=== PATIENT | female | born 1970 | race Caucasian/White ===

== ENCOUNTER 2016-10-10 21:02 | Emergency (ER) | payer OTHER ==
[~2016-10-10] VITALS: Ht 177.8 cm; Wt 80.4 kg
[~2016-10-10 21:02] MED LIST: TRAM-453 PO
[2016-10-10 21:04] VITALS: TEMP 36.8; Ht 177.8 cm; Wt 80.4 kg
[2016-10-10 21:52] VITALS: BP 125/73; PULSE 86; O2SAT 98
--- NOTE | 2016-10-10 22:44 | EMERGENCY ROOM VISIT NOTE ---
History First contact with patient: 21:12 Chief Complaint: ARM PAIN Stated Complaint: PAIN IN RIGHT ARM History of Present Illness The patient is a 46 year old female who presents to the Emergency Room with complaints of pain radiating from her neck all the way down into the hand. She reports a cold sensation and numbness of the right hand. The patient does report a history of diabetes and peripheral neuropathy. 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 She does not believe that she has escalated her activities with practice lately. She pulls a 35 pound draw string. She does not recall any recent injury to the neck or shoulder, and also denies any prior history of previous injuries or chronic neck or shoulder pain. The patient does not believe that the pain is worsened with movement of the neck. Movement of the shoulder worsens her discomfort. She rates her pain a 7 out of 10. The patient is right-hand- dominant. The patient sleeps on her left side. Review of Systems 10 system review was performed and was negative except for pertinent positives and negatives as indicated in history of present illness Past Medical/Surgical History Medical Problems: (1) Chest pain (2) Coronary artery disease (3) Diabetes mellitus type 2 in nonobese (4) Dyslipidemia (5) Hypothyroidism (6) Neuropathy (7) TIA (transient ischemic attack) (8) UTI (urinary tract infection) Surgical Problems: (1) History of arthroscopy of knee (2) History of tubal ligation Family History FH: hypertension FH: lung disease FHx: cancer FHx: diabetes FHx: gallbladder disease FHx: heart disease Social History Smoking Status: Current Every Day Smoker Alcohol Use: none Drug Use: none Marital Status: in relationship Housing Status: lives with significant other Occupation Status: unemployed Current/Historical Medications Scheduled Aspirin (Aspirin Ec), 81 MG PO DAILY Atorvastatin (Lipitor), 80 MG PO DAILY Insulin Aspart (novoLOG INSULIN PUMP ), 1 EA N/A UD Levothyroxine Sodium (Levothyroxine Sodium), 200 MCG PO DAILY Sertraline (Zoloft), 25 MG PO HS Scheduled PRN Lorazepam (Lorazepam), 0.5 MG PO TID PRN for Anxiety Allergies Coded Allergies: Adhesives (Verified Allergy, Mild, 06/29/16) Physical Exam Vital Signs Date Time Temp Pulse Resp B/P Pulse Ox O2 Delivery O2 Flow Rate FiO2 10/10/16 21:52 86 18 125/73 98 10/10/16 21:04 36.8 100 18 146/80 95 Room Air Pain Rating (0-10): 7.0 Physical Exam CONSTITUTIONAL: Healthy and well nourished. Alert and oriented X 3 with positive affect. HEENT: Normocephalic, atraumatic. Pupils equal, round and reactive. NECK: Full active range of motion without discomfort. Patient has no tenderness to palpation of the cervical musculature. RESPIRATORY: Clear to auscultation bilaterally with no wheezing, crackles, rhonchi or stridor. CARDIOVASCULAR: Regular rate and rhythm with no murmurs, rubs or gallops. GASTROINTESTINAL: Bowel sounds present in all quadrants. MUSCULOSKELETAL: Examination shows mild to moderate discomfort with range of motion of the shoulder in full abduction, forward flexion and crossover. Negative apprehension test. No tenderness to palpation through the bicipital groove. Negative drop arm test. No tenderness to palpation through the biceps or triceps muscles. Distal pulses are intact. Equal hand hairspring setter bilaterally. INTEGUMENTARY: No rash or other significant dermatologic conditions noted. NEUROLOGIC: Cranial nerves II-XII grossly intact. No focal neurologic deficits noted. Right hand median, radial and ulnar motor and sensory are intact. Medical Decision & Procedures ED Course Patient history and physical exam were performed. Nurse's notes were reviewed. Patient history and clinical exam findings are consistent with an axillary/ brachial plexitis. The patient was encouraged to limit her activities for now. Ibuprofen and Tylenol in alternating fashion for pain. She was also encouraged to intermittently apply ice to the shoulder. The patient was given contact information for [facility] for further reevaluation and management. The patient was happy with plan of care, voice understanding of all discharge instructions, and rated her discomfort a 5 out of 10 at the time of discharge. She refused any stronger prescription analgesics. Medical Decision Impression Primary Impression: Right brachial plexitis Departure Information Dispostion Home / Self-Care Referrals Robert Portillo M.D. Forms HOME CARE DOCUMENTATION FORM, IMPORTANT VISIT INFORMATION Patient Instructions My [facility] [employer] Additional Instructions Intermittently apply ice to the shoulder. Ibuprofen 800 mg and/or Tylenol 1000 mg every 8 hours. You may also alternate these medications for more effective pain relief: Ibuprofen --4 HRS--> Tylenol --4 HRS--> ibuprofen --4 HRS--> Tylenol .... Avoid further practicing until symptoms improve. Suggest follow-up with [facility] for further reevaluation and management.
[2017-01-10] MEDS ORDERED: OXYC1TAB3 PO (20:08)
[2017-01-30] MEDS ORDERED: TRAM-10 PO (13:22)
[2017-01-30] MEDS ORDERED: INSPMPNVLG (17:30)
[2017-01-30] MEDS ORDERED: ASPI81TA28 PO (19:04)
[2017-02-19] MEDS ORDERED: GABA-113 PO (14:11)
[2017-03-07] MEDS ORDERED: OXYC-57 PO (12:26)
== END 2016-10-10 21:52 | disposition home or self-care (01) ==
LOC: C.EDD 21:38
DX: G54.0 Brachial plexus disorders (principal); E11.43 Type 2 diabetes mellitus with diabetic autonomic (poly)neuropathy; I25.10 Atherosclerotic heart disease of native coronary artery without angina pectoris; E78.5 Hyperlipidemia, unspecified; E03.9 Hypothyroidism, unspecified; Z86.73 Personal history of transient ischemic attack (TIA), and cerebral infarction without residual deficits; Z87.440 Personal history of urinary (tract) infections; Z98.51 Tubal ligation status; Z83.3 Family history of diabetes mellitus; Z82.49 Family history of ischemic heart disease and other diseases of the circulatory system; F17.210 Nicotine dependence, cigarettes, uncomplicated; Z79.82 Long term (current) use of aspirin; Z79.4 Long term (current) use of insulin; Z79.899 Other long term (current) drug therapy

== ENCOUNTER 2016-10-15 12:59 | Emergency (ER) | payer OTHER ==
[~2016-10-15] VITALS: Ht 177.8 cm; Wt 81.4 kg
[2016-10-15 13:01] VITALS: TEMP 36.7; Ht 177.8 cm; Wt 81.4 kg
[2016-10-15] MEDS ORDERED: IBUP-1050 PO (13:22)
[2016-10-15] MEDS ORDERED: ACET325T96 PO (13:22)
[2016-10-15] MEDS ORDERED: OXYCODONE HCL IR 5 MG TAB (IMMEDIATE RELEASE) PO STA (13:56)
--- NOTE | 2016-10-15 15:10 | DIAGNOSTIC IMAGING REPORT ---
LEFT LOWER EXTREMITY VENOUS DOPPLER HISTORY: Left posterior thigh/leg pain COMPARISON STUDY: None. FINDINGS: There is normal compressibility, flow, and augmentation within the left lower extremity deep venous system. IMPRESSION: No DVT within the left lower extremity. Electronically signed by: Oliver Muro M.D. 10/15/2016 3:09 PM Dictated Date/Time: 10/15/2016 3:09 PM
[2016-10-15 15:31] VITALS: BP 129/79; PULSE 80; O2SAT 96
--- NOTE | 2016-10-15 15:54 | EMERGENCY ROOM VISIT NOTE ---
History First contact with patient: 13:53 Chief Complaint: LEG PAIN,LEG INJURY Stated Complaint: LEFT UPPER LEG PAIN/CAN'T SIT, WALK OR LAY History of Present Illness The patient is a 46 year old female who presents to the Emergency Room with complaints of persistent left posterior leg and thigh pain. The patient reports that she is currently in physical therapy for her hamstrings. The patient has had this discomfort for the past 3 months, and has been in therapy for 2 weeks. The patient reports that today her pain is the worst that it is ever been. She denies any significant lower back pain. She has had no paresthesias or numbness of the left lower extremity. She denies any prior history of DVT. She rates her discomfort a 10 out of 10. Review of Systems 10 system review was performed and was negative except for pertinent positives and negatives as indicated in history of present illness Past Medical/Surgical History Medical Problems: (1) Chest pain (2) Coronary artery disease (3) Diabetes mellitus type 2 in nonobese (4) Dyslipidemia (5) Hypothyroidism (6) Kidney disease, chronic, stage II (GFR 60-89 ml/min) (7) Neuropathy (8) TIA (transient ischemic attack) (9) UTI (urinary tract infection) Surgical Problems: (1) History of arthroscopy of knee (2) History of arthroscopy of right knee (3) History of tubal ligation (4) History of tubal ligation Family History FH: hypertension FH: lung disease FHx: cancer FHx: diabetes FHx: gallbladder disease FHx: heart disease Social History Smoking Status: Current Every Day Smoker Alcohol Use: none Drug Use: none Marital Status: in relationship Housing Status: lives with significant other Occupation Status: unemployed Current/Historical Medications Scheduled Aspirin (Aspirin Ec), 81 MG PO DAILY Atorvastatin (Lipitor), 80 MG PO DAILY Ibuprofen (Advil), 200-600 MG PO Q4H Insulin Aspart (novoLOG INSULIN PUMP ), 1 EA N/A UD Levothyroxine Sodium (Levothyroxine Sodium), 200 MCG PO DAILY Sertraline (Zoloft), 25 MG PO HS Scheduled PRN Lorazepam (Lorazepam), 0.5 MG PO TID PRN for Anxiety Tramadol (Ultram), 50 MG PO Q4H PRN for Pain Miscellaneous Medications Acetaminophen Tab (Tylenol), 325 MG PO Allergies Coded Allergies: Adhesives (Verified Allergy, Mild, 2/5/17) Physical Exam Vital Signs Date Time Temp Pulse Resp B/P Pulse Ox O2 Delivery O2 Flow Rate FiO2 10/15/16 15:31 80 18 129/79 96 10/15/16 14:44 81 18 126/77 97 Room Air 10/15/16 13:01 36.7 91 18 148/83 98 Room Air Physical Exam CONSTITUTIONAL: Healthy and well nourished. Alert and oriented X 3 with positive affect. Patient appears in moderate discomfort from pain. HEENT: Normocephalic, atraumatic. Pupils equal, round and reactive. NECK: Full active range of motion without discomfort. RESPIRATORY: Clear to auscultation bilaterally with no wheezing, crackles, rhonchi or stridor. CARDIOVASCULAR: Regular rate and rhythm with no murmurs, rubs or gallops. MUSCULOSKELETAL: Examination of the left extremity does not show any obvious soft tissue edema. She is tender through the proximal posterior calf, through the popliteal space and into the posterior calf. Negative Homans sign. No popliteal masses. Pedal pulses are intact. No tenderness to palpation about the knee. Negative logroll. Negative straight leg raise. INTEGUMENTARY: No rash or other significant dermatologic conditions noted. NEUROLOGIC: Left foot and toes are sensory intact. Medical Decision & Procedures ER Provider Diagnostic Interpretation: Venous ultrasound of the left lower extremity is negative for DVT. Radiologist report is as follows: LEFT LOWER EXTREMITY VENOUS DOPPLER HISTORY: Left posterior thigh/leg pain COMPARISON STUDY: None. FINDINGS: There is normal compressibility, flow, and augmentation within the left lower extremity deep venous system. IMPRESSION: No DVT within the left lower extremity. Medications Administered Medications (Trade) Dose Ordered Sig/Rodri Route Start Time Stop Time Status Last Admin Dose Admin Oxycodone HCl (Roxicodone Immediate Rel Tab) 5 mg NOW STAT PO 10/15/16 13:56 10/15/16 13:58 DC 10/15/16 14:05 5 MG ED Course Patient history and physical exam were performed. Nurse's notes were reviewed. Vital signs were reviewed and were normal. The patient was administered OxyIR 5 mg after she reports that she has a ride. Venous ultrasound of the left lower extremity was negative for DVT. The patient was asked if she can crutches at home. She initially thought that she had, but extent family and discovered that they were unable to find crutches. Crutches were dispensed, and the patient was encouraged to remain limited weightbearing until symptoms improve. I also suggested that she follow-up with her family doctor to discuss orthopedic referral since she has had ongoing pain for the past several months. The patient was advised that her pain should quickly improve if she uses her crutches. She should still have some tramadol at home as needed for pain, and was encouraged to alternate ibuprofen and Tylenol for baseline pain relief. The patient voiced understanding of all discharge instructions, was happy with plan of care, and rated her discomfort a 4 out of 10 at the time of discharge. Medical Decision Impression Primary Impression: Pain of left lower extremity Departure Information Referrals Noelle Rob D.O. (PCP) Patient Instructions My [facility]
[2017-01-10] MEDS ORDERED: OXYC1TAB3 PO (20:08)
[2017-01-30] MEDS ORDERED: TRAM-10 PO (13:22)
[2017-01-30] MEDS ORDERED: INSPMPNVLG (17:30)
[2017-01-30] MEDS ORDERED: ASPI81TA28 PO (19:04)
[2017-02-19] MEDS ORDERED: GABA-113 PO (14:11)
[2017-03-07] MEDS ORDERED: OXYC-57 PO (12:26)
== END 2016-10-15 15:33 | disposition home or self-care (01) ==
LOC: C.EDB 13:00 → C.EDD 15:33
DX: M79.652 Pain in left thigh (principal); I25.10 Atherosclerotic heart disease of native coronary artery without angina pectoris; E11.22 Type 2 diabetes mellitus with diabetic chronic kidney disease; N18.2 Chronic kidney disease, stage 2 (mild); E78.5 Hyperlipidemia, unspecified; E03.9 Hypothyroidism, unspecified; G62.9 Polyneuropathy, unspecified; F17.200 Nicotine dependence, unspecified, uncomplicated; Z86.73 Personal history of transient ischemic attack (TIA), and cerebral infarction without residual deficits; Z82.49 Family history of ischemic heart disease and other diseases of the circulatory system; Z83.3 Family history of diabetes mellitus; Z79.82 Long term (current) use of aspirin; Z79.4 Long term (current) use of insulin

== ENCOUNTER 2017-01-19 08:18 | Emergency (ER) | payer OTHER ==
[~2017-01-19 08:18] MED LIST changes: +OXYC1TAB3 PO; -TRAM-453 PO
[2017-01-19 08:20] VITALS: TEMP 36.7; Ht 177.8 cm
[2017-01-19] MEDS ORDERED: ONDANSETRON INJ 2 MG/ML 2 ML VIAL IV STA (08:34)
[2017-01-19] MEDS ORDERED: KETOROLAC TROMETHAMINE 30 MG/ML VIAL IV STA (08:34)
[2017-01-19] MEDS ORDERED: MoRPHine SULFATE 10 MG/ML CARP/VIAL IV STA (08:34)
[2017-01-19] MEDS ORDERED: DEXAMETHASONE SOD INJ 10 MG/ML VIAL IV ONE (08:45)
[2017-01-19] MEDS ORDERED: MoRPHine SULFATE 4 MG/ML 1 ML CARP\\VIAL IV STA (09:28)
[2017-01-19 09:47] VITALS: BP 132/91; PULSE 88; O2SAT 99
[2017-01-19] MEDS ORDERED: OXYC1TAB3 PO (10:09)
--- NOTE | 2017-01-19 10:11 | EMERGENCY ROOM VISIT NOTE ---
History First contact with patient: 08:28 Chief Complaint: LEG PAIN,LEG INJURY Stated Complaint: CAN'T WALK LEFT SIDE History of Present Illness The patient is a 46 year old female who presents to the Emergency Room with complaints of severe left leg pain. The patient states that she has a bulging disc which is hitting a nerve in her lumbar spine. She is currently under the care of Dr. elder for this problem. He is going to inject her back on Sunday. If this does not work she will be evaluated for possible surgery. The patient states that she has tried oral steroids and physical therapy in the past without any relief of the pain. The patient states she normally has pain in the left buttocks radiating down the leg but today it is much worse and she is unable to put weight on her left leg. The patient denies any loss of bowel or bladder control. The patient denies any saddle anesthesia. The patient states that she does not have any pain medication at home to take. Review of Systems 6 system review was performed and was negative unless stated otherwise in history of present illness. Past Medical/Surgical History Medical Problems: (1) Chest pain (2) Coronary artery disease (3) Diabetes mellitus type 2 in nonobese (4) Dyslipidemia (5) Hypothyroidism (6) Kidney disease, chronic, stage II (GFR 60-89 ml/min) (7) Neuropathy (8) TIA (transient ischemic attack) (9) UTI (urinary tract infection) Surgical Problems: (1) History of arthroscopy of knee (2) History of arthroscopy of right knee (3) History of tubal ligation (4) History of tubal ligation Family History FH: hypertension FH: lung disease FHx: cancer FHx: diabetes FHx: gallbladder disease FHx: heart disease Social History Smoking Status: Current Every Day Smoker Alcohol Use: none Drug Use: none Marital Status: in relationship Housing Status: lives with significant other Occupation Status: unemployed Current/Historical Medications Scheduled Aspirin (Aspirin Ec), 81 MG PO DAILY Atorvastatin (Lipitor), 80 MG PO DAILY Insulin Aspart (novoLOG INSULIN PUMP ), 1 EA N/A UD Levothyroxine Sodium (Levothyroxine Sodium), 200 MCG PO DAILY Sertraline (Zoloft), 25 MG PO HS Scheduled PRN Lorazepam (Lorazepam), 0.5 MG PO TID PRN for Anxiety Oxycodone Ir (Roxicodone Ir), 1-2 TAB PO Q4H PRN for Pain Tramadol (Ultram), 50 MG PO Q4H PRN for Pain Allergies Coded Allergies: Adhesives (Verified Allergy, Mild, 01/10/17) Physical Exam Vital Signs Date Time Temp Pulse Resp B/P Pulse Ox O2 Delivery O2 Flow Rate FiO2 01/19/17 09:47 88 18 132/91 99 Room Air 01/19/17 08:20 36.7 100 20 147/91 97 Room Air Physical Exam PHYSICAL EXAM: Vital Signs normal: Reviewed Nurse's notes and agree. GENERAL: 46-year-old white female appears very uncomfortable secondary to pain. MENTAL STATUS: Alert and oriented 3. LUNGS: Clear to auscultation without wheezes rales or rhonchi. CARDIAC: Regular rate and rhythm without murmur. LUMBAR SPINE: No gross bony abnormality noted. Patient is nontender to palpation over the spinous processes. She is non-tender to palpation in the paravertebral regions bilaterally. Range of motion was not assessed secondary to patient's pain.. NEURO: Positive straight leg raise on the left. Medical Decision & Procedures Medications Administered Medications (Trade) Dose Ordered Sig/Rodri Route Start Time Stop Time Status Last Admin Dose Admin Dexamethasone Sodium Phosphate (Decadron Inj) 10 mg NOW ONCE IV 01/19/17 08:45 01/19/17 08:46 DC 01/19/17 08:49 10 MG Ketorolac Tromethamine (Toradol Inj) 30 mg NOW STAT IV 01/19/17 08:34 01/19/17 08:36 DC 01/19/17 08:50 30 MG Morphine Sulfate (MoRPHine SULFATE INJ) 6 mg NOW STAT IV 01/19/17 08:34 01/19/17 08:36 DC 01/19/17 08:50 6 MG Ondansetron HCl (Zofran Inj) 4 mg NOW STAT IV 01/19/17 08:34 01/19/17 08:37 DC 01/19/17 08:49 4 MG Morphine Sulfate (MoRPHine SULFATE INJ) 4 mg NOW STAT IV 01/19/17 09:28 01/19/17 09:30 DC 01/19/17 09:45 4 MG ED Course The patient was evaluated. The patient's EMR and medication list were reviewed. IV access was obtained. The patient was given Toradol 30 mg IV, morphine 6 mg IV, Zofran 4 mg IV push and Decadron 10 mg IV. I had the secretaries get the MRI of the patient's back from [facility]. This was performed on 01/12/2017 appears that the patient has a disc bulge at the L5-S1 level with a small disc herniation at this level as well. There is also moderate bilateral foraminal narrowing greater on the left. The patient was reevaluated. The patient states that she was slightly better. I decided to give the patient an additional 4 mg of morphine IV. Again the patient was reevaluated. She rated her pain at a 6 out of 10. I was able to get the patient out of bed and she was able to ambulate on her own. I gave the option to the patient for admission for pain control or that I would prescribe her pain meds and she could keep her scheduled appointment on Sunday with Dr. elder. The patient requested discharge. Prescription drug monitoring program was accessed. The patient was discharged home in stable condition with a family member driving. Medical Decision Differential diagnosis include cauda equina syndrome, worsening left radiculopathy The patient already has an appointment with Dr. elder for an injection into her back on Sunday therefore she will be sent home with pain control until Sunday. Impression Primary Impression: Lumbar back pain with radiculopathy affecting left lower extremity Departure Information Dispostion Home / Self-Care Condition GOOD Prescriptions Oxycodone Immediate Rel Tab (ROXICODONE IR) 5 Mg Tab 1-2 TAB PO Q4H Y for Pain, #24 TAB Prov: Margi Campuzano PA-C 01/19/17 Referrals Noelle Rob D.O. (PCP) Forms HOME CARE DOCUMENTATION FORM, IMPORTANT VISIT INFORMATION Patient Instructions My [facility] [employer] Additional Instructions DISCHARGE INSTRUCTIONS AND TREATMENT: Ibuprofen 600 mg every 6 hours with food for pain. Rx is given for OxyIR 5 mg. 1-2 tablets every 4 hours as needed for more severe pain. Dispense [address] taking the OxyIR. Avoid staying in any one position for an extended period of time. Keep scheduled appointment with Dr. elder on Sunday. If symptoms worsen in the interim, return to ER.
[2017-01-30] MEDS ORDERED: TRAM-10 PO (13:22)
[2017-01-30] MEDS ORDERED: INSPMPNVLG (17:30)
[2017-01-30] MEDS ORDERED: ASPI81TA28 PO (19:04)
[2017-02-19] MEDS ORDERED: GABA-113 PO (14:11)
[2017-03-07] MEDS ORDERED: OXYC-57 PO (12:26)
== END 2017-01-19 10:26 | disposition home or self-care (01) ==
LOC: C.EDB 08:20 → C.EDA 10:26
DX: M54.16 Radiculopathy, lumbar region (principal); M79.605 Pain in left leg; I25.10 Atherosclerotic heart disease of native coronary artery without angina pectoris; E11.40 Type 2 diabetes mellitus with diabetic neuropathy, unspecified; E78.5 Hyperlipidemia, unspecified; E03.9 Hypothyroidism, unspecified; N18.2 Chronic kidney disease, stage 2 (mild); Z86.73 Personal history of transient ischemic attack (TIA), and cerebral infarction without residual deficits; Z87.440 Personal history of urinary (tract) infections; Z82.49 Family history of ischemic heart disease and other diseases of the circulatory system; Z83.6 Family history of other diseases of the respiratory system; Z80.9 Family history of malignant neoplasm, unspecified; Z83.3 Family history of diabetes mellitus; Z83.79 Family history of other diseases of the digestive system; F17.210 Nicotine dependence, cigarettes, uncomplicated; Z79.82 Long term (current) use of aspirin; Z79.4 Long term (current) use of insulin; Z79.899 Other long term (current) drug therapy

== ENCOUNTER 2017-01-30 21:01 | Emergency (ER) | payer OTHER ==
[~2017-01-30] VITALS: Ht 180.3 cm; Wt 82.8 kg
[~2017-01-30 21:01] MED LIST changes: +ASPI81TA28 PO; +INSPMPNVLG; +TRAM-10 PO
[2017-01-30 21:12] VITALS: TEMP 37.1; Ht 180.3 cm; Wt 82.8 kg
[2017-01-30] MEDS ORDERED: ATOR-26 PO (21:23)
[2017-01-30] MEDS ORDERED: SERT25TA PO (21:23)
[2017-01-30] MEDS ORDERED: CYCLOBENZAPRINE HCL 10 MG TAB PO STA (21:37)
[2017-01-30] MEDS ORDERED: KETOROLAC TROMETHAMINE 60 MG/2 ML VIAL IM STA (21:37)
[2017-01-30] MEDS ORDERED: HYDROmorphone INJ 1 MG/ML SYR IM STA (21:37)
[2017-01-30] MEDS ORDERED: CYCL10TA6 PO (21:52)
[2017-01-30] MEDS ORDERED: OXYC-609 PO (21:52)
[2017-01-30] MEDS ORDERED: LEVO200T6 PO (22:02)
[2017-01-30] MEDS ORDERED: ATV5X PO (22:02)
[2017-01-30] MEDS ORDERED: HYDROmorphone INJ 2 MG/ML SYR/VIAL IM STA (22:17)
--- NOTE | 2017-01-30 22:41 | EMERGENCY ROOM VISIT NOTE ---
ED Visit Note First contact with patient: 21:29 CHIEF COMPLAINT: Left leg pain, swelling and numbness HISTORY OF PRESENT ILLNESS: This 46-year-old female presents the ER with chief complaint of her left leg being swollen, numb and purple in color. The patient states that she had an injection into her lumbar spine by Dr. elder last Sunday on January 22. She has 2 herniated disc in her lumbar region. She has gone through physical therapy 3 times and has been on medication without any relief of her pain. The patient continues to have low back pain and left leg pain. She states since the injection she feels like her left leg is swollen and is cold and purple. She states she could not feel a pulse in her left foot. Her family doctor is Dr. iyer. She called Dr. elder today about her symptoms and he told her she should not be in pain and therefore to reevaluate her in 14 days after her injection to see if she requires another injection or referral to a spine surgeon. The patient currently takes oxycodone 5 mg at bedtime along with a muscle relaxer at bedtime. She takes tramadol 100 mg every 6 hours throughout the day in addition to ibuprofen. She states this is not controlling her pain. REVIEW OF SYSTEMS: 6 system review was performed and was negative unless stated otherwise in history of present illness. PMH: The patient is healthy; see chronic problem list. No changes from prior visit. SOCIAL HISTORY: Patient lives with her significant other. Patient denies any alcohol use. PHYSICAL EXAM: Vital Signs normal: Reviewed Nurse's notes and agree. GENERAL: 46-year-old white female appears in no acute distress. MENTAL STATUS: Alert and oriented in no acute distress. LUMBAR SPINE: No gross bony abnormality noted. Patient is nontender to palpation over the spinous processes. She is tender to palpation over the paravertebral regions bilaterally. She has limited range of motion in all directions secondary to pain. Muscle strength is 5 out of 5 bilateral lower extremities and symmetrical. NEURO: Patient is able to heel walk but is unable to toe walk. Bilateral patellar and Achilles reflexes are 2+. Sensation is intact to pinprick bilateral lower extremities. Positive straight leg raise on the left. LEFT LEG: No discoloration is noted. No erythema or edema noted. Posterior tibialis pulse is 2+. Pedal pulses 1+. Sensation is intact. EMERGENCY DEPARTMENT COURSE: The patient was evaluated. The patient's EMR medication list were reviewed. The patient was given Dilaudid 1 mg IM, Toradol 60 mg IM and Flexeril 10 mg by mouth. The patient was reevaluated and stated she was better if she didn't move but as soon as she moved she had severe pain. The patient was therefore given an additional 2 mg of Dilaudid IM. The patient was again reevaluated and stated she was feeling much better. The patient was discharged home with a friend driving. DIAGNOSIS: Low back pain with left radiculopathy DISCHARGE INSTRUCTIONS AND TREATMENT: Continue ibuprofen 600 mg every 6 hours with food for pain. Take OxyIR 2 tablets every 6 hours as needed for pain. Call your family doctor tomorrow for follow-up appointment to discuss further treatment and plan for your back pain. Problem List Medical Problems: (1) Coronary artery disease Permanent Comment: cath 06/2014-nonocclusive mild-moderate CAD of LAD Status: Chronic (2) Diabetes mellitus type 2 in nonobese Status: Chronic (3) Dyslipidemia Status: Chronic (4) Hypothyroidism Status: Chronic (5) Neuropathy Status: Chronic (6) TIA (transient ischemic attack) Status: Resolved (7) UTI (urinary tract infection) Status: Resolved Surgical Problems: (1) History of arthroscopy of knee Permanent Comment: R knee Status: Resolved (2) History of tubal ligation Status: Resolved Current/Historical Medications Scheduled Aspirin (Aspirin Ec), 81 MG PO DAILY Atorvastatin (Lipitor), 80 MG PO DAILY Cyclobenzaprine Hcl (Flexeril), 10 MG PO HS Insulin Aspart (novoLOG INSULIN PUMP ), 1 EA N/A UD Levothyroxine Sodium (Levothyroxine Sodium), 200 MCG PO DAILY Sertraline (Zoloft), 25 MG PO HOLD Scheduled PRN Lorazepam (Lorazepam), 0.5 MG PO TID PRN for Anxiety Oxycodone HCl (Oxycodone HCl), 5 MG PO Q4H PRN for Pain Tramadol (Ultram), 50 MG PO Q4H PRN for Pain Allergies Coded Allergies: Adhesives (Verified Allergy, Mild, 01/19/17) Vital Signs Date Time Temp Pulse Resp B/P Pulse Ox O2 Delivery O2 Flow Rate FiO2 01/30/17 21:12 37.1 96 16 137/77 97 Room Air Medications Administered Medications (Trade) Dose Ordered Sig/Rodri Route Start Time Stop Time Status Last Admin Dose Admin Ketorolac Tromethamine (Toradol Inj) 60 mg NOW STAT IM 01/30/17 21:37 01/30/17 21:39 DC 01/30/17 21:37 60 MG Hydromorphone HCl (Dilaudid Inj) 1 mg NOW STAT IM 01/30/17 21:37 01/30/17 21:39 DC 01/30/17 21:37 1 MG Cyclobenzaprine HCl (Flexeril Tab) 10 mg NOW STAT PO 01/30/17 21:37 01/30/17 21:40 DC 01/30/17 21:37 10 MG Hydromorphone HCl (Dilaudid Inj) 2 mg NOW STAT IM 01/30/17 22:17 01/30/17 22:18 DC 01/30/17 22:17 2 MG Departure Information Referrals Noelle Iyer D.O. (PCP) Patient Instructions [facility]
[2017-01-30 22:47] VITALS: BP 132/76; PULSE 78; O2SAT 97
[2017-02-19] MEDS ORDERED: GABA-113 PO (14:11)
[2017-03-07] MEDS ORDERED: OXYC-57 PO (12:26)
== END 2017-01-30 22:48 | disposition home or self-care (01) ==
LOC: C.EDB 21:02 → C.EDC 22:48
DX: M54.16 Radiculopathy, lumbar region (principal); I25.10 Atherosclerotic heart disease of native coronary artery without angina pectoris; E11.9 Type 2 diabetes mellitus without complications; E78.5 Hyperlipidemia, unspecified; E03.9 Hypothyroidism, unspecified; Z86.73 Personal history of transient ischemic attack (TIA), and cerebral infarction without residual deficits; Z87.440 Personal history of urinary (tract) infections; Z79.82 Long term (current) use of aspirin; Z79.4 Long term (current) use of insulin; Z79.899 Other long term (current) drug therapy

== ENCOUNTER 2017-03-07 09:46 | Day surgery (SDC) | payer OTHER ==
[2017-02-19 14:11] VITALS: BMI 25.0
--- NOTE | 2017-02-19 14:52 | PAT Medication Instructions ---
Service Date Feb 19, 2017. Current Home Medication List Aspirin (Aspirin Ec), 81 MG PO QAM Gabapentin (Neurontin), 300 MG PO TID Insulin Aspart (novoLOG INSULIN PUMP ), 1 DOSE N/A UD Levothyroxine Sodium (Levothyroxine Sodium), 200 MCG PO DAILY Tramadol (Ultram), 50 MG PO Q4H PRN for Pain Medication Instructions For Your Scheduled Surgery - Check with surgeon/family doctor: Aspirin (Aspirin Ec), 81 MG PO QAM - Take the following medications the morning of surgery with a sip of water: Levothyroxine Sodium (Levothyroxine Sodium), 200 MCG PO DAILY Tramadol (Ultram), 50 MG PO Q4H PRN for Pain (okay to take up to 4 hours prior to surgery if needed) Gabapentin (Neurontin), 300 MG PO TID - Take the following medications as scheduled the night before surgery: Levothyroxine Sodium (Levothyroxine Sodium), 200 MCG PO DAILY Tramadol (Ultram), 50 MG PO Q4H PRN for Pain (if needed) Gabapentin (Neurontin), 300 MG PO TID - For Insulin Dependent Diabetic patients: - Insulin Aspart (novoLOG INSULIN PUMP ), 1 DOSE N/A UD (continue basal rate setting only) If you have any questions please call us at [phone] or [phone] or [phone]
[2017-02-19 15:22] LABS: BASO % 0.3 %; BASO ABS # 0.03 K/uL (0-0.2); COMPLETE YES; EOS % 2.7 %; IG% 0.3 %; LYMPH % 24.5 %; LYMPH ABS # 2.58 K/uL (1.2-3.4); MEAN CELL VOLUME 93.2 fL (80-100); MEAN CORPUSCULAR HEMOGLOBIN 32.8 pg (25-34); MEAN CORPUSCULAR HGB CONC 35.2 g/dl (32-36); MEAN PLATELET VOLUME 11.1 fL (7.4-10.4); MONO % 8.9 %; NEUT % 63.3 %; PLATELET COUNT 235 K/uL (130-400); RED BLOOD COUNT 4.72 M/uL (4.2-5.4); WHITE BLOOD COUNT 10.55 K/uL (4.8-10.8)
[2017-02-19 15:36] LABS: INR 0.9 (0.9-1.1)
[2017-02-19 15:37] LABS: URINE APPEARANCE CLEAR (CLEAR); URINE BILIRUBIN NEG (NEG); URINE COLOR YELLOW; URINE NITRITE NEG (NEG); URINE SPECIFIC GRAVITY 1.039 (1.000-1.030); UROBILINOGEN NEG (NEG)
[2017-02-19 15:41] LABS: MANUAL MICROSCOPIC REQUIRED? NO; REVIEW REQ? NO
[2017-02-19 15:59] LABS: CALCIUM 8.5 mg/dl (8.5-10.1)
[2017-02-19 16:13] LABS: BETA-HYDROXYBUTYRATE 0.76 mg/dL (0.2-2.81)
[2017-03-02 16:13] VITALS: BMI 25.0
--- NOTE | 2017-03-02 17:17 | HISTORY & PHYSICAL EXAMINATION ---
DATE OF ADMISSION: 03/07/2017 CHIEF COMPLAINT: Low back pain and left lower extremity pain. HISTORY OF PRESENT ILLNESS: Ms. Hughes is a 46-year-old female with a history of back and left leg pain that began in last June. She reports that the pain has persisted despite physical therapy and epidural steroid injections. She is using Percocet with no relief of pain in her left leg and S1 distribution with associated numbness. She denies weaknesses. She denies incontinence. She denies right leg pain. She is a single mother with a 7-year-old child. She has been cleared by her PCP to proceed with elective surgery. PAST MEDICAL HISTORY: Coronary artery disease, diabetes, neuropathy, TIA, thyroid disease, restless legs syndrome, dyslipidemia, GERD, migraines. PAST SURGICAL HISTORY: laparoscopy, knee arthroscopy, EGD, colonoscopy, history of cardiac catheterization in 2010 -no stent placed. MEDICATIONS: Levothyroxine, lorazepam, Percocet, atorvastatin, insulin, Zoloft, Flovent, ProAir, and aspirin 81 mg. FAMILY HISTORY: Cancer, diabetes, stroke, heart disease. SOCIAL HISTORY: The patient is a smoker, no alcohol. MEDICATIONS: ADHESIVES CAUSED A RASH. REVIEW OF SYSTEMS: Negative for fever, hearing loss, vision loss, shortness of breath, chest pain, leg swelling, bowel movements or weight loss. PHYSICAL EXAMINATION: GENERAL: The patient is a pleasant female who appears her stated age. She stands and ambulates with a normal gait. She has no ataxia. She has normal affect and answers questions appropriately. NECK: She has full cervical range of motion with no cervical lymphadenopathy or thyromegaly. HEART: Regular rate and rhythm. LUNGS: Clear to auscultation bilaterally with symmetric chest excursion. EXTREMITIES: Show nontender range of motion. Palpable distal pulses in the lower extremities, no edema. NEUROLOGIC: Revealed positive straight leg raise on the left, decreased sensation to light touch in an S1 distribution on the left. She has normal sensation to light touch, proximally elsewhere but does have subjectively decreased distal stocking like sensation. She has 5/5 strength mini motor testing of both lower extremities in all distributions. She has symmetrically diminished DTRs at patellar and Achilles. No clonus of the ankles. IMAGING DATA: Her MRI was reviewed and she has L5-S1 disk herniation on the left with significant compression of the S1 nerve root. ASSESSMENT AND PLAN: The patient desires surgical intervention due to the severity of her pain and chronicity. I recommend a left L5-S1 microdiscectomy. She has been cleared medically, will proceed with the planned procedure as scheduled. JEROMY
[~2017-03-07] VITALS: Ht 177.8 cm; Wt 79.6 kg
[~2017-03-07 09:46] MED LIST changes: +GABA-113 PO; +LEVO200T6 PO; -OXYC1TAB3 PO
[2017-03-07] MEDS ORDERED: CEFAZOLIN IV 2,000 MG/60 ML D5W IV ONE (10:07)
[2017-03-07 10:15] VITALS: BP 135/84; PULSE 96; TEMP 36.8; O2SAT 97; Ht 177.8 cm; Wt 79.6 kg
[2017-03-07] MEDS ORDERED: HYDROmorphone INJ 1 MG/ML SYR IV PRN (10:15)
[2017-03-07] MEDS ORDERED: FENTANYL CITRATE INJ 50 MCG/1 ML 2 ML VIAL IV PRN (10:15)
[2017-03-07] MEDS ORDERED: ONDANSETRON INJ 2 MG/ML 2 ML VIAL IV PRN ×2 (10:15→12:30)
[2017-03-07] MEDS ORDERED: EpHEDrine SULFATE INJ 50 MG/ML AMP IV PRN (10:15)
[2017-03-07] MEDS ORDERED: ATROPINE SULFATE 0.1 MG/ML 5ML SYR IV PRN (10:15)
[2017-03-07] MEDS ORDERED: FENTANYL CITRATE INJ 50 MCG/1 ML 2 ML VIAL ONE ×2 (10:46→11:46)
[2017-03-07] MEDS ORDERED: MIDAZOLAM HCL 1 MG/ML 2ML VIAL ONE (10:46)
--- NOTE | 2017-03-07 11:04 | History & Physical Bridge Note ---
H&P Re-Evaluation Bridge Note: I have examined the patient, reviewed the History & Physical and in the interval since the performance of the History & Physical I have noted the following changes of clinical significance: No changes noted
[2017-03-07] MEDS ORDERED: THROMBIN 5000 UNITS KIT ONE (11:08)
[2017-03-07] MEDS ORDERED: BACITRACIN 50000 UNIT VIAL ONE (11:08)
[2017-03-07] MEDS ORDERED: BUPIVACAINE/EPINEPHRINE 0.25% 1:200,000 30 ML VIAL ONE (11:09)
[2017-03-07] MEDS ORDERED: HYDROmorphone INJ 2 MG/ML SYR/VIAL ONE (11:47)
[2017-03-07] MEDS ORDERED: NEOSTIGMINE METHYLSULFATE 1 MG/ML 10ML VIAL ONE ×2 (11:54→12:17)
[2017-03-07] MEDS ORDERED: GLYCOPYRROLATE INJ 0.2 MG/ML VIAL ONE ×2 (11:54→12:17)
[2017-03-07] MEDS ORDERED: PROPOFOL IV EMULSION 10 MG/ML 20 ML VIAL IV ONE (11:54)
[2017-03-07] MEDS ORDERED: ROCURONIUM BROMIDE 10 MG/ML 5 ML VIAL ONE (11:54)
[2017-03-07] MEDS ORDERED: ONDANSETRON INJ 2 MG/ML 2 ML VIAL ONE (11:54)
[2017-03-07] MEDS ORDERED: LIDOCAINE HCL 2% 2 ML VIAL (20MG/ML) ONE (11:54)
[2017-03-07] MEDS ORDERED: METOCLOPRAMIDE HCL INJ 5 MG/ML 2 ML VIAL ONE (11:58)
[2017-03-07] MEDS ORDERED: RANITIDINE HCL 25 MG/ML INJ ONE (11:58)
--- NOTE | 2017-03-07 12:13 | [facility] Post Operative Brief Note ---
Immediate Operative Summary Operative Date Mar 07, 2017. Pre-Operative Diagnosis L5-S1 DISC HERNIATION Post-Operative Diagnosis SAME PREOP Procedure(s) Performed LEFT L5-S1 MICRODISCECT[address] Surgeon [address]. Mari REED Men'S Basketball Coach Surgeon(s) Josef BENOIT PAC Estimated Blood Loss minimal Findings dict Specimens NONE
[2017-03-07] MEDS ORDERED: ALBUT/IPRATROP 3MG/0.5MG NEB 3 ML VIAL ONE (12:19)
[2017-03-07] MEDS ORDERED: SODIUM CHLORIDE 0.9% 1000ML 1,000 ML IV SCH (12:23)
--- NOTE | 2017-03-07 12:23 | DIAGNOSTIC IMAGING REPORT ---
INTRAOPERATIVE RADIOGRAPH CLINICAL HISTORY: L5-S1 microdiscectomy. Fluoroscopy time: 5 seconds. FINDINGS: A single spot fluoroscopic image of the lower lumbar spine is presented. A surgical probe projects posteriorly at L5-S1. IMPRESSION: Intraoperative image from L5-S1 discectomy as above. Electronically signed by: Leroy Ramirez M.D. 03/07/2017 12:21 PM Dictated Date/Time: 03/07/2017 12:20 PM
--- NOTE | 2017-03-07 12:23 | [facility] Operative Report ---
Operative Report Operative Date Mar 07, 2017. Pre-Operative Diagnosis L5-S1 DISC HERNIATION Procedure(s) Performed Left L5-S1 microdiscectomy Surgeon DR. Mari REED Automobile Damage Appraiser Surgeon(s) Josef BENOIT PAC Estimated Blood Loss minimal Findings see below Specimens NONE Description of Procedure DESCRIPTION OF PROCEDURE: After identification of patient and operative level, the patient was brought to the OR where they underwent induction of general anesthesia. They were positioned prone on Chip OR table. All bony prominences were well padded. Care was taken to avoid pressure on the periorbital area. Lumbosacral area was sterilely prepped and draped in usual fashion. Antibiotics were administered. Time-out was performed. Level was confirmed and skin incision was localized with spinal needle. I infiltrated the skin with Marcaine and placed the incision over the spinous process of L5 and S1, I exposed the Left L5-S1 interlaminar window. After mobilization of the fascia, I identified the operative level with fluoroscopy and a marker and then marked this level. A glass belt sander retractor was placed and a small laminotomy was created under the caudal edge of L5. I removed the ligamentum flavum and identified the traversing nerve root, then protected it with a nerve root retractor and then identified the extruded disc fragment. I removed the capsule around the disc fragment, removed loose disc fragments and swept and explored the disc space, and confirmed no further fragments were present. I then reconfirmed level, confirmed the nerve was decompressed and irrigated with bacitracin solution, applied FloSeal and closed in layered fashion. All sponge and needle counts were correct at the end of the case. I attest to the content of the Intraoperative Record and any orders documented therein. Any exceptions are noted below. I attest to the content of the Intraoperative Record and any orders documented therein. Any exceptions are noted below.
[2017-03-07] MEDS ORDERED: OXYC-57 PO (12:26)
--- NOTE | 2017-03-07 12:28 | Discharge Instructions ---
Discharge Instructions Date of Service Mar 07, 2017. Admission Reason for Admission: Herniated Nucleus Pulposus Discharge Discharge Diagnosis / Problem: same Discharge Goals Goal(s): Decrease discomfort Activity Recommendations Activity Limitations: per Instructions/Follow-up section . Instructions / Follow-Up Instructions / Follow-Up ACTIVITY RECOMMENDATIONS: SELF CARE INSTRUCTIONS AFTER A LAMINECTOMY 1. No prolonged sitting (less than 30 minutes for the first 3 weeks after surgery). 2. No bending, lifting more than 5 pounds, or twisting (roll like a log when turning in bed). 3. You may shower 3 days after surgery if no drainage from wound. Thoroughly dry wound. Do not soak in the tub. 4. Please walk as much as you can for exercise. Gradually increase the distance that you walk as your endurance increases. 5. You may drive in 7-10 days if you are comfortable and no longer requiring pain medications. SPECIAL CARE INSTRUCTIONS: VERY IMPORTANT TO READ AND REVIEW A. Your surgical incision has been closed with a cosmetic suture under the skin that will dissolve in about 6 weeks. In 14 days, you can use a pair of clean scissors and cut the suture that is left outside of the skin at the ends of your incision. B. Complications are uncommon, but please contact us if you have any signs or symptoms of: 1. wound infection (fever higher than 102.5 degrees F, redness, separation of wound, drainage, or increasing pain from the incision) 2. blood clots in legs (pain, swelling, redness and warmth in legs) 3. urinary tract infection (fever higher than 102.5 degrees, burning upon urination or increased frequency of urination) 4. nerve problems (inability to walk on your toes or heels, numbness, loss of bowel or bladder control) 5. any other symptoms that concern you. C. Please call the office at if you have any concerns or questions about your operation or recovery. MANAGING PAIN AFTER SPINAL SURGERY 1. Narcotic medication is intended for short-term use and will be provided for surgical pain. Surgical pain usually lasts for a period of 4-6 weeks. Do not take tramadol and percocet together. Narcotic medication includes Percocet, Vicodin, Darvocet, Tylenol #3 or Lortab. 2. Longer-term pain is more appropriately treated with non-narcotic medication such as Tylenol ES. 3. Muscle spasm is not appropriately treated with narcotics. Muscle relaxers such as Soma, Flexeril or Skelaxin can be used along with Tylenol ES. 4. Remember that we all live with some "aches and pains". This is not unusual or uncommon after an injury or as we get older. 5. We will provide appropriate medication within the normal guidelines of their prescribed use. We will also be very cautious and aware of potential abuse and extended duration of patients' medication needs. 6. Please allow 2-3 days to process refills. Prescriptions will not be mailed but must be picked up at the office. FOLLOW UP VISIT: Keep your scheduled follow-up appointment. Any questions, please call the office at . Current Hospital Diet Patient's current hospital diet: Discharge Diet Recommended Diet: Regular Diet Procedures Procedures Performed: LEFT L5-S1 MICRODISCECTOMY Pending Studies Studies pending at discharge: no Medical Emergencies . Who to Call and When: Medical Emergencies: If at any time you feel your situation is an emergency, please call 911 immediately. . Non-Emergent Contact Non-Emergency issues call your: Surgeon . "Provider Documentation" section prepared by Hayden Alvarado. . VTE Core Measure Inpt VTE Proph given/why not?: SCD's [place] Drug Monitoring Program Search Results: patient reviewed within database, no issues identified
[2017-03-07] MEDS ORDERED: OXYCODONE/ACETAMINOPHEN 5-325 TAB PO PRN ×2 (12:30)
[2017-03-07] MEDS ORDERED: MoRPHine SULFATE 2 MG/ML CARP IV PRN (12:30)
--- NOTE | 2017-03-07 12:47 | Anesthesiology Progress Note ---
Anesthesia Post Op Note Date & Time Mar 07, 2017 at 12:47 Vital Signs Pain Intensity: 8 Vital Signs Past 12 Hours Date Time Temp Pulse Resp B/P (MAP) Pulse Ox O2 Delivery O2 Flow Rate FiO2 03/07/17 10:15 36.8 96 18 135/84 (101) 97 Room Air Notes Mental Status: alert / awake / arousable, participated in evaluation Pt Amnestic to Procedure: Yes Nausea / Vomiting: adequately controlled Pain: adequately controlled Airway Patency, RR, SpO2: stable & adequate BP & HR: stable & adequate Hydration State: stable & adequate Anesthetic Complications: no major complications apparent
[2017-03-07 14:00] VITALS: BP 137/76; PULSE 83; TEMP 36.7; O2SAT 95
== END 2017-03-07 14:30 | disposition home or self-care (01) ==
LOC: C.ACU 09:46
PROVIDERS: ATTEND Orthopaedic Surgery Orthopaedic Surgery of the Spine
DX: M51.17 Intervertebral disc disorders with radiculopathy, lumbosacral region (principal); I25.10 Atherosclerotic heart disease of native coronary artery without angina pectoris; E11.40 Type 2 diabetes mellitus with diabetic neuropathy, unspecified; E78.5 Hyperlipidemia, unspecified; K21.9 Gastro-esophageal reflux disease without esophagitis; E07.9 Disorder of thyroid, unspecified; G25.81 Restless legs syndrome; F17.210 Nicotine dependence, cigarettes, uncomplicated; Z79.4 Long term (current) use of insulin; Z79.82 Long term (current) use of aspirin; Z79.899 Other long term (current) drug therapy

== ENCOUNTER 2017-10-02 11:10 | Emergency (ER) | payer OTHER ==
[~2017-10-02] VITALS: Ht 177.8 cm; Wt 89.0 kg
[~2017-10-02 11:10] MED LIST changes: +OXYC-57 PO
[2017-10-02 11:26] VITALS: TEMP 37; Ht 177.8 cm; Wt 89.0 kg
--- NOTE | 2017-10-02 12:21 | EMERGENCY ROOM VISIT NOTE ---
History Report prepared by Rd: Jeyson Hassan Under the Supervision of: Dr. Samm Yee M.D. First contact with patient: 11:47 Chief Complaint: SHORTNESS OF BREATH Stated Complaint: SOB, CHEST DISCOMFORT,JOINT SWELLING,WEIGHT GAIN Nursing Triage Summary: c/o 10lb weight gain and swelling with SOB no resp distress History of Present Illness The patient is a 47 year old female who presents to the Emergency Room with complaints of worsening shortness of breath which she has been experiencing for the past two days. The patient also notes that she has but on 10 pounds of weight in the same time period. She believes that her lower extremities are swollen. The patient continued to note that she is having some "chest pressure" that began this morning. This pressure is intermittent, and lasts for about 30 second episodes. The pain intermittently radiates into her jaw as well. She is experiencing nausea but has not vomited. She does have a history of cardiac blockage and has been told she has 10-15% reduced cardiac flow. She takes a baby Aspirin daily. The patient denies associated LOC, headache, fevers, chills , diaphoresis, visual changes, neck pain, abdominal pain, back pain, melena, hematochezia, urinary symptoms, numbness, lymphadenopathy, rash, or other complaints. Source of History: patient Onset: 2 days Position: other (Respiratory) Quality: other (SOB) Timing: worsening Associated Symptoms: + chest pain Review of Systems See HPI for pertinent positives and negatives. A total of ten systems were reviewed and were otherwise negative. Past Medical & Surgical Medical Problems: (1) Chest pain (2) Coronary artery disease (3) Diabetes mellitus type 2 in nonobese (4) Dyslipidemia (5) Hypothyroidism (6) Kidney disease, chronic, stage II (GFR 60-89 ml/min) (7) Neuropathy (8) TIA (transient ischemic attack) (9) UTI (urinary tract infection) Surgical Problems: (1) History of arthroscopy of knee (2) History of arthroscopy of right knee (3) History of tubal ligation (4) History of tubal ligation Family History FH: hypertension FH: lung disease FHx: cancer FHx: diabetes FHx: gallbladder disease FHx: heart disease Social History Smoking Status: Current Every Day Smoker Alcohol Use: none Drug Use: none Marital Status: in relationship Housing Status: lives with significant other Occupation Status: unemployed Current/Historical Medications Scheduled Aspirin (Aspirin Ec), 81 MG PO QAM Insulin Aspart (novoLOG INSULIN PUMP ), 1 DOSE N/A UD Levothyroxine Sodium (Levothyroxine Sodium), 200 MCG PO QAM Allergies Coded Allergies: Adhesives (Verified Allergy, Mild, BLISTERS, 10/02/17) CLEAR TAPE IS FINE NO KNOWN DRUG ALLERGIES (Unverified Allergy, Unknown, NONE, 10/02/17) Physical Exam Vital Signs Date Time Temp Pulse Resp B/P (MAP) Pulse Ox O2 Delivery O2 Flow Rate FiO2 10/02/17 16:05 88 128/75 96 10/02/17 14:05 72 22 132/80 99 Room Air 10/02/17 12:36 75 10/02/17 12:34 98 Room Air 10/02/17 11:26 37.0 87 18 165/92 97 Physical Exam GENERAL: Awake, alert, well-appearing, in no distress HENT: Normocephalic, atraumatic. Oropharynx unremarkable. EYES: Normal conjunctiva. Sclera non-icteric. NECK: Supple. No nuchal rigidity. FROM. No JVD. RESPIRATORY: Clear to auscultation. CARDIAC: Regular rate, normal rhythm. Extremities warm and well perfused. Pulses equal. ABDOMEN: Soft, non-distended. No tenderness to palpation. No rebound or guarding. No masses. RECTAL: Deferred. MUSCULOSKELETAL: Chest examination reveals no tenderness. The back is symmetrical on inspection without obvious abnormality. There is no CVA tenderness to palpation. No joint edema. LOWER EXTREMITIES: Calves are equal size bilaterally and non-tender. No edema. No discoloration. NEURO: Normal sensorium. No sensory or motor deficits noted. SKIN: No rash or jaundice noted. Medical Decision & Procedures ER Provider Diagnostic Interpretation: Radiology results as stated below per my review and radiologist interpretation: CHEST ONE VIEW PORTABLE HISTORY: EVALUATE RESPIRATORY DISTRESS.DYSPNEA COMPARISON: Chest 06/29/2016. FINDINGS: The lungs are clear. Cardiac silhouette is normal in size. No pleural effusions. No pneumothorax. IMPRESSION: No acute process. Electronically signed by: Oliver Muro M.D. 10/02/2017 12:45 PM Dictated Date/Time: 10/02/2017 12:44 PM Laboratory Results 10/02/17 13:00 Red Blood Count 4.61, Mean Corpuscular Volume 93.9, Mean Corpuscular Hemoglobin 33.0, Mean Corpuscular Hemoglobin Concent 35.1, Mean Platelet Volume 11.4, Neutrophils (%) (Auto) 61.4, Lymphocytes (%) (Auto) 28.9, Monocytes (%) (Auto) 6.5, Eosinophils (%) (Auto) 2.3, Basophils (%) (Auto) 0.7, Neutrophils # (Auto) 5.41, Lymphocytes # (Auto) 2.54, Monocytes # (Auto) 0.57, Eosinophils # (Auto) 0.20, Basophils # (Auto) 0.06 10/02/17 13:00 Test 10/02/17 13:00 10/02/17 13:10 White Blood Count 8.80 K/uL (4.8-10.8) Red Blood Count 4.61 M/uL (4.2-5.4) Hemoglobin 15.2 g/dL (12.0-16.0) Hematocrit 43.3 % (37-47) Mean Corpuscular Volume 93.9 fL (80-100) Mean Corpuscular Hemoglobin 33.0 pg (25-34) Mean Corpuscular Hemoglobin Concent 35.1 g/dl (32-36) Platelet Count 183 K/uL (130-400) Mean Platelet Volume 11.4 fL (7.4-10.4) Neutrophils (%) (Auto) 61.4 % Lymphocytes (%) (Auto) 28.9 % Monocytes (%) (Auto) 6.5 % Eosinophils (%) (Auto) 2.3 % Basophils (%) (Auto) 0.7 % Neutrophils # (Auto) 5.41 K/uL (1.4-6.5) Lymphocytes # (Auto) 2.54 K/uL (1.2-3.4) Monocytes # (Auto) 0.57 K/uL (0.11-0.59) Eosinophils # (Auto) 0.20 K/uL (0-0.5) Basophils # (Auto) 0.06 K/uL (0-0.2) RDW Standard Deviation 43.5 fL (36.4-46.3) RDW Coefficient of Variation 12.6 % (11.5-14.5) Immature Granulocyte % (Auto) 0.2 % Immature Granulocyte # (Auto) 0.02 K/uL (0.00-0.02) Prothrombin Time 9.8 SECONDS (9.0-12.0) Prothromb Time International Ratio 0.9 (0.9-1.1) Activated Partial Thromboplast Time 24.9 SECONDS (21.0-31.0) Partial Thromboplastin Ratio 1.0 D-Dimer 280 ug/L FEU (0-500) Anion Gap 4.0 mmol/L (3-11) Est Creatinine Clear Calc Drug Dose 111.7 ml/min Estimated GFR () 108.1 Estimated GFR (Non- 93.2 BUN/Creatinine Ratio 17.7 (10-20) Calcium Level 9.0 mg/dl (8.5-10.1) Total Bilirubin 0.2 mg/dl (0.2-1) Aspartate Amino Transf (AST/SGOT) 15 U/L (15-37) Alanine Aminotransferase (ALT/SGPT) 19 U/L (12-78) Alkaline Phosphatase 113 U/L (45-117) Total Creatine Kinase 92 U/L (26-192) Creatine Kinase MB 2.8 ng/ml (0.5-3.6) Creatine Kinase MB Ratio 3.0 (0-3.0) Troponin I < 0.015 ng/ml (0-0.045) Pro-B-Type Natriuretic Peptide 94 pg/ml (0-450) Total Protein 7.3 gm/dl (6.4-8.2) Albumin 3.5 gm/dl (3.4-5.0) Globulin 3.8 gm/dl (2.5-4.0) Albumin/Globulin Ratio 0.9 (0.9-2) Chemistry Specimen Hemolysis Urine Color YELLOW Urine Appearance CLEAR (CLEAR) Urine pH 5.0 (4.5-7.5) Urine Specific Reliance 1.033 (1.000-1.030) Urine Protein NEG (NEG) Urine Glucose (UA) 3+ (NEG) Urine Ketones NEG (NEG) Urine Occult Blood NEG (NEG) Urine Nitrite NEG (NEG) Urine Bilirubin NEG (NEG) Urine Urobilinogen NEG (NEG) Urine Leukocyte Esterase NEG (NEG) Laboratory results reviewed by me Medications Administered Medications (Trade) Dose Ordered Sig/Rodri Route Start Time Stop Time Status Last Admin Dose Admin Ondansetron HCl (Zofran Inj) 4 mg NOW STAT IV 10/02/17 13:18 10/02/17 13:20 DC 10/02/17 13:34 4 MG Acetaminophen (Tylenol Tab) 1,000 mg NOW STAT PO 10/02/17 13:19 10/02/17 13:20 DC 10/02/17 13:35 1,000 MG ECG Indication: SOB/dyspnea Rate (beats per minute): 74 Rhythm: normal sinus Findings: no acute ischemic change, no ectopy ED Course 1208: The patient was evaluated in room B12A. A complete history and physical exam was performed. 1319: Ordered Zofran 4 mg IV, Tylenol 1000 mg PO. 1417: I checked on the patient at this time. She is going well. 1450: I updated the patient on the results of her case. 1451: I discussed the case with Dr. Robles at this time. He will follow up in the office. The patient will be discharged home. Medical Decision Triage Nursing notes reviewed and agree them. Additional history obtained from the family. The patient's history was concerning for shortness of breath and weight gain. Differential diagnosis: Etiologies such as CHF, pneumonia, COPD, reactive airway disease, cardiac ischemia, pulmonary embolism, pneumothorax, musculoskeletal, infections, gastrointestinal, as well as others were entertained. Physical examination: As above. ER treatment provided: Zofran Tylenol On reassessment the patient felt better. Diagnostic interpretation by me: The electrocardiogram was negative for pathologic change. The labs revealed an unremarkable CBC, chemistry panel, BNP, cardiac markers, urinalysis and d-dimer. Imaging studies: Chest x-ray as above. Consultation: A consultation was placed with the patient's cardiology team at [facility]. The case was discussed and diagnostics were reviewed. The patient does not have a significant history of CHF. She has nonobstructive coronary disease. As her testing is negative at this point conservative management was recommended. Close follow-up in the primary office was advised. The patient noted some vague symptoms of shortness of breath, myalgias, and chest discomfort. Her workup is unremarkable at this time. She does not have any significant flulike symptoms. She feels comfortable with close follow-up as an outpatient. Blood Pressure Screening Patient's blood pressure: Elevated blood pressure Referred to paste mixer liquid Consults Time Called: [phone] Consulting Physician: Dr. Robles - Cardiology Returned Call: [phone] I discussed the case with Dr. Robles at this time. He will follow up in the office. Impression Primary Impression: Shortness of breath Additional Impression: Myalgia Scribe Attestation The scribe's documentation has been prepared under my direction and personally reviewed by me in its entirety. I confirm that the note above accurately reflects all work, treatment, procedures, and medical decision making performed by me. Departure Information Dispostion Home / Self-Care Referrals Noelle Rob D.O. (PCP) Forms HOME CARE DOCUMENTATION FORM, IMPORTANT VISIT INFORMATION Patient Instructions My [facility] Additional Instructions Continue current medications. Watch salt intake. Follow-up with your primary office tomorrow for a recheck of your current condition. Return to the ER for worsening chest pain, difficulty breathing, fevers, vomiting, worsening of your condition, or as needed. Problem Qualifiers
[2017-10-02 12:34] VITALS: O2SAT 98
--- NOTE | 2017-10-02 12:47 | DIAGNOSTIC IMAGING REPORT ---
CHEST ONE VIEW PORTABLE HISTORY: EVALUATE RESPIRATORY DISTRESS.DYSPNEA COMPARISON: Chest 06/29/2016. FINDINGS: The lungs are clear. Cardiac silhouette is normal in size. No pleural effusions. No pneumothorax. IMPRESSION: No acute process. Electronically signed by: Oliver Muro M.D. 10/02/2017 12:45 PM Dictated Date/Time: 10/02/2017 12:44 PM
[2017-10-02 13:13] LABS: BASO % 0.7 %; BASO ABS # 0.06 K/uL (0-0.2); EOS % 2.3 %; HEMATOCRIT 43.3 % (37-47); HEMOGLOBIN 15.2 g/dL (12.0-16.0); IG# 0.02 K/uL (0.00-0.02); LYMPH % 28.9 %; LYMPH ABS # 2.54 K/uL (1.2-3.4); MEAN CELL VOLUME 93.9 fL (80-100); MEAN CORPUSCULAR HGB CONC 35.1 g/dl (32-36); MEAN PLATELET VOLUME 11.4 fL (7.4-10.4); MONO % 6.5 %; MONO ABS # 0.57 K/uL (0.11-0.59); NEUT % 61.4 %; NEUT ABS # 5.41 K/uL (1.4-6.5); PLATELET COUNT 183 K/uL (130-400); RED CELL DISTRIBUTION WIDTH CV 12.6 % (11.5-14.5); RED CELL DISTRIBUTION WIDTH SD 43.5 fL (36.4-46.3)
[2017-10-02] MEDS ORDERED: ONDANSETRON INJ 2 MG/ML 2 ML VIAL IV STA (13:18)
[2017-10-02] MEDS ORDERED: ACETAMINOPHEN 500 MG TAB PO STA (13:19)
[2017-10-02 13:23] LABS: INR 0.9 (0.9-1.1); PTT PATIENT 24.9 SECONDS (21.0-31.0)
[2017-10-02 13:45] LABS: ALBUMIN 3.5 gm/dl (3.4-5.0); ALKALINE PHOSPHATASE 113 U/L (45-117); ALT/SGPT 19 U/L (12-78); AST/SGOT 15 U/L (15-37); BLOOD UREA NITROGEN 14 mg/dl (7-18); CARBON DIOXIDE 27 mmol/L (21-32); CKMB 2.8 ng/ml (0.5-3.6); CREATININE 0.77 mg/dl (0.60-1.20); GLUCOSE 146 mg/dl (70-99); POTASSIUM 4.1 mmol/L (3.5-5.1); SODIUM 137 mmol/L (136-145); TOTAL PROTEIN 7.3 gm/dl (6.4-8.2)
[2017-10-02 16:05] VITALS: BP 128/75; PULSE 88; O2SAT 96
== END 2017-10-02 15:35 | disposition home or self-care (01) ==
LOC: C.EDB 11:12
DX: R06.02 Shortness of breath (principal); M79.1 Myalgia; Z79.82 Long term (current) use of aspirin; I25.10 Atherosclerotic heart disease of native coronary artery without angina pectoris; E11.43 Type 2 diabetes mellitus with diabetic autonomic (poly)neuropathy; E78.5 Hyperlipidemia, unspecified; N18.2 Chronic kidney disease, stage 2 (mild); Z86.73 Personal history of transient ischemic attack (TIA), and cerebral infarction without residual deficits; Z87.440 Personal history of urinary (tract) infections; Z98.51 Tubal ligation status; Z82.49 Family history of ischemic heart disease and other diseases of the circulatory system; Z80.9 Family history of malignant neoplasm, unspecified; Z83.3 Family history of diabetes mellitus; F17.210 Nicotine dependence, cigarettes, uncomplicated; Z79.4 Long term (current) use of insulin; Z79.899 Other long term (current) drug therapy

== ENCOUNTER → 2018-04-29 | Outpatient (CLI) | payer OTHER ==
[~2018-04-29] MED LIST changes: +EFF/375 PO; -GABA-113 PO; +LORA-741 PO; +LSN25 PO; -OXYC-57 PO
[2018-04-29 12:53] LABS: HEMOGLOBIN A1C 8.3 % (4.5-5.6)
== END | disposition home or self-care (01) ==
LOC: C.LAB1850 11:22
PROVIDERS: ATTEND Nurse Practitioner Adult Health
DX: E10.49 Type 1 diabetes mellitus with other diabetic neurological complication (principal); E10.65 Type 1 diabetes mellitus with hyperglycemia; E78.5 Hyperlipidemia, unspecified; E03.9 Hypothyroidism, unspecified

== ENCOUNTER 2019-07-23 21:30 | Observation (INO) ==
[2019-07-23] MEDS ORDERED: SODIUM CHLORIDE 0.9% 500 ML IV SCH (21:45)
[2019-07-23] MEDS ORDERED: NITROGLYCERIN 2% OINTMENT 30GM TUBE EXT STA (21:45)
[2019-07-23] MEDS ORDERED: ONDANSETRON INJ 2 MG/ML 2 ML VIAL IV STA (21:45)
--- NOTE | 2019-07-23 22:03 | XRay Report ---
XR chest 1V portable HISTORY: 49 years-old Female Chest Pain acute atypical chest pain COMPARISON: Chest radiograph 10/02/2017 TECHNIQUE: Portable AP view of the chest FINDINGS: Cardiomediastinal and hilar silhouettes appear unchanged. No pneumothorax, pleural effusion, focal ai rspace consolidation or overt pulmonary edema. Bones of the chest appear grossly intact. IMPRESSION: No acute process. The above report was generated using voice recognition software. It may contain grammatical, syntax o r spelling errors. Electronically signed by: Guero Verduzco M.D. 07/23/2019 10:02 PM
--- NOTE | 2019-07-23 22:12 | Emergency Department Note ---
Entered by Shobha Marie acting as a scribe for History of Present Illness General Chief complaint: Chest Pain Stated complaint: CHEST PAIN LIPS NUMB DIZZY Time Seen by Provider: 07/23/19 21:41 Source: patient Limitations: no limitations History of Present Illness Provider complaint: Chest pain Onset (ago): hour(s) 1 Location: eyes and chest Pain Consistency: + constant Quality: + sharp and + other (shooting ) Exacerbated By: + other (lying flat ) Associated symptoms: + nausea/vomiting (nausea) and + other (Positive: chest pain, shooting pain going up behind her eyes, numb lips, dizziness); no shortness of breath The patient is a 49 year old female with past medical history of TIA, stroke, right ovarian cyst, DM, who presents to the ED with complaints of constant sharp chest pain that started an hour ago. The patient rates her pain as 9/10 and states that it is worsened with lying flat. She reports she has shooting pain that goes up behind her eyes and left neck/face and her lips are numb. The patient notes she is nauseous and dizzy. She additionally states that she experienced the pain when she was watching TV. The patient notes she took aspirin which did not help with the pain. She denies shortness of breath. Home Medications Home Medications Medication Instructions Recorded Confirmed Type aspirin 81 mg PO QAM #0 09/16/14 07/23/19 History levothyroxine [Synthroid] 200 mcg PO QAM #0 06/01/16 07/23/19 History lorazepam [Ativan] 0.5 mg PO UD PRN #0 tab 03/06/18 07/23/19 History tramadol 50 mg PO Q6H PRN #0 03/28/18 07/23/19 History Novolog Insulin Pump 1 dose SC UD 05/03/18 07/23/19 History docusate sodium [Colace] 100 mg PO BID #60 cap 05/17/18 07/23/19 Rx albuterol sulfate [ProAir HFA] 2 puff INHALATION QID PRN 02/05/19 07/23/19 History atorvastatin 10 mg PO PM 07/23/19 07/23/19 History clopidogrel [Plavix] 75 mg PO DAILY 07/23/19 07/23/19 History lisinopril 5 mg PO DAILY 07/23/19 07/23/19 History rosuvastatin [Crestor] 20 mg PO DAILY 07/23/19 07/23/19 History venlafaxine [Effexor XR] 75 mg PO HS 07/23/19 07/23/19 History Allergies Allergy/AdvReac Type Severity Reaction Status Date / Time adhesive Allergy Unknown BLISTERS Verified 02/05/19 12:26 Past Med/Surg History Medical History Acquired bilateral foot deformity (Acute) Anxiety Blood dyscrasia Lipoprotein A elevation Callus (Acute) Chronic kidney disease (CKD) STAGE 2 Coronary artery disease, non-occlusive Depression Diabetes mellitus with diabetic polyneuropathy (Acute) Diabetes mellitus, type 2 Diabetic neuropathy H/O atypical migraine Complex (11/2014) evaluated at [facility], MRI and head CT negative, some residual L hand numbness per pt, s/p rehab History of chronic urinary tract infection HTN (hypertension) Hx of blood clots PT REPORTS WILL GET FREQUENT BLOOD CLOTS (HAD THEM IN TOO) - NONE IN THE LAST 6 YRS Hypothyroid TIA (transient ischemic attack) x 4, most recent 2005--previously seen by neuro, now follows only with PCP, on ASA 81mg daily Surgical History History of discectomy lumbar Hx laparoscopic cholecystectomy Hx of arthroscopic knee surgery R KNEE MENISCUS X2 Hx of cardiac cath non-occlusive. No intervention Hx of tubal ligation Family History (Updated 07/23/19 @ 22:00 by Shobha Marie) Other Diabetes Heart disease Hypertension Social History Preferred Language: Setswana Communication Ability: Effective Visual Impairment: No Limitations Beliefs That Will Affect Care: None Current Living Situation: Family Feels Safe at Home: Yes Smoking Status: Current every day smoker Tobacco Type: cigarettes ; Cigarettes Per Day: h/o 1+ ppd x 20 years ; Hx Alcohol Use: No Hx Substance Use: No Review of Systems See HPI for pertinent positives & negatives. and A total of 10 systems reviewed and were otherwise negative Physical Exam Vital Signs Vital Signs - 24 hr 07/23/19 21:37 07/23/19 22:00 07/23/19 22:07 Temperature 36.7 C Temperature Source Oral Pulse Rate 80 81 Pulse Rate from SpO2 Sensor 81 Pulse Rhythm Regular Pulse Strength Normal Respiratory Rate 20 17 Respiratory Effort / Characteristics Non-Labored Spontaneous Respiratory Depth Normal Respiratory Pattern Regular Blood Pressure 153/82 H 142/63 H Blood Pressure Mean 105 96 Blood Pressure Position Sitting Pulse Oximetry 99 96 95 Oxygen Delivery Method Room Air Room Air Sepsis Recent Fever Within 48 Hours No Sepsis Action Taken by Nursing No Action Required 07/23/19 22:09 07/23/19 22:10 07/23/19 22:15 Temperature Temperature Source Pulse Rate 82 87 80 Pulse Rate from SpO2 Sensor 83 82 81 Pulse Rhythm Pulse Strength Respiratory Rate 18 22 18 Respiratory Effort / Characteristics Respiratory Depth Respiratory Pattern Blood Pressure 124/59 L Blood Pressure Mean 89 Blood Pressure Position Pulse Oximetry 95 95 95 Oxygen Delivery Method Sepsis Recent Fever Within 48 Hours Sepsis Action Taken by Nursing 07/23/19 22:20 07/23/19 22:30 07/23/19 22:40 Temperature Temperature Source Pulse Rate 82 85 86 Pulse Rate from SpO2 Sensor 81 85 89 Pulse Rhythm Pulse Strength Respiratory Rate 18 19 16 Respiratory Effort / Characteristics Respiratory Depth Respiratory Pattern Blood Pressure 127/59 L Blood Pressure Mean 76 Blood Pressure Position Pulse Oximetry 95 95 96 Oxygen Delivery Method Sepsis Recent Fever Within 48 Hours Sepsis Action Taken by Nursing 07/23/19 22:50 07/23/19 23:00 07/23/19 23:10 Temperature Temperature Source Pulse Rate 85 83 85 Pulse Rate from SpO2 Sensor 84 83 81 Pulse Rhythm Pulse Strength Respiratory Rate 16 16 20 Respiratory Effort / Characteristics Respiratory Depth Respiratory Pattern Blood Pressure 129/66 Blood Pressure Mean 78 Blood Pressure Position Pulse Oximetry 96 97 97 Oxygen Delivery Method Sepsis Recent Fever Within 48 Hours Sepsis Action Taken by Nursing GENERAL: Patient is in no acute distress. HEENT: No acute trauma, normocephalic atraumatic, mucous membranes moist, no nasal congestion, no scleral icterus. NECK: No stridor, no adenopathy, no meningismus, trachea is midline. LUNGS: Clear to auscultation bilaterally, no wheeze, no rhonchi, breath sounds equal. HEART: Subtle systolic murmur, regular rate and rhythm. ABDOMEN: Soft, nontender, bowel sounds positive, no hernias, no peritonitis. CHEST: Non-tender chest wall EXTREMITIES: No cyanosis or edema, full range of motion of all the joints without pain or difficulty, no signs for acute trauma. NEUROLOGIC: Oriented x 3, no acute motor or sensory deficits, no focal weakness. SKIN: No rash, no jaundice, no diaphoresis. Course Course 2142: The patient was evaluated in room B11B. A complete history and physical exam was performed. 1046: The patient's chest pain is gone with nitroglycerin. 2251: I [facility] the patients [facility] He will evaluate the patient for further management. 2251: Upon reevaluation, the patient is resting comfortably. I discussed laboratory and radiographic results with her. The patient verbalized agreement of the treatment plan. The patient will be evaluated for further management and care. Consultations Consultation #1: I discussed the patients case with [facility] He will evaluate the patient for further management. Time: 22:51 Administered Medications Discontinued Medications Sodium Chloride (Nss) 500 mls @ 999 mls/hr IV .Q31M ROSI Stop: 07/23/19 22:15 Last Infusion: 07/23/19 22:45 Dose: 0 mls/hr Documented by: [id number] Admin: 07/23/19 22:09 Dose: 999 mls/hr Documented by: [id number] Nitroglycerin (Nitro-Bid 2%) 2 inch EXT NOW STA Stop: 07/23/19 21:46 Last Admin: 07/23/19 22:09 Dose: 2 inch Documented by: [id number] Ondansetron HCl (Zofran) 4 mg IV NOW STA Stop: 07/23/19 21:46 Last Admin: 07/23/19 22:07 Dose: 4 mg Documented by: [id number] Medical Decision Making Differential Diagnosis Differential Diagnosis: Angina, VA, pericarditis, PE, aortic dissection, musculoskeletal pain, pneumonia, pneumothorax, Medical Records Attestation: I reviewed the patient's medical records. Home Medications Current Medication List: was personally reviewed by me Laboratory Data Attestation: I reviewed the patient's lab results. Result diagrams: 07/23/19 21:53 07/23/19 21:53 Lab Results 07/23/19 07/23/19 07/23/19 Range/Units 21:53 21:53 21:53 WBC 13.07 H (4.8-10.8) K/uL RBC 4.55 (4.2-5.4) M/uL Hgb 14.9 (12.0-16.0) g/dL Hct 43.5 (37-47) % MCV 95.6 (80-100) fL MCH 32.7 (25-34) pg MCHC 34.3 (32-36) g/dL RDW Std Deviation 44.0 (36.4-46.3) fL RDW Coeff of Brad 12.8 (11.5-14.5) % Plt Count 220 (130-400) K/uL MPV 11.8 H (7.4-10.4) fL Immature Gran % (Auto) 0.5 % Neut % (Auto) 63.8 % Lymph % (Auto) 24.6 % Crosby % (Auto) 8.0 % Eos % (Auto) 2.7 % Baso % (Auto) 0.4 % Immature Gran # (Auto) 0.06 H (0.00-0.02) K/uL Neut # (Auto) 8.34 H (1.4-6.5) K/uL Lymph # (Auto) 3.22 (1.2-3.4) K/uL Crosby # (Auto) 1.05 H (0.11-0.59) K/uL Eos # (Auto) 0.35 (0-0.5) K/uL Baso # (Auto) 0.05 (0-0.2) K/uL PT 9.4 (9.0-12.0) Seconds INR 0.9 (0.9-1.1) APTT 23.8 (21.0-31.0) Seconds PTT Ratio 0.9 Sodium 140 (136-145) mmol/L Potassium 3.7 (3.5-5.1) mmol/L Chloride 105 (98-107) mmol/L Carbon Dioxide 29 (21-32) mmol/L Anion Gap 5.0 (3-11) BUN 18 (7-18) mg/dl Creatinine 0.93 (0.6-1.2) mg/dl Est Cr Clr Drug Dosing 94.1 ml/min Est GFR ( Amer) 84.8 Est GFR (Non-Af Amer) 73.2 BUN/Creatinine Ratio 18.9 (10-20) Glucose 186 H (70-99) mg/dl Calcium 9.1 (8.5-10.1) mg/dl Magnesium 1.9 (1.8-2.4) mg/dl Total Bilirubin 0.3 (0.2-1) mg/dl AST 26 (15-37) U/L ALT 32 (12-78) U/L Alkaline Phosphatase 142 H (45-117) U/L Troponin I < 0.015 (0-0.045) ng/ml Total Protein 7.6 (6.4-8.2) gm/dl Albumin 3.5 (3.4-5.0) gm/dl Globulin 4.1 H (2.5-4.0) gm/dl Albumin/Globulin Ratio 0.9 (0.9-2) Lipase 122 (73-393) U/L Specimen Hemolysis Imaging Data Radiologist's Impression: Radiology results as stated below per my review and the radiologist's interpretation: XR chest 1V portable HISTORY: 49 years-old Female Chest Pain acute atypical chest pain COMPARISON: Chest radiograph 10/02/2017 TECHNIQUE: Portable AP view of the chest FINDINGS: Cardiomediastinal and hilar silhouettes appear unchanged. No pneumothorax, pleural effusion, focal airspace consolidation or overt pulmonary edema. Bones of the chest appear grossly intact. IMPRESSION: No acute process. The above report was generated using voice recognition software. It may contain grammatical, syntax or spelling errors. Electronically signed by: Guero Verduzco M.D. 07/23/2019 10:02 PM ECG Data Attestation: I personally reviewed and interpreted this ECG as follows: Indication: + chest pain Rate (beats per minute): 88 Rhythm: + normal sinus ECG ST segments: no ST elevation ECG Findings: + Other (Potential old septal infarct, QTC 416) Comparison ECG Date: from (05/09/18) Change: the following changes noted (Criteria for septal infarct are now present ) Blood Pressure Blood Pressure Findings: Elevated blood pressure Blood Pressure Disposition: further management by hospitalist [facility] Narrative There is a mild leukocytosis, this could be consistent with infection or just her pain and stress. No concerning anemia. No coagulopathy. No significant electrolyte abnormality or kidney failure. No worrisome liver enzyme elevation. No evidence for pancreatitis. Chest film did not show mediastinal widening, pneumonia or pneumothorax. EKG shows a sinus rhythm, no acute ischemia. Cardiac enzyme testing x1 is not consistent with acute cardiac injury. On exam, the patient had no discomfort to palpate the chest wall. The patient had already taken aspirin prior to arrival, no additional aspirin was given. She was given IV Zofran for nausea, 2 inches of nitroglycerin paste, IV saline. With the above medications, the patient is now chest pain-free. Patient has known coronary artery disease and presents with precordial chest pain. She has had relief of her pain with nitroglycerin. Further cardiac work- up and a hospital stay is warranted. I spoke to the patient and case management. The on-call hospitalist was consulted. Impression & Plan Precordial chest pain, History of coronary artery disease Discharge Plan Visit Data Chief Complaint: Chest Pain Stated Complaint: CHEST PAIN LIPS NUMB DIZZY ED Provider: Leroy Causey Discharge Problem: Precordial chest pain, History of coronary artery disease Patient Disposition: Being Evaluated by Hospitalist Forms Stand Alone Forms: Call Back Authorization, [facility] Prescriptions Prescriptions: No Action aspirin 81 mg Tablet,Delayed Release (Dr/Ec) 81 mg PO QAM Qty: 0 RF: 0 levothyroxine [Synthroid] 200 mcg Tablet 200 mcg PO QAM Qty: 0 RF: 0 lorazepam [Ativan] 0.5 mg Tablet 0.5 mg PO UD PRN (Reason: Anxiety) Qty: 0 RF: 0 tramadol 50 mg Tablet 50 mg PO Q6H PRN (Reason: Pain) Qty: 0 RF: 0 albuterol sulfate [ProAir HFA] 90 mcg/actuation Hfa Aerosol Inhaler 2 puff INHALATION QID PRN (Reason: Shortness Of Breath Or Wheezing) RF: 0 venlafaxine [Effexor XR] 75 mg Capsule,Extended Release 24hr 75 mg PO HS RF: 0 atorvastatin 10 mg Tablet 10 mg PO PM RF: 0 clopidogrel [Plavix] 75 mg Tablet 75 mg PO DAILY RF: 0 rosuvastatin [Crestor] 20 mg Tablet 20 mg PO DAILY RF: 0 lisinopril 5 MG 5 mg PO DAILY RF: 0 Novolog Insulin Pump 1 dose SC UD RF: 0 docusate sodium [Colace] 100 mg capsule 100 mg PO BID Qty: 60 RF: 2 Referrals Referrals: Noelle Rob DO [Primary Care Provider] - The scribe's documentation has been prepared under my direction and personally reviewed by me in its entirety. I confirm that the note above accurately reflects all work, treatment, procedures, and medical decision making performed by me.
[2019-07-23 22:23] LABS: Basophils # (auto) 0.05 K/uL (0-0.2); Basophils % (auto) 0.4 %; Eosinophils # (auto) 0.35 K/uL (0-0.5); Eosinophils % (auto) 2.7 %; Hematocrit (blood only) 43.5 % (37-47); Hemoglobin 14.9 g/dL (12.0-16.0); Immature Granulocytes # (auto) 0.06 K/uL (0.00-0.02); Immature Granulocytes % (auto) 0.5 %; Lymphocytes # (auto) 3.22 K/uL (1.2-3.4); Lymphocytes % (auto) 24.6 %; Mean Corpuscular Hemoglobin 32.7 pg (25-34); Mean Corpuscular Hgb Conc 34.3 g/dL (32-36); Mean Corpuscular Volume 95.6 fL (80-100); Mean Platelet Volume 11.8 fL (7.4-10.4); Monocytes # (auto) 1.05 K/uL (0.11-0.59); Neutrophils # (auto) 8.34 K/uL (1.4-6.5); Neutrophils % (auto) 63.8 %; Platelet Count 220 K/uL (130-400); RDW Coefficient of Variation 12.8 % (11.5-14.5); Red Blood Count 4.55 M/uL (4.2-5.4); White Blood Count 13.07 K/uL (4.8-10.8)
[2019-07-23 22:34] LABS: Alanine Aminotransferase 32 U/L (12-78); Albumin Level 3.5 gm/dl (3.4-5.0); Aspartate Aminotransferase 26 U/L (15-37); BUN Creatinine Ratio 18.9 (10-20); Blood Urea Nitrogen 18 mg/dl (7-18); Calcium 9.1 mg/dl (8.5-10.1); Carbon Dioxide 29 mmol/L (21-32); Chloride 105 mmol/L (98-107); Creatinine Clr Calc Pharmacy 94.1 ml/min; Est GFR (African American) 84.8; Est GFR (Non-African American) 73.2; Glucose 186 mg/dl (70-99); INR 0.9 (0.9-1.1); Lipase 122 U/L (73-393); Magnesium 1.9 mg/dl (1.8-2.4); Partial Thromboplastin Ratio 0.9; Partial Thromboplastin Time 23.8 Seconds (21.0-31.0); Potassium 3.7 mmol/L (3.5-5.1); Prothrombin Time 9.4 Seconds (9.0-12.0); Sodium 140 mmol/L (136-145)
[2019-07-23 22:37] LABS: Albumin Globulin Ratio 0.9 (0.9-2); Alkaline Phosphatase 142 U/L (45-117); Bilirubin,Total 0.3 mg/dl (0.2-1); Globulin 4.1 gm/dl (2.5-4.0); Total Protein 7.6 gm/dl (6.4-8.2); Troponin I < 0.015 ng/ml (0-0.045)
--- NOTE | 2019-07-24 00:41 | History and Physical Report ---
DATE OF ADMISSION: 07/23/2019 CHIEF COMPLAINT: Chest pain. HISTORY OF PRESENT ILLNESS: This is a 49-year-old female with past medical history significant for type 2 diabetes, hypothyroidism, hyperlipidemia, nonobstructive CAD, GERD, restless legs syndrome, migraine, major depression, tobacco abuse disorder, history of TIA, who presents with chest pain. The patient ate her supper and she was resting watching TV when she noticed chest pain in the middle of the chest, it was shooting kind of pain, 9/10 in severity, across the chest. She took some aspirin. Sometimes she gets this pain and she takes Ativan to calm her down. She took Ativan and also Tums, but the pain did not resolve and the pain seemed to be coming back behind the head and also in the back of the neck and also she felt some numbness in the lips when she came to the ER. In the ER, she was placed on nitro paste and currently pain is almost resolved. She is feeling better. Basile nauseous during the episode. No shortness of breath. Basile dizzy. No sweating, no headache, no blurred visions, no earache. has some runny nose, no cough, no difficulty swallowing. No shortness of breath, no abdominal pain. Normal bowel and bladder movements. No hematuria or burning micturition. No melena or hematochezia. No swelling in the legs, no rash. Otherwise she is active and she does not get chest pain while she is ambulating or climbing steps usually. ALLERGIES: ADHESIVE TAPE. PAST MEDICAL HISTORY: As mentioned above. PAST SURGICAL HISTORY: induced by D and C, cervical repair, cardiac catheterization, 55% blockage, unknown vessel , No stent in 2010, colonoscopy with biopsies, dental surgery, EGD with endoscopic ultrasound, right knee arthroscopy, laparoscopic fulguration of oviducts, laparoscopic tubal ligation, diagnostic laparoscopy x3, laparoscopic cholecystectomy, epidural shot in the sacral lumbar region, removal of pilonidal cyst, small bowel endoscopy with biopsy, total hysterectomy. MEDICATIONS: The patient is on Effexor XR 37.5 mg p.o. daily, on insulin pump, Ativan 0.5 mg p.o. t.i.d. p.r.n., tramadol 50 to 100 mg q. 6 hours p.r.n., Plavix 75 mg p.o. daily, lisinopril 5 mg p.o. daily, Crestor 20 mg p.o. daily, levothyroxine 200 mcg p.o. daily, albuterol 2 puffs every 4 hours p.r.n., Colace 100 mg p.o. b.i.d., aspirin 81 mg p.o. daily. FAMILY HISTORY: Significant for father has heart disorder, mother has diverticulitis and diabetes, brother has diabetes, mother had stroke. SOCIAL HISTORY: Currently lives with her boyfriend. Smokes 5 cigarettes every day for the last 15 years. Alcohol rarely. No drug use. REVIEW OF SYSTEMS: As per HPI. Rest of the review of systems negative. PHYSICAL EXAMINATION: GENERAL: The patient is of moderate built, not in acute distress. VITAL SIGNS: Temperature 36.7, pulse 85, respiratory rate 20, blood pressure 129/66, oxygen 97% on room air. HEENT: No pallor, no icterus. Pupils equal, round, and reactive to light. NECK: No JVD, no neck masses, no carotid bruits. CARDIOVASCULAR: S1, S2 heard, regular rate and rhythm, no murmur, no gallop. RESPIRATORY SYSTEM: Normal AP diameter. No accessory muscle use. No wheezing, no crackles. ABDOMEN: Soft, bowel sounds present, nontender. No distention. CENTRAL NERVOUS SYSTEM: Cranial nerves II-XII grossly intact. Nonfocal. EXTREMITIES: No edema, no erythema. LABORATORY DATA: WBC 13, hemoglobin 14.9, hematocrit 43.5, platelets 220. PT 9.4, INR 0.9, APTT 23.8. Sodium 140, potassium 3.7, chloride 105, bicarbonate 29, BUN 18, creatinine 0.9, serum glucose 186, calcium 9.1, magnesium 1.9, total bilirubin 0.3, AST 26, ALT 32, alkaline phosphatase 142. Troponin I less than 0.015. Lipase 122. IMAGING DATA: Chest x-ray, no acute process seen. EKG: Normal sinus rhythm with rate of 88, no acute ST changes seen. ASSESSMENT AND PLAN: This is a 49-year-old female who presents with chest pain, history of nonobstructive coronary artery disease, history of diabetes, hypertension, hyperlipidemia and ongoing smoking.. 1. Chest pain. Initial workup is negative. risk factors as above. We will keep her n.p.o. Consult cardiology in the a.m. Serial cardiac enzymes, echo, and monitor in the tele floor. Further recommendations as per cardiology. Chest pain resolved with the nitro paste. We will give the 0.5-inch nitro paste. 2. History of transient ischemic attack, on aspirin, Plavix, and statin. 3. History of nonobstructive coronary artery disease. Continue home medications of statin, aspirin. Follow the echocardiogram. 4. History of hypothyroidism. Continue Synthroid. 5. History of hypertension, continue lisinopril. We will monitor the blood pressure. 6. History of hyperlipidemia. Continue Crestor. Follow the fasting lipid profile. 7. Tobacco abuse, needs counseling. 8. Diabetes, on insulin pump. The patient wants to be continued on the insulin pump. We will closely monitor blood pressure while patient is n.p.o. 9. Deep venous thrombosis prophylaxis, sequential compression devices for now. 10. Disposition: Observation in tele floor. Expect to discharge home and follow with family doctor. Level 1 full code. Addendum: Pharmacy recommends Basal insulin/ISS instead of pump currently as there is discrepancy in blood sugar readings.. MTDD
[2019-07-24] MEDS ORDERED: NOVOLOG INSULIN PUMP SC SCH (00:47)
[2019-07-24] MEDS ORDERED: ONDANSETRON INJ 2 MG/ML 2 ML VIAL IV PRN (00:47)
[2019-07-24] MEDS ORDERED: TRAMADOL HCL 50 MG TABLET PO PRN (00:47)
[2019-07-24] MEDS ORDERED: ACETAMINOPHEN 325 MG TAB PO PRN (00:47)
[2019-07-24] MEDS ORDERED: NITROGLYCERIN SL 0.4 MG/TAB TAB SL PRN (00:47)
[2019-07-24] MEDS ORDERED: MoRPHine SULFATE 2 MG/ML CARP IV PRN (00:47)
[2019-07-24] MEDS ORDERED: LORazepam 0.5 MG TAB PO PRN (00:47)
[2019-07-24] MEDS ORDERED: ALBUTEROL HFA 8 GM INHALER INH PRN (00:54)
[2019-07-24] MEDS ORDERED: PHARMACY GLYCEMIC MGMT CONSULT PRN (00:57)
[2019-07-24] MEDS ORDERED: GLUCOSE 10 TABS/TUBE PO PRN (01:15)
[2019-07-24] MEDS ORDERED: INSULIN ASPART 100 UNITS/ML VIAL SC PRN (01:15)
[2019-07-24] MEDS ORDERED: CARBOHYDRATES FOR HYPOGLYCEMIA PO PRN (01:15)
[2019-07-24] MEDS ORDERED: GLUCOSE 40% GEL 15 GM TUBE PO PRN (01:15)
[2019-07-24] MEDS ORDERED: DEXTROSE 50% 50 ML SYRINGE IV PRN (01:15)
[2019-07-24] MEDS ORDERED: GLUCAGON FOR INJ 1 MG VIAL SQ PRN (01:15)
[2019-07-24] MEDS: NITROGLYCERIN 2% OINTMENT 30GM TUBE EXT SCH ×2 (03:59→12:05)
[2019-07-24 05:52] LABS: Basophils # (auto) 0.06 K/uL (0-0.2); Basophils % (auto) 0.5 %; Eosinophils # (auto) 0.41 K/uL (0-0.5); Eosinophils % (auto) 3.2 %; Hematocrit (blood only) 39.4 % (37-47); Hemoglobin 13.5 g/dL (12.0-16.0); Immature Granulocytes # (auto) 0.06 K/uL (0.00-0.02); Immature Granulocytes % (auto) 0.5 %; Lymphocytes # (auto) 2.92 K/uL (1.2-3.4); Lymphocytes % (auto) 22.8 %; Mean Corpuscular Hemoglobin 32.4 pg (25-34); Mean Corpuscular Hgb Conc 34.3 g/dL (32-36); Mean Corpuscular Volume 94.5 fL (80-100); Mean Platelet Volume 11.2 fL (7.4-10.4); Monocytes # (auto) 1.23 K/uL (0.11-0.59); Monocytes % (auto) 9.6 %; Neutrophils % (auto) 63.4 %; Platelet Count 190 K/uL (130-400); RDW Coefficient of Variation 12.8 % (11.5-14.5); RDW Standard Deviation 44.1 fL (36.4-46.3); Red Blood Count 4.17 M/uL (4.2-5.4); White Blood Count 12.78 K/uL (4.8-10.8)
[2019-07-24 06:05] LABS: Estimated Average Glucose 246 mg/dl; Hemoglobin A1C 10.2 % (4.5-5.6)
[2019-07-24 06:24] LABS: BUN Creatinine Ratio 23.6 (10-20); Calcium 9.1 mg/dl (8.5-10.1); Creatinine Clr Calc Pharmacy 116.2 ml/min; Est GFR (African American) 111.8; Est GFR (Non-African American) 96.5; Magnesium 1.7 mg/dl (1.8-2.4)
[2019-07-24] MEDS ORDERED: LEVOTHYROXINE SODIUM 200 MCG TABLET PO SCH (06:30)
[2019-07-24] MEDS ORDERED: INSULIN ASPART 100 UNITS/ML 3 ML PEN SC SCH ×2 (06:30→07:30)
[2019-07-24] MEDS ORDERED: MAGNESIUM SULFATE / D5W 1 GM/100 ML BAG IV ONE (06:50)
[2019-07-24] MEDS: NovoLOG INSULIN PUMP SCH ×2 (08:59→12:05)
[2019-07-24] MEDS ORDERED: ROSUVASTATIN CALCIUM 20 MG TAB PO SCH (09:00)
[2019-07-24] MEDS ORDERED: CLOPIDOGREL BISULFATE 75 MG TAB PO SCH (09:00)
[2019-07-24] MEDS ORDERED: LISINOPRIL 5 MG TAB PO SCH (09:00)
[2019-07-24] MEDS ORDERED: DOCUSATE SODIUM 100 MG CAP PO SCH (09:00)
[2019-07-24] MEDS ORDERED: ASPIRIN 81 MG ECTAB PO SCH (09:00)
--- NOTE | 2019-07-24 09:04 | Hospitalist Progress Note ---
Date of Service July 24, 2019 Assessment & Plan (1) Precordial chest pain: ASSESSMENT AND PLAN: This is a 49-year-old female who presents with chest pain, history of nonobstructive coronary artery disease, history of diabetes, hypertension, hyperlipidemia and ongoing smoking.. 1. Chest pain. Initial workup is negative. n.p.o. Cardiology on case, echo 2. History of transient ischemic attack, on aspirin, Plavix, and statin. 3. History of nonobstructive coronary artery disease. Continue home medications of statin, aspirin. Follow the echocardiogram. 4. History of hypothyroidism. Continue Synthroid. 5. History of hypertension, continue lisinopril. We will monitor the blood pressure. 6. History of hyperlipidemia. Continue Crestor. Follow the fasting lipid profile. 7. Tobacco abuse, needs counseling. 8. Diabetes, on insulin pump. The patient wants to be continued on the insulin pump. We will closely monitor blood pressure while patient is n.p.o. 9. Deep venous thrombosis prophylaxis, sequential compression devices for now. 10. Disposition: Observation tele floor. Expect to discharge home and follow with family doctor later today. Level 1 full code. Pharmacy recommends Basal insulin/ISS instead of pump currently as there is discrepancy in blood sugar readings. Labs Checked ROS-No Headache, No Visual Changes, No Nausea, No Vomiting, No Fever, No Chills, No Neck Pain or Stiffness, No Chest Pain, No Palpitations, No SOB, No WHITE, No Cough, No Sputum, No Wheezing, No Abdominal Pain, No Diarrhea, No Hematemesis, No Hemoptysis, No Unexpected Weight Loss, No Flank pain, No Melena, No Hematochezia, No Frequency, No Urgency, No Burning, No Hematuria, No Rashes, No Diaphoresis. Appetite is Normal Physical Exam Gen-AAO x 3, NAD, Afebrile Head-NCAT, EOMI, PERRLA, Anicteric Sclera, No Posterior Pharyngeal Erythema Neck-Supple, No JVD, No Thyromegaly, No Masses, No LAD, No Bruits Lungs-Clear to Auscultation Bilaterally, No Rales, No Rhonchi, No Wheezing, No Crepitus Chest-No S4, +S1, +S2, No S3, No Murmurs, No Rubs, No Gallops, No Ectopy Abdomen-Soft, Bowel Sounds Present, Non Tender, Non Distended, No Hepatomegaly, No Splenomegaly, No Palpable Masses, No Rebound, No Rigidity, No Guarding Musculoskeletal-Full Range of Motion Bilaterally, No CVAT Extremities-No Cyanosis, No Clubbing, No Edema Nuero-Cranial Nerves II-XII grossly intact, Motor WNL, DTRs WNL, Strength WNL, Non Focal Psych-Normal Mood Results & Data Vital Signs (Past 12 Hours) Vital Signs Temp Pulse Pulse Resp BP BP Pulse Ox 07/24/19 08:41 36.7 C 67 12 106/63 95 07/24/19 07:48 82 07/24/19 03:37 36.6 C 83 19 128/68 93 07/24/19 00:20 36.6 C 83 20 134/68 95 07/24/19 00:00 82 18 118/64 97 07/23/19 23:50 84 22 97 07/23/19 23:40 84 21 98 07/23/19 23:30 86 17 129/67 97 07/23/19 23:20 88 19 98 07/23/19 23:10 85 20 97 07/23/19 23:00 83 16 129/66 97 07/23/19 22:50 85 16 96 07/23/19 22:40 86 16 96 07/23/19 22:30 85 19 127/59 L 95 07/23/19 22:20 82 18 95 07/23/19 22:15 80 18 124/59 L 95 07/23/19 22:10 87 22 95 07/23/19 22:09 82 18 95 07/23/19 22:07 81 17 142/63 H 95 07/23/19 22:00 96 07/23/19 21:37 36.7 C 80 20 153/82 H 99
[2019-07-24] MEDS ORDERED: DOBUTamine HCL 12.5 MG/ML 20 ML VIAL IV ONE (09:54)
[2019-07-24] MEDS ORDERED: ATROPINE SULFATE 0.1 MG/ML 10ML SYR IV ONE (09:54)
[2019-07-24] MEDS ORDERED: METOPROLOL TARTRATE 1 MG/ML VIAL IV ONE (09:54)
--- NOTE | 2019-07-24 11:25 | Cardiology Consultation ---
Date of Consultation July 24, 2019 Assessment & Plan (1) Precordial chest pain: The patient's ischemic work-up was completely unremarkable. Resting echocardiogram did not show any possible sources for chest discomfort either. At this point I do not see any cardiac component to her chest pain and no further cardiac testing or intervention is necessary at this time. Okay to discharge patient home from a cardiac standpoint. Would recommend follow-up with her PCP for further evaluation and treatment of her chest discomfort. (2) History of coronary artery disease: She does carry history of nonobstructive disease in her mid LAD and marginal system. The most prudent course of action at this point would be for strict risk factor modification. To that and I have counseled her on her absolute need for smoking cessation along with continuation of her aspirin and rosuvastatin. The patient has not been seen by her primary public health outreach worker since 2016 and should follow-up on a regular basis for continued monitoring. My office will call to arrange follow- up. (3) Dyslipidemia: LDL well controlled at 27. Continue current dose of rosuvastatin. (4) Tobacco abuse: Patient was counseled on her absolute need for total smoking cessation. History of Present Illness Reason for Consultation: chest pain Requesting Physician: Maggi Attending Physician: Vinnie Bryant, History of Present Illness It was my pleasure to see Ms. Hughes in consultation today July 24, 2019. She is a very pleasant 49-year-old woman who previously followed up with Dr. Rob of her cardiology practice but has not been seen since 2016. She presented to [facility] emergency department on July 23 with complaints of chest pain. She states that she was in her normal state of health yesterday and after eating dinner she sat down on her couch to watch television when she suddenly developed chest pain. She described it as a very sharp stabbing/pressure sensation across her left tunnel border. It then radiated across her right precordium and she developed numbness and tingling up into her neck and face. She became very short of breath. She question whether she is having anxiety attack at that time and did take her Ativan along with some Tums but did not have any significant relief. Upon presentation emergency room she was given Nitropaste without any significant change of her discomfort but she states her discomfort slowly resolved on its own. She was feeling well then had another episode when she walked back from the bathroom to laying in bed it was similar but not as severe. She does not remember if this is similar to previous episodes of chest pain that required hospitalization at [facility]. Allergies Allergy/AdvReac Type Severity Reaction Status Date / Time adhesive Allergy Unknown BLISTERS Verified 02/05/19 12:26 Home Medications Home Medications Medication Instructions Recorded Confirmed Type aspirin 81 mg PO QAM #0 09/16/14 07/23/19 History levothyroxine [Synthroid] 200 mcg PO QAM #0 06/01/16 07/23/19 History lorazepam [Ativan] 0.5 mg PO UD PRN #0 tab 03/06/18 07/23/19 History tramadol 50 mg PO Q6H PRN #0 03/28/18 07/23/19 History Novolog Insulin Pump 1 dose SC UD 05/03/18 07/23/19 History docusate sodium [Colace] 100 mg PO BID #60 cap 05/17/18 07/23/19 Rx albuterol sulfate [ProAir HFA] 2 puff INHALATION QID PRN 02/05/19 07/23/19 History clopidogrel [Plavix] 75 mg PO DAILY 07/23/19 07/23/19 History lisinopril 5 mg PO DAILY 07/23/19 07/23/19 History rosuvastatin [Crestor] 20 mg PO DAILY 07/23/19 07/23/19 History venlafaxine [Effexor XR] 75 mg PO HS 07/23/19 07/23/19 History Patient History Medical History Acquired bilateral foot deformity (Acute) Anxiety Blood dyscrasia Lipoprotein A elevation Callus (Acute) Chronic kidney disease (CKD) STAGE 2 Coronary artery disease, non-occlusive Depression Diabetes mellitus with diabetic polyneuropathy (Acute) Diabetes mellitus, type 2 Diabetic neuropathy H/O atypical migraine Complex (11/2014) evaluated at [facility], MRI and head CT negative, some residual L hand numbness per pt, s/p rehab History of chronic urinary tract infection HTN (hypertension) Hx of blood clots PT REPORTS WILL GET FREQUENT BLOOD CLOTS (HAD THEM IN TOO) - NONE IN THE LAST 6 YRS Hypothyroid TIA (transient ischemic attack) x 4, most recent 2005--previously seen by neuro, now follows only with PCP, on ASA 81mg daily Surgical History History of discectomy lumbar Hx laparoscopic cholecystectomy Hx of arthroscopic knee surgery R KNEE MENISCUS X2 Hx of cardiac cath non-occlusive. No intervention Hx of tubal ligation Family History Other Diabetes Heart disease Hypertension Social History Preferred Language: Sammarinese Communication Ability: Effective Visual Impairment: No Limitations Flight Manager Required: No Beliefs That Will Affect Care: None Current Living Situation: Significant Other Current Living Situation Comment: Significant other and his two kids and her daughter Feels Safe at Home: Yes Safety Concerns: Feels Safe At This Time Smoking Status: Current every day smoker Tobacco Type: cigarettes ; Cigarettes Per Day: 8-10 ; Tobacco Cessation Education Requested by Patient: Yes (interested in quitting) Hx Alcohol Use: Yes Hx Substance Use: No Review of Systems Review of Systems: All systems reviewed & are unremarkable except as noted in HPI & below Physical Exam Physical Exam: General: Awake, alert and oriented x 3. No acute distress. HEENT: Normocephalic, atraumatic. Pupils equal, round and reactive to light and accommodation. Extraocular muscles are intact. Anicteric sclera. Moist mucous membranes. Neck: No JVD. No bruit. Cardiovascular: Regular. Positive S-4. Normal S-1 and S-2. No S-3. No murmurs or rubs. Pulmonary: Clear to auscultation B/L. No rales, rhonchi or wheezing Abdomen: Bowel sounds x 4, soft. No rebound, guarding or tenderness. No organomegaly. Extremities: No clubbing, cyanosis or edema. +2 pedal pulses bilaterally. Skin: Warm and dry. Results & Data Vital Signs (Past 12 Hours) Vital Signs Temp Pulse Pulse Resp BP BP Pulse Ox 07/24/19 08:41 36.7 C 67 12 106/63 95 07/24/19 07:48 82 07/24/19 03:37 36.6 C 83 19 128/68 93 07/24/19 00:20 36.6 C 83 20 134/68 95 07/24/19 00:00 82 18 118/64 97 07/23/19 23:50 84 22 97 07/23/19 23:40 84 21 98 07/23/19 23:30 86 17 129/67 97 07/23/19 23:20 88 19 98 Laboratory Results Laboratory Results - last 24 hr 07/23/19 07/23/19 07/23/19 21:53 21:53 21:53 WBC 13.07 H RBC 4.55 Hgb 14.9 Hct 43.5 MCV 95.6 MCH 32.7 MCHC 34.3 RDW Std Deviation 44.0 RDW Coeff of Brad 12.8 Plt Count 220 MPV 11.8 H Immature Gran % (Auto) 0.5 Neut % (Auto) 63.8 Lymph % (Auto) 24.6 Winn % (Auto) 8.0 Eos % (Auto) 2.7 Baso % (Auto) 0.4 Immature Gran # (Auto) 0.06 H Neut # (Auto) 8.34 H Lymph # (Auto) 3.22 Winn # (Auto) 1.05 H Eos # (Auto) 0.35 Baso # (Auto) 0.05 PT 9.4 INR 0.9 APTT 23.8 PTT Ratio 0.9 Sodium 140 Potassium 3.7 Chloride 105 Carbon Dioxide 29 Anion Gap 5.0 BUN 18 Creatinine 0.93 Est Cr Clr Drug Dosing 94.1 Est GFR ( Amer) 84.8 Est GFR (Non-Af Amer) 73.2 BUN/Creatinine Ratio 18.9 Glucose 186 H POC Glucose Estimat Average Glucose Hemoglobin A1c Calcium 9.1 Magnesium 1.9 Total Bilirubin 0.3 AST 26 ALT 32 Alkaline Phosphatase 142 H Troponin I < 0.015 Total Protein 7.6 Albumin 3.5 Globulin 4.1 H Albumin/Globulin Ratio 0.9 Triglycerides Cholesterol LDL Cholesterol, Calc VLDL Cholesterol, Calc HDL Cholesterol Cholesterol/HDL Ratio Lipase 122 Specimen Hemolysis 07/24/19 07/24/19 07/24/19 00:53 01:42 05:34 WBC 12.78 H RBC 4.17 L Hgb 13.5 Hct 39.4 MCV 94.5 MCH 32.4 MCHC 34.3 RDW Std Deviation 44.1 RDW Coeff of Brad 12.8 Plt Count 190 MPV 11.2 H Immature Gran % (Auto) 0.5 Neut % (Auto) 63.4 Lymph % (Auto) 22.8 Winn % (Auto) 9.6 Eos % (Auto) 3.2 Baso % (Auto) 0.5 Immature Gran # (Auto) 0.06 H Neut # (Auto) 8.10 H Lymph # (Auto) 2.92 Winn # (Auto) 1.23 H Eos # (Auto) 0.41 Baso # (Auto) 0.06 PT INR APTT PTT Ratio Sodium Potassium Chloride Carbon Dioxide Anion Gap BUN Creatinine Est Cr Clr Drug Dosing Est GFR ( Amer) Est GFR (Non-Af Amer) BUN/Creatinine Ratio Glucose POC Glucose 166 H Estimat Average Glucose Hemoglobin A1c Calcium Magnesium Total Bilirubin AST ALT Alkaline Phosphatase Troponin I < 0.015 Total Protein Albumin Globulin Albumin/Globulin Ratio Triglycerides Cholesterol LDL Cholesterol, Calc VLDL Cholesterol, Calc HDL Cholesterol Cholesterol/HDL Ratio Lipase Specimen Hemolysis 07/24/19 07/24/19 07/24/19 05:34 05:34 05:34 WBC RBC Hgb Hct MCV MCH MCHC RDW Std Deviation RDW Coeff of Brad Plt Count MPV Immature Gran % (Auto) Neut % (Auto) Lymph % (Auto) Winn % (Auto) Eos % (Auto) Baso % (Auto) Immature Gran # (Auto) Neut # (Auto) Lymph # (Auto) Winn # (Auto) Eos # (Auto) Baso # (Auto) PT INR APTT PTT Ratio Sodium 140 Potassium 4.0 Chloride 107 Carbon Dioxide 27 Anion Gap 6.0 BUN 18 Creatinine 0.74 Est Cr Clr Drug Dosing 116.2 Est GFR ( Amer) 111.8 Est GFR (Non-Af Amer) 96.5 BUN/Creatinine Ratio 23.6 H Glucose 179 H POC Glucose Estimat Average Glucose 246 Hemoglobin A1c 10.2 H Calcium 9.1 Magnesium 1.7 L Total Bilirubin AST ALT Alkaline Phosphatase Troponin I < 0.015 Total Protein Albumin Globulin Albumin/Globulin Ratio Triglycerides 225 H Cholesterol 109 LDL Cholesterol, Calc 25 VLDL Cholesterol, Calc 45 HDL Cholesterol 39 Cholesterol/HDL Ratio 3 Lipase Specimen Hemolysis 07/24/19 05:42 WBC RBC Hgb Hct MCV MCH MCHC RDW Std Deviation RDW Coeff of Brad Plt Count MPV Immature Gran % (Auto) Neut % (Auto) Lymph % (Auto) Winn % (Auto) Eos % (Auto) Baso % (Auto) Immature Gran # (Auto) Neut # (Auto) Lymph # (Auto) Winn # (Auto) Eos # (Auto) Baso # (Auto) PT INR APTT PTT Ratio Sodium Potassium Chloride Carbon Dioxide Anion Gap BUN Creatinine Est Cr Clr Drug Dosing Est GFR ( Amer) Est GFR (Non-Af Amer) BUN/Creatinine Ratio Glucose POC Glucose 212 H Estimat Average Glucose Hemoglobin A1c Calcium Magnesium Total Bilirubin AST ALT Alkaline Phosphatase Troponin I Total Protein Albumin Globulin Albumin/Globulin Ratio Triglycerides Cholesterol LDL Cholesterol, Calc VLDL Cholesterol, Calc HDL Cholesterol Cholesterol/HDL Ratio Lipase Specimen Hemolysis Diagnostic Findings Cardiac catheterization performed 06/30/2014 reported as: The patient has mild to at most moderate coronary artery disease inthe mid portion of the LAD and mild coronary artery disease within the ostiumof the left circumflex marginals. The remainder of the coronary anatomy is widely patent. The dobutamine stress echocardiogram performed today was nonischemic. Medications Administered Current Inpatient Medications Acetaminophen (Tylenol) 650 mg PO Q4H PRN PRN Reason: Pain or Fever Stop: 08/23/19 00:46 Albuterol (Ventolin Hfa) 2 puffs INH QID PRN PRN Reason: SHORTNESS OF BREATH/WHEEZING Stop: 08/23/19 00:53 Aspirin (Ecotrin Ectab) 81 mg PO QAM [facility] Stop: 08/23/19 08:59 Last Admin: 07/24/19 09:15 Dose: 81 mg Documented by: Clopidogrel Bisulfate (Plavix) 75 mg PO DAILY [facility] Stop: 08/23/19 08:59 Last Admin: 07/24/19 09:15 Dose: 75 mg Documented by: Dextrose (Dextrose 50%) 25 - 50 ml IV UD PRN; Protocol PRN Reason: Hypoglycemia Protocol Stop: 08/23/19 01:14 Docusate Sodium (Colace) 100 mg PO BID [facility] Stop: 08/23/19 08:59 Last Admin: 07/24/19 09:15 Dose: 100 mg Documented by: Glucagon (Glucagen) 1 mg SQ UD PRN; Protocol PRN Reason: Hypoglycemia Protocol Stop: 08/23/19 01:14 Glucose (Glucose 40%) 15 - 30 gm PO UD PRN; Protocol PRN Reason: Hypoglycemia Protocol Stop: 08/23/19 01:14 Glucose (Dex4 Glucose) 4 - 8 tabs PO UD PRN; Protocol PRN Reason: Hypoglycemia Protocol Stop: 08/23/19 01:14 Insulin Aspart (Novolog Insulin Pump) 1 ea N/A ACHS [facility]; Protocol Stop: 08/23/19 07:29 Last Admin: 07/24/19 08:59 Dose: Not Given Documented by: Insulin Aspart (Novolog Flexpen) 0 units SC Q6 [facility] Stop: 08/23/19 06:29 Last Admin: 07/24/19 06:41 Dose: 3 units Documented by: Levothyroxine Sodium (Synthroid) 200 mcg PO DAILYBB [facility] Stop: 08/23/19 06:29 Last Admin: 07/24/19 06:25 Dose: 200 mcg Documented by: Lisinopril (Zestril) 5 mg PO DAILY [facility] Stop: 08/23/19 08:59 Last Admin: 07/24/19 09:15 Dose: 5 mg Documented by: Lorazepam (Ativan) 0.5 mg PO DAILY PRN PRN Reason: Anxiety Stop: 08/23/19 00:46 Last Admin: 07/24/19 01:32 Dose: 0.5 mg Documented by: Miscellaneous (Carbohydrates For Hypoglycemia) 15 - 30 gm PO UD PRN PRN Reason: Hypoglycemia Treatment Stop: 08/23/19 01:14 Miscellaneous Information (Consult Glycemic Management Pharmacy) 1 ea N/A UD PRN PRN Reason: Consult Stop: 08/23/19 00:56 Morphine Sulfate (Morphine Sulfate) 2 mg IV Q30M PRN PRN Reason: Chest Pain Stop: 08/07/19 00:46 Nitroglycerin (Nitrostat) 0.4 mg SL UD PRN PRN Reason: Chest Pain Stop: 08/23/19 00:46 Nitroglycerin (Nitro-Bid 2%) 0.5 inch EXT Q6H [facility] Stop: 08/23/19 03:59 Last Admin: 07/24/19 03:59 Dose: 0.5 inch Documented by: Ondansetron HCl (Zofran) 4 mg IV Q6H PRN PRN Reason: Nausea Stop: 08/23/19 00:46 Rosuvastatin Calcium (Crestor) 20 mg PO DAILY [facility] Stop: 08/23/19 08:59 Last Admin: 07/24/19 09:14 Dose: 20 mg Documented by: Tramadol HCl (Ultram) 50 mg PO Q6H PRN PRN Reason: Pain Stop: 08/23/19 00:46 Venlafaxine HCl (Effexor Extended Release) 75 mg PO HS ROSI Stop: 08/23/19 20:59
--- NOTE | 2019-07-24 14:14 | Discharge Summary ---
Date of Service July 24, 2019 Admission HPI Per Admitting Provider This is a 49-year-old female with past medical history significant for type 2 diabetes, hypothyroidism, hyperlipidemia, nonobstructive CAD, GERD, restless legs syndrome, migraine, major depression, tobacco abuse disorder, history of TIA, who presents with chest pain. The patient ate her supper and she was resting watching TV when she noticed chest pain in the middle of the chest, it was shooting kind of pain, 9/10 in severity, across the chest. She took some aspirin. Sometimes she gets this pain and she takes Ativan to calm her down. She took Ativan and also Tums, but the pain did not resolve and the pain seemed to be coming back behind the head and also in the back of the neck and also she felt some numbness in the lips when she came to the ER. In the ER, she was placed on nitro paste and currently pain is almost resolved. She is feeling better. [place] nauseous during the episode. No shortness of breath. [place] dizzy. No sweating, no headache, no blurred visions, no earache. has some runny nose, no cough, no difficulty swallowing. No shortness of breath, no abdominal pain. Normal bowel and bladder movements. No hematuria or burning micturition. No melena or hematochezia. No swelling in the legs, no rash. Otherwise she is active and she does not get chest pain while she is ambulating or climbing steps usually. Admission Exam Per Admitting Provider PHYSICAL EXAMINATION: GENERAL: The patient is of moderate built, not in acute distress. VITAL SIGNS: Temperature 36.7, pulse 85, respiratory rate 20, blood pressure 129/66, oxygen 97% on room air. HEENT: No pallor, no icterus. Pupils equal, round, and reactive to light. NECK: No JVD, no neck masses, no carotid bruits. CARDIOVASCULAR: S1, S2 heard, regular rate and rhythm, no murmur, no gallop. RESPIRATORY SYSTEM: Normal AP diameter. No accessory muscle use. No wheezing, no crackles. ABDOMEN: Soft, bowel sounds present, nontender. No distention. CENTRAL NERVOUS SYSTEM: Cranial nerves II-XII grossly intact. Nonfocal. EXTREMITIES: No edema, no erythema. Principal Diagnosis Atypical CP Discharge Exam Physical Exam Gen-AAO x 3, NAD, Afebrile Head-NCAT, EOMI, PERRLA, Anicteric Sclera, No Posterior Pharyngeal Erythema Neck-Supple, No JVD, No Thyromegaly, No Masses, No LAD, No Bruits Lungs-Clear to Auscultation Bilaterally, No Rales, No Rhonchi, No Wheezing, No Crepitus Chest-No S4, +S1, +S2, No S3, No Murmurs, No Rubs, No Gallops, No Ectopy Abdomen-Soft, Bowel Sounds Present, Non Tender, Non Distended, No Hepatomegaly, No Splenomegaly, No Palpable Masses, No Rebound, No Rigidity, No Guarding Musculoskeletal-Full Range of Motion Bilaterally, No CVAT Extremities-No Cyanosis, No Clubbing, No Edema Nuero-Cranial Nerves II-XII grossly intact, Motor WNL, DTRs WNL, Strength WNL, Non Focal Psych-Normal Mood Discharge Data Allergies Allergy/AdvReac Type Severity Reaction Status Date / Time adhesive Allergy Unknown BLISTERS Verified 02/05/19 12:26 Consultations 07/23/19 22:50 ED Decision to Admit Stat 07/24/19 08:00 Consult Cardiology Routine Neg Echo, Unremarkable Stress test Hospital Course (1) Precordial chest pain: ASSESSMENT AND PLAN: This is a 49-year-old female who presents with chest pain, history of nonobstructive coronary artery disease, history of diabetes, hypertension, hyperlipidemia and ongoing smoking.. 1. Chest pain. Initial workup is negative. n.p.o. Cardiology on case, echo 2. History of transient ischemic attack, on aspirin, Plavix, and statin. 3. History of nonobstructive coronary artery disease. Continue home medications of statin, aspirin. Follow the echocardiogram. 4. History of hypothyroidism. Continue Synthroid. 5. History of hypertension, continue lisinopril. We will monitor the blood pressure. 6. History of hyperlipidemia. Continue Crestor. Follow the fasting lipid profile. 7. Tobacco abuse, needs counseling. 8. Diabetes, on insulin pump. The patient wants to be continued on the insulin pump. We will closely monitor blood pressure while patient is n.p.o. DC home and f/u c PCP Dr Noelle Rob Total Time Total Time Spent Total Time Spent (In Minutes): 45 mins Total Time Includes: Examination of the Patient, Discharge Planning, Medication Reconciliation and Communication With Other Providers Discharge Plan Discharge Items Patient Disposition: Home - Self-Care Reason For Visit: CHEST PAIN Discharge Diagnosis: Atypical Chest Pain-Non Cardiac Condition on Discharge: Good Activity: Resume your previous activity Lifting: None and Gradually increase as tolerated Bathing: No limitations Sexual Activity: When tolerated Exercise/Sports: Gradually increase as tolerated Driving/Machine Use: No limitations Weightbearing: Full weightbearing Non-emergency contact: Primary Care Provider Call non-emergency contact if: you have any medication questions Follow-up/Referrals: Noelle Rob DO [Primary Care Provider] - Diet: Regular, Carb Consistent or DM2 and Heart Healthy Addtl Attending Provider Instructions: Cardiac w/u negative Pending Studies at Discharge: No Stand-Alone Forms: Call Back Authorization, [place], Smoking Cessation Medications and DC Order Prescriptions: Continued aspirin 81 mg Tablet,Delayed Release (Dr/Ec) 81 mg PO QAM Qty: 0 RF: 0 levothyroxine [Synthroid] 200 mcg Tablet 200 mcg PO QAM Qty: 0 RF: 0 lorazepam [Ativan] 0.5 mg Tablet 0.5 mg PO UD PRN (Reason: Anxiety) Qty: 0 RF: 0 tramadol 50 mg Tablet 50 mg PO Q6H PRN (Reason: Pain) Qty: 0 RF: 0 albuterol sulfate [ProAir HFA] 90 mcg/actuation Hfa Aerosol Inhaler 2 puff INHALATION QID PRN (Reason: Shortness Of Breath Or Wheezing) RF: 0 venlafaxine [Effexor XR] 75 mg Capsule,Extended Release 24hr 75 mg PO HS RF: 0 clopidogrel [Plavix] 75 mg Tablet 75 mg PO DAILY RF: 0 rosuvastatin [Crestor] 20 mg Tablet 20 mg PO DAILY RF: 0 lisinopril 5 MG 5 mg PO DAILY RF: 0 Novolog Insulin Pump 1 dose SC UD RF: 0 docusate sodium [Colace] 100 mg capsule 100 mg PO BID Qty: 60 RF: 2 Discharge Orders: Discharge Order (Routine); Ordered 07/24/19 Ordered By: Vinnie Bryant Admission Data Admit Date/Time: 07/23/19 23:37 Attending Provider: Vinnie Bryant Admit Provider: Alden Tay Primary Care Provider: Noelle Rob Other Providers: Alden Tay ; Niall Robles ; Akshat Dey ; Héctor Boston ; Rod Rob ; Thang Broderick ; Caden Humphreys ; Vaishnavi Shah ; Dora Gilliland
--- NOTE | 2019-07-24 14:15 | Pharmacy Report ---
Glycemic Control Consultation - Date of Service July 24, 2019 - Scope Scope: Glycemic Pharmacist consulted by Dr Tay on 07/23 for glycemic control and to write orders per [facility] inpatient glycemic control protocol - Objective Weight: 93.1 kg Accuchecks BSG (last 24hrs): 07/23/19 07/24/19 07/24/19 21:53 01:42 05:34 Glucose 186 H 179 H POC Glucose 166 H 07/24/19 07/24/19 05:42 11:32 Glucose POC Glucose 212 H 182 H Laboratory Data (last 24hrs): 07/23/19 07/24/19 21:53 05:34 Potassium 3.7 4.0 Carbon Dioxide 29 27 Anion Gap 5.0 6.0 Creatinine 0.93 0.74 Est Cr Clr Drug Dosing 94.1 116.2 HbA1c: Hemoglobin A1c 10.2 % (4.5-5.6) H 07/24/19 05:34 - Recent Pertinent Medications Outpatient Anti-diabetic Regimen: * Novolog insulin pump; Carb ratio 2.5, Correction Factor 15 * Basal Rates * 12-3A: 1.55 units/hr * 3-8A: 1.75 units/hr * 8A-12A: 2.00 units/hr * A1c = 10.2% 07/24 The patient is currently receiving: Continue using insulin pump Risk Factors for Insulin Resistance: * Steroids: * Infection: * Pressors: * IVF: * Recent Surgery * Diet: * Mechanical Ventilation: - Assessment & Plan Assessment & Plan: ASSESSMENT: * Ms. Hughes admitted for chest pain/cardiac work-up * Currently using a 670g insulin pump with CGM, this was taken off for a few hours this AM and novolog sliding with correction factor of 30, carb ratio of 10, ? due to sensor not matching accu-check * Spoke with Ms. Hughes, she is not in automode and therefore cgm not controlling basal patterns, she was happy to restart her insulin pump. Suspected her BSG would be elevated after the lower dose of novolog/not receiving basal while pump was disconnected. Therefore patient rechecked BSG at 0900, which was elevated at 315. Patient self-bolused with pump 11.6 units. * Patient likely to be discharged this afternoon after stress test. BSG at lunch was down to 188 on her meter, 182 on accu-check. She may continue to utilize her insulin pump PLAN FOR INPATIENT GLYCEMIC CONTROL: * Continue using insulin pump with current setting * Please note that the plan above was derived based on current level of insulin resistance and hospital stress. These recommendations are appropriate for inpatient admission only. Plan of care upon discharge will need to be reassessed to avoid potential outpatient hypo/hyperglycemia. Thank you.
[2019-07-24] MEDS ORDERED: VENLAFAXINE HCL XR 75 MG CAPXR PO SCH (21:00)
== END 2019-07-24 16:31 | disposition home or self-care (01) ==
LOC: 2S 21:30 → ED 21:30 → 2S 07-24 00:10

== ENCOUNTER 2019-11-23 19:08 | Inpatient (IN) ==
[2019-11-23] MEDS ORDERED: SODIUM CHLORIDE 0.9% 1000ML 1,000 ML IV ONE ×2 (19:19→19:32)
[2019-11-23] MEDS ORDERED: ONDANSETRON INJ 2 MG/ML 2 ML VIAL IV STA (19:19)
[2019-11-23 19:40] LABS: Basophils # (auto) 0.01 K/uL (0-0.2); Basophils % (auto) 0.1 %; Hematocrit (blood only) 46.1 % (37-47); Hemoglobin 15.7 g/dL (12.0-16.0); Immature Granulocytes # (auto) 0.04 K/uL (0.00-0.02); Immature Granulocytes % (auto) 0.4 %; Lymphocytes # (auto) 0.97 K/uL (1.2-3.4); Lymphocytes % (auto) 9.5 %; Mean Corpuscular Hemoglobin 33.3 pg (25-34); Mean Corpuscular Hgb Conc 34.1 g/dL (32-36); Mean Corpuscular Volume 97.7 fL (80-100); Mean Platelet Volume 11.4 fL (7.4-10.4); Monocytes # (auto) 0.75 K/uL (0.11-0.59); Monocytes % (auto) 7.4 %; Neutrophils # (auto) 8.42 K/uL (1.4-6.5); Neutrophils % (auto) 82.6 %; Platelet Count 284 K/uL (130-400); RDW Standard Deviation 46.7 fL (36.4-46.3); Red Blood Count 4.72 M/uL (4.2-5.4); White Blood Count 10.19 K/uL (4.8-10.8)
[2019-11-23 19:50] LABS: Appearance Urine Clear (Clear); Blood Urine Negative (Negative); Color Urine Yellow; Glucose Urine UA 2+ (Negative); Ketones Urine 2+ (Negative); Leukocyte Esterase Urine Negative (Negative); Nitrite Urine Negative (Negative); Protein Urine Negative (Negative); Urobilinogen Urine Negative (Negative); pH Urine 5.5 (4.5-7.5)
[2019-11-23 19:56] LABS: Bilirubin Urine Negative (Negative); Ictotest Urine Negative (Negative)
--- NOTE | 2019-11-23 20:06 | Emergency Department Note ---
History of Present Illness General Chief complaint: Illness Stated complaint: VOMITING, HYPERGLYCEMIA, KIDNEY STONES Time Seen by Provider: 11/23/19 19:16 Source: patient and family Mode of arrival: ambulatory Limitations: no limitations History of Present Illness Provider Complaint: + nausea, + vomiting and + diarrhea Onset (ago): day(s) 3 Description of Vomiting: + watery Associated Abdominal Pain: Yes Location of pain: + epigastric Severity: moderate Maximum Pain Intensity: 5 Quality: + cramping and + aching Relieved By: + none Exacerbated By: + vomiting Context: no foreign travel, no recent antibiotic use, no recent surgery/procedure, no trauma and no NSAID use Home Medications Home Medications Medication Instructions Recorded Confirmed Type aspirin 81 mg PO QAM #0 09/16/14 11/23/19 History levothyroxine [Synthroid] 200 mcg PO QAM #0 06/01/16 11/23/19 History lorazepam [Ativan] 0.5 mg PO UD PRN #0 tab 03/06/18 11/23/19 History tramadol 50 mg PO Q6H PRN #0 03/28/18 11/23/19 History Novolog Insulin Pump 1 dose SC UD 05/03/18 11/23/19 History albuterol sulfate [ProAir HFA] 2 puff INHALATION QID PRN 02/05/19 11/23/19 History clopidogrel [Plavix] 75 mg PO DAILY 07/23/19 11/23/19 History rosuvastatin [Crestor] 20 mg PO DAILY 07/23/19 11/23/19 History venlafaxine [Effexor XR] 75 mg PO HS 07/23/19 11/23/19 History docusate sodium [Colace] 100 mg PO BID PRN 11/23/19 11/23/19 History insulin regular human 40 unit SUBCUT TIDM 11/23/19 11/23/19 History lisinopril 5 mg PO DAILY 11/23/19 11/23/19 History Allergies Allergy/AdvReac Type Severity Reaction Status Date / Time adhesive Allergy Unknown BLISTERS Verified 11/23/19 20:20 Past Med/Surg History Medical History Acquired bilateral foot deformity (Acute) Anxiety Blood dyscrasia Lipoprotein A elevation Callus (Acute) Chronic kidney disease (CKD) STAGE 2 Coronary artery disease, non-occlusive Depression Diabetes mellitus with diabetic polyneuropathy (Acute) Diabetes mellitus, type 2 Diabetic neuropathy H/O atypical migraine Complex (11/2014) evaluated at [facility], MRI and head CT negative, some residual L hand numbness per pt, s/p rehab History of chronic urinary tract infection HTN (hypertension) Hx of blood clots PT REPORTS WILL GET FREQUENT BLOOD CLOTS (HAD THEM IN TOO) - NONE IN THE LAST 6 YRS Hypothyroid TIA (transient ischemic attack) x 4, most recent 2005--previously seen by neuro, now follows only with PCP, on ASA 81mg daily Surgical History History of discectomy lumbar Hx laparoscopic cholecystectomy Hx of arthroscopic knee surgery R KNEE MENISCUS X2 Hx of cardiac cath non-occlusive. No intervention Hx of tubal ligation Social History Preferred Language: Vietnamese Communication Ability: Effective Visual Impairment: No Limitations Tig Welder Required: No Beliefs That Will Affect Care: None Current Living Situation: Significant Other Current Living Situation Comment: Significant other and his two kids and her daughter Feels Safe at Home: Yes Smoking Status: Current every day smoker Tobacco Type: cigarettes ; Cigarettes Per Day: 8-10 ; Hx Alcohol Use: Yes Hx Substance Use: No Review of Systems See HPI for pertinent positives & negatives. and A total of 10 systems reviewed and were otherwise negative Physical Exam Vital Signs: Vital Signs - 24 hr 11/23/19 19:12 11/23/19 19:50 11/23/19 19:54 Temperature 36.6 C Temperature Source Oral Pulse Rate 101 H Pulse Rate [Apical ] 88 Pulse Rhythm Regular Pulse Strength Normal Respiratory Rate 20 18 Respiratory Effort / Characteristics Non-Labored Sponta neous Respiratory Depth Normal Respiratory Patter n Regular Blood Pressure 128/80 Blood Pressure [Le ft Arm] 119/75 Blood Pressure T[place] n 96 Blood Pressure Tierra n [Left Arm] 89 Blood Pressure Pos ition Sitting Pulse Oximetry 99 97 97 Oxygen Delivery Me thod Room Air Room Air Room Air Sepsis Recent Feve r Within 48 Hours No Sepsis Action Take n by Nursing No Action Required 11/23/19 21:27 11/23/19 23:17 Temperature Temperature Source Pulse Rate Pulse Rate [Apical ] 86 89 Pulse Rhythm Pulse Strength Respiratory Rate 18 18 Respiratory Effort / Characteristics Respiratory Depth Respiratory Patter n Blood Pressure Blood Pressure [Le ft Arm] 142/76 H 123/75 Blood Pressure Tierra n Blood Pressure Tierra n [Left Arm] 98 91 Blood Pressure Pos ition Pulse Oximetry 96 96 Oxygen Delivery Me thod Room Air Room Air Sepsis Recent Feve r Within 48 Hours Sepsis Action Take n by Nursing Physical Exam: GENERAL: Uncomfortable in appearance, NAD, non-toxic. Wearing glasses. EYE EXAM: Normal conjunctiva. PERRL, no anisocoria and EOM's grossly intact w/o pain. OROPHARYNX: Dry mucus membranes. Grossly normal dentition. NECK: Supple, no nuchal rigidity, no adenopathy, non-tender. No signs of meningismus. LUNGS: Clear to auscultation. Normal chest wall mechanics. HEART: NSR, no MRG. ABDOMEN: Abdomen soft, mild upper abdominal discomfort, not peritonitic, normo- active bowel sounds, no masses, no rebound or guarding. BACK: No CVA TTP. SKIN: No rashes and no bruising. UPPER EXTREMITIES: Upper extremities are grossly normal. LOWER EXTREMITIES: Grossly normal, no edema. NEURO EXAM: A&O x3, cranial nerves II-XII grossly intact, normal speech, moves all 4 extremities on command w/o issue. Course Course 1919: Patient was seen and evaluated the bedside. A full history and physical exam were performed. He was reassessed and pain meds were ordered Patient was informed of the findings and that the patient will be admitted due to concern for DKA. Administered Medications Discontinued Medications Al Hydrox/Mg Hydrox/Simethicone () 1 dose PO ONE ONE Stop: 11/23/19 21:12 Last Admin: 11/23/19 21:22 Dose: 1 dose Documented by: [id number] Sodium Chloride (Nss 1000ml) 1,000 mls @ 999 mls/hr IV .Q1H1M ONE Stop: 11/23/19 20:19 Last Infusion: 11/23/19 21:05 Dose: 0 mls/hr Documented by: [id number] Admin: 11/23/19 19:51 Dose: 999 mls/hr Documented by: [id number] Sodium Chloride (Nss 1000ml) 1,000 mls @ 999 mls/hr IV .Q1H1M ONE Stop: 11/23/19 20:32 Last Infusion: 11/23/19 21:05 Dose: 0 mls/hr Documented by: [id number] Admin: 11/23/19 19:53 Dose: 999 mls/hr Documented by: [id number] Morphine Sulfate (Morphine Sulfate) 4 mg IV NOW STA Stop: 11/23/19 20:53 Last Admin: 11/23/19 21:05 Dose: 4 mg Documented by: [id number] Ondansetron HCl (Zofran) 4 mg IV NOW STA Stop: 11/23/19 19:20 Last Admin: 11/23/19 19:52 Dose: 4 mg Documented by: [id number] Medical Decision Making Differential Diagnosis + gastroenteritis, + food borne illness, + diverticulitis, + vomiting and + abdominal pain DKA, ACS Medical Records Attestation: I reviewed the patient's medical records. Home Medications Current Medication List: was personally reviewed by me Laboratory Data Attestation: I reviewed the patient's lab results. Result diagrams: 11/23/19 19:26 11/23/19 19:26 Lab Results 11/23/19 11/23/19 11/23/19 Range/Units 19:15 19:26 19:26 WBC 10.19 (4.8-10.8) K/uL RBC 4.72 (4.2-5.4) M/uL Hgb 15.7 (12.0-16.0) g/dL Hct 46.1 (37-47) % MCV 97.7 (80-100) fL MCH 33.3 (25-34) pg MCHC 34.1 (32-36) g/dL RDW Std Deviation 46.7 H (36.4-46.3) fL RDW Coeff of Brad 13.0 (11.5-14.5) % Plt Count 284 (130-400) K/uL MPV 11.4 H (7.4-10.4) fL Immature Gran % (Auto) 0.4 % Neut % (Auto) 82.6 % Lymph % (Auto) 9.5 % [place] % (Auto) 7.4 % Eos % (Auto) 0.0 % Baso % (Auto) 0.1 % Immature Gran # (Auto) 0.04 H (0.00-0.02) K/uL Neut # (Auto) 8.42 H (1.4-6.5) K/uL Lymph # (Auto) 0.97 L (1.2-3.4) K/uL [place] # (Auto) 0.75 H (0.11-0.59) K/uL Eos # (Auto) 0.00 (0-0.5) K/uL Baso # (Auto) 0.01 (0-0.2) K/uL Sodium 129 L (136-145) mmol/L Potassium 4.4 (3.5-5.1) mmol/L Chloride 94 L (98-107) mmol/L Carbon Dioxide 14 L (21-32) mmol/L Anion Gap 21.0 H (3-11) BUN 22 H (7-18) mg/dl Creatinine 1.56 H (0.6-1.2) mg/dl Est Cr Clr Drug Dosing 52.2 ml/min Est GFR ( Amer) 45.4 Est GFR (Non-Af Amer) 39.2 BUN/Creatinine Ratio 14.2 (10-20) Glucose 524 H* (70-99) mg/dl POC Glucose 466 H* (70-99) mg/dl Calcium 8.3 L (8.5-10.1) mg/dl Total Bilirubin 0.5 (0.2-1) mg/dl AST 86 H (15-37) U/L ALT 161 H (12-78) U/L Alkaline Phosphatase 442 H (45-117) U/L Troponin I < 0.015 (0-0.045) ng/ml Total Protein 8.1 (6.4-8.2) gm/dl Albumin 3.3 L (3.4-5.0) gm/dl Globulin 4.8 H (2.5-4.0) gm/dl Albumin/Globulin Ratio 0.7 L (0.9-2) Lipase 29 L (73-393) U/L Beta-Hydroxybutyric Acd 38.98 H (0.2-2.81) mg/dl Urine Color Urine Appearance (Clear) Urine pH (4.5-7.5) Ur Specific [place] (1.000-1.030) Urine Protein (Negative) Urine Glucose (UA) (Negative) Urine Ketones (Negative) Urine Blood (Negative) Urine Nitrite (Negative) Urine Bilirubin (Negative) Urine Urobilinogen (Negative) Ur Leukocyte Esterase (Negative) 11/23/19 11/23/19 Range/Units 19:26 21:26 WBC (4.8-10.8) K/uL RBC (4.2-5.4) M/uL Hgb (12.0-16.0) g/dL Hct (37-47) % MCV (80-100) fL MCH (25-34) pg MCHC (32-36) g/dL RDW Std Deviation (36.4-46.3) fL RDW Coeff of Brad (11.5-14.5) % Plt Count (130-400) K/uL MPV (7.4-10.4) fL Immature Gran % (Auto) % Neut % (Auto) % Lymph % (Auto) % [place] % (Auto) % Eos % (Auto) % Baso % (Auto) % Immature Gran # (Auto) (0.00-0.02) K/uL Neut # (Auto) (1.4-6.5) K/uL Lymph # (Auto) (1.2-3.4) K/uL [place] # (Auto) (0.11-0.59) K/uL Eos # (Auto) (0-0.5) K/uL Baso # (Auto) (0-0.2) K/uL Sodium (136-145) mmol/L Potassium (3.5-5.1) mmol/L Chloride (98-107) mmol/L Carbon Dioxide (21-32) mmol/L Anion Gap (3-11) BUN (7-18) mg/dl Creatinine (0.6-1.2) mg/dl Est Cr Clr Drug Dosing ml/min Est GFR ( Amer) Est GFR (Non-Af Amer) BUN/Creatinine Ratio (10-20) Glucose (70-99) mg/dl POC Glucose 266 H (70-99) mg/dl Calcium (8.5-10.1) mg/dl Total Bilirubin (0.2-1) mg/dl AST (15-37) U/L ALT (12-78) U/L Alkaline Phosphatase (45-117) U/L Troponin I (0-0.045) ng/ml Total Protein (6.4-8.2) gm/dl Albumin (3.4-5.0) gm/dl Globulin (2.5-4.0) gm/dl Albumin/Globulin Ratio (0.9-2) Lipase (73-393) U/L Beta-Hydroxybutyric Acd (0.2-2.81) mg/dl Urine Color Yellow Urine Appearance Clear (Clear) Urine pH 5.5 (4.5-7.5) Ur Specific [place] 1.020 (1.000-1.030) Urine Protein Negative (Negative) Urine Glucose (UA) 2+ H (Negative) Urine Ketones 2+ H (Negative) Urine Blood Negative (Negative) Urine Nitrite Negative (Negative) Urine Bilirubin Negative (Negative) Urine Urobilinogen Negative (Negative) Ur Leukocyte Esterase Negative (Negative) ECG Data Attestation: I personally reviewed and interpreted this ECG as follows: Indication: other (Nausea vomiting) Rate (beats per minute): 91 Rhythm: normal sinus Findings: + other (Normal intervals normal axis, no ST changes or T WI, Q waves anteriorly) Blood Pressure Blood Pressure Findings: Normal blood pressure MDM Narrative Patient was seen and evaluated at the bedside. The patient did present with concern for persistent vomiting beginning . Patient states is been ongoing for about 10 times per day over the last several days since . The patient states that for members did have a gastrointestinal bug but that this is only 24 hours but she has had some more persistent symptoms with associated diarrhea. No recent travel. The patient does complain of some crampiness but believes this is more related to her dehydration. The patient states that she was doing checks but her current glucometer is broken. The patient was checking for ketones in the urine and since those were present she came into the ER today. The patient does not have rapid breathing. Patient did have blood work completed along with an EKG and troponin. The patient was given 2 L of IV fluids and antiemetics. Patient does have mild transaminitis but without a bilirubin elevation. The patient does not have right upper quadrant pain. Cardiac monitoring: An order was placed for continuous cardiac monitoring. The monitor shows a rate of 89 with sinus rhythm. Patient's blood work concerning for hyperglycemia and associated DKA. After IV fluids the patient's repeat blood sugar was 266. I did speak the on-call hospit alist and additional insulin therapy was deferred at this time. Patient was admitted to the medicine service. Impression & Plan DKA, type 1, Nausea & vomiting, Acute dehydration Critical Care Time Critical Care Time: Yes Total Critical Care Time: 45 I have personally spent 45 minutes of critical care time in direct management of this patient. This includes bedside care, interpretation of diagnostic studies, and testing, discussion with consultants, patient, and family members, and other require inpatient management activities. This 45 minutes is in excess of all separately billable procedures. Discharge Plan Visit Data Chief Complaint: Illness Stated Complaint: VOMITING, HYPERGLYCEMIA, KIDNEY STONES ED Provider: Vinnie Boyd Discharge Problem: DKA, type 1, Nausea & vomiting, Acute dehydration Forms Stand Alone Forms: [facility] [employer] Prescriptions Prescriptions: No Action aspirin 81 mg Tablet,Delayed Release (Dr/Ec) 81 mg PO QAM Qty: 0 RF: 0 levothyroxine [Synthroid] 200 mcg Tablet 200 mcg PO QAM Qty: 0 RF: 0 lorazepam [Ativan] 0.5 mg Tablet 0.5 mg PO UD PRN (Reason: Anxiety) Qty: 0 RF: 0 tramadol 50 mg Tablet 50 mg PO Q6H PRN (Reason: Pain) Qty: 0 RF: 0 albuterol sulfate [ProAir HFA] 90 mcg/actuation Hfa Aerosol Inhaler 2 puff INHALATION QID PRN (Reason: Shortness Of Breath Or Wheezing) RF: 0 venlafaxine [Effexor XR] 75 mg Capsule,Extended Release 24hr 75 mg PO HS RF: 0 clopidogrel [Plavix] 75 mg Tablet 75 mg PO DAILY RF: 0 rosuvastatin [Crestor] 20 mg Tablet 20 mg PO DAILY RF: 0 insulin regular human 100 unit/mL Solution 40 unit SUBCUT TIDM RF: 0 lisinopril 5 mg tablet 5 mg PO DAILY RF: 0 docusate sodium [Colace] 100 mg capsule 100 mg PO BID PRN (Reason: Constipation) RF: 0 Novolog Insulin Pump 1 dose SC UD RF: 0 Discharge Problem: DKA, type 1 Qualifiers: Diabetes mellitus complication detail: without coma Qualified Code(s): E10.10 - Type 1 diabetes mellitus with ketoacidosis without coma Nausea & vomiting Qualifiers: Vomiting type: unspecified Vomiting Intractability: non-intractable Qualified Code(s): R11.2 - Nausea with vomiting, unspecified
[2019-11-23 20:30] LABS: Alanine Aminotransferase 161 U/L (12-78); Albumin Globulin Ratio 0.7 (0.9-2); Albumin Level 3.3 gm/dl (3.4-5.0); Alkaline Phosphatase 442 U/L (45-117); Aspartate Aminotransferase 86 U/L (15-37); BUN Creatinine Ratio 14.2 (10-20); Bilirubin,Total 0.5 mg/dl (0.2-1); Blood Urea Nitrogen 22 mg/dl (7-18); Calcium 8.3 mg/dl (8.5-10.1); Carbon Dioxide 14 mmol/L (21-32); Chloride 94 mmol/L (98-107); Creatinine Clr Calc Pharmacy 52.2 ml/min; Est GFR (African American) 45.4; Est GFR (Non-African American) 39.2; Globulin 4.8 gm/dl (2.5-4.0); Glucose 524 mg/dl (70-99); Lipase 29 U/L (73-393); Potassium 4.4 mmol/L (3.5-5.1); Sodium 129 mmol/L (136-145); Total Protein 8.1 gm/dl (6.4-8.2); Troponin I < 0.015 ng/ml (0-0.045)
[2019-11-23 20:46] LABS: Beta-Hydroxybutyrate 38.98 mg/dl (0.2-2.81)
[2019-11-23] MEDS ORDERED: MoRPHine SULFATE 4 MG/ML 1 ML CARP\\VIAL IV STA (20:52)
[2019-11-23] MEDS ORDERED: GI COCKTAIL ED USE PO ONE (21:11)
[2019-11-23] MEDS ORDERED: FAMOTIDINE 20MG IV PUSH 20 MG/5 ML SYR IV STA (23:30)
[2019-11-23 23:45] LABS: Base Excess VBG -0.4 mEq/L; Oxygen Saturation VBG 91.4 %; pH VBG 7.42 (7.36-7.41)
[2019-11-23] MEDS ORDERED: OXYCODONE HCL IR 5 MG TAB (IMMEDIATE RELEASE) PO STA (23:50)
--- NOTE | 2019-11-23 23:51 | History & Physical Report ---
Date of Service November 23, 2019 Assessment & Plan (1) DKA, type 1: DM1/2 on insulin pump Suboptimal control as of recent outpatient hemoglobin A1c of 10.12 May 2019 Multifactorial : Poor medication compliance at baseline, patient admits to missing outpatient MTM appointments Insulin pump malfunction Recent viral gastroenteritis (improving symptoms) ARF, AGMA secondary to above Resolved after fluid boluses given at the ER Chest discomfort secondary to GERD secondary to emesis hypertension, stable history nonocclusive CAD/TIA as per records, Transaminitis possibly NAFLD hypothyroidism, euthyroid as of recent outpatient TSH of 2.37 last May 2019 mood disorder/ anxiety disorder at baseline ongoing tobacco abuse [facility] Pharmacy glycemic control consult Update hemoglobin A1c Diabetic education IVF Antacids as needed Nicotine patch PRN DVT prophylaxis. Lovenox subcu Full code Text document was generated using [employer] voice recognition software. It may contain grammatical or spelling errors. Kindly contact undersigned for clarification of any documentation item in question. History of Present Illness Delivered lung cancer lung cancer Chief Complaint: High sugars, abdominal pain, nausea, vomiting Primary Care Provider: Noelle Rob DO History obtained from patient, family, and records. Medical history significant for DM type 1/2 on an insulin pump, hypertension, hyperlipidemia, history nonocclusive CAD/TIA as per records, hypothyroidism, mood disorder, anxiety, ongoing tobacco abuse. Recent confinement July 2019 for atypical chest pain. 4 days ago patient noted insulin pump malfunction. Pump just stopped as per patient. Patient unable to utilize new insulin pump supplies delivered as she was not sure about which settings to enter. Patient administering spare regular insulin supplies subcutaneously at home. Few days history of achy/burning abdominal discomfort going to her chest with nausea, emesis, nonbloody diarrhea symptoms. Diarrhea symptoms resolved but patient complaining of bad reflux from emesis episodes. No fever, no chills, poor appetite. Glucometer not meeting BSGs the last 2 days. (Usual range of blood sugar 60-300s as per patient.) Patient brought to the ER for evaluation by family. IVF boluses given at the ER for DKA. MEDICAL HISTORY: As above. SURGERIES: She has had knee surgery, dental surgery. Diagnostic laparoscopic surgery. D&C, hysterectomy, pilonidal cyst removal, BTL FAMILY HISTORY: Heart disease and diabetes. 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 Allergy/AdvReac Type Severity Reaction Status Date / Time adhesive Allergy Unknown BLISTERS Verified 11/23/19 20:20 Home Medications Home Medications Medication Instructions Recorded Confirmed Type aspirin 81 mg PO QAM #0 09/16/14 11/23/19 History levothyroxine [Synthroid] 200 mcg PO QAM #0 06/01/16 11/23/19 History lorazepam [Ativan] 0.5 mg PO UD PRN #0 tab 03/06/18 11/23/19 History tramadol 50 mg PO Q6H PRN #0 03/28/18 11/23/19 History Novolog Insulin Pump 1 dose SC UD 05/03/18 11/23/19 History albuterol sulfate [ProAir HFA] 2 puff INHALATION QID PRN 02/05/19 11/23/19 History clopidogrel [Plavix] 75 mg PO DAILY 07/23/19 11/23/19 History rosuvastatin [Crestor] 20 mg PO DAILY 07/23/19 11/23/19 History venlafaxine [Effexor XR] 75 mg PO HS 07/23/19 11/23/19 History docusate sodium [Colace] 100 mg PO BID PRN 11/23/19 11/23/19 History insulin regular human 40 unit SUBCUT TIDM 11/23/19 11/23/19 History lisinopril 5 mg PO DAILY 11/23/19 11/23/19 History Past Med/Surg History Medical History Acquired bilateral foot deformity (Acute) Anxiety Blood dyscrasia Lipoprotein A elevation Callus (Acute) Chronic kidney disease (CKD) STAGE 2 Coronary artery disease, non-occlusive Depression Diabetes mellitus with diabetic polyneuropathy (Acute) Diabetes mellitus, type 2 Diabetic neuropathy H/O atypical migraine Complex (11/2014) evaluated at [facility], MRI and head CT negative, some residual L hand numbness per pt, s/p rehab History of chronic urinary tract infection HTN (hypertension) Hx of blood clots PT REPORTS WILL GET FREQUENT BLOOD CLOTS (HAD THEM IN TOO) - NONE IN THE LAST 6 YRS Hypothyroid TIA (transient ischemic attack) x 4, most recent 2005--previously seen by neuro, now follows only with PCP, on ASA 81mg daily Surgical History History of discectomy lumbar Hx laparoscopic cholecystectomy Hx of arthroscopic knee surgery R KNEE MENISCUS X2 Hx of cardiac cath non-occlusive. No intervention Hx of tubal ligation Social History Preferred Language: Belgian Communication Ability: Effective Visual Impairment: No Limitations Environmental Air Specialist Required: No Beliefs That Will Affect Care: None Current Living Situation: Family Current Living Situation Comment: Significant other and his two kids and her daughter Other Information That Helps Us Care for You: No Feels Safe at Home: Yes Safety Concerns: Feels Safe At This Time Smoking Status: Current some day smoker Tobacco Type: cigarettes ; Cigarettes Per Day: 1/2 pack ; Second Hand Exposure: Yes ; Hx Alcohol Use: No Hx Substance Use: No Review of Systems Review of Systems: As per HPI, all 10 systems reviewed, all other ROS negative Physical Exam Physical Exam: GENERAL: Slightly uncomfortable, no respiratory distress SKIN: Normal color, warm HEENT: Bespectacled, pink palpebral conjunctivae, no ptosis, dry buccal mucosa NECK : Supple, no tenderness CHEST : CTA, no tenderness HEART : RRR, no obvious murmurs ABDOMEN: Some distention, minimal hypogastric tenderness EXTREMITIES : No LE swelling/tenderness, no other conspicuous deformities noted NEUROLOGIC : Coherent, no facial asymmetry, no other gross focality Results & Data Vital Signs (Past 12 Hours) Vital Signs Temp Pulse Pulse Resp BP BP Pulse Ox 11/23/19 23:17 89 18 123/75 96 11/23/19 21:27 86 18 142/76 H 96 11/23/19 19:54 88 18 119/75 97 11/23/19 19:50 97 11/23/19 19:12 36.6 C 101 H 20 128/80 99 Laboratory Results Laboratory Results WBC 10.19 K/uL (4.8-10.8) 11/23/19 19:26 RBC 4.72 M/uL (4.2-5.4) 11/23/19 19:26 Hgb 15.7 g/dL (12.0-16.0) 11/23/19 19:26 Hct 46.1 % (37-47) 11/23/19 19:26 MCV 97.7 fL (80-100) 11/23/19: MCH 33.3 pg (25-34) 11/23/19: MCHC 34.1 g/dL (32-36) 11/23/19: RDW Std Deviation 46.7 fL (36.4-46.3) H 11/23/19: RDW Coeff of Brad 13.0 % (11.5-14.5) 11/23/19 Plt Count 284 K/uL (130-400) 11/23/19: MPV 11.4 fL (7.4-10.4) H 11/23/19: Immature Gran % (Auto) 0.4 % 11/23/19: Neut % (Auto) 82.6 % 11/23/19: Lymph % (Auto) 9.5 % 11/23/19: [place] % (Auto) 7.4 % 11/23/19: Eos % (Auto) 0.0 % 11/23/19: Baso % (Auto) 0.1 % 11/23/19 Immature Gran # (Auto) 0.04 K/uL (0.00-0.02) H 11/23/19: Neut # (Auto) 8.42 K/uL (1.4-6.5) H 11/23/19: Lymph # (Auto) 0.97 K/uL (1.2-3.4) L 11/23/19: [place] # (Auto) 0.75 K/uL (0.11-0.59) H 11/23/19: Eos # (Auto) 0.00 K/uL (0-0.5) 11/23/19: Baso # (Auto) 0.01 K/uL (0-0.2) 11/23/19 VBG pH 7.42 (7.36-7.41) H 11/23/19: VBG pCO2 37 mmHg (38-50) L 11/23/19 23: VBG pO2 59 mmHg 11/23/19: VBG HCO3 24 mmol/L 11/23/19: VBG O2 Saturation 91.4 % 11/23/19 23: VBG Base Excess -0.4 mEq/L 11/23/19 23:19 Barometric Pressure 744.3 mm/Hg 11/23/19 23:19 Sodium 129 mmol/L (136-145) L 11/23/19 19: Potassium 4.4 mmol/L (3.5-5.1) 11/23/19 19: Chloride 94 mmol/L (98-107) L 11/23/19 19: Carbon Dioxide 14 mmol/L (21-32) L 11/23/19 19: Anion Gap 21.0 (3-11) H 11/23/19 19:26 BUN 22 mg/dl (7-18) H 11/23/19 19: Creatinine 1.56 mg/dl (0.6-1.2) H 11/23/19 19: Est Cr Clr Drug Dosing 52.2 ml/min 11/23/19 19: Est GFR ( Amer) 45.4 11/23/19 19: Est GFR (Non-Af Amer) 39.2 11/23/19 19: BUN/Creatinine Ratio 14.2 (10-20) 11/23/19 19: Glucose 524 mg/dl (70-99) H* 11/23/19 19: POC Glucose 266 mg/dl (70-99) H 11/23/19 21: Calcium 8.3 mg/dl (8.5-10.1) L 11/23/19 19: Total Bilirubin 0.5 mg/dl (0.2-1) 11/23/19 19: AST 86 U/L (15-37) H 11/23/19 19: ALT 161 U/L (12-78) H 11/23/19 19: Alkaline Phosphatase 442 U/L (45-117) H 11/23/19 19: Troponin I < 0.015 ng/ml (0-0.045) 11/23/19 19: Total Protein 8.1 gm/dl (6.4-8.2) 11/23/19 19: Albumin 3.3 gm/dl (3.4-5.0) L 11/23/19: Globulin 4.8 gm/dl (2.5-4.0) H 11/23/19 19: Albumin/Globulin Ratio 0.7 (0.9-2) L 11/23/19: Lipase 29 U/L (73-393) L 11/23/19 19: Beta-Hydroxybutyric Acd 38.98 mg/dl (0.2-2.81) H 11/23/19 19: Urine Color Yellow 11/23/19: Urine Appearance Clear (Clear) 11/23/19: Urine pH 5.5 (4.5-7.5) 11/23/19: Ur Specific [place] 1.020 (1.000-1.030) 11/23/19: Urine Protein Negative (Negative) 11/23/19: Urine Glucose (UA) 2+ (Negative) H 11/23/19: Urine Ketones 2+ (Negative) H 11/23/19 19: Urine Blood Negative (Negative) 11/23/19: Urine Nitrite Negative (Negative) 11/23/19: Urine Bilirubin Negative (Negative) 11/23/19 19: Urine Urobilinogen Negative (Negative) 11/23/19 19: Ur Leukocyte Esterase Negative (Negative) 11/23/19 19: Diagnostic Findings CT abdomen pelvis initial read: Normal appendix. No high-grade mechanical small bowel obstruction Chest x-ray : No acute process. EKG as per my interpretation : Rate 90, NSR, normal axis, septal infarct, no ischemia (1) DKA, type 1 Diabetes mellitus complication detail: without coma Qualified Code(s): E10.10 - Type 1 diabetes mellitus with ketoacidosis without coma
[2019-11-23 23:56] LABS: BUN Creatinine Ratio 17.5 (10-20); Calcium 7.7 mg/dl (8.5-10.1); Creatinine Clr Calc Pharmacy 79.9 ml/min; Est GFR (African American) 75.9; Est GFR (Non-African American) 65.5; Magnesium 2.3 mg/dl (1.8-2.4); Potassium 4.1 mmol/L (3.5-5.1)
[2019-11-24] MEDS ORDERED: LACTATED RINGER'S 1,000 ML IV STA (00:04)
[2019-11-24] MEDS ORDERED: LORazepam 0.5 MG TAB PO PRN ×2 (01:30→02:20)
[2019-11-24] MEDS ORDERED: PROMETHAZINE HCL 12.5 MG in SODIUM CHLORIDE 0.9% 50 ML IV PRN (01:30)
[2019-11-24] MEDS ORDERED: ACETAMINOPHEN 325 MG TAB PO PRN (01:30)
[2019-11-24] MEDS ORDERED: MODERATE STRESS LEVEL ONE (01:36)
[2019-11-24] MEDS ORDERED: INSULIN PROTOCOL GOAL RANGE ONE (01:36)
[2019-11-24] MEDS ORDERED: PHARMACY GLYCEMIC MGMT CONSULT PRN (01:38)
[2019-11-24] MEDS ORDERED: INSULIN HUMAN REGULAR IV BOLUS 2 UNITS in SYRINGE 0 ML IV ONE (01:45)
[2019-11-24] MEDS ORDERED: CARBOHYDRATES FOR HYPOGLYCEMIA PO PRN (01:45)
[2019-11-24] MEDS ORDERED: DEXTROSE 50% 50 ML SYRINGE IV PRN (01:45)
[2019-11-24] MEDS ORDERED: GLUCOSE 10 TABS/TUBE PO PRN (01:45)
[2019-11-24] MEDS ORDERED: GLUCOSE 40% GEL 15 GM TUBE PO PRN (01:45)
[2019-11-24] MEDS ORDERED: GLUCAGON FOR INJ 1 MG VIAL IM PRN (01:45)
--- NOTE | 2019-11-24 02:08 | Pharmacy Report ---
PHA: Glycemic Control AP - Date of Service November 24, 2019 Dr. Grossman consulted pharmacy for Glycemic management. Type 1 patient presents having had insulin pump malfunction and has been vomiting multiple times per day with some type of Gastroenteritis. She was unable to get her pump working or substitute new supplies correctly (over 3-4 day period) She did state she was trying manage with some Regular Insulin she had via SQ injections and did give herself an unknown number of units prior to presentation to ED. She had glucome ter but it quit working. When she noted ketones in her urine she decided to come to the ED. She presents to ED in DKA with Anion Gap of 21 and Blood sugar of 542. Her DKA resolved prior to admission given several liters of fluid (Anion Gap to 9.0) - Assessment & Plan Given her unknown insulin needs we will begin an Insulin Drip, starting from BSG on presentation to medical floor of 187 using Moderate Stress level. We will try to obtain more information in regards to her pump settings and insulin needs upon interview in the morning.
[2019-11-24] MEDS: INSULIN REGULAR 250 UNITS in SODIUM CHLORIDE 0.9% 247.5 ML IV SCH (02:27)
[2019-11-24] MEDS ORDERED: CALCIUM GLUCONATE 10% 1,000 MG in SODIUM CHLORIDE 0.9% 50 ML IV STA (03:30)
[2019-11-24] MEDS: LORazepam 0.5 MG TAB PO PRN ×2 (03:47→23:50)
[2019-11-24 04:10] LABS: Basophils # (auto) 0.02 K/uL (0-0.2); Basophils % (auto) 0.2 %; Eosinophils # (auto) 0.15 K/uL (0-0.5); Eosinophils % (auto) 1.8 %; Immature Granulocytes # (auto) 0.03 K/uL (0.00-0.02); Immature Granulocytes % (auto) 0.4 %; Lymphocytes # (auto) 2.59 K/uL (1.2-3.4); Lymphocytes % (auto) 30.9 %; Mean Corpuscular Hemoglobin 31.9 pg (25-34); Mean Corpuscular Hgb Conc 33.3 g/dL (32-36); Mean Corpuscular Volume 95.8 fL (80-100); Mean Platelet Volume 10.6 fL (7.4-10.4); Monocytes % (auto) 10.7 %; Neutrophils # (auto) 4.69 K/uL (1.4-6.5); Platelet Count 239 K/uL (130-400); RDW Standard Deviation 45.4 fL (36.4-46.3); Red Blood Count 4.07 M/uL (4.2-5.4); White Blood Count 8.38 K/uL (4.8-10.8)
[2019-11-24 04:28] LABS: Albumin Level 2.6 gm/dl (3.4-5.0); BUN Creatinine Ratio 16.9 (10-20); Calcium 7.5 mg/dl (8.5-10.1); Creatinine Clr Calc Pharmacy 91.4 ml/min; Est GFR (African American) 88.3; Est GFR (Non-African American) 76.1; Potassium 3.5 mmol/L (3.5-5.1)
[2019-11-24 04:32] LABS: Albumin Globulin Ratio 0.7 (0.9-2); Bilirubin,Total 0.4 mg/dl (0.2-1); Globulin 3.6 gm/dl (2.5-4.0); Total Protein 6.2 gm/dl (6.4-8.2)
[2019-11-24] MEDS: OXYCODONE HCL IR 5 MG TAB (IMMEDIATE RELEASE) PO PRN ×3 (06:18→21:32)
[2019-11-24] MEDS: LEVOTHYROXINE SODIUM 200 MCG TABLET PO SCH (06:18)
[2019-11-24 06:34] LABS: Estimated Average Glucose 275 mg/dl; Hemoglobin A1C 11.2 % (4.5-5.6)
--- NOTE | 2019-11-24 07:12 | CT Scan Report ---
CT abd pelvis wo con CT DOSE: 476.79 mGy.cm HISTORY: Pain abd pain TECHNIQUE: Multiaxial CT images of the abdomen and pelvis were performed without contrast. A dose lo wering technique was utilized adhering to the principles of ALARA. COMPARISON STUDY: 03/06/2018 FINDINGS: Lung bases are clear. Prior cholecystectomy. Liver spleen and pancreas are otherwise unrema rkable. Bowel pattern is considered nonobstructive. The appendix is normal. Bladder is midline. IMPRESSION: No acute process in the abdomen or pelvis. Prior cholecystectomy. ACT 112: Negative or not required by law. The above report was generated using voice recognition software. It may contain grammatical, syntax or spelling errors. Electronically signed by: Caden Campuzano M.D. 11/24/2019 7:11 AM
--- NOTE | 2019-11-24 07:49 | XRay Report ---
XR chest 1V portable HISTORY: Atypical chest pain. COMPARISON: Chest 07/23/2019. FINDINGS: The lungs are clear. Cardiac silhouette is normal in size. No pleural effusions. No pneumot horax. IMPRESSION: No acute process. ACT 112: Negative or not required by law. Electronically signed by: Oliver Muro M.D. 11/24/2019 7:47 AM
[2019-11-24] MEDS: INSULIN ASPART 100 UNITS/ML 3 ML PEN SC SCH ×4 (08:42→22:39)
--- NOTE | 2019-11-24 09:08 | Pharmacy Report ---
Glycemic Control Consultation - Date of Service November 24, 2019 - Scope Scope: Glycemic Pharmacist consulted for glycemic control and to write orders per [facility] inpatient glycemic control protocol. - Objective Weight: 84.6 kg Accuchecks BSG (last 24hrs): 11/23/19 11/23/19 11/23/19 19:15 19:26 21:26 Glucose 524 H* POC Glucose 466 H* 266 H 11/23/19 11/24/19 11/24/19 23:19 01:07 02:07 Glucose 220 H POC Glucose 187 H 185 H 11/24/19 11/24/19 11/24/19 03:31 03:59 04:31 Glucose 162 H POC Glucose 179 H 148 H 11/24/19 11/24/19 11/24/19 05:31 06:34 08:29 Glucose POC Glucose 154 H 144 H 115 H Laboratory Data (last 24hrs): 11/23/19 11/23/19 11/23/19 19:26 23:19 23:19 Potassium 4.4 4.1 Carbon Dioxide 14 L 22 Anion Gap 21.0 H 9.0 Creatinine 1.56 H 1.02 Est Cr Clr Drug Dosing 52.2 79.9 Osmolality 296 Beta-Hydroxybutyric Acd 38.98 H 11/24/19 03:59 Potassium 3.5 Carbon Dioxide 23 Anion Gap 7.0 Creatinine 0.90 Est Cr Clr Drug Dosing 91.4 Osmolality Beta-Hydroxybutyric Acd HbA1c: Hemoglobin A1c 11.2 % (4.5-5.6) H 11/24/19 03:59 - Recent Pertinent Medications Outpatient Anti-diabetic Regimen: * Novolog pump - per Pharmacists note from 07/2019 - confirmed dosing with [facility] clinic (what they had as of 05/2019) Basal settings: 12am-3am: 1.55 units/hr 3am-8am: 1.75 units/hr 8am-12am: 2.0 units/hr CR: 15 and CR of 2.5 (CR had been 2.0 per [facility] clinic back in 05/2019) * A1c = 11.2 % 11/24/19 Risk Factors for Insulin Resistance: * Infection: possible * Diet: clears - Assessment & Plan Assessment & Plan: ASSESSMENT: * 49 year old female presenting with persistent vomiting beginning on . Per provider notes patient typically on Novolog pump at home and had been monitoring her blood sugars however current glucometer is broken. Presented to ER with ketones in urine, given 2 L of IVFs and started on insulin gtt * Patient confirms she is a type 1 diabetic. Per reports she was diagnosed in her 20s. Per discussion with RN, patient states her insulin pump had broke and she was not able to turn it back on. She did get a new pump however she did not know any of her settings to program pump and had estimated her settings * Some data available from 07/2019 admission with pump settings, however unclear if these are current settings. Patient follows [facility] clinic for diabetes management, however has not been seen in >6 months due to missed appts * Insulin gtt rate has been stable - now down to 1.3 units/hr over last 4 hours. Based upon insulin drip basal insulin ~30 units - will dose with 30 units x 1 with overlap in insulin gtt PLAN FOR INPATIENT GLYCEMIC CONTROL: * Continues on insulin gtt this morning (goal 140-180), set CR of 7 ; hopefully plan to transition to SQ insulin later today * Basal insulin * Lantus 30 units x 1 this morning * Bolus insulin - to be started after insulin drip dc'ed * NovoLog per scale ACHS or Q6hrs while NPO * Goal Range: Low 110 mg/dL - High 140 mg/dL * Correction Factor: 20 mg/dL/unit * Nutritional / Prandial insulin per carb ratio of 1 unit per 7 grams CHO consumed * Please note that the plan above was derived based on current level of insulin resistance and hospital stress. These recommendations are appropriate for inpatient admission only. Plan of care upon discharge will need to be reassessed to avoid potential outpatient hypo/hyperglycemia. Thank you.
[2019-11-24] MEDS: ASPIRIN 81 MG ECTAB PO SCH (09:52)
[2019-11-24] MEDS: ENOXAPARIN INJ 40 MG/0.4 ML SYR SQ SCH (09:52)
[2019-11-24] MEDS: ROSUVASTATIN CALCIUM 20 MG TAB PO SCH (09:52)
[2019-11-24] MEDS: CLOPIDOGREL BISULFATE 75 MG TAB PO SCH (09:52)
[2019-11-24] MEDS ORDERED: INSULIN GLARGINE SOLOSTAR 100 UNITS/ML 3 ML PEN SC ONE (11:00)
[2019-11-24] MEDS: lisinopriL 5 MG TAB PO SCH (11:14)
--- NOTE | 2019-11-24 19:32 | Hospitalist Progress Note ---
Date of Service November 24, 2019 Assessment & Plan (1) DKA, type 1: Diabetes mellitus type 1 managed with insulin pump. Old pump was malfunctioning and patient was having difficulty with settings on new device. Presented with nausea, vomiting, elevated blood sugars. Random blood sugar in ED was 524. Anion gap was 21. DKA managed per protocol with improvement. Hemoglobin A1c 11. Pharmacy assisting with glycemic management. Seen by Business Process Modeler. (2) Nausea & vomiting: Probably secondary to DKA. LFTs were elevated. CT demonstrated surgical absence of gallbladder. Symptoms improved. Check follow-up labs in the morning. (3) Coronary artery disease: No anginal symptoms. Troponin normal. (4) DVT prophylaxis: Subcutaneous enoxaparin. Ambulate. (5) Discharge planning issues: Anticipated discharge to home. Family Medicine follow-up with Dr. Noelle Rob. Admission and Anticipated Discharge Date Admission Date: November 23, 2019 Subjective Recheck for DKA. Patient seen in their room around 1630. Family visiting. Feels better. Blood sugars under better control. Seen by Business Process Modeler. GI symptoms resolved. Review of Systems: Constitutional- no fever. Cardiac- no chest pain. Pulmonary- no cough or SOB. GI- no nausea, vomiting, diarrhea, melena, hematochezia. - no urinary symptoms. Otherwise, as noted above. Physical Exam Constitutional: no acute distress Respiratory: no respiratory distress Auscultation: lungs clear to auscultation bilaterally Cardiovascular: Rate/Rhythm: regular rate and regular rhythm Heart Sounds: no gallop Vessels: no JVD Extremities: no calf tenderness and no edema Gastrointestinal (Abdomen): normal bowel sounds, soft, nontender, no hepatosplenomegaly Skin: no rashes, warm and dry Psychiatric: Orientation: alert and oriented x 3 Results & Data ([facility]) Vital Signs (Past 12 Hours) Vital Signs Temp Pulse Resp BP Pulse Ox 11/24/19 15:27 36.6 C 78 18 124/75 95 11/24/19 07:35 36.6 C 71 18 111/67 97 Laboratory Results 11/24/19 03:59 11/24/19 03:59 (1) DKA, type 1 Diabetes mellitus complication detail: without coma Qualified Code(s): E10.10 - Type 1 diabetes mellitus with ketoacidosis without coma (2) Nausea & vomiting Vomiting Intractability: non-intractable Vomiting type: unspecified Qualified Code(s): R11.2 - Nausea with vomiting, unspecified
[2019-11-24 20:17] LABS: Calcium 7.9 mg/dl (8.5-10.1); Creatinine Clr Calc Pharmacy 114.3 ml/min; Est GFR (African American) 115.6; Est GFR (Non-African American) 99.7; Potassium 3.5 mmol/L (3.5-5.1)
[2019-11-24] MEDS ORDERED: VENLAFAXINE HCL XR 75 MG CAPXR PO SCH (21:00)
[2019-11-25] MEDS: INSULIN ASPART 100 UNITS/ML 3 ML PEN SC SCH ×2 (03:52→09:25)
--- NOTE | 2019-11-25 05:39 | Electrocardiogram Report ---
Test Reason : Blood Pressure : / mmHG Vent. Rate : 091 BPM Atrial Rate : 091 BPM P-R Int : 154 ms QRS Dur : 082 ms QT Int : 356 ms P-R-T Axes : 028 055 017 degrees QTc Int : 437 ms Normal sinus rhythm Possible Left atrial enlargement Septal infarct , age undetermined Abnormal ECG When compared with ECG of 24-JUL-2019 07:00, No significant change was found Confirmed by Sterling Martinez ([id number]) on 11/25/2019 5:38:53 AM Referred By: REFERRED SELF Confirmed By:Sterling Martinez
[2019-11-25] MEDS: LEVOTHYROXINE SODIUM 200 MCG TABLET PO SCH (06:28)
[2019-11-25 07:13] LABS: Albumin Level 2.4 gm/dl (3.4-5.0); BUN Creatinine Ratio 14.8 (10-20); Bilirubin Direct 0.1 mg/dl (0-0.2); Calcium 7.9 mg/dl (8.5-10.1); Est GFR (African American) 120.7; Est GFR (Non-African American) 104.2; Potassium 3.6 mmol/L (3.5-5.1)
[2019-11-25 07:16] LABS: Albumin Globulin Ratio 0.8 (0.9-2); Bilirubin,Total 0.4 mg/dl (0.2-1); Globulin 3.2 gm/dl (2.5-4.0); Total Protein 5.6 gm/dl (6.4-8.2)
[2019-11-25] MEDS: INSULIN REGULAR 250 UNITS in SODIUM CHLORIDE 0.9% 247.5 ML IV SCH (07:27)
[2019-11-25] MEDS ORDERED: INSULIN ASPART 100 UNITS/ML VIAL SC PRN (08:45)
[2019-11-25] MEDS: lisinopriL 5 MG TAB PO SCH (09:24)
[2019-11-25] MEDS: CLOPIDOGREL BISULFATE 75 MG TAB PO SCH (09:24)
[2019-11-25] MEDS: ROSUVASTATIN CALCIUM 20 MG TAB PO SCH (09:24)
[2019-11-25] MEDS: ASPIRIN 81 MG ECTAB PO SCH (09:24)
[2019-11-25] MEDS: ENOXAPARIN INJ 40 MG/0.4 ML SYR SQ SCH (09:25)
[2019-11-25] MEDS: NovoLOG INSULIN PUMP SCH ×2 (09:51→12:52)
--- NOTE | 2019-11-25 11:35 | Pharmacy Report ---
Pharmacy Glycemic Short Note 2 - Date of Service November 25, 2019 - Glycemic Short BSG Results (Last 24 hours): 11/24/19 11/24/19 11/24/19 12:32 14:33 16:30 Glucose POC Glucose 235 H 168 H 125 H 11/24/19 11/24/19 11/24/19 18:27 18:52 19:07 Glucose POC Glucose 103 H 113 H 121 H 11/24/19 11/24/19 11/24/19 19:24 19:44 20:22 Glucose 187 H POC Glucose 147 H 197 H 11/24/19 11/24/19 11/24/19 21:23 22:21 23:41 Glucose POC Glucose 203 H 214 H 177 H 11/25/19 11/25/19 11/25/19 01:00 02:12 03:17 Glucose POC Glucose 151 H 134 H 152 H 11/25/19 11/25/19 06:12 08:06 Glucose 201 H POC Glucose 216 H OUTPATIENT ANTIDIABETIC REGIMEN: * Novolog pump - per Pharmacists note from 07/2019 - confirmed dosing with [facility] clinic - and confirmed at bedside 11/25/19 * Basal settings: 7472-2012: 1.55 units/hr; 1486-1406: 1.75 units/hr; 0800- 0000: 2.0 units/hr * CF: 15mg/dL/unit; Goal Range 90-140mg/dL * CR of 2.5 (CR had been 2.0 per [facility] clinic back in 05/2019) * A1c = 11.2 % 11/24/19 ASSESSMENT: * Type 1 diabetic admitted for DKA secondary to difficulty programming new insulin pump. Pt's prior insulin pump had broken, and although she obtained the new pump ~ 1 wk ago, she was unable to program the new pump using the old pump's settings. She is knowledgeable on how to program the pump, but was unable to access the pump setting in the old pump as it was non-functioning. * Pt was initially managed w/ insulin drip. Pt was given Lantus 30 units x 1 yesterday. Insulin drip was titrated off at 0230 this AM. * Provided was patient with Novolog insulin this AM, and she refilled her pump. Patient has pump running at this time and no concerns. I confirmed at bedside that pump is in fact programmed with the doses listed above. * She was provided with insulin pump agreement as well as flow sheet to document her administered doses. PLAN FOR INPATIENT GLYCEMIC CONTROL: * Continue insulin pump at this time, pt to self manage * BSGs ACHS and at 0200 tonight - BSGs to be performed with hospital meters * Will periodically check in with patient to assess glycemic control and prob lems she may be experiencing with insulin pump
--- NOTE | 2019-11-25 15:13 | Hospitalist Progress Note ---
Date of Service November 25, 2019 Assessment & Plan (1) DKA, type 1: Diabetes mellitus type 1 managed with insulin pump. Old pump was malfunctioning and patient was having difficulty with settings on new device. Presented with nausea, vomiting, elevated blood sugars. Random blood sugar in ED was 524. Anion gap was 21. DKA managed per protocol with improvement. Hemoglobin A1c 11. Pharmacy assisting with glycemic management. Seen by International Student Advisor. Transitioned to new insulin pump. FBS this morning 216; blood sugar 161 at 1409. Seemed most likely that DKA due to difficulties with old pump; no other apparent precipitating factors. Outpatient follow-up with PCP and MTM. (2) Nausea & vomiting: Probably secondary to DKA. LFTs were elevated. CT demonstrated surgical absence of gallbladder. Symptoms improved. Bilirubin normal. AST, ALT, Alk Phos still elevated: Laboratory Tests 11/23/19 11/25/19 19:26 06:12 Total Bilirubin 0.5 0.4 AST 86 H 145 H ALT 161 H 125 H Alkaline Phosphatase 442 H 319 H Check f/u LFT's in clinic. (3) Coronary artery disease: No anginal symptoms. Troponin normal. (4) DVT prophylaxis: Subcutaneous enoxaparin. Ambulate. (5) Discharge planning issues: Discharge to home. Family Medicine follow-up with Dr. Noelle Rob. Admission and Anticipated Discharge Date Admission Date: November 23, 2019 Subjective Recheck for DKA. Patient seen in their room around 1450. Doing well. Blood sugars under better control. Working with International Student Advisor and Pharmacy. Transitioned to new insulin pump this morning. GI symptoms resolved- now with only a little residual nausea. Review of Systems: Constitutional- no fever. Cardiac- no chest pain. Pulmonary- no cough or SOB. GI- as noted above - no urinary symptoms. Otherwise, as noted above. Physical Exam Constitutional: no acute distress Respiratory: no respiratory distress Auscultation: lungs clear to auscultation bilaterally Cardiovascular: Rate/Rhythm: regular rate and regular rhythm Heart Sounds: no gallop Vessels: no JVD Extremities: no calf tenderness and no edema Gastrointestinal (Abdomen): normal bowel sounds, soft, nontender, no hepatosplenomegaly Skin: no rashes, warm and dry Psychiatric: Orientation: alert and oriented x 3 Results & Data ([facility]) Vital Signs (Past 12 Hours) Vital Signs Temp Pulse Resp BP Pulse Ox 11/25/19 07:46 36.7 C 68 18 136/81 95 Laboratory Results 11/24/19 03:59 11/25/19 06:12 11/24/19 11/24/19 11/24/19 16:30 18:27 18:52 Glucose POC Glucose 125 H 103 H 113 H 11/24/19 11/24/19 11/24/19 19:07 19:24 19:44 Glucose 187 H POC Glucose 121 H 147 H 11/24/19 11/24/19 11/24/19 20:22 21:23 22:21 Glucose POC Glucose 197 H 203 H 214 H 11/24/19 11/25/19 11/25/19 23:41 01:00 02:12 Glucose POC Glucose 177 H 151 H 134 H 11/25/19 11/25/19 11/25/19 03:17 06:12 08:06 Glucose 201 H POC Glucose 152 H 216 H 11/25/19 11/25/19 12:25 14:09 Glucose POC Glucose 213 H 161 H (1) DKA, type 1 Diabetes mellitus complication detail: without coma Qualified Code(s): E10.10 - Type 1 diabetes mellitus with ketoacidosis without coma (2) Nausea & vomiting Vomiting Intractability: non-intractable Vomiting type: unspecified Qualified Code(s): R11.2 - Nausea with vomiting, unspecified
--- NOTE | 2019-11-25 15:47 | Discharge Summary ---
Date of Service Date of Admission: 11/23/19 Date of Discharge: 11/25/19 Admission HPI Per Admitting Provider History obtained from patient, family, and records. Medical history significant for DM type 1/2 on an insulin pump, hypertension, hyperlipidemia, history nonocclusive CAD/TIA as per records, hypothyroidism, mood disorder, anxiety, ongoing tobacco abuse. Recent confinement July 2019 for atypical chest pain. 4 days ago patient noted insulin pump malfunction. Pump just stopped as per patient. Patient unable to utilize new insulin pump supplies delivered as she was not sure about which settings to enter. Patient administering spare regular insulin supplies subcutaneously at home. Few days history of achy/burning abdominal discomfort going to her chest with nausea, emesis, nonbloody diarrhea symptoms. Diarrhea symptoms resolved but patient complaining of bad reflux from emesis episodes. No fever, no chills, poor appetite. Glucometer not meeting BSGs the last 2 days. (Usual range of blood sugar 60-300s as per patient.) Patient brought to the ER for evaluation by family. IVF boluses given at the ER for DKA. Principal Diagnosis diabetic ketoacidosis in diabetes mellitus type 1 OTHER ACUTE / NEW DIAGNOSES: elevated LFT's Discharge Data Allergies Allergy/AdvReac Type Severity Reaction Status Date / Time adhesive Allergy Unknown BLISTERS Verified 11/23/19 20:20 Consultations 11/23/19 22:20 ED Decision to Admit Stat Ordered Studies 11/23/19 22:40 CT abd pelvis wo con Urgent Hospital Course (1) DKA, type 1: Diabetes mellitus type 1 managed with insulin pump. Old pump was malfunctioning and patient was having difficulty with settings on new device. Presented with nausea, vomiting, elevated blood sugars. Random blood sugar in ED was 524. Anion gap was 21. DKA managed per protocol with improvement. Hemoglobin A1c 11. Pharmacy assisting with glycemic management. Seen by Track Repairer. Transitioned to new insulin pump. Blood sugars day of discharge: FBS 216; 161 at 1409. Seemed most likely that DKA due to difficulties with old pump; no other apparent precipitating factors. Outpatient follow-up with PCP and MTM. (2) Nausea & vomiting: Probably secondary to DKA. LFTs were elevated. CT demonstrated surgical absence of gallbladder. Symptoms improved. Bilirubin normal. AST, ALT, Alk Phos still elevated: Laboratory Tests 11/23/19 11/25/19 19:26 06:12 Total Bilirubin 0.5 0.4 AST 86 H 145 H ALT 161 H 125 H Alkaline Phosphatase 442 H 319 H Check f/u LFT's in clinic. (3) Coronary artery disease: No anginal symptoms. Troponin normal. (4) DVT prophylaxis: Subcutaneous enoxaparin. Ambulate. (5) Discharge planning issues: Discharged to home. Family Medicine follow-up with Dr. Noelle Rob. Total Time Total Time Spent Total Time Spent (In Minutes): 40 Discharge Plan Discharge Items Patient Disposition: Home - Self-Care Reason For Visit: diabetic ketoacidosis (DKA) Discharge Diagnosis: diabetic ketoacidosis (DKA) Condition on Discharge: Good Activity: Resume your previous activity Non-emergency contact: Primary Care Provider and Hospitalist Call non-emergency contact if: you have any medication questions, your symptoms worsen and your temperature is above 101 Follow-up/Referrals: Noelle Rob DO [Primary Care Provider] - (11/28/2019 11:10 AM Noelle Rob DO) Diet: Carb Count or DM1 and Heart Healthy Addtl Attending Provider Instructions: MEDICATION CHANGES: Insulin pump as directed. SUMMARY OF TEST RESULTS: Hemoglobin A1c was 11.2. RECOMMENDATIONS FOR FOLLOW-UP: Please ask Dr. Rob recheck your liver function tests in clinic. Please work closely with Dr. Rob and [facility] clinic to control your diabetes. [facility] APPOINTMENT 12/15/2019 6:20 PM Pharmacy, [place] OTHER INSTRUCTIONS: Seek medical attention if you have: * temperature above 101 * chest pain or trouble breathing * abdominal pain, nausea, vomiting * diarrhea, dark stools or bloody stools * extremely high or low blood sugars * problems with insulin pump * any unanswered questions or concerns Call 911 if symptoms are severe. Please take good care of yourself. Call if you have any questions or problems. You can reach a [facility] hospitalist on duty at [facility] 24 hours a day by calling [phone]. My cell # is [phone]. Pending Studies at Discharge: No Stand-Alone Forms: My [facility], Smoking Cessation Medications and DC Order Prescriptions: New (DME) blood sugar diagnostic [OneTouch Verio] Strip See Rx Instructions .ROUTE .MEDSUPPLY Qty: 100 RF: 12 (DME) lancets [OneTouch Delica Lancets] 33 gauge misc See Rx Instructions .ROUTE .MEDSUPPLY Qty: 100 RF: 12 Continued aspirin 81 mg Tablet,Delayed Release (Dr/Ec) 81 mg PO QAM Qty: 0 RF: 0 levothyroxine [Synthroid] 200 mcg Tablet 200 mcg PO QAM Qty: 0 RF: 0 lorazepam [Ativan] 0.5 mg Tablet 0.5 mg PO UD PRN (Reason: Anxiety) Qty: 0 RF: 0 tramadol 50 mg Tablet 50 mg PO Q6H PRN (Reason: Pain) Qty: 0 RF: 0 albuterol sulfate [ProAir HFA] 90 mcg/actuation Hfa Aerosol Inhaler 2 puff INHALATION QID PRN (Reason: Shortness Of Breath Or Wheezing) RF: 0 venlafaxine [Effexor XR] 75 mg Capsule,Extended Release 24hr 75 mg PO HS RF: 0 clopidogrel [Plavix] 75 mg Tablet 75 mg PO DAILY RF: 0 rosuvastatin [Crestor] 20 mg Tablet 20 mg PO DAILY RF: 0 lisinopril 5 mg tablet 5 mg PO DAILY RF: 0 docusate sodium [Colace] 100 mg capsule 100 mg PO BID PRN (Reason: Constipation) RF: 0 Novolog Insulin Pump 1 dose SC UD RF: 0 Discharge Orders: Discharge Order (Routine); Ordered 11/25/19 Ordered By: Samm Agosto/Other Patient Handouts: Weight Manage Get Started, Snacking Healthy, Cooking Healthy Ways Quick, Eating Out Tips for Making Healthy Choices, Diabetes Meal Planning, Diabetes Type 1 Get Active Admission Data Admit Date/Time: 11/23/19 23:59 Attending Provider: Samm Sánchez Admit Provider: Alberto Grossman Primary Care Provider: Noelle Rob Other Providers: Alberto Grossman ; Samm Sánchez ; Callie Suh
== END 2019-11-25 18:25 | disposition home or self-care (01) | DRG 638 ==
LOC: ED 19:08 → SUATTDRO 23:59 → 3N 23:59

== ENCOUNTER 2021-07-06 10:58 | Observation (INO) ==
[2021-07-06] MEDS ORDERED: SODIUM CHLORIDE 0.9% 500 ML IV STA (11:25)
[2021-07-06] MEDS ORDERED: NITROGLYCERIN 2% OINTMENT 30GM TUBE EXT STA (11:25)
[2021-07-06] MEDS ORDERED: ONDANSETRON INJ 2 MG/ML 2 ML VIAL IV STA (11:25)
--- NOTE | 2021-07-06 11:30 | Emergency Department Note ---
Impression & Plan Precordial chest pain, Shortness of breath, Coronary arteriosclerosis, COVID-19 ED Provider Note NAME: THOMAS MIDDLETON AGE: 51 SEX: F : 1970 ARRIVES VIA: Ambulance INFORMANT: [Patient] ED PROVIDER(S): [Leroy Causey MD] CHIEF COMPLAINT: Chest pain HISTORY OF PRESENT ILLNESS: The patient is a 51-year-old female who presents to the ER with just over 1 hour of central sharp chest pain that seems to radiate to the left side of the chest. The pain was a 10/10. It was shooting in nature. The patient felt some numbness in her left jaw and left arm. She was short of breath and seemed a bit confused she thought. She was sweaty and nauseated. She took some aspirin on her own. EMS arrived and she was given some additional aspirin and 3 nitroglycerin. Her pain has reduced from a 10/10 to a 7/10. She feels somewhat better. The patient lately has noticed increasing shortness of breath with exertion, especially stairs. She does have coronary disease but it is being managed medically. Her last catheterization was around 3 years ago. There has been no cough or cold or congestion. She has noticed some dizziness intermittently over the last few days. REVIEW OF SYSTEMS: See HPI for pertinent positives and negatives. A total of ten systems were reviewed and were otherwise negative. PMHx/PSHx: See Below SOCIAL HISTORY: See Below. PHYSICAL EXAM: GENERAL: Patient is in no acute distress. HEENT: No acute trauma, normocephalic atraumatic, mucous membranes moist, no nasal congestion, no scleral icterus. NECK: No stridor, no adenopathy, no meningismus, trachea is midline. LUNGS: Clear to auscultation bilaterally, no wheeze, no rhonchi, breath sounds equal. Chest: Tender to the central lower chest wall. HEART: Without murmurs gallops or rubs, regular rate and rhythm. ABDOMEN: Soft, nontender, bowel sounds positive, no hernias, no peritonitis. EXTREMITIES: No cyanosis or edema, full range of motion of all the joints without pain or difficulty, no signs for acute trauma. NEUROLOGIC: Oriented x 3, no acute motor or sensory deficits, no focal weakness. SKIN: No rash, no jaundice, no diaphoresis. DIFFERENTIAL DIAGNOSIS: Cardiac ischemia, aortic dissection, pulmonary embolism, pneumothorax, pneumonia, pericarditis, myocarditis, esophageal rupture, GERD, cholecystitis, pancreatitis, musculoskeletal, as well as other pathologies. EMERGENCY DEPARTMENT COURSE/PROCEDURES: ECG: Indication was chest pain. The ECG shows a normal sinus rhythm with a rate of 84. There is no ST elevation, no PVCs. The QTc is 439. Compared to an ECG from 28 July 2020, there is no significant change. Continuous Cardiac Monitoring: An order was placed for continuous cardiac monitoring. The monitor shows a rate of 81 with normal sinus rhythm. MEDICAL DECISION MAKING: There is no leukocytosis or concerning anemia. There is a normal platelet count. Sodium slightly low, not in need of emergent correction. There is a slight elevation to the alk phos. There is a normal bilirubin. There is no evidence for pancreatitis. Covid testing returned positive. Chest x-ray did not show pneumonia or CHF. ECG shows a sinus rhythm, no acute ischemic change. Cardiac enzyme testing x1 is not consistent with acute cardiac injury. Patient was given Nitropaste, 2 inches. She received IV morphine for some additional pain control. She was given IV Zofran and a small amount of IV saline. The patient presents with chest discomfort. She did have some tenderness across the chest wall. She has known coronary artery disease. I discussed the case with cardiology. Given her history, given her complaints today, a hospital stay and further cardiac work-up was felt warranted. In regard to the positive Covid findings, the patient was diagnosed with Covid recently, she is likely still positive from this previous diagnosis. I spoke with case management, the on-call hospitalist has been consulted. The patient does seem more comfortable. Past Med/Surg History Medical History (Updated 07/06/21 @ 18:59 by Leroy Causey MD) Acquired bilateral foot deformity Anxiety Blood dyscrasia Lipoprotein A elevation Callus Chronic kidney disease (CKD) STAGE 2 Coronary artery disease, non-occlusive Depression Diabetes mellitus with diabetic polyneuropathy Diabetes mellitus, type 2 Diabetic neuropathy H/O atypical migraine Complex (11/2014) evaluated at [facility], MRI and head CT negative, some residual L hand numbness per pt, s/p rehab History of chronic urinary tract infection HTN (hypertension) Hx of blood clots PT REPORTS WILL GET FREQUENT BLOOD CLOTS (HAD THEM IN TOO) - NONE IN THE LAST 6 YRS Hypothyroid TIA (transient ischemic attack) x 4, most recent 2005--previously seen by neuro, now follows only with PCP, on ASA 81mg daily Surgical History History of discectomy lumbar Hx laparoscopic cholecystectomy Hx of arthroscopic knee surgery R KNEE MENISCUS X2 Hx of cardiac cath non-occlusive. No intervention Hx of tubal ligation Family History Other Diabetes Heart disease Hypertension Social History Smoking Status: Current every day smoker Tobacco Type: Cigarettes Cigarettes Per Day: 1/2 pack; Second Hand Exposure: Yes; Hx Alcohol Use: No Hx Substance Use: No Preferred Language: Citizen Of [place] Communication Ability: Effective Visual Impairment: No Limitations Recreation Instructor Required: No Beliefs That Will Affect Care: None Current Living Situation: Spouse Current Living Situation Comment: Significant other and his two kids and her daughter Feels Safe at Home: Yes Safety Concerns: Feels Safe At This Time Assistive Devices: Glasses Allergies Allergies Allergy/AdvReac Type Severity Reaction Status Date / Time adhesive Allergy Unknown BLISTERS Verified 07/06/21 11:55 Home Meds Home Medications Medication Instructions Recorded Confirmed aspirin 81 mg tablet,delayed 81 mg PO QAM #0 09/16/14 07/06/21 release levothyroxine 200 mcg tablet 200 mcg PO QAM #0 06/01/16 07/06/21 (Synthroid) lorazepam 0.5 mg tablet (Ativan) 0.5 mg PO UD PRN #0 tab 03/06/18 07/06/21 tramadol 50 mg tablet 50 mg PO Q6H PRN #0 03/28/18 07/06/21 Novolog Insulin Pump 1 dose SC UD 05/03/18 07/06/21 albuterol sulfate 90 mcg/actuation 2 puff INHALATION QID PRN 02/05/19 07/06/21 aerosol inhaler (ProAir HFA) clopidogrel 75 mg tablet (Plavix) 75 mg PO DAILY 07/23/19 07/06/21 rosuvastatin 20 mg tablet (Crestor) 20 mg PO DAILY 07/23/19 07/06/21 docusate sodium 100 mg capsule 100 mg PO BID PRN 11/23/19 07/06/21 (Colace) lisinopril 5 mg tablet 5 mg PO DAILY 11/23/19 07/06/21 Results & Data (ED) Vital Signs Vital Signs - 24 hr 07/06/21 11:04 07/06/21 11:10 07/06/21 12:06 Temperature 36.6 C Temperature Source Oral Pulse Rate 81 Pulse Rate [Apical] 69 Respiratory Rate 16 20 Respiratory Effort / Characteristics Non-Labored Non-Labored Spontaneous Respiratory Depth Normal Normal Respiratory Pattern Regular Blood Pressure 178/94 H Blood Pressure [Right Arm] 138/70 Blood Pressure Mean 122 Blood Pressure Mean [Right Arm] 92 Pulse Oximetry 97 98 97 Oxygen Delivery Method Room Air Room Air Room Air Sepsis Recent Fever Within 48 Hours No Sepsis New/Unexplained Change in Mental Status No Sepsis Action Taken by Nursing No Action Required Home Medications Current Medication List: was personally reviewed by me Laboratory Data Attestation: I reviewed the patient's lab results. Result diagrams: 07/06/21 11:09 07/06/21 11:09 Lab Results 07/06/21 07/06/21 07/06/21 Range/Units 11:09 11:09 11:09 WBC 9.42 (4.8-10.8) K/uL RBC 4.56 (4.2-5.4) M/uL Hgb 15.2 (12.0-16.0) g/dL Hct 43.0 (37-47) % MCV 94.3 (80-100) fL MCH 33.3 (25-34) pg MCHC 35.3 (32-36) g/dL RDW Std Deviation 43.2 (36.4-46.3) fL RDW Coeff of Brad 12.6 (11.5-14.5) % Plt Count 204 (130-400) K/uL MPV 11.5 H (7.4-10.4) fL Immature Gran % (Auto) 0.3 % Neut % (Auto) 61.5 % Lymph % (Auto) 27.3 % [place] % (Auto) 7.1 % Eos % (Auto) 3.3 % Baso % (Auto) 0.5 % Neut # (Auto) 5.79 (1.4-6.5) K/uL Lymph # (Auto) 2.57 (1.2-3.4) K/uL [place] # (Auto) 0.67 H (0.11-0.59) K/uL Eos # (Auto) 0.31 (0-0.5) K/uL Baso # (Auto) 0.05 (0-0.2) K/uL Immature Gran # (Auto) 0.03 H (0.00-0.02) K/uL Sodium 132 L (136-145) mmol/L Potassium 4.1 (3.5-5.1) mmol/L Chloride 105 (98-107) mmol/L Carbon Dioxide 21 (21-32) mmol/L Anion Gap 6.0 (3-11) BUN 21 H (7-18) mg/dl Creatinine 0.92 (0.6-1.2) mg/dl Est Cr Clr Drug Dosing 89.0 ml/min Est GFR ( Amer) 84.7 ml/min Est GFR (Non-Af Amer) 73.1 ml/min BUN/Creatinine Ratio 22.7 H (10-20) Glucose 258 H (70-99) mg/dl Calcium 8.6 (8.5-10.1) mg/dl Magnesium 2.0 (1.8-2.4) mg/dl Total Bilirubin 0.3 (0.2-1) mg/dl AST 16 (15-37) U/L ALT 23 (12-78) U/L Alkaline Phosphatase 153 H (45-117) U/L Troponin I < 0.015 (0-0.045) ng/ml C-Reactive Protein 0.81 H (0-0.29) mg/dl Total Protein 7.5 (6.4-8.2) gm/dl Albumin 3.4 (3.4-5.0) gm/dl Globulin 4.1 H (2.5-4.0) gm/dl Albumin/Globulin Ratio 0.8 L (0.9-2) Lipase 202 (73-393) U/L Procalcitonin < 0.05 (0-0.5) ng/ml COVID-19 Eval Order SARS-CoV-2 (PCR) (Negative) 07/06/21 07/06/21 Range/Units 12:14 12:14 WBC (4.8-10.8) K/uL RBC (4.2-5.4) M/uL Hgb (12.0-16.0) g/dL Hct (37-47) % MCV (80-100) fL MCH (25-34) pg MCHC (32-36) g/dL RDW Std Deviation (36.4-46.3) fL RDW Coeff of Brad (11.5-14.5) % Plt Count (130-400) K/uL MPV (7.4-10.4) fL Immature Gran % (Auto) % Neut % (Auto) % Lymph % (Auto) % [place] % (Auto) % Eos % (Auto) % Baso % (Auto) % Neut # (Auto) (1.4-6.5) K/uL Lymph # (Auto) (1.2-3.4) K/uL [place] # (Auto) (0.11-0.59) K/uL Eos # (Auto) (0-0.5) K/uL Baso # (Auto) (0-0.2) K/uL Immature Gran # (Auto) (0.00-0.02) K/uL Sodium (136-145) mmol/L Potassium (3.5-5.1) mmol/L Chloride (98-107) mmol/L Carbon Dioxide (21-32) mmol/L Anion Gap (3-11) BUN (7-18) mg/dl Creatinine (0.6-1.2) mg/dl Est Cr Clr Drug Dosing ml/min Est GFR ( Amer) ml/min Est GFR (Non-Af Amer) ml/min BUN/Creatinine Ratio (10-20) Glucose (70-99) mg/dl Calcium (8.5-10.1) mg/dl Magnesium (1.8-2.4) mg/dl Total Bilirubin (0.2-1) mg/dl AST (15-37) U/L ALT (12-78) U/L Alkaline Phosphatase (45-117) U/L Troponin I (0-0.045) ng/ml C-Reactive Protein (0-0.29) mg/dl Total Protein (6.4-8.2) gm/dl Albumin (3.4-5.0) gm/dl Globulin (2.5-4.0) gm/dl Albumin/Globulin Ratio (0.9-2) Lipase (73-393) U/L Procalcitonin (0-0.5) ng/ml COVID-19 Eval Order Covid19 at [facility] SARS-CoV-2 (PCR) POSITIVE A* (Negative) Administered Medications Acetaminophen (Acetaminophen 325 Mg Tab) 650 mg PO Q4H PRN PRN Reason: Pain or Fever Stop: 08/05/21 14:20 Last Admin: 07/06/21 17:18 Dose: 650 mg Documented by: [id number] Clopidogrel Bisulfate (Clopidogrel Bisulfate 75 Mg Tab) 75 mg PO DAILY ROSI Stop: 08/05/21 14:44 Last Admin: 07/06/21 14:56 Dose: 75 mg Documented by: [id number] Insulin Aspart (Novolog Insulin Pump) 1 ea N/A [facility]; Protocol Stop: 08/05/21 16:29 Last Admin: 07/06/21 17:59 Dose: Not Given Documented by: [id number] Cosigned by: [id number] Levothyroxine Sodium (Levothyroxine Sodium 200 Mcg Tablet) 200 mcg PO DAILYBB ROSI Stop: 08/05/21 06:29 Last Admin: 07/06/21 14:57 Dose: 200 mcg Documented by: [id number] Lisinopril (Lisinopril 5 Mg Tab) 5 mg PO DAILY ROSI Stop: 08/05/21 14:44 Last Admin: 07/06/21 14:57 Dose: 5 mg Documented by: [id number] Nicotine (Nicotine 14 Mg/24 Hr Patch) 14 mg TD QAM ROSI Stop: 08/05/21 14:20 Last Admin: 07/06/21 14:57 Dose: 14 mg Documented by: [id number] Discontinued Medications Sodium Chloride (Nss) 500 mls @ 999 mls/hr IV .Q31M STA Stop: 07/06/21 11:55 Last Infusion: 07/06/21 12:06 Dose: 0 mls/hr Documented by: [id number] Admin: 07/06/21 11:31 Dose: 999 mls/hr Documented by: [id number] Ioversol (Optiray 320 125ml) 117 ml IV ONCE ONE Stop: 07/06/21 15:43 Last Admin: 07/06/21 15:43 Dose: 117 ml Documented by: [id number] Morphine Sulfate (Morphine Sulfate 4 Mg/Ml 1 Ml Carp\Vial) 4 mg IV NOW STA Stop: 07/06/21 12:07 Last Admin: 07/06/21 12:13 Dose: 4 mg Documented by: [id number] Nitroglycerin (Nitroglycerin 2% Ointment 30gm Tube) 2 inch EXT NOW STA Stop: 07/06/21 11:26 Last Admin: 07/06/21 11:32 Dose: 2 inch Documented by: [id number] Ondansetron HCl (Ondansetron Inj 2 Mg/Ml 2 Ml Vial) 4 mg IV NOW STA Stop: 07/06/21 11:26 Last Admin: 07/06/21 11:32 Dose: 4 mg Documented by: [id number] Imaging Data Radiologist's Impression: Chest X-Ray 07/06/21 11:25 XR chest 1V portable HISTORY: 51 years-old Female Chest Pain acute atypical chest pain COMPARISON: 11/24/2019 TECHNIQUE: Portable AP view the chest FINDINGS: The cardiomediastinal and hilar silhouettes are within normal limits. There is no pneumothorax, pleural effusion, airspace consolidation or overt pulmonary edema. No acute fracture. IMPRESSION: No acute process. ACT 112: Negative or not required by law. The above report was generated using voice recognition software. It may contain grammatical, syntax or spelling errors. Electronically signed by: Mike Verduzco M.D. 07/06/2021 12:02 PM Discharge Plan Visit Data Chief Complaint: Chest Pain Stated Complaint: CHEST PAIN, SOB ED Provider: Leroy Causey Discharge Problem: Precordial chest pain, Shortness of breath, Coronary arteriosclerosis, COVID-19 Patient Disposition: Admitted As Inpatient Condition: Fair Discharge Instructions Interventions: ED Discharge Assessment Last Done: 07/06/21 14:01
[2021-07-06 11:32] LABS: Basophils # (auto) 0.05 K/uL (0-0.2); Basophils % (auto) 0.5 %; Eosinophils # (auto) 0.31 K/uL (0-0.5); Eosinophils % (auto) 3.3 %; Hemoglobin 15.2 g/dL (12.0-16.0); Immature Granulocytes # (auto) 0.03 K/uL (0.00-0.02); Immature Granulocytes % (auto) 0.3 %; Lymphocytes # (auto) 2.57 K/uL (1.2-3.4); Lymphocytes % (auto) 27.3 %; Mean Corpuscular Hemoglobin 33.3 pg (25-34); Mean Corpuscular Hgb Conc 35.3 g/dL (32-36); Mean Corpuscular Volume 94.3 fL (80-100); Mean Platelet Volume 11.5 fL (7.4-10.4); Monocytes # (auto) 0.67 K/uL (0.11-0.59); Monocytes % (auto) 7.1 %; Neutrophils # (auto) 5.79 K/uL (1.4-6.5); Neutrophils % (auto) 61.5 %; Platelet Count 204 K/uL (130-400); RDW Coefficient of Variation 12.6 % (11.5-14.5); RDW Standard Deviation 43.2 fL (36.4-46.3); Red Blood Count 4.56 M/uL (4.2-5.4); White Blood Count 9.42 K/uL (4.8-10.8)
[2021-07-06 11:41] LABS: Alanine Aminotransferase 23 U/L (12-78); Albumin Level 3.4 gm/dl (3.4-5.0); Aspartate Aminotransferase 16 U/L (15-37); BUN Creatinine Ratio 22.7 (10-20); Blood Urea Nitrogen 21 mg/dl (7-18); Calcium 8.6 mg/dl (8.5-10.1); Carbon Dioxide 21 mmol/L (21-32); Chloride 105 mmol/L (98-107); Est GFR (African American) 84.7 ml/min; Est GFR (Non-African American) 73.1 ml/min; Glucose 258 mg/dl (70-99); Lipase 202 U/L (73-393); Potassium 4.1 mmol/L (3.5-5.1); Sodium 132 mmol/L (136-145)
[2021-07-06 11:46] LABS: Albumin Globulin Ratio 0.8 (0.9-2); Alkaline Phosphatase 153 U/L (45-117); Bilirubin,Total 0.3 mg/dl (0.2-1); Globulin 4.1 gm/dl (2.5-4.0); Total Protein 7.5 gm/dl (6.4-8.2); Troponin I < 0.015 ng/ml (0-0.045)
--- NOTE | 2021-07-06 12:03 | XRay Report ---
XR chest 1V portable HISTORY: 51 years-old Female Chest Pain acute atypical chest pain COMPARISON: 11/24/2019 TECHNIQUE: Portable AP view the chest FINDINGS: The cardiomediastinal and hilar silhouettes are within normal limits. There is no pneumothorax, pleur al effusion, airspace consolidation or overt pulmonary edema. No acute fracture. IMPRESSION: No acute process. ACT 112: Negative or not required by law. The above report was generated using voice recognition software. It may contain grammatical, syntax o r spelling errors. Electronically signed by: Mike Verduzco M.D. 07/06/2021 12:02 PM
[2021-07-06] MEDS ORDERED: MoRPHine SULFATE 4 MG/ML 1 ML CARP\\VIAL IV STA (12:06)
--- NOTE | 2021-07-06 13:38 | History & Physical Report ---
Date of Service July 06, 2021 Assessment & Plan (1) Precordial chest pain: Plan: Patient is a 51-year-old female with PMH 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 exertional SOB x couple of weeks In ER patient afebrile, P: 81, R: 16, BP 178/94 down to 130/70, 97% on room air. No leukocytosis, negative troponin, glucose: 258, EKG sinus rhythm, Q waves septal leads (seen on prior EKGs), CXR: No acute infiltrate + COVID-19 PCR CHEST PAIN R/O ACS. Risk factors: HTN, hyperlipidemia, DM, obesity, tobacco use CTA chest to rule out PE DDX: PE, musculoskeletal etiology Repeat EKG in am Will trend troponin Will hold on echo pending cardiology recommendations lipid panel in am, continue statin Continue aspirin Nitro prn CP and repeat EKG for CP Morphine prn CP Cardiology consult (2) COVID-19: Plan: Positive COVID-19 PCR Reported exertional shortness of breath for the past couple of weeks Reported positive Covid test 2 months ago. Is not COVID 19 vaccinated Patient not hypoxic, not tachypneic or tachycardic Normal procalcitonin. CRP: 0.8 Isolation precautions We will hold on COVID-19 treatment at this time DM II On insulin pump Continue insulin pump Glycemic pharmacist to assist A1c in AM TIA Continue aspirin, plavix HLD Continue rosuvastatin HTN Continue lisinopril Tobacco Use Smoking cessation recommended Hypothyroidism TSH in AM Continue levothyroxine DVT Prophylaxis -SCDs Full Code as per discussion with pt Follows with Dr Noelle Burnette for routine care Pt was seen and care coordinated with Dr Suh. See addendum History of Present Illness Chief Complaint: Chest pain Primary Care Provider: Noelle Rob DO Patient is a 51-year-old female with PMH nonobstructive disease mid LAD and marginal system, DM II on insulin pump, HTN, dyslipidemia, GERD, RLS, TIA, hypothyroidism, tobacco use presented to ER with complaint of chest pain. Patient reports chronic anterior chest pressure at baseline. Reports today was at work sitting and talking on phone when she started with increased chest pressure and had sharp pain that radiated from right to left chest with assoc iated tingling of left arm and left side of face. She reports she has been short of breath with exertion for several weeks. Reports intermittent dizziness with standing up over the last couple weeks. Denies fever, chills, cough. Patient reports chronic tingling of bilateral hands and feet at baseline. Patient states she took 81 mg aspirin at home and was given 3 additional chewable baby aspirin by EMS. Reports was given nitro sublingual x3 which she reports decreased chest pain. Denies fever/chills, diaphoresis, N/V/D/C, [place], syncope, vision changes, neck pain, orthopnea, palpitations, sore throat, choking, otalgia, rhinorrhea, abdominal pain, extremity weakness, extremity edema, rashes, urinary symptoms. Denies ill contacts. Is not vaccinated against COVID-19. In ER patient afebrile, P: 81, R: 16, BP 178/94 down to 130/70, 97% on room air. No leukocytosis, negative troponin, glucose: 258, EKG sinus rhythm, Q waves septal leads (seen on prior EKGs), CXR: No acute infiltrate + COVID-19 PCR Allergies Allergy/AdvReac Type Severity Reaction Status Date / Time adhesive Allergy Unknown BLISTERS Verified 07/06/21 11:55 Home Medications Medication Instructions Recorded Confirmed Type aspirin 81 mg tablet,delayed 81 mg PO QAM #0 09/16/14 07/06/21 History release levothyroxine 200 mcg tablet 200 mcg PO QAM #0 06/01/16 07/06/21 History (Synthroid) lorazepam 0.5 mg tablet (Ativan) 0.5 mg PO UD PRN #0 tab 03/06/18 07/06/21 History tramadol 50 mg tablet 50 mg PO Q6H PRN #0 03/28/18 07/06/21 History Novolog Insulin Pump 1 dose SC UD 05/03/18 07/06/21 History albuterol sulfate 90 mcg/actuation 2 puff INHALATION QID PRN 02/05/19 07/06/21 History aerosol inhaler (ProAir HFA) clopidogrel 75 mg tablet (Plavix) 75 mg PO DAILY 07/23/19 07/06/21 History rosuvastatin 20 mg tablet (Crestor) 20 mg PO DAILY 07/23/19 07/06/21 History docusate sodium 100 mg capsule 100 mg PO BID PRN 11/23/19 07/06/21 History (Colace) lisinopril 5 mg tablet 5 mg PO DAILY 11/23/19 07/06/21 History Past Med/Surg History Medical History Acquired bilateral foot deformity Anxiety Blood dyscrasia Lipoprotein A elevation Callus Chronic kidney disease (CKD) STAGE 2 Coronary artery disease, non-occlusive Depression Diabetes mellitus with diabetic polyneuropathy Diabetes mellitus, type 2 Diabetic neuropathy H/O atypical migraine Complex (11/2014) evaluated at [facility], MRI and head CT negative, some residual L hand numbness per pt, s/p rehab History of chronic urinary tract infection HTN (hypertension) Hx of blood clots PT REPORTS WILL GET FREQUENT BLOOD CLOTS (HAD THEM IN TOO) - NONE IN THE LAST 6 YRS Hypothyroid TIA (transient ischemic attack) x 4, most recent 2005--previously seen by neuro, now follows only with PCP, on ASA 81mg daily Surgical History History of discectomy lumbar Hx laparoscopic cholecystectomy Hx of arthroscopic knee surgery R KNEE MENISCUS X2 Hx of cardiac cath non-occlusive. No intervention Hx of tubal ligation Family History Other Diabetes Heart disease Hypertension Social History Smoking Status: Current every day smoker Tobacco Type: Cigarettes Cigarettes Per Day: 1/2 pack; Second Hand Exposure: Yes; Hx Alcohol Use: No Hx Substance Use: No Preferred Language: [place] Communication Ability: Effective Visual Impairment: No Limitations Production Administrative Assistant Required: No Beliefs That Will Affect Care: None Current Living Situation: Spouse Current Living Situation Comment: Significant other and his two kids and her daughter Feels Safe at Home: Yes Safety Concerns: Feels Safe At This Time Assistive Devices: Glasses Review of Systems Review of Systems: All systems reviewed & are unremarkable except as noted in HPI & below Physical Exam Physical Exam: General: no distress, WDWN Head: normocephalic, atraumatic Eyes: PERRL, EOM's intact, conjunctiva non-injected, anicteric ENT: normal inspection external ears, nose, mucous membranes moist Neck: supple, trachea midline Lungs: clear, no respiratory distress, no wheezing/rhonchi/rales CV: RRR, no JVD, no pretibial edema; chest wall, no rashes or discoloration, positive tenderness over sternum and left chest wall, epigastric region Abd: normal BS, soft, + tenderness to palpation epigastric, no other tenderness to palpation Ext: no cyanosis, no calf tenderness Neuro: A&O x 3, no focal deficits noted, normal affect Skin: warm, dry Results & Data Results & Data ([facility]) Vital Signs (Past 12 Hours) Vital Signs Temp Pulse Pulse Resp BP BP Pulse Ox 07/06/21 12:57 69 18 137/73 98 07/06/21 12:06 69 20 138/70 97 07/06/21 11:10 98 07/06/21 11:04 36.6 C 81 16 178/94 H 97 Laboratory Results Short CBC 07/06/21 Range/Units 11:09 WBC 9.42 (4.8-10.8) K/uL Hgb 15.2 (12.0-16.0) g/dL Hct 43.0 (37-47) % Plt Count 204 (130-400) K/uL BMP 07/06/21 11:09 Sodium 132 L Potassium 4.1 Chloride 105 Carbon Dioxide 21 BUN 21 H Creatinine 0.92 Glucose 258 H Calcium 8.6 Cardiac Enzymes 07/06/21 07/06/21 Range/Units 11:09 17:18 Troponin I < 0.015 < 0.015 (0-0.045) ng/ml Liver Function 07/06/21 Range/Units 11:09 Total Bilirubin 0.3 (0.2-1) mg/dl AST 16 (15-37) U/L ALT 23 (12-78) U/L Alkaline Phosphatase 153 H (45-117) U/L Albumin 3.4 (3.4-5.0) gm/dl Diagnostic Findings Chest X-Ray 07/06/21 11:25 XR chest 1V portable HISTORY: 51 years-old Female Chest Pain acute atypical chest pain COMPARISON: 11/24/2019 TECHNIQUE: Portable AP view the chest FINDINGS: The cardiomediastinal and hilar silhouettes are within normal limits. There is no pneumothorax, pleural effusion, airspace consolidation or overt pulmonary edema. No acute fracture. IMPRESSION: No acute process. ACT 112: Negative or not required by law. The above report was generated using voice recognition software. It may contain grammatical, syntax or spelling errors. Electronically signed by: Mike Verduzco M.D. 07/06/2021 12:02 PM Chest CTA 07/06/21 14:19 CT angio chest PE protocol CLINICAL HISTORY: PE shortness of breath, cough, chest pain, Covid positive TECHNIQUE: Multidetector row helical CT of the chest was performed. Coronal and sagittal reformations were obtained. Automated dose lowering techniques and/or adjustment according to patient size were utilized for this exam. Comparison: None available at the time of this dictation. FINDINGS: Lungs and pleura: Bilateral ground glass opacities are seen prominently in the d ependent portions of the lungs. Heart and pericardium: Heart size is normal. No pericardial effusion. Vessels: No evidence of pulmonary embolism. Mediastinum and rebecca: Unremarkable. Chest wall and lower neck: Unremarkable. Abdomen: Unremarkable. Bones: Unremarkable. IMPRESSION: No evidence of pulmonary embolism. Scattered groundglass opacities likely represent atelectasis and/or pneumonia. ACT 112: Negative or not required by law. Electronically signed by: Federico Holguin M.D. 07/06/2021 3:51 PM Code Status & VTE Plan VTE Prophylaxis Plan VTE Prophylaxis will be ordered: Yes Supervising Physician Co-Signing Physician Notes Attending addendum The patient was seen and examined in telemetry unit She was admitted with chest pressure with associated numbness in the left upper extremity and left jaw area while she was sitting and answering the phone She has had this kind of presentation before and is worried about her heart Has minimal cough and shortness of breath with exertion for the last 1 week She is unvaccinated and are noted to be Covid positive x2 one in April and now On examination No apparent distress at rest but is anxious Blood pressure in the upper side at 186/96 Chestminimal crackles at the bases HeartS1-S2, regular Abdomenbenign Extremitiestrace edema bilaterally CNSalert, awake and oriented x3 Her admission labs, EKG and imaging studies reviewed Had chest pain with history of CAD to rule out ACS COVID-19 infection seems to be minimally symptomatic without any significant increase in inflammatory markers Agree with assessment and plan as outlined above by NANCY Watkins DR
[2021-07-06] MEDS ORDERED: DOCUSATE SODIUM 100 MG CAP PO PRN (14:21)
[2021-07-06] MEDS ORDERED: DEXTROSE 50% 50 ML SYRINGE IV PRN (14:21)
[2021-07-06] MEDS ORDERED: GLUCOSE 40% GEL 15 GM TUBE PO PRN (14:21)
[2021-07-06] MEDS ORDERED: PHARMACY GLYCEMIC MGMT CONSULT PRN (14:21)
[2021-07-06] MEDS ORDERED: GLUCOSE 10 TABS/TUBE PO PRN (14:21)
[2021-07-06] MEDS ORDERED: CARBOHYDRATES FOR HYPOGLYCEMIA PO PRN (14:21)
[2021-07-06] MEDS ORDERED: traMADol HCL 50 MG TABLET PO PRN (14:21)
[2021-07-06] MEDS ORDERED: NITROGLYCERIN SL 0.4 MG/TAB TAB SL PRN (14:21)
[2021-07-06] MEDS ORDERED: GLUCAGON FOR INJ 1 MG VIAL SQ PRN (14:21)
[2021-07-06] MEDS ORDERED: LORazepam 0.5 MG TAB PO PRN (14:21)
[2021-07-06] MEDS ORDERED: POLYETHYLENE (MIRALAX) 17 GM PACK PO PRN (14:21)
[2021-07-06] MEDS ORDERED: ALBUTEROL HFA 8 GM INHALER INH PRN (14:30)
[2021-07-06] MEDS: CLOPIDOGREL BISULFATE 75 MG TAB PO SCH (14:56)
[2021-07-06] MEDS: NICOTINE 14 MG/24 HR PATCH TD SCH (14:57)
[2021-07-06] MEDS: lisinopril 5 MG TAB PO SCH (14:57)
[2021-07-06] MEDS: LEVOTHYROXINE SODIUM 200 MCG TABLET PO SCH (14:57)
[2021-07-06] MEDS ORDERED: MoRPHine SULFATE 4 MG/ML 1 ML CARP\\VIAL IV PRN ×2 (15:21→23:11)
[2021-07-06] MEDS ORDERED: OPTIRAY 320 125ml IV ONE (15:42)
--- NOTE | 2021-07-06 15:52 | CT Scan Report ---
CT angio chest PE protocol CLINICAL HISTORY: PE shortness of breath, cough, chest pain, Covid positive TECHNIQUE: Multidetector row helical CT of the chest was performed. Coronal and sagittal reformations were obtained. Automated dose lowering techniques and/or adjustment according to patient size were u tilized for this exam. Comparison: None available at the time of this dictation. FINDINGS: Lungs and pleura: Bilateral ground glass opacities are seen prominently in the dependent portions of the lungs. Heart and pericardium: Heart size is normal. No pericardial effusion. Vessels: No evidence of pulmonary embolism. Mediastinum and rebecca: Unremarkable. Chest wall and lower neck: Unremarkable. Abdomen: Unremarkable. Bones: Unremarkable. IMPRESSION: No evidence of pulmonary embolism. Scattered groundglass opacities likely represent atelectasis and/o r pneumonia. ACT 112: Negative or not required by law. Electronically signed by: Federico Holguin M.D. 07/06/2021 3:51 PM
[2021-07-06 16:16] LABS: C Reactive Protein 0.81 mg/dl (0-0.29)
[2021-07-06] MEDS ORDERED: INSULIN ASPART 100 UNITS/ML VIAL SC PRN (16:30)
[2021-07-06] MEDS: ACETAMINOPHEN 325 MG TAB PO PRN (17:18)
[2021-07-06] MEDS: NovoLOG INSULIN PUMP SCH ×3 (17:59→23:26)
[2021-07-06] MEDS ORDERED: oxyCODONE HCL IR 5 MG TAB (IMMEDIATE RELEASE) PO PRN (23:11)
[2021-07-06] MEDS ORDERED: SODIUM CHLORIDE 0.9% 500 ML IV ONE (23:14)
[2021-07-07] MEDS ORDERED: SODIUM CHLORIDE 0.9% 1000ML 1,000 ML IV SCH
[2021-07-07] MEDS: NovoLOG INSULIN PUMP SCH ×4 (00:46→12:20)
--- NOTE | 2021-07-07 06:05 | Electrocardiogram Report ---
Test Reason : Blood Pressure : / mmHG Vent. Rate : 084 BPM Atrial Rate : 084 BPM P-R Int : 176 ms QRS Dur : 084 ms QT Int : 372 ms P-R-T Axes : 064 051 004 degrees QTc Int : 439 ms Normal sinus rhythm Possible Left atrial enlargement Borderline ECG When compared with ECG of 28-JUL-2020 01:11, No significant change was found Confirmed by Sterling Martinez ([id number]) on 07/07/2021 6:04:45 AM Referred By: REFERRED SELF Confirmed By:Sterling Martinez
[2021-07-07] MEDS: LEVOTHYROXINE SODIUM 200 MCG TABLET PO SCH (06:24)
[2021-07-07] MEDS: ACETAMINOPHEN 325 MG TAB PO PRN (06:38)
[2021-07-07 07:06] LABS: Hematocrit (blood only) 40.2 % (37-47); Hemoglobin 13.9 g/dL (12.0-16.0); Mean Corpuscular Hemoglobin 32.5 pg (25-34); Mean Corpuscular Hgb Conc 34.6 g/dL (32-36); Mean Corpuscular Volume 93.9 fL (80-100); Mean Platelet Volume 11.4 fL (7.4-10.4); Platelet Count 189 K/uL (130-400); RDW Standard Deviation 44.5 fL (36.4-46.3); Red Blood Count 4.28 M/uL (4.2-5.4); White Blood Count 8.11 K/uL (4.8-10.8)
[2021-07-07 07:19] LABS: Estimated Average Glucose 278 mg/dl; Hemoglobin A1C 11.3 % (4.5-5.6)
[2021-07-07 07:36] LABS: BUN Creatinine Ratio 24.2 (10-20); Calcium 8.1 mg/dl (8.5-10.1); Creatinine Clr Calc Pharmacy 117.1 ml/min; Est GFR (Non-African American) 98.3 ml/min; Potassium 3.9 mmol/L (3.5-5.1)
[2021-07-07 07:46] LABS: Thyroid Stimulating Hormone 51.4 uIu/ml (0.300-4.500)
[2021-07-07] MEDS: CLOPIDOGREL BISULFATE 75 MG TAB PO SCH (08:21)
[2021-07-07] MEDS: lisinopril 5 MG TAB PO SCH (08:21)
[2021-07-07] MEDS: NICOTINE 14 MG/24 HR PATCH TD SCH (08:21)
[2021-07-07] MEDS ORDERED: ASPIRIN 81 MG ECTAB PO SCH (09:00)
[2021-07-07] MEDS ORDERED: ROSUVASTATIN CALCIUM 20 MG TAB PO SCH (09:00)
[2021-07-07] MEDS ORDERED: PROMETHAZINE HCL 12.5 MG in SODIUM CHLORIDE 0.9% 50 ML IV PRN (11:28)
--- NOTE | 2021-07-07 12:53 | Hospitalist Progress Note ---
Date of Service July 07, 2021 Assessment & Plan (1) Precordial chest pain: Plan: Patient is a 51-year-old female with PMH 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 exertional SOB x couple of weeks In ER patient afebrile, P: 81, R: 16, BP 178/94 down to 130/70, 97% on room air. No leukocytosis, negative troponin, glucose: 258, EKG sinus rhythm, Q waves septal leads (seen on prior EKGs), CXR: No acute infiltrate + COVID-19 PCR CHEST PAIN R/O ACS. Risk factors: HTN, hyperlipidemia, DM, obesity, tobacco use CTA chest to rule out PE DDX: PE, musculoskeletal etiology Repeat EKG in am Will trend troponin Will hold on echo pending cardiology recommendations lipid panel in am, continue statin Continue aspirin Nitro prn CP and repeat EKG for CP Morphine prn CP Cardiology consult-appreciate input and recommendation No more cardiac work-up and from cardiology's point of view the patient can be discharged (2) COVID-19: Plan: Positive COVID-19 PCR Reported exertional shortness of breath for the past couple of weeks Reported positive Covid test 2 months ago. Is not COVID 19 vaccinated Patient not hypoxic, not tachypneic or tachycardic Normal procalcitonin. CRP: 0.8 Isolation precautions We will hold on COVID-19 treatment at this time Remains asymptomatic for COVID-19 infection and hasn't been requiring any oxygen whatsoever We'll get to a steps O2 saturation test before discharging her this afternoon DM II On insulin pump Continue insulin pump Glycemic pharmacist to assist A1c in AM TIA Continue aspirin, plavix HLD Continue rosuvastatin HTN Continue lisinopril Tobacco Use Smoking cessation recommended Hypothyroidism TSH in AM Continue levothyroxine DVT Prophylaxis -SCDs Full Code as per discussion with pt Follows with Dr Noelle Burnette for routine care Admission and Anticipated Discharge Date Admission Date: July 06, 2021 Subjective 07/07/2021 The patient was seen and examined in telemetry unit and in the Covid room She still has chest pressure/pain mostly on the right side of the chest wall Denies any other symptoms associated with it She remains asymptomatic for Covid infection Review of Systems Review of Systems: All systems reviewed and are unremarkable except as noted below Cardiovascular: Additional Comments: Anterior chest wall pain and tenderness Physical Exam Physical Exam: Lying in bed comfortably Constitutional: well developed, well nourished and + obese; not ill appearing Eyes: PERRL, conjunctivae normal, anicteric sclerae ENMT: external ear and nose normal, oropharynx normal Neck: trachea midline, no thyromegaly Respiratory: no respiratory distress and no cough Auscultation: lungs clear to auscultation bilaterally and + diminished lung sounds (At the bases) Cardiovascular: Rate/Rhythm: regular rate and regular rhythm; not tachycardic Heart Sounds: normal S1 and normal S2 Tenderness over precordium and right anterior chest wall Gastrointestinal (Abdomen): Inspection/Auscultation: normal bowel sounds; abdomen not distended Percussion/Palpation: abdomen soft; abdomen nontender Musculoskeletal: No acute arthritis in any joint Neurologic: Alert, awake and oriented x3 Lymphatic: no cervical or axillary lymphadenopathy Results & Data Results & Data ([facility]) Vital Signs (Past 12 Hours) Vital Signs Temp Pulse Pulse Resp BP Pulse Ox 07/07/21 11:49 36.7 C 75 18 120/69 99 07/07/21 08:00 70 07/07/21 07:26 36.5 C 64 18 100/57 L 97 07/07/21 06:47 72 96/50 L 97 07/07/21 04:29 36.5 C 73 21 103/51 L 98 Laboratory Results Short CBC 07/07/21 Range/Units 06:19 WBC 8.11 (4.8-10.8) K/uL Hgb 13.9 (12.0-16.0) g/dL Hct 40.2 (37-47) % Plt Count 189 (130-400) K/uL BMP 07/07/21 06:19 Sodium 137 Potassium 3.9 Chloride 110 H Carbon Dioxide 24 BUN 17 Creatinine 0.72 Glucose 120 H Calcium 8.1 L Cardiac Enzymes 07/06/21 07/06/21 Range/Units 17:18 22:42 Troponin I < 0.015 < 0.015 (0-0.045) ng/ml Medications Administered Current Inpatient Medications Acetaminophen (Acetaminophen 325 Mg Tab) 650 mg PO Q4H PRN PRN Reason: Pain or Fever Stop: 08/05/21 14:20 Last Admin: 07/07/21 06:38 Dose: 650 mg Documented by: Albuterol (Albuterol Hfa 8 Gm Inhaler) 2 puffs INH QID PRN PRN Reason: Shortness Of Breath Or Wheezing Stop: 08/05/21 14:29 Aspirin (Aspirin 81 Mg Ectab) 81 mg PO QAM [facility] Stop: 08/06/21 08:59 Last Admin: 07/07/21 08:21 Dose: 81 mg Documented by: Clopidogrel Bisulfate (Clopidogrel Bisulfate 75 Mg Tab) 75 mg PO DAILY [facility] Stop: 08/05/21 14:44 Last Admin: 07/07/21 08:21 Dose: 75 mg Documented by: Dextrose (Dextrose 50% 50 Ml Syringe) 25 - 50 ml IV UD PRN; Protocol PRN Reason: Hypoglycemia Protocol Stop: 08/05/21 14:20 Docusate Sodium (Docusate Sodium 100 Mg Cap) 100 mg PO BID PRN PRN Reason: Constipation Stop: 08/05/21 14:20 Glucagon (Glucagon For Inj 1 Mg Vial) 1 mg SQ UD PRN; Protocol PRN Reason: Hypoglycemia Protocol Stop: 08/05/21 14:20 Glucose (Glucose 10 Tabs/Tube) 4 - 8 tabs PO UD PRN; Protocol PRN Reason: Hypoglycemia Protocol Stop: 08/05/21 14:20 Glucose (Glucose 40% Gel 15 Gm Tube) 15 - 30 gm PO UD PRN; Protocol PRN Reason: Hypoglycemia Protocol Stop: 08/05/21 14:20 Sodium Chloride (Nss 1000ml) 1,000 mls @ 60 mls/hr IV .[id number] [facility] Stop: 08/06/21 00:00 Last Admin: 07/06/21 23:55 Dose: 60 mls/hr Documented by: Promethazine HCl 12.5 mg/ (Sodium Chloride) 50.5 mls @ 202 mls/hr IV Q6H PRN PRN Reason: Nausea And Vomiting Stop: 08/06/21 11:27 Last Infusion: 07/07/21 12:21 Dose: Infused Documented by: Insulin Aspart (Novolog Insulin Pump) 1 ea N/A ACHS [facility]; Protocol Stop: 08/05/21 16:29 Last Admin: 07/07/21 12:20 Dose: Not Given Documented by: Insulin Aspart (Insulin Aspart 100 Units/Ml Vial) 0 units SC PRN PRN PRN Reason: Insulin Pump Refill Stop: 08/05/21 16:29 Levothyroxine Sodium (Levothyroxine Sodium 200 Mcg Tablet) 200 mcg PO DAILYBB [facility] Stop: 08/05/21 06:29 Last Admin: 07/07/21 06:24 Dose: 200 mcg Documented by: Lisinopril (Lisinopril 5 Mg Tab) 5 mg PO DAILY [facility] Stop: 08/05/21 14:44 Last Admin: 07/07/21 08:21 Dose: 5 mg Documented by: Lorazepam (Lorazepam 0.5 Mg Tab) 0.5 mg PO Q8H PRN PRN Reason: Anxiety Stop: 08/05/21 14:20 Last Admin: 07/06/21 21:38 Dose: 0.5 mg Documented by: Miscellaneous (Carbohydrates For Hypoglycemia ) 15 - 30 gm PO UD PRN PRN Reason: Hypoglycemia Protocol Stop: 08/05/21 14:20 Miscellaneous (Remove Nicoderm Patch) 1 ea N/A DAILY@[id number] [facility] Stop: 08/06/21 08:58 Last Admin: 07/07/21 08:22 Dose: 1 ea Documented by: Miscellaneous Information (Pharmacy Glycemic Mgmt Consult) 1 ea N/A UD PRN PRN Reason: Consult Stop: 08/05/21 14:20 Morphine Sulfate (Morphine Sulfate 4 Mg/Ml 1 Ml Carp\Vial) 4 mg IV Q4H PRN PRN Reason: Pain Stop: 07/20/21 23:10 Last Admin: 07/07/21 08:22 Dose: 4 mg Documented by: Nicotine (Nicotine 14 Mg/24 Hr Patch) 14 mg TD QAM [facility] Stop: 08/05/21 14:20 Last Admin: 07/07/21 08:21 Dose: 14 mg Documented by: Nitroglycerin (Nitroglycerin Sl 0.4 Mg/Tab Tab) 0.4 mg SL UD PRN PRN Reason: Chest Pain Stop: 08/05/21 14:20 Last Admin: 07/07/21 06:38 Dose: 0.4 mg Documented by: Oxycodone HCl (Oxycodone Hcl Ir 5 Mg Tab (Immediate Release)) 5 - 10 mg PO QID PRN PRN Reason: Pain Stop: 07/20/21 23:10 Polyethylene Glycol (Polyethylene (Miralax) 17 Gm Pack) 17 gm PO DAILY PRN PRN Reason: Constipation Stop: 08/05/21 14:20 Rosuvastatin Calcium (Rosuvastatin Calcium 20 Mg Tab) 20 mg PO DAILY [facility] Stop: 08/06/21 08:59 Last Admin: 07/07/21 08:27 Dose: 20 mg Documented by: Tramadol HCl (Tramadol Hcl 50 Mg Tablet) 50 mg PO Q6H PRN PRN Reason: Pain Stop: 08/05/21 14:20 Last Admin: 07/06/21 23:21 Dose: 50 mg Documented by:
--- NOTE | 2021-07-07 13:35 | Cardiology Consultation ---
Date of Consultation July 07, 2021 Assessment & Plan (1) Precordial chest pain: (2) COVID-19: (3) DKA, type 1: (4) Smoker: I highly recommended to the patient that she stop smoking and to cut back on the amount of coffee she is drinking. She recently lost her father and has been under a lot of stress at work which may be contributing to her symptoms. Her symptoms are atypical. She has had normal cardiac markers and a normal echocardiogram. I would not pursue any additional testing at this time especially in light of her Covid status. As long as her clinical course does not change I would recommend considering outpatient testing once she is cleared from her Covid status. History of Present Illness Attending Physician: Callie Suh MD History of Present Illness This is a 51-year-old female with no prior history of heart disease. Several weeks ago her had Covid. As a result she was tested and was found to be positive but asymptomatic. Up until that time she was in her usual state of health. She has noted especially recently increased symptoms of dizziness in which she describes as the room spinning around or vertigo. This occurs spontaneously and is not related to syncope. After a few seconds to a minute, it resolves and she is able to continue her activities. She has also had some atypical chest pressure in which she describes as a sticking pain in her chest which is not related to activity and can occur while she is sitting quietly. She has returned to work and had an episode at work that concerned her and she came into the emergency department. She has a history of type 1 diabetes with an insulin pump. No prior history of hypercholesterolemia or hypertension. Unfortunately, she does smoke. She also consumes 7 or 8 cups of coffee a day. She denies a previous history of peptic ulcer disease, reflux or hiatal hernia. She has chronic constipation for which she takes stool softeners. She has had no nausea or vomiting. In the past she has had at least 2 heart catheterizations, the last being several years ago at [facility]. The studies resulted in no intervention and she was told she did not need stents or surgery. Allergies Allergy/AdvReac Type Severity Reaction Status Date / Time adhesive Allergy Unknown BLISTERS Verified 07/06/21 11:55 Home Medications Medication Instructions Recorded Confirmed Type aspirin 81 mg tablet,delayed 81 mg PO QAM #0 09/16/14 07/06/21 History release levothyroxine 200 mcg tablet 200 mcg PO QAM #0 06/01/16 07/06/21 History (Synthroid) lorazepam 0.5 mg tablet (Ativan) 0.5 mg PO UD PRN #0 tab 03/06/18 07/06/21 History tramadol 50 mg tablet 50 mg PO Q6H PRN #0 03/28/18 07/06/21 History Novolog Insulin Pump 1 dose SC UD 05/03/18 07/06/21 History albuterol sulfate 90 mcg/actuation 2 puff INHALATION QID PRN 02/05/19 07/06/21 History aerosol inhaler (ProAir HFA) clopidogrel 75 mg tablet (Plavix) 75 mg PO DAILY 07/23/19 07/06/21 History rosuvastatin 20 mg tablet (Crestor) 20 mg PO DAILY 07/23/19 07/06/21 History docusate sodium 100 mg capsule 100 mg PO BID PRN 11/23/19 07/06/21 History (Colace) lisinopril 5 mg tablet 5 mg PO DAILY 11/23/19 07/06/21 History Patient History Medical History Acquired bilateral foot deformity Anxiety Blood dyscrasia Lipoprotein A elevation Callus Chronic kidney disease (CKD) STAGE 2 Coronary artery disease, non-occlusive Depression Diabetes mellitus with diabetic polyneuropathy Diabetes mellitus, type 2 Diabetic neuropathy H/O atypical migraine Complex (11/2014) evaluated at [facility], MRI and head CT negative, some residual L hand numbness per pt, s/p rehab History of chronic urinary tract infection HTN (hypertension) Hx of blood clots PT REPORTS WILL GET FREQUENT BLOOD CLOTS (HAD THEM IN TOO) - NONE IN THE LAST 6 YRS Hypothyroid TIA (transient ischemic attack) x 4, most recent 2005--previously seen by neuro, now follows only with PCP, on ASA 81mg daily Surgical History History of discectomy lumbar Hx laparoscopic cholecystectomy Hx of arthroscopic knee surgery R KNEE MENISCUS X2 Hx of cardiac cath non-occlusive. No intervention Hx of tubal ligation Family History Other Diabetes Heart disease Hypertension Social History Smoking Status: Current every day smoker Tobacco Type: Cigarettes Cigarettes Per Day: 1/2 pack; Second Hand Exposure: Yes; Hx Alcohol Use: No Hx Substance Use: No Preferred Language: Greenlandic Communication Ability: Effective Visual Impairment: No Limitations Mechanical Maintenance Required: No Beliefs That Will Affect Care: None Current Living Situation: Spouse Current Living Situation Comment: Significant other and his two kids and her daughter Feels Safe at Home: Yes Safety Concerns: Feels Safe At This Time Assistive Devices: Glasses Review of Systems Review of Systems: Review of Systems: See HPI for pertinent positives. All other 10 point review of systems are negative. Physical Exam Physical Exam: General: no acute distress and stated age Head: normocephalic, no masses, lesions, tenderness or abnormalities Eyes: conjunctiva are pink and non-injected, sclera clear Neck: supple, no adenopathy, no bruits, normal jugular venous pulse, no hepatojugular reflux Chest: normal shape and normal respiratory effort Lungs: clear to auscultation and percussion Cardiac Exam: - regular rate & rhythm, no murmurs gallops or rubs - normal S1, normal S2 Pulses: 2(+) throughout Abdomen: abdomen soft, non-tender, no abnormal masses and no hepatosplenomegaly Musculoskeletal: no gait disturbance, no joint inflammation, no deforming arthritis Extremities: no edema and no cyanosis Neuro: grossly normal exam Results & Data ([facility]) Vital Signs (Past 12 Hours) Vital Signs Temp Pulse Pulse Pulse Pulse Pulse Resp 07/07/21 13:03 84 80 75 07/07/21 11:49 36.7 C 75 18 07/07/21 08:00 70 07/07/21 07:26 36.5 C 64 18 07/07/21 06:47 72 07/07/21 04:29 36.5 C 73 21 Resp Resp Resp BP Pulse Ox Pulse Ox Pulse Ox 07/07/21 13:03 18 18 18 95 97 07/07/21 11:49 120/69 99 07/07/21 08:00 07/07/21 07:26 100/57 L 97 07/07/21 06:47 96/50 L 97 07/07/21 04:29 103/51 L 98 Pulse Ox 07/07/21 13:03 96 07/07/21 11:49 07/07/21 08:00 07/07/21 07:26 07/07/21 06:47 07/07/21 04:29 Laboratory Results Laboratory Results - last 24 hr 07/06/21 07/06/21 07/06/21 11:09 11:09 17:18 WBC RBC Hgb Hct MCV MCH MCHC RDW Std Deviation RDW Coeff of Brad Plt Count MPV Sodium Potassium Chloride Carbon Dioxide Anion Gap BUN Creatinine Est Cr Clr Drug Dosing Est GFR ( Amer) Est GFR (Non-Af Amer) BUN/Creatinine Ratio Glucose POC Glucose Estimat Average Glucose Hemoglobin A1c Calcium Troponin I < 0.015 C-Reactive Protein 0.81 H Triglycerides Cholesterol LDL Cholesterol, Calc VLDL Cholesterol, Calc HDL Cholesterol Cholesterol/HDL Ratio Procalcitonin < 0.05 TSH 07/06/21 07/06/21 07/06/21 19:58 22:42 23:24 WBC RBC Hgb Hct MCV MCH MCHC RDW Std Deviation RDW Coeff of Brad Plt Count MPV Sodium Potassium Chloride Carbon Dioxide Anion Gap BUN Creatinine Est Cr Clr Drug Dosing Est GFR ( Amer) Est GFR (Non-Af Amer) BUN/Creatinine Ratio Glucose POC Glucose 176 H 223 H Estimat Average Glucose Hemoglobin A1c Calcium Troponin I < 0.015 C-Reactive Protein Triglycerides Cholesterol LDL Cholesterol, Calc VLDL Cholesterol, Calc HDL Cholesterol Cholesterol/HDL Ratio Procalcitonin TSH 07/07/21 07/07/21 07/07/21 04:15 06:19 06:19 WBC 8.11 RBC 4.28 Hgb 13.9 Hct 40.2 MCV 93.9 MCH 32.5 MCHC 34.6 RDW Std Deviation 44.5 RDW Coeff of Brad 13.0 Plt Count 189 MPV 11.4 H Sodium 137 Potassium 3.9 Chloride 110 H Carbon Dioxide 24 Anion Gap 3.0 BUN 17 Creatinine 0.72 Est Cr Clr Drug Dosing 117.1 Est GFR ( Amer) 114.0 Est GFR (Non-Af Amer) 98.3 BUN/Creatinine Ratio 24.2 H Glucose 120 H POC Glucose 212 H Estimat Average Glucose Hemoglobin A1c Calcium 8.1 L Troponin I C-Reactive Protein Triglycerides 318 H Cholesterol 183 LDL Cholesterol, Calc 81 VLDL Cholesterol, Calc 64 HDL Cholesterol 38 Cholesterol/HDL Ratio 5 Procalcitonin TSH 51.400 H 07/07/21 07/07/21 07/07/21 06:19 08:03 11:51 WBC RBC Hgb Hct MCV MCH MCHC RDW Std Deviation RDW Coeff of Brad Plt Count MPV Sodium Potassium Chloride Carbon Dioxide Anion Gap BUN Creatinine Est Cr Clr Drug Dosing Est GFR ( Amer) Est GFR (Non-Af Amer) BUN/Creatinine Ratio Glucose POC Glucose 115 H 127 H Estimat Average Glucose 278 Hemoglobin A1c 11.3 H Calcium Troponin I C-Reactive Protein Triglycerides Cholesterol LDL Cholesterol, Calc VLDL Cholesterol, Calc HDL Cholesterol Cholesterol/HDL Ratio Procalcitonin TSH Diagnostic Findings Echocardiogram was essentially normal. EKGs have poor R wave progression across the precordium due to lead placement and I do not believe she has had an anterior wall infarct. Especially in light of the normal echocardiogram. Medications Administered Current Inpatient Medications Acetaminophen (Acetaminophen 325 Mg Tab) 650 mg PO Q4H PRN PRN Reason: Pain or Fever Stop: 08/05/21 14:20 Last Admin: 07/07/21 06:38 Dose: 650 mg Documented by: Albuterol (Albuterol Hfa 8 Gm Inhaler) 2 puffs INH QID PRN PRN Reason: Shortness Of Breath Or Wheezing Stop: 08/05/21 14:29 Aspirin (Aspirin 81 Mg Ectab) 81 mg PO QAM ROSI Stop: 08/06/21 08:59 Last Admin: 07/07/21 08:21 Dose: 81 mg Documented by: Clopidogrel Bisulfate (Clopidogrel Bisulfate 75 Mg Tab) 75 mg PO DAILY [facility] Stop: 08/05/21 14:44 Last Admin: 07/07/21 08:21 Dose: 75 mg Documented by: Dextrose (Dextrose 50% 50 Ml Syringe) 25 - 50 ml IV UD PRN; Protocol PRN Reason: Hypoglycemia Protocol Stop: 08/05/21 14:20 Docusate Sodium (Docusate Sodium 100 Mg Cap) 100 mg PO BID PRN PRN Reason: Constipation Stop: 08/05/21 14:20 Glucagon (Glucagon For Inj 1 Mg Vial) 1 mg SQ UD PRN; Protocol PRN Reason: Hypoglycemia Protocol Stop: 08/05/21 14:20 Glucose (Glucose 10 Tabs/Tube) 4 - 8 tabs PO UD PRN; Protocol PRN Reason: Hypoglycemia Protocol Stop: 08/05/21 14:20 Glucose (Glucose 40% Gel 15 Gm Tube) 15 - 30 gm PO UD PRN; Protocol PRN Reason: Hypoglycemia Protocol Stop: 08/05/21 14:20 Sodium Chloride (Nss 1000ml) 1,000 mls @ 60 mls/hr IV .[id number] [facility] Stop: 08/06/21 00:00 Last Admin: 07/06/21 23:55 Dose: 60 mls/hr Documented by: Promethazine HCl 12.5 mg/ (Sodium Chloride) 50.5 mls @ 202 mls/hr IV Q6H PRN PRN Reason: Nausea And Vomiting Stop: 08/06/21 11:27 Last Infusion: 07/07/21 12:21 Dose: Infused Documented by: Insulin Aspart (Novolog Insulin Pump) 1 ea N/A [facility]; Protocol Stop: 08/05/21 16:29 Last Admin: 07/07/21 12:20 Dose: Not Given Documented by: Insulin Aspart (Insulin Aspart 100 Units/Ml Vial) 0 units SC PRN PRN PRN Reason: Insulin Pump Refill Stop: 08/05/21 16:29 Levothyroxine Sodium ([facility] 200 [facility]g [facility]: 08/05/21 06:29 Last Admin: 07/07/21 06:24 Dose: 200 mcg Documented by: Lisinopril (Lisinopril 5 Mg Tab) 5 mg PO DAILY [facility] Stop: 08/05/21 14:44 Last Admin: 07/07/21 08:21 Dose: 5 mg Documented by: Lorazepam (Lorazepam 0.5 Mg Tab) 0.5 mg PO Q8H PRN PRN Reason: Anxiety Stop: 08/05/21 14:20 Last Admin: 07/06/21 21:38 Dose: 0.5 mg Documented by: Miscellaneous (Carbohydrates For Hypoglycemia ) 15 - 30 gm PO UD PRN PRN Reason: Hypoglycemia Protocol Stop: 08/05/21 14:20 Miscellaneous (Remove Nicoderm Patch) 1 ea N/A DAILY@0859 [facility] Stop: 08/06/21 08:58 Last Admin: 07/07/21 08:22 Dose: 1 ea Documented by: Miscellaneous Information (Pharmacy Glycemic Mgmt Consult) 1 ea N/A UD PRN PRN Reason: Consult Stop: 08/05/21 14:20 Morphine Sulfate (Morphine Sulfate 4 Mg/Ml 1 Ml Carp\Vial) 4 mg IV Q4H PRN PRN Reason: Pain Stop: 07/20/21 23:10 Last Admin: 07/07/21 08:22 Dose: 4 mg Documented by: Nicotine (Nicotine 14 Mg/24 Hr Patch) 14 mg TD QAM ROSI Stop: 08/05/21 14:20 Last Admin: 07/07/21 08:21 Dose: 14 mg Documented by: Nitroglycerin (Nitroglycerin Sl 0.4 Mg/Tab Tab) 0.4 mg SL UD PRN PRN Reason: Chest Pain Stop: 08/05/21 14:20 Last Admin: 07/07/21 06:38 Dose: 0.4 mg Documented by: Oxycodone HCl (Oxycodone Hcl Ir 5 Mg Tab (Immediate Release)) 5 - 10 mg PO QID PRN PRN Reason: Pain Stop: 07/20/21 23:10 Polyethylene Glycol (Polyethylene (Miralax) 17 Gm Pack) 17 gm PO DAILY PRN PRN Reason: Constipation Stop: 08/05/21 14:20 Rosuvastatin Calcium (Rosuvastatin Calcium 20 Mg Tab) 20 mg PO DAILY ROSI Stop: 08/06/21 08:59 Last Admin: 07/07/21 08:27 Dose: 20 mg Documented by: Tramadol HCl (Tramadol Hcl 50 Mg Tablet) 50 mg PO Q6H PRN PRN Reason: Pain Stop: 08/05/21 14:20 Last Admin: 07/06/21 23:21 Dose: 50 mg Documented by: (1) DKA, type 1 Diabetes mellitus complication detail: without coma Qualified Code(s): E10.10 - Type 1 diabetes mellitus with ketoacidosis without coma
--- NOTE | 2021-07-08 06:03 | Electrocardiogram Report ---
Test Reason : Blood Pressure : / mmHG Vent. Rate : 072 BPM Atrial Rate : 072 BPM P-R Int : 178 ms QRS Dur : 084 ms QT Int : 406 ms P-R-T Axes : 021 041 011 degrees QTc Int : 444 ms Normal sinus rhythm Anteroseptal infarct , age undetermined Abnormal ECG When compared with ECG of 06-JUL-2021 11:02, Anteroseptal infarct is now Present Confirmed by Sterling Martinez ([id number]) on 07/08/2021 6:02:59 AM Referred By: REFERRED SELF Confirmed By:Stelring Martinez
--- NOTE | 2021-07-08 06:09 | Electrocardiogram Report ---
Test Reason : Blood Pressure : / mmHG Vent. Rate : 070 BPM Atrial Rate : 070 BPM P-R Int : 180 ms QRS Dur : 082 ms QT Int : 408 ms P-R-T Axes : 013 020 008 degrees QTc Int : 440 ms Normal sinus rhythm Anteroseptal infarct (cited on or before 06-JUL-2021) Abnormal ECG When compared with ECG of 06-JUL-2021 22:55, No significant change was found Confirmed by Sterling Martinez ([id number]) on 07/08/2021 6:08:36 AM Referred By: REFERRED SELF Confirmed By:Sterling Martinez
--- NOTE | 2021-07-14 10:47 | Discharge Summary ---
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 Patient reports chronic anterior chest pressure at baseline. Reports today was at work sitting and talking on phone when she started with increased chest pressure and had sharp pain that radiated from right to left chest with associated tingling of left arm and left side of face. She reports she has been short of breath with exertion for several weeks. Reports intermittent dizziness with standing up over the last couple weeks. Denies fever, chills, cough. Patient reports chronic tingling of bilateral hands and feet at baseline. Patient states she took 81 mg aspirin at home and was given 3 additional chewable baby aspirin by EMS. Reports was given nitro sublingual x3 which she reports decreased chest pain. Denies fever/chills, diaphoresis, N/V/D/C, [place], syncope, vision changes, neck pain, orthopnea, palpitations, sore throat, choking, otalgia, rhinorrhea, abdominal pain, extremity weakness, extremity edema, rashes, urinary symptoms. Denies ill contacts. Is not vaccinated ag ainst COVID-19. In ER patient afebrile, P: 81, R: 16, BP 178/94 down to 130/70, 97% on room air. No leukocytosis, negative troponin, glucose: 258, EKG sinus rhythm, Q waves septal leads (seen on prior EKGs), CXR: No acute infiltrate + COVID-19 PCR Admission Exam Per Admitting Provider Physical Exam: General: no distress, WDWN Head: normocephalic, atraumatic Eyes: PERRL, EOM's intact, conjunctiva non-injected, anicteric ENT: normal inspection external ears, nose, mucous membranes moist Neck: supple, trachea midline Lungs: clear, no respiratory distress, no wheezing/rhonchi/rales CV: RRR, no JVD, no pretibial edema; chest wall, no rashes or discoloration, positive tenderness over sternum and left chest wall, epigastric region Abd: normal BS, soft, + tenderness to palpation epigastric, no other tenderness to palpation Ext: no cyanosis, no calf tenderness Neuro: A&O x 3, no focal deficits noted, normal affect Skin: warm, dry Principal Diagnosis Chest pain-no ACS, positive COVID-19 status post vaccination, type 2 diabetes, hypertension Discharge Exam Lying in bed comfortably Constitutional well developed, well nourished and + obese; not ill appearing Eyes PERRL, conjunctivae normal, anicteric sclerae ENMT external ear and nose normal, oropharynx normal Neck trachea midline, no thyromegaly Respiratory no respiratory distress and no cough Auscultation: lungs clear to auscultation bilaterally and + diminished lung sounds (At the bases) Cardiovascular Rate/Rhythm: regular rate and regular rhythm; not tachycardic Heart Sounds: normal S1 and normal S2 Gastrointestinal (Abdomen) Inspection/Auscultation: normal bowel sounds; abdomen not distended Percussion/Palpation: abdomen soft; abdomen nontender Lymphatic no cervical or axillary lymphadenopathy Discharge Data Allergies Allergy/AdvReac Type Severity Reaction Status Date / Time adhesive Allergy Unknown BLISTERS Verified 07/06/21 11:55 Consultations 07/06/21 12:23 ED Decision to Admit Stat 07/06/21 14:21 Consult Cardiology Routine Ordered Studies 07/06/21 14:19 CT angio chest PE protocol Stat Hospital Course (1) Precordial chest pain: Patient is a 51-year-old female with PMH 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 exertional SOB x couple of weeks In ER patient afebrile, P: 81, R: 16, BP 178/94 down to 130/70, 97% on room air. No leukocytosis, negative troponin, glucose: 258, EKG sinus rhythm, Q waves septal leads (seen on prior EKGs), CXR: No acute infiltrate + COVID-19 PCR CHEST PAIN R/O ACS. Risk factors: HTN, hyperlipidemia, DM, obesity, tobacco use CTA chest to rule out PE DDX: PE, musculoskeletal etiology Repeat EKG in am Will trend troponin Will hold on echo pending cardiology recommendations lipid panel in am, continue statin Continue aspirin Nitro prn CP and repeat EKG for CP Morphine prn CP Cardiology consult-appreciate input and recommendation No more cardiac work-up and from cardiology's point of view the patient can be discharged (2) COVID-19: Positive COVID-19 PCR Reported exertional shortness of breath for the past couple of weeks Reported positive Covid test 2 months ago. Is not COVID 19 vaccinated Patient not hypoxic, not tachypneic or tachycardic Normal procalcitonin. CRP: 0.8 Isolation precautions We will hold on COVID-19 treatment at this time Remains asymptomatic for COVID-19 infection and hasn't been requiring any oxygen whatsoever We'll get to a steps O2 saturation test before discharging her this afternoon DM II On insulin pump Continue insulin pump Glycemic pharmacist to assist A1c in AM TIA Continue aspirin, plavix HLD Continue rosuvastatin HTN Continue lisinopril Tobacco Use Smoking cessation recommended Hypothyroidism TSH in AM Continue levothyroxine DVT Prophylaxis -SCDs Full Code as per discussion with pt Follows with Dr Noelle Burnette for routine care Total Time Total Time Spent Total Time Spent (In Minutes): 35 minutes Discharge Plan Discharge Items Patient Disposition: Home - Self-Care Reason For Visit: CP Discharge Diagnosis: Chest pain-no ACS, positive COVID-19 status post vaccination, type 2 diabetes, hypertension Condition on Discharge: Good Activity: Resume your previous activity Non-emergency contact: Primary Care Provider Call non-emergency contact if: you have any medication questions and your symptoms worsen Follow-up/Referrals: Noelle Rob, [Primary Care Provider] - (Date & Time 07/14/2021 12:00 PM Provider Roger Tovar MD [facility] PLEASE NOTE THAT THIS IS A TELEHEALTH VIDEO APPOINTMENT. PLEASE FOLLOW THE INSTRUCTIONS PROVIDED IN YOUR EMAIL. IF YOU HAVE ANY QUESTIONS REGARDING THIS APPOINTMENT, PLEASE CALL ) Diet: Carb Consistent or DM2 and Heart Healthy Addtl Attending Provider Instructions: Please take precautions to avoid fall No change in new medications You can try [id number] cough medicine for any cough Please continue to be in isolation until 07/17/2021 as per instructions below: Home Isolation COVID-19 Instructions The following information about Home Isolation is from the CDC Website: https://www.cdc.gov/coronavirus/2019-ncov/hcp/gxuehbju-reonqpa-mkekkl.html Stay home except to get medical care People who are mildly ill with COVID-19 are able to isolate at home during their illness. You should restrict activities outside your home, except for getting medical care. Do not go to work, school, or public areas. Avoid using public transportation, ride-sharing, or taxis. Separate yourself from other people and animals in your home People: As much as possible, you should stay in a specific room and away from other people in your home. Also, you should use a separate bathroom, if available. Animals: You should restrict contact with pets and other animals while you are sick with COVID-19, just like you would around other people. Although there have not been reports of pets or other animals becoming sick with COVID-19, it is still recommended that people sick with COVID-19 limit contact with animals until more information is known about the virus. When possible, have another member of your household care for your animals while you are sick. If you are sick with COVID-19, avoid contact with your pet, including petting, snuggling, being kissed or licked, and sharing food. If you must care for your pet or be around animals while you are sick, wash your hands before and after you interact with pets and wear a face mask. Call ahead before visiting your doctor If you have a medical appointment, call the healthcare provider and tell them that you have or may have COVID-19. This will help the healthcare providers office take steps to keep other people from getting infected or exposed. Wear a face mask You should wear a face mask when you are around other people (e.g., sharing a room or vehicle) or pets and before you enter a healthcare providers office. If you are not able to wear a face mask (for example, because it causes trouble breathing), then people who live with you should not stay in the same room with you, or they should wear a face mask if they enter your room. Cover your coughs and sneezes Cover your mouth and nose with a tissue when you cough or sneeze. Throw used tissues in a lined trash can. Immediately wash your hands with soap and water for at least 20 seconds or, if soap and water are not available, clean your hands with an alcohol-based hand annealing oven operator that contains at least 60% alcohol. Clean your hands often Wash your hands often with soap and water for at least 20 seconds, especially after blowing your nose, coughing, or sneezing; going to the bathroom; and before eating or preparing food. If soap and water are not readily available, use an alcohol-based hand annealing oven operator with at least 60% alcohol, covering all surfaces of your hands and rubbing them together until they feel dry. Soap and water are the best option if hands are visibly dirty. Avoid touching your eyes, nose, and mouth with unwashed hands. Avoid sharing personal household items You should not share dishes, drinking glasses, cups, eating utensils, towels, or bedding with other people or pets in your home. After using these items, they should be washed thoroughly with soap and water. Clean all high-touch surfaces everyday High touch surfaces include counters, tabletops, doorknobs, bathroom fixtures, toilets, phones, keyboards, tablets, and bedside tables. Also, clean any surfaces that may have blood, stool, or body fluids on them. Use a household cleaning spray or wipe, according to the label instructions. Labels contain instructions for safe and effective use of the cleaning product including precautions you should take when applying the product, such as wearing gloves and making sure you have good ventilation during use of the product. Monitor your symptoms Seek prompt medical attention if your illness is worsening (e.g., difficulty breathing).Beforeseeking care, call your healthcare provider and tell them that you have, or are being evaluated for, COVID-19. Put on a face mask before you enter the facility. These steps will help the healthcare providers office to keep other people in the office or waiting room from getting infected or exposed. Ask your healthcare provider to call the local or state health department. Persons who are placed under active monitoring or facilitated self- monitoring should follow instructions provided by their local health department or occupational health professionals, as appropriate. When working with your local health department check their available hours. If you have a medical emergency and need to call 911, notify the dispatch personnel that you have, or are being evaluated for COVID-19. If possible, put on a face mask before emergency medical services arrive. Discontinuing home isolation Patients with confirmed COVID-19 should remain under home isolation precautions until the risk of secondary transmission to others is thought to be low. The decision to discontinue home isolation precautions should be made on a [id number] basis, in consultation with healthcare providers and state and local health departments. Pending Studies at Discharge: No Stand-Alone Forms: My [facility], Smoking Cessation Medications and DC Order Prescriptions: Continued aspirin 81 mg Tablet,Delayed Release (Dr/Ec) 81 mg PO QAM Qty: 0 RF: 0 levothyroxine [Synthroid] 200 mcg Tablet 200 mcg PO QAM Qty: 0 RF: 0 lorazepam [Ativan] 0.5 mg Tablet 0.5 mg PO UD PRN (Reason: Anxiety) Qty: 0 RF: 0 tramadol 50 mg Tablet 50 mg PO Q6H PRN (Reason: Pain) Qty: 0 RF: 0 albuterol sulfate [ProAir HFA] 90 mcg/actuation Hfa Aerosol Inhaler 2 puff INHALATION QID PRN (Reason: Shortness Of Breath Or Wheezing) RF: 0 clopidogrel [Plavix] 75 mg Tablet 75 mg PO DAILY RF: 0 rosuvastatin [Crestor] 20 mg Tablet 20 mg PO DAILY RF: 0 lisinopril 5 mg tablet 5 mg PO DAILY RF: 0 docusate sodium [Colace] 100 mg capsule 100 mg PO BID PRN (Reason: Constipation) RF: 0 Novolog Insulin Pump 1 dose SC UD RF: 0 Discharge Orders: Discharge Order (Routine); Ordered 07/07/21 Ordered By: Callie Agosto/Other Patient Handouts: Communicating About Pain Admission Data Admit Date/Time: 07/06/21 12:39 Attending Provider: Callie Suh Admit Provider: Callie Suh Primary Care Provider: Noelle Rob Other Providers: Callie Suh ; Thang Broderick Other Interventions: Discharge Summary Assessment (RN) Last Done: 07/07/21 13:59
== END 2021-07-07 15:06 | disposition home or self-care (01) ==
LOC: ED 10:58 → 2E 10:58

== ENCOUNTER 2024-01-08 14:19 | Inpatient (IN) ==
[2024-01-08 15:09] LABS: Basophils # (auto) 0.07 K/uL (0.00-0.20); Basophils % (auto) 0.7 %; Eosinophils % (auto) 2.9 %; Hematocrit (blood only) 45.1 % (37.0-47.0); Hemoglobin 15.3 g/dl (12.0-16.0); Immature Granulocytes # (auto) 0.03 K/uL (0.01-0.20); Immature Granulocytes % (auto) 0.3 %; Lymphocytes # (auto) 2.18 K/uL (1.20-3.40); Lymphocytes % (auto) 21.4 %; Mean Corpuscular Hemoglobin 30.5 pg (25.0-34.0); Mean Corpuscular Hgb Conc 33.9 g/dL (32.0-36.0); Mean Platelet Volume 11.6 fL (9.4-12.4); Monocytes # (auto) 0.64 K/uL (0.11-0.59); Monocytes % (auto) 6.3 %; Neutrophils # (auto) 6.96 K/uL (1.40-6.50); Neutrophils % (auto) 68.4 %; Platelet Count 180 K/uL (130-400); RDW Coefficient of Variation 12.7 % (11.5-14.5); RDW Standard Deviation 42.3 fL (36.4-46.3); Red Blood Count 5.01 M/uL (4.20-5.40); White Blood Count 10.18 K/ul (4.8-10.8)
[2024-01-08 15:25] LABS: Albumin Globulin Ratio 1.2 (0.9-2); BUN Creatinine Ratio 13.6 (10-20); Bilirubin,Total 0.5 mg/dl (0.2-1.0); Calcium 9.1 mg/dl (8.6-10.3); Creatinine Clr Calc Pharmacy 99.2 ml/min; Est GFR (African American) 97.5 ml/min; Est GFR (Non-African American) 84.1 ml/min; Globulin 3.3 gm/dl (2.5-4.0); Total Protein 7.3 gm/dl (6.0-8.3)
[2024-01-08 15:34] LABS: Appearance Urine Cloudy (Clear); Bacteria Urine Automated 3+ (None Seen); Bilirubin Urine Negative (Negative); Blood Urine Negative (Negative); Cast Urine Automated 0-2 /lpf (0-2); Color Urine Yellow; Glucose Urine UA 3+ (Negative); Ketones Urine Trace (Negative); Leukocyte Esterase Urine Negative (Negative); Nitrite Urine Negative (Negative); Protein Urine Negative (Negative); RBC Urine Automated 0-2 /hpf (0-2); Specific Gravity Urine 1.029 (1.000-1.030); Urobilinogen Urine Negative (Negative); WBC Urine Automated 21-50 /hpf (0-5); pH Urine 5.5 (4.5-7.5)
[2024-01-08] MEDS: SODIUM CHLORIDE 0.9% 1,000 ML IV SCH (15:57)
[2024-01-08] MEDS: ONDANSETRON INJ 2 MG/ML 2 ML VIAL IV STA (16:13)
--- NOTE | 2024-01-08 16:13 | Emergency Department Note ---
History of Present Illness General Chief complaint: Flank Pain Stated complaint: PAIN AROUND KIDNEYS AND LUNCH LEFT SIDE Time Seen by Provider: 01/08/24 15:40 History of Present Illness Maximum Pain Intensity: 7 Patient is a 53-year-old female with past medical history significant for hypothyroidism, diabetes, insulin requiring, coronary artery disease, dyslipidemia, CKD, among other chronic medical problems who presents emergency department for evaluation of left flank pain. Her symptoms started acutely yesterday. It was initially moderate, but manageable. She had also noticed a strong smell to her urine, but thought this was because she had not had enough water to drink so she tried to increase her fluid intake. She notes that the pain got worse throughout the night. She states that they are sharp pains when she moves. It is located in the left flank and radiates around to the abdomen slightly. She is tried Tylenol and ibuprofen for pain. She has been slightly nauseous, had a headache and felt fatigue, but has not vomited, not had any fevers and has not had any diarrhea. She currently rates her pain a 7/10. She has not been on any antibiotics recently. She is not someone who is frequently afflicted with UTIs. Home Medications Medication Instructions Recorded Confirmed Type aspirin 81 mg tablet,delayed 81 mg PO QAM ##0 09/16/14 01/08/24 History release levothyroxine 200 mcg tablet 300 mcg PO QAM ##0 06/01/16 01/08/24 History (Synthroid) lorazepam 0.5 mg tablet (Ativan) 0.5 mg PO TID PRN Anxiety #0 tabs 03/06/18 01/08/24 History docusate sodium 100 mg capsule 100 mg PO BID PRN Constipation 11/23/19 01/08/24 History (Colace) baclofen 10 mg tablet 10 mg PO TIDM PRN muscle spasms 02/07/23 01/08/24 History dulaglutide 4.5 mg/0.5 mL 4.5 mg subcut WK 02/07/23 01/08/24 History subcutaneous pen injector (Trulicity) furosemide 20 mg tablet 20 mg PO QAM 02/07/23 01/08/24 History insulin aspart U-100 100 unit/mL 0 sliding scale dose continuous 02/07/23 01/08/24 History subcutaneous solution (Novolog subcutaneous infusion CONTINOUS U-100 Insulin aspart) trazodone 50 mg tablet 50 mg PO HS PRN Sleep 10/10/23 01/08/24 History empagliflozin 25 mg tablet 25 mg PO QAM 01/08/24 01/08/24 History (Jardiance) Allergies Allergy/AdvReac Type Severity Reaction Status Date / Time adhesive Allergy Intermediate BLISTERS Verified 01/08/24 16:08 rosuvastatin AdvReac Intermediate ZOMBIE-LIKE Verified 01/08/24 16:08 FEELING Past Med/Surg History Medical History (Updated 01/08/24 @ 21:05 by Arturo Garcia) Acquired bilateral foot deformity Callus Diabetes mellitus with diabetic polyneuropathy Diabetic neuropathy Chronic kidney disease (CKD) STAGE 2 Blood dyscrasia Lipoprotein A elevation H/O atypical migraine Complex (11/2014) evaluated at [facility], MRI and head CT negative, some residual L hand numbness per pt, s/p rehab TIA (transient ischemic attack) x 4, most recent 2005--previously seen by neuro, now follows only with PCP, on ASA 81mg daily HTN (hypertension) Coronary artery disease, non-occlusive Hypothyroid History of chronic urinary tract infection Depression Anxiety Hx of blood clots PT REPORTS WILL GET FREQUENT BLOOD CLOTS (HAD THEM IN TOO) - NONE IN THE LAST 6 YRS Surgical History Hx of cardiac cath non-occlusive. No intervention Hx laparoscopic cholecystectomy Hx of tubal ligation Hx of arthroscopic knee surgery R KNEE MENISCUS X2 History of discectomy lumbar Family History Other Diabetes Heart disease Hypertension Social History Smoking Status: Current every day smoker Tobacco Type: Cigarettes Cigarettes Per Day: 1/2 pack; Second Hand Exposure: Yes; Do You Dip or Chew Tobacco: No; Hx Alcohol Use: No Hx Substance Use: No Preferred Language: Honduran Communication Ability: Effective Visual Impairment: No Limitations Bureau Director Required: No Beliefs That Will Affect Care: None Current Living Situation: Spouse Current Living Situation Comment: Significant other and his two kids and her daughter Feels Safe at Home: Yes Assistive Devices: Glasses Review of Systems A total of 10 systems reviewed and were otherwise negative Physical Exam Vital Signs Vital Signs - 24 hr 01/08/24 14:23 01/08/24 16:01 01/08/24 16:02 Temperature 36.7 C Temperature Source Temporal Artery Scan Pulse Rate 89 82 Pulse Rate from SpO2 Sensor 82 Respiratory Rate 20 20 Respiratory Effort / Characteristics Non-Labored Spontaneous Respiratory Depth Normal Blood Pressure 125/67 140/71 Blood Pressure Mean 86 98 Pulse Oximetry 98 99 Oxygen Delivery Method Room Air Sepsis Recent Fever Within 48 Hours No Sepsis New/Unexplained Change in Mental Status N/A Sepsis Action Taken by Nursing No Action Required 01/08/24 16:09 01/08/24 19:41 01/08/24 19:41 Temperature Temperature Source Pulse Rate 82 81 Pulse Rate from SpO2 Sensor Respiratory Rate 13 Respiratory Effort / Characteristics Respiratory Depth Blood Pressure 161/88 H Blood Pressure Mean 128 Pulse Oximetry Oxygen Delivery Method Sepsis Recent Fever Within 48 Hours Sepsis New/Unexplained Change in Mental Status Sepsis Action Taken by Nursing 01/08/24 20:01 Temperature Temperature Source Pulse Rate 75 Pulse Rate from SpO2 Sensor Respiratory Rate Respiratory Effort / Characteristics Respiratory Depth Blood Pressure Blood Pressure Mean Pulse Oximetry Oxygen Delivery Method Sepsis Recent Fever Within 48 Hours Sepsis New/Unexplained Change in Mental Status Sepsis Action Taken by Nursing CONSTITUTIONAL: Uncomfortable 53-year-old female who is awake and alert and sitting semiupright on the gurney. EYES: Pupils equal, round, reactive to light and accommodation. EOMs intact without nystagmus. Sclera are anicteric. ENT: Tympanic membranes intact, with normal landmarks. External canals are clear. Oral and nasopharynx are clear. Mucous membranes are moist, no lesions, tongue and gums appear normal. CARDIOVASCULAR: Regular rate and rhythm. Peripheral pulses easy to palpable. RESPIRATORY: Breath sounds equal and clear to auscultation. GI: Bowel sounds are present. Insulin pump in the left lower abdomen. The abdomen is soft, nondistended, tender to palpation in the left upper and lower quadrants, without guarding. No masses. MUSCULOSKELETAL: Full range of motion of extremities x 4 with good strength. No cyanosis, edema, joint tenderness or swelling. No deformity. INTEGUMENTARY: No lesions or rash, normal skin turgor. Course Course The patient was seen and assessed as above. External medical records were reviewed. She presents to the emergency department for evaluation of left flank pain. Reports some foul-smelling urine as well. Critical pathways were implemented from triage including CBC with differential, CMP and urinalysis. These were reviewed by myself, prior to assessment of the patient. After the patient was seen, she was ordered IV fluids, morphine, Zofran and a CT scan of the abdomen and pelvis with IV contrast. Diagnostics, as interpreted by me: Laboratory studies: No leukocytosis. No anemia, no thrombocytopenia. No electrolyte imbalance. Renal functions within normal limits. Nonfasting glucose elevated but not indicative of DKA. No significant elevation of transaminases. Urine microscopy notes WBCs and 3+ bacteria. A urine culture is pending. Imaging studies: CT scan of the abdomen and pelvis with IV contrast notes bladder wall thickening consistent with cystitis, kidneys are normal in appearance, no hydronephrosis. Normal enhancement. There is a wedge-shaped hypodensity in the posterior spleen concerning for splenic infarct. Splenic artery and vein per radiologist appear to be patent. Patient was reassessed. All laboratory and diagnostic imaging studies were reviewed with Dr. Boyd, attending physician. Her flank pain appears to be related to the splenic infarct. She does not have any ascending urinary pathology/infection/stone that would explain the pain. 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 I did discuss the patient with ED binder caser. Patient was discussed with the [facility] team for admission. They requested that I review the splenic infarct with gastroenterology, and general surgery. Pending these discussions, I did treat the patient empirically with ceftriaxone 2 g IV for the cystitis. She was also given additional dose of morphine 4 mg IV. I did check in with her frequently and updated her with regards to the plan/disposition. I spoke with Dr. Boudreaux, GI, and Dr. Aguillon, , both of which reported that a splenic infarct did not fall into their scope of practice. Dr. Aguillon reported that the problem was not surgical in nature, and deferred back to the medical team. I did ask for a medical consult from the [facility] team, as it was their impression that the patient would not require inpatient care for the presenting diagnosis. The patient after change of shift, was evaluated by Dr. Tay, and, per his evaluation he will admit her to the hospital for further care and likely hematology evaluation. Patient was reassessed at this time, she had just been seen by medicine. She was comfortable with the plan for inpatient care. Differential diagnosis: UTI, pyelonephritis, kidney stone, shingles, musculoskeletal pain, diverticulitis, bowel obstruction, perforation, abscess, mass or malignancy, among others. Administered Medications Discontinued Medications Sodium Chloride (Nss) 1,000 mls @ 999 mls/hr IV .Q1H1M ROSI Stop: 01/08/24 16:51 Last Infusion: 01/08/24 18:49 Dose: Infused Documented By: Admin: 01/08/24 15:57 Dose: 999 mls/hr Documented By: ACC Ceftriaxone Sodium (Rocephin) 2,000 mg in 50 mls @ 100 mls/hr IV NOW STA Stop: 01/08/24 20:00 Last Infusion: 01/08/24 20:11 Dose: Infused Documented By: Admin: 01/08/24 19:35 Dose: 100 mls/hr Documented By: ACC Ioversol (Optiray 320 100ml) 92 ml IV ONCE ONE Stop: 01/08/24 16:32 Last Admin: 01/08/24 16:32 Dose: 92 ml Documented By: PLMarissa Morphine Sulfate (Morphine Sulfate 4 Mg/Ml 1 Ml Carp\Vial) 4 mg IV NOW STA Stop: 01/08/24 16:09 Last Admin: 01/08/24 16:14 Dose: 4 mg Documented By: ACC Morphine Sulfate (Morphine Sulfate 4 Mg/Ml 1 Ml Carp\Vial) 4 mg IV NOW STA Stop: 01/08/24 19:32 Last Admin: 01/08/24 19:35 Dose: 4 mg Documented By: ACC Ondansetron HCl (Ondansetron Inj 2 Mg/Ml 2 Ml Vial) 4 mg IV NOW STA Stop: 01/08/24 16:09 Last Admin: 01/08/24 16:13 Dose: 4 mg Documented By: ACC Medical Decision Making Differential Diagnosis See ED course Medical Records Attestation: I reviewed the patient's medical records. Home Medications Current Medication List: was personally reviewed by me Laboratory Data Attestation: I reviewed the patient's lab results. 01/08/24 14:52 01/08/24 14:52 Lab Results 01/08/24 01/08/24 Range/Units 14:44 14:52 WBC 10.18 (4.8-10.8) K/ul RBC 5.01 (4.20-5.40) M/uL Hgb 15.3 (12.0-16.0) g/dl Hct 45.1 (37.0-47.0) % MCV 90.0 (80.0-100.0) fL MCH 30.5 (25.0-34.0) pg MCHC 33.9 (32.0-36.0) g/dL RDW Std Deviation 42.3 (36.4-46.3) fL RDW Coeff of Brad 12.7 (11.5-14.5) % Plt Count 180 (130-400) K/uL MPV 11.6 (9.4-12.4) fL Immature Gran % (Auto) 0.3 % Neut % (Auto) 68.4 % Lymph % (Auto) 21.4 % [place] % (Auto) 6.3 % Eos % (Auto) 2.9 % Baso % (Auto) 0.7 % Neut # (Auto) 6.96 H (1.40-6.50) K/uL Lymph # (Auto) 2.18 (1.20-3.40) K/uL [place] # (Auto) 0.64 H (0.11-0.59) K/uL Eos # (Auto) 0.30 (0.00-0.50) K/uL Baso # (Auto) 0.07 (0.00-0.20) K/uL Immature Gran # (Auto) 0.03 (0.01-0.20) K/uL Sodium 136 (136-145) mmol/L Potassium 4.0 (3.5-5.1) mmol/L Chloride 104 (98-107) mmol/L Carbon Dioxide 26 (21-32) mmol/L Anion Gap 6 (3-11) BUN 11 (6-23) mg/dl Creatinine 0.81 (0.6-1.2) mg/dl Est Cr Clr Drug Dosing 99.2 ml/min Est GFR ( Amer) 97.5 ml/min Est GFR (Non-Af Amer) 84.1 ml/min BUN/Creatinine Ratio 13.6 (10-20) Glucose 237 H (70-99(Fasting)) mg/dl Calcium 9.1 (8.6-10.3) mg/dl Total Bilirubin 0.5 (0.2-1.0) mg/dl AST 13 (13-39) U/L ALT 13 (7-52) U/L Alkaline Phosphatase 135 H (34-104) U/L Total Protein 7.3 (6.0-8.3) gm/dl Albumin 4.0 (3.4-5.0) gm/dl Globulin 3.3 (2.5-4.0) gm/dl Albumin/Globulin Ratio 1.2 (0.9-2) Urine Color Yellow Urine Appearance Cloudy A (Clear) Urine pH 5.5 (4.5-7.5) Ur Specific [place] 1.029 (1.000-1.030) Urine Protein Negative (Negative) Urine Glucose (UA) 3+ H (Negative) Urine Ketones Trace H (Negative) Urine Blood Negative (Negative) Urine Nitrite Negative (Negative) Urine Bilirubin Negative (Negative) Urine Urobilinogen Negative (Negative) Ur Leukocyte Esterase Negative (Negative) Urine WBC (Auto) 21-50 H (0-5) /hpf Urine RBC (Auto) 0-2 (0-2) /hpf U Hyaline Cast (Auto) 0-2 (0-2) /lpf U Epithel Cells (Auto) 6-10 H (0-2) /hpf Urine Bacteria (Auto) 3+ H (None Seen) Imaging Data Attestation: I personally reviewed and interpreted this imaging study as follows: Radiologist's Impression: Abdomen/Pelvis CT 01/08/24 15:[address] WITH IV CONTRAST CT DOSE: 1136.29 mGy.cm HISTORY: LEFT FLANK PAIN, URINARY SYMPTOMS TECHNIQUE: Multiaxial CT images of the abdomen and pelvis were performed following the use of intravenous contrast. A dose lowering technique was utilized adhering to the principles of ALARA. COMPARISON STUDY: Abdomen and pelvis CT 04/16/2023. FINDINGS: The lung bases are clear. No pneumoperitoneum. No pneumatosis. L5-S1 posterior decompression and fusion with pedicle screws and rods. The hardware appears intact. Prior cholecystectomy. This likely accounts for the mild central intrahepatic bile duct dilatation, unchanged. No hepatic masses. The main portal vein is patent. The adrenal glands and pancreas are unremarkable. The kidneys enhance normally. No hydronephrosis. Focal wedge-shaped hypodensity within the posterior spleen measuring approximately 3.7 cm. This is consistent with a splenic infarct. However, the splenic artery and splenic vein appear patent. Mild to moderate calcified plaque within the normal caliber abdominal aorta. No retroperitoneal or pelvic lymphadenopathy. Trace pelvic free fluid. Prior hysterectomy. Normal ovaries. Mild thickening of the vaginal wall. There is gas within the vaginal lumen. Multiple bowel loops are in close proximity to the vaginal cuff. However, no CT evidence for a fistula. Diffuse bladder wall thickening. No bowel wall thickening or obstruction. Normal appendix. IMPRESSION: 1. Bladder wall thickening. This may represent a cystitis. Recommend correlation with urinalysis. 2. Normal kidneys. 3. Focal wedge-shaped hypodensity within the posterior spleen consistent with a splenic infarct. 4. No bowel wall thickening or obstruction. 5. Mild thickening of the vaginal wall. There is also gas within the vaginal lumen. Multiple bowel loops are in close proximity to the vaginal cuff. However, no CT evidence for a fistula. ACT 112: Negative or not required by law. Electronically signed by: Oliver Muro M.D. 01/08/2024 4:49 PM MDM Narrative See ED course. Impression & Plan Splenic infarction, Acute left flank pain, Cystitis Discharge Plan Visit Data Chief Complaint: Flank Pain Stated Complaint: PAIN AROUND KIDNEYS AND LUNCH LEFT SIDE ED Provider: Vinnie Boyd ED Midlevel Provider: Arturo Garcia Discharge Problem: Splenic infarction, Acute left flank pain, Cystitis Patient Disposition: Being Evaluated by Hospitalist Forms Stand Alone Forms: SWYF Prescriptions Prescriptions: No Action aspirin 81 mg Tablet,Delayed Release (Dr/Ec) 81 mg PO QAM Qty: 0 levothyroxine [Synthroid] 200 mcg Tablet 300 mcg PO QAM Qty: 0 lorazepam [Ativan] 0.5 mg Tablet 0.5 mg PO TID PRN (Reason: Anxiety) Qty: 0 docusate sodium [Colace] 100 mg capsule 100 mg PO BID PRN (Reason: Constipation) baclofen 10 mg tablet 10 mg PO TIDM PRN (Reason: muscle spasms) insulin aspart U-100 [Novolog U-100 Insulin aspart] 100 unit/mL Solution 0 sliding scale dose continuous subcutaneous infusion CONTINOUS Rx Instructions: per pt 100 units a day furosemide 20 mg tablet 20 mg PO QAM Trulicity 4.5 mg/0.5 mL pen injector 4.5 mg SUBCUT WK Rx Instructions: SATURDAYS Jardiance 25 mg tablet 25 mg PO QAM trazodone 50 mg tablet 50 mg PO HS PRN (Reason: Sleep) Referrals Referrals: Noelle Rob DO [Primary Care Provider] -
[2024-01-08] MEDS: MoRPHine SULFATE 4 MG/ML 1 ML CARP\\VIAL IV STA ×2 (16:14→19:35)
[2024-01-08] MEDS: OPTIRAY 320 100ml IV ONE (16:32)
--- NOTE | 2024-01-08 16:51 | CT Scan Report ---
ABDOMEN AND PELVIS CT WITH IV CONTRAST CT DOSE: 1136.29 mGy.cm HISTORY: LEFT FLANK PAIN, URINARY SYMPTOMS TECHNIQUE: Multiaxial CT images of the abdomen and pelvis were performed following the use of intrave nous contrast. A dose lowering technique was utilized adhering to the principles of ALARA. COMPARISON STUDY: Abdomen and pelvis CT 04/16/2023. FINDINGS: The lung bases are clear. No pneumoperitoneum. No pneumatosis. L5-S1 posterior decompressio n and fusion with pedicle screws and rods. The hardware appears intact. Prior cholecystectomy. This l ikely accounts for the mild central intrahepatic bile duct dilatation, unchanged. No hepatic masses. The main portal vein is patent. The adrenal glands and pancreas are unremarkable. The kidneys enhance normally. No hydronephrosis. Focal wedge-shaped hypodensity within the posterior spleen measuring ap proximately 3.7 cm. This is consistent with a splenic infarct. However, the splenic artery and spleni c vein appear patent. Mild to moderate calcified plaque within the normal caliber abdominal aorta. No retroperitoneal or pelvic lymphadenopathy. Trace pelvic free fluid. Prior hysterectomy. Normal ovari es. Mild thickening of the vaginal wall. There is gas within the vaginal lumen. Multiple bowel loops are in close proximity to the vaginal cuff. However, no CT evidence for a fistula. Diffuse bladder wa ll thickening. No bowel wall thickening or obstruction. Normal appendix. IMPRESSION: 1. Bladder wall thickening. This may represent a cystitis. Recommend correlation with urinalysis. 2. Normal kidneys. 3. Focal wedge-shaped hypodensity within the posterior spleen consistent with a splenic infarct. 4. No bowel wall thickening or obstruction. 5. Mild thickening of the vaginal wall. There is also gas within the vaginal lumen. Multiple bowel lo ops are in close proximity to the vaginal cuff. However, no CT evidence for a fistula. ACT 112: Negative or not required by law. Electronically signed by: Oliver Muro M.D. 01/08/2024 4:49 PM
[2024-01-08] MEDS: cefTRIAXone SODIUM 2,000 MG/50 ML BAG IV STA (19:35)
--- NOTE | 2024-01-08 21:29 | History & Physical Report ---
Date of Service January 08, 2024 Assessment & Plan (1) Acute left flank pain: Plan: 53-year-old female with past medical history significant for type 2 diabetes, hypothyroidism, hyperlipidemia, peripheral neuropathy, uncomplicated asthma, CAD, peripheral artery disease, CKD stage II, restless leg syndrome, carpal tunnel syndrome bilateral, degenerative disc disease, migraine without aura, sleepwalking and eating, tobacco use disorder, history of TIA and stroke, depression, s/p lumbar fusion comes because of left flank pain radiating to the left upper quadrant abdominal region since yesterday. Associate with nausea. Pain is severe. Any movement is causing pain to get worse. Denies shortness of breath or chest pain. No hematuria.No diarrhea or constipation. Has some headache. No runny nose or sore throat. No fevers. Appetite is okay. Hemodynamics are okay. Acute left flank pain UTI Starting on Rocephin Follow cultures Pain control Splenic infarct Left flank pain radiating to left upper quadrant region of abdomen CT scan shows splenic infarct. Seems splenic artery and vein are patent Patient history of blood clots in the past Patient states she has blood clots during her 4 times and last was in 1999 Discussed with [facility] heme-onc on-call Started on IV heparin for now Will consult heme-onc in a.m. for further recommendations Diabetes Hold home medications Lantus and sliding scale Will monitor Hypothyroidism On Synthyroid History of CAD as per records On aspirin DVT prophylaxis IV heparin Disposition Medical floor Full code History of Present Illness Chief Complaint: Left flank and left upper upper quadrant abdominal pain Primary Care Provider: Noelle Rob DO 53-year-old female with past medical history significant for type 2 diabetes, hypothyroidism, hyperlipidemia, peripheral neuropathy, uncomplicated asthma, CAD, peripheral artery disease, CKD stage II, restless leg syndrome, carpal tunnel syndrome bilateral, degenerative disc disease, migraine without aura, sleepwalking and eating, tobacco use disorder, history of TIA and stroke, depression, s/p lumbar fusion comes because of left flank pain radiating to the left upper quadrant abdominal region since yesterday. Associate with nausea. Pain is severe. Any movement is causing pain to get worse. Denies shortness of breath or chest pain. No hematuria.No diarrhea or constipation. Has some headache. No runny nose or sore throat. No fevers. Appetite is okay. Hemodynamics are okay. Past med history. As mentioned above Past surgical history. induced by D&C. Bone marrow aspiration. Spine surgery. Cardiac cath. Colonoscopy with biopsy. Dental surgery. EGD with endoscopic ultrasound. Lumbosacral injection. Right knee arthroscopy. Laparoscopic tubal ligation. Diagnostic laparoscopy x 3. Laparoscopic cholecystectomy. Lumbar laminectomy. Removal of pilonidal cyst. Small bowel endoscopy with biopsy. Total hysterectomy. Social history. . Quit smoking 2013. Smoked 0.3 packs a day for 15 years. Alcohol rarely. No drug use. Family history. Maternal grandmother had cancer. Brother has diabetes. Diabetes in the family. Father had OH. Mother had stroke. Paternal grandfather had lung cancer. Maternal grandfather had skin cancer. Maternal grandmother had stroke. Allergies Allergy/AdvReac Type Severity Reaction Status Date / Time adhesive Allergy Intermediate BLISTERS Verified 01/08/24 16:08 rosuvastatin AdvReac Intermediate ZOMBIE-LIKE Verified 01/08/24 16:08 FEELING Home Medications Medication Instructions Recorded Confirmed Type aspirin 81 mg tablet,delayed 81 mg PO QAM ##0 09/16/14 01/08/24 History release levothyroxine 200 mcg tablet 300 mcg PO QAM ##0 06/01/16 01/08/24 History (Synthroid) lorazepam 0.5 mg tablet (Ativan) 0.5 mg PO TID PRN Anxiety #0 tabs 03/06/18 01/08/24 History docusate sodium 100 mg capsule 100 mg PO BID PRN Constipation 11/23/19 01/08/24 History (Colace) baclofen 10 mg tablet 10 mg PO TIDM PRN muscle spasms 02/07/23 01/08/24 History dulaglutide 4.5 mg/0.5 mL 4.5 mg subcut WK 02/07/23 01/08/24 History subcutaneous pen injector (Trulicity) furosemide 20 mg tablet 20 mg PO QAM 02/07/23 01/08/24 History insulin aspart U-100 100 unit/mL 0 sliding scale dose continuous 02/07/23 01/08/24 History subcutaneous solution (Novolog subcutaneous infusion CONTINOUS U-100 Insulin aspart) trazodone 50 mg tablet 50 mg PO HS PRN Sleep 10/10/23 01/08/24 History empagliflozin 25 mg tablet 25 mg PO QAM 01/08/24 01/08/24 History (Jardiance) Past Med/Surg History Medical History (Updated 01/08/24 @ 21:05 by Arturo Garcia) Acquired bilateral foot deformity Callus Diabetes mellitus with diabetic polyneuropathy Diabetic neuropathy Chronic kidney disease (CKD) STAGE 2 Blood dyscrasia Lipoprotein A elevation H/O atypical migraine Complex (11/2014) evaluated at [facility], MRI and head CT negative, some residual L hand numbness per pt, s/p rehab TIA (transient ischemic attack) x 4, most recent 2005--previously seen by neuro, now follows only with PCP, on ASA 81mg daily HTN (hypertension) Coronary artery disease, non-occlusive Hypothyroid History of chronic urinary tract infection Depression Anxiety Hx of blood clots PT REPORTS WILL GET FREQUENT BLOOD CLOTS (HAD THEM IN TOO) - NONE IN THE LAST 6 YRS Surgical History Hx of cardiac cath non-occlusive. No intervention Hx laparoscopic cholecystectomy Hx of tubal ligation Hx of arthroscopic knee surgery R KNEE MENISCUS X2 History of discectomy lumbar Family History Other Diabetes Heart disease Hypertension Social History Smoking Status: Current every day smoker Tobacco Type: Cigarettes Cigarettes Per Day: 1/2 pack; Second Hand Exposure: Yes; Do You Dip or Chew Tobacco: No; Tobacco Cessation Education Requested by Patient: No Hx Alcohol Use: Yes Alcohol type: wine Hx Substance Use: No Preferred Language: Bengali Communication Ability: Effective Visual Impairment: No Limitations Chief Relay Tester Required: No Beliefs That Will Affect Care: None Current Living Situation: Spouse Current Living Situation Comment: Significant other and his two kids and her daughter Other Information That Helps Us Care for You: No Feels Safe at Home: Yes Safety Concerns: Feels Safe At This Time Assistive Devices: Glasses Review of Systems Review of Systems: All systems reviewed & are unremarkable except as noted in HPI & below Physical Exam Physical Exam: General- Not in distress Head- atraumatic Eyes- NIELS ENT- oropharynx clear Neck- supple, no JVD. Lungs- clear to auscultation no wheezing or crackles. Heart- regular rhythm; no murmur, no gallop. Abdomen- normal bowel sounds, soft, tenderness in LUQ region. Left CVA tenderness. Extremities- no pretibial edema, no erythema seen. Neuro- alert, oriented x 3; PERRL, no facial palsy; no dysarthria; moves extremities. Results & Data Results & Data Vital Signs (Past 12 Hours) Vital Signs Temp Pulse Resp BP Pulse Ox O2 Del Method 01/08/24 20:01 75 01/08/24 19:41 161/88 H 01/08/24 19:41 81 13 01/08/24 16:09 82 01/08/24 16:02 82 20 99 01/08/24 16:01 140/71 01/08/24 14:23 36.7 C 89 20 125/67 98 Room Air Diagnostic Findings Laboratory Results WBC 10.18 K/ul (4.8-10.8) 01/08/24 14:52 RBC 5.01 M/uL (4.20-5.40) 01/08/24 14:52 Hgb 15.3 g/dl (12.0-16.0) 01/08/24 14:52 Hct 45.1 % (37.0-47.0) 01/08/24 14:52 MCV 90.0 fL (80.0-100.0) 01/08/24 14:52 MCH 30.5 pg (25.0-34.0) 01/08/24 14:52 MCHC 33.9 g/dL (32.0-36.0) 01/08/24 14:52 RDW Std Deviation 42.3 fL (36.4-46.3) 01/08/24 14:52 RDW Coeff of Brad 12.7 % (11.5-14.5) 01/08/24 14:52 Plt Count 180 K/uL (130-400) 01/08/24 14:52 MPV 11.6 fL (9.4-12.4) 01/08/24 14:52 Immature Gran % (Auto) 0.3 % 01/08/24 14:52 Neut % (Auto) 68.4 % 01/08/24 14:52 Lymph % (Auto) 21.4 % 01/08/24 14:52 [place] % (Auto) 6.3 % 01/08/24 14:52 Eos % (Auto) 2.9 % 01/08/24 14:52 Baso % (Auto) 0.7 % 01/08/24 14:52 Neut # (Auto) 6.96 K/uL (1.40-6.50) H 01/08/24 14:52 Lymph # (Auto) 2.18 K/uL (1.20-3.40) 01/08/24 14:52 [place] # (Auto) 0.64 K/uL (0.11-0.59) H 01/08/24 14:52 Eos # (Auto) 0.30 K/uL (0.00-0.50) 01/08/24 14:52 Baso # (Auto) 0.07 K/uL (0.00-0.20) 01/08/24 14:52 Immature Gran # (Auto) 0.03 K/uL (0.01-0.20) 01/08/24 14:52 Sodium 136 mmol/L (136-145) 01/08/24 14:52 Potassium 4.0 mmol/L (3.5-5.1) 01/08/24 14:52 Chloride 104 mmol/L (98-107) 01/08/24 14:52 Carbon Dioxide 26 mmol/L (21-32) 01/08/24 14:52 Anion Gap 6 (3-11) 01/08/24 14:52 BUN 11 mg/dl (6-23) 01/08/24 14:52 Creatinine 0.81 mg/dl (0.6-1.2) 01/08/24 14:52 Est Cr Clr Drug Dosing 99.2 ml/min 01/08/24 14:52 Est GFR ( Amer) 97.5 ml/min 01/08/24 14:52 Est GFR (Non-Af Amer) 84.1 ml/min 01/08/24 14:52 BUN/Creatinine Ratio 13.6 (10-20) 01/08/24 14:52 Glucose 237 mg/dl (70-99(Fasting)) H 01/08/24 14:52 Calcium 9.1 mg/dl (8.6-10.3) 01/08/24 14:52 Total Bilirubin 0.5 mg/dl (0.2-1.0) 01/08/24 14:52 AST 13 U/L (13-39) 01/08/24 14:52 ALT 13 U/L (7-52) 01/08/24 14:52 Alkaline Phosphatase 135 U/L (34-104) H 01/08/24 14:52 Total Protein 7.3 gm/dl (6.0-8.3) 01/08/24 14:52 Albumin 4.0 gm/dl (3.4-5.0) 01/08/24 14:52 Globulin 3.3 gm/dl (2.5-4.0) 01/08/24 14:52 Albumin/Globulin Ratio 1.2 (0.9-2) 01/08/24 14:52 Urine Color Yellow 01/08/24 14:44 Urine Appearance Cloudy (Clear) A 01/08/24 14:44 Urine pH 5.5 (4.5-7.5) 01/08/24 14:44 Ur Specific [place] 1.029 (1.000-1.030) 01/08/24 14:44 Urine Protein Negative (Negative) 01/08/24 14:44 Urine Glucose (UA) 3+ (Negative) H 01/08/24 14:44 Urine Ketones Trace (Negative) H 01/08/24 14:44 Urine Blood Negative (Negative) 01/08/24 14:44 Urine Nitrite Negative (Negative) 01/08/24 14:44 Urine Bilirubin Negative (Negative) 01/08/24 14:44 Urine Urobilinogen Negative (Negative) 01/08/24 14:44 Ur Leukocyte Esterase Negative (Negative) 01/08/24 14:44 Urine WBC (Auto) 21-50 /hpf (0-5) H 01/08/24 14:44 Urine RBC (Auto) 0-2 /hpf (0-2) 01/08/24 14:44 U Hyaline Cast (Auto) 0-2 /lpf (0-2) 01/08/24 14:44 U Epithel Cells (Auto) 6-10 /hpf (0-2) H 01/08/24 14:44 Urine Bacteria (Auto) 3+ (None Seen) H 01/08/24 14:44 Impressions Abdomen/Pelvis CT 01/08/24 15:[address] WITH IV CONTRAST CT DOSE: 1136.29 mGy.cm HISTORY: LEFT FLANK PAIN, URINARY SYMPTOMS TECHNIQUE: Multiaxial CT images of the abdomen and pelvis were performed f ollowing the use of intravenous contrast. A dose lowering technique was utilized adhering to the principles of ALARA. COMPARISON STUDY: Abdomen and pelvis CT 04/16/2023. FINDINGS: The lung bases are clear. No pneumoperitoneum. No pneumatosis. L5-S1 posterior decompression and fusion with pedicle screws and rods. The hardware appears intact. Prior cholecystectomy. This likely accounts for the mild central intrahepatic bile duct dilatation, unchanged. No hepatic masses. The main portal vein is patent. The adrenal glands and pancreas are unremarkable. The kidneys enhance normally. No hydronephrosis. Focal wedge-shaped hypodensity within the posterior spleen measuring approximately 3.7 cm. This is consistent with a splenic infarct. However, the splenic artery and splenic vein appear patent. Mild to moderate calcified plaque within the normal caliber abdominal aorta. No retroperitoneal or pelvic lymphadenopathy. Trace pelvic free fluid. Prior hysterectomy. Normal ovaries. Mild thickening of the vaginal wall. There is gas within the vaginal lumen. Multiple bowel loops are in close proximity to the vaginal cuff. However, no CT evidence for a fistula. Diffuse bladder wall thickening. No bowel wall thickening or obstruction. Normal appendix. IMPRESSION: 1. Bladder wall thickening. This may represent a cystitis. Recommend correlation with urinalysis. 2. Normal kidneys. 3. Focal wedge-shaped hypodensity within the posterior spleen consistent with a splenic infarct. 4. No bowel wall thickening or obstruction. 5. Mild thickening of the vaginal wall. There is also gas within the vaginal lumen. Multiple bowel loops are in close proximity to the vaginal cuff. However, no CT evidence for a fistula. ACT 112: Negative or not required by law. Electronically signed by: Oliver Muro M.D. 01/08/2024 4:49 PM Code Status & VTE Plan VTE Prophylaxis Plan VTE Prophylaxis will be ordered: Yes
[2024-01-08] MEDS ORDERED: ONDANSETRON INJ 2 MG/ML 2 ML VIAL IV PRN (22:50)
[2024-01-08] MEDS ORDERED: GLUCAGON FOR INJ 1 MG VIAL SQ PRN (22:50)
[2024-01-08] MEDS ORDERED: DEXTROSE 50% 50 ML SYRINGE IV PRN (22:50)
[2024-01-08] MEDS ORDERED: ACETAMINOPHEN 325 MG TAB PO PRN (22:50)
[2024-01-08] MEDS ORDERED: DOCUSATE SODIUM 100 MG CAP PO PRN (22:50)
[2024-01-08] MEDS ORDERED: POLYETHYLENE (MIRALAX) 17 GM PACK PO PRN (22:50)
[2024-01-08] MEDS ORDERED: GLUCOSE 40% GEL 15 GM TUBE PO PRN (22:50)
[2024-01-08] MEDS ORDERED: GLUCOSE 10 TAB/TUBE PO PRN (22:50)
[2024-01-08] MEDS: LORazepam 0.5 MG TAB PO PRN (23:17)
[2024-01-08] MEDS: HYDROmorphone INJ 0.5 MG/0.5 ML SYR IV PRN (23:17)
[2024-01-08] MEDS: traZODone HCL 50 MG TAB PO PRN (23:17)
[2024-01-08] MEDS ORDERED: Heparin IV Adult Wt-Based Standard *NO* INITIAL Bolus Protocol IV SCH (23:18)
[2024-01-08] MEDS: HYDROmorphone INJ 0.5 MG/0.5 ML SYR ONE (23:34)
[2024-01-08] MEDS: LORazepam 0.5 MG TAB ONE (23:34)
[2024-01-09] MEDS: HEPARIN SODIUM/DEXTROSE 25,000 UNITS/500 ML BAG IV SCH (00:19)
[2024-01-09] MEDS: LEVOTHYROXINE SODIUM 150 MCG TABLET PO SCH (06:08)
[2024-01-09 07:09] LABS: Basophils # (auto) 0.08 K/uL (0.00-0.20); Basophils % (auto) 0.7 %; Eosinophils # (auto) 0.38 K/uL (0.00-0.50); Eosinophils % (auto) 3.3 %; Hematocrit (blood only) 40.2 % (37.0-47.0); Hemoglobin 13.3 g/dl (12.0-16.0); Immature Granulocytes # (auto) 0.08 K/uL (0.01-0.20); Immature Granulocytes % (auto) 0.7 %; Lymphocytes # (auto) 2.93 K/uL (1.20-3.40); Lymphocytes % (auto) 25.5 %; Mean Corpuscular Hemoglobin 30.6 pg (25.0-34.0); Mean Corpuscular Hgb Conc 33.1 g/dL (32.0-36.0); Mean Corpuscular Volume 92.6 fL (80.0-100.0); Mean Platelet Volume 11.7 fL (9.4-12.4); Monocytes # (auto) 0.99 K/uL (0.11-0.59); Monocytes % (auto) 8.6 %; Neutrophils # (auto) 7.01 K/uL (1.40-6.50); Neutrophils % (auto) 61.2 %; Platelet Count 180 K/uL (130-400); RDW Standard Deviation 44.2 fL (36.4-46.3); Red Blood Count 4.34 M/uL (4.20-5.40); White Blood Count 11.47 K/ul (4.8-10.8)
[2024-01-09 07:23] LABS: BUN Creatinine Ratio 14.1 (10-20); Calcium 8.3 mg/dl (8.6-10.3); Magnesium 1.8 mg/dl (1.7-2.4); Potassium 4.1 mmol/L (3.5-5.1)
[2024-01-09 07:33] LABS: ANTI-Xa, UFH(UnfractionatedHep 0.32 IU/ml (0.3-0.7)
[2024-01-09] MEDS ORDERED: PHARMACY GLYCEMIC MGMT CONSULT PRN ×2 (07:51→10:43)
[2024-01-09] MEDS: INSULIN ASPART PER UNIT CHARGE SC SCH (07:52)
[2024-01-09 08:17] LABS: Estimated Average Glucose 229 mg/dl; Hemoglobin A1C 9.6 % (4.5-5.6)
[2024-01-09] MEDS: ASPIRIN 81 MG ECTAB PO SCH (08:56)
[2024-01-09] MEDS: FUROSEMIDE 20 MG TAB PO SCH (08:57)
[2024-01-09] MEDS ORDERED: LANTUS PER UNIT CHARGE SQ SCH (09:00)
[2024-01-09] MEDS ORDERED: INSULIN ASPART 100 UNITS/ML VIAL SC PRN (09:20)
[2024-01-09] MEDS: INSULIN, Rapid-Acting PUMP SC SCH (09:29)
[2024-01-09] MEDS ORDERED: INSULIN, Rapid-Acting PUMP SC SCH (09:30)
[2024-01-09] MEDS: CARBOHYDRATES FOR HYPOGLYCEMIA PO PRN (10:22)
[2024-01-09] MEDS: cefTRIAXone SODIUM 2,000 MG/50 ML BAG IV SCH (10:56)
--- NOTE | 2024-01-09 11:32 | Hospitalist Progress Note ---
Date of Service January 09, 2024 Assessment & Plan (1) Acute left flank pain: Plan: 53-year-old female with past medical history significant for type 2 diabetes, hypothyroidism, hyperlipidemia, peripheral neuropathy, uncomplicated asthma, CAD, peripheral artery disease, CKD stage II, restless leg syndrome, carpal tunnel syndrome bilateral, degenerative disc disease, migraine without aura, sleepwalking and eating, tobacco use disorder, history of TIA and stroke, d epression, s/p lumbar fusion comes because of left flank pain radiating to the left upper quadrant abdominal region since yesterday. Acute left flank pain UTI pt is asymptomatic from urinary standpoint but with leukocytosis Starting on Rocephin >100k gram negative bacilli pain regimen adjusted to Oxy IR prn moderate pain, IV diluadid for severe pain and scheduled tylenol will avoid NSAIDS given anticoagulation colace bid ordered for bowel regimen Splenic infarct Left flank pain radiating to left upper quadrant region of abdomen CT scan shows splenic infarct. Seems splenic artery and vein are patent Patient history of blood clots in the past Patient states she has blood clots during her 4 times and last was in 1999 Started on IV heparin for now Will consult heme-onc in a.m. for further recommendations T2DM, uncontrolled Hold home medications continue insulin pump for now, had episode of hypoglycemia with bsg in 50s after breakfast if continues will need to remove pump in favor of lantus/novolog sliding scale pt refusing to speak to conservation educator regarding pump management while in hospital a1c 9.6 Hypothyroidism On Synthroid Hx of CAD On aspirin previously pt was on statin but discontinued has not followed up with [facility] since 2016 DVT prophylaxis IV heparin Disposition Medical floor, not yet medically ready for discharge, awaiting urine culture and heme/onc consult Full code A total of 46 minutes was spent coordinating, documenting, and providing care for this patient excluding time spent in the performance of separately billed services. This included personally viewing all current laboratories and imaging studies, medication reconciliation, outpatient chart review, and discussion with specialists. Admission and Anticipated Discharge Date Admission Date: January 08, 2024 Supervising Physician Co-Signing Physician Notes I personally did not examine the patient. Patient care is currently being managed by [facility]. Subjective Patient was seen and examined in room 382. Follow-up UTI and splenic infarct. She continues to complain of significant left flank pain that radiates around to her left side of her abdomen. Currently she does not feel her pain is cont rolled. She denies any associated fever, chills, sweats, dysuria, hematuria, increased urgency or frequency with urination, suprapubic pain or pressure, nausea or vomiting. She tolerated diet okay. Pain is made worse with movement or deep breathing and is improved with rest. She has history of type 2 diabetes and has insulin pump. She prefers to keep a pump in place. Discussed with nursing. Patient did have episode of hypoglycemia after breakfast due to overcorrection. Review of Systems Review of Systems: All systems reviewed & are unremarkable except as noted in HPI & below Physical Exam Physical Exam: Gen: WD/WN, appears in pain, NAD, A&O x3 HEENT: Normocephalic, atraumatic, conjunctivae moist, sclerae anicteric, mucous membranes moist. Lung: Clear to Auscultation bilaterally, no wheezes/rales/rhonchi Heart: Regular rate, regular rhythm, no murmurs, rubs, or gallops Abdomen: Soft, NT, ND +BS x 4 Extremities: No edema Skin: Warm, no rash, negative turgor. Results & Data Results & Data Vital Signs (Past 12 Hours) Vital Signs Temp Pulse Resp BP Pulse Ox O2 Del Method 01/09/24 07:55 36.6 C 80 18 120/75 95 Room Air 01/09/24 00:20 Room Air Laboratory Results Short CBC 01/08/24 01/09/24 Range/Units 14:52 06:27 WBC 10.18 11.47 H (4.8-10.8) K/ul Hgb 15.3 13.3 (12.0-16.0) g/dl Hct 45.1 40.2 (37.0-47.0) % Plt Count 180 180 (130-400) K/uL BMP 01/08/24 01/09/24 14:52 06:27 Sodium 136 141 Potassium 4.0 4.1 Chloride 104 106 Carbon Dioxide 26 29 BUN 11 11 Creatinine 0.81 0.78 Glucose 237 H 83 Calcium 9.1 8.3 L Liver Function 01/08/24 Range/Units 14:52 Total Bilirubin 0.5 (0.2-1.0) mg/dl AST 13 (13-39) U/L ALT 13 (7-52) U/L Alkaline Phosphatase 135 H (34-104) U/L Albumin 4.0 (3.4-5.0) gm/dl Urine 01/08/24 Range/Units 14:44 Urine Color Yellow Urine Appearance Cloudy A (Clear) Urine pH 5.5 (4.5-7.5) Ur Specific [place] 1.029 (1.000-1.030) Urine Protein Negative (Negative) Urine Glucose (UA) 3+ H (Negative) Medications Administered Current Inpatient Medications Acetaminophen (Acetaminophen 325 Mg Tab) 650 mg PO Q4H PRN PRN Reason: pain/fever Stop: 02/07/24 22:49 Acetaminophen (Acetaminophen 325 Mg Tab) 650 mg PO TID [facility] Stop: 02/08/24 13:59 Aspirin (Aspirin 81 Mg Ectab) 81 mg PO QAM [facility] Stop: 02/08/24 08:59 Last Admin: 01/09/24 08:56 Dose: 81 mg Baclofen (Baclofen 10 Mg Tab) 10 mg PO TIDM PRN PRN Reason: muscle spasms Stop: 02/07/24 22:49 Dextrose (Dextrose 50% 50 Ml Syringe) 25 - 50 ml IV UD PRN; Protocol PRN Reason: Hypoglycemia Protocol Stop: 02/07/24 22:49 Docusate Sodium (Docusate Sodium 100 Mg Cap) 100 mg PO BID PRN PRN Reason: Constipation Stop: 02/07/24 22:49 Docusate Sodium (Docusate Sodium 100 Mg Cap) 100 mg PO BID [facility] Stop: 02/08/24 20:59 Furosemide (Furosemide 20 Mg Tab) 20 mg PO QAM [facility] Stop: 02/08/24 08:59 Last Admin: 01/09/24 08:57 Dose: 20 mg Glucagon (Glucagon For Inj 1 Mg Vial) 1 mg SQ UD PRN; Protocol PRN Reason: Hypoglycemia Protocol Stop: 02/07/24 22:49 Glucose (Glucose 40% Gel 15 Gm Tube) 15 - 30 gm PO UD PRN; Protocol PRN Reason: Hypoglycemia Protocol Stop: 02/07/24 22:49 Glucose (Glucose 10 Tab/Tube) 4 - 8 tab PO UD PRN; Protocol PRN Reason: Hypoglycemia Treatment Stop: 02/07/24 22:49 Hydromorphone HCl (Hydromorphone Inj 0.5 Mg/0.5 Ml Syr) 0.5 mg IV Q3H PRN PRN Reason: Severe Pain (Scale 7, 8, 9,10) Stop: 01/22/24 22:49 Heparin Sodium/Dextrose (Heparin Sodium/Dextrose) 25,000 units in 500 mls @ 27 mls/hr IV .[id number] [facility]; Protocol Stop: 02/07/24 22:49 Last Titration: 01/09/24 07:37 Dose: 1,350 units/hr, 27 mls/hr Ceftriaxone Sodium (Rocephin) 2,000 mg in 50 mls @ 100 mls/hr IV Q24H [facility] Stop: 01/19/24 09:59 Last Admin: 01/09/24 10:56 Dose: 100 mls/hr Insulin Aspart (Insulin Aspart 100 Units/Ml Vial) 0 units SC PRN PRN PRN Reason: Insulin (Rapid-Acting) Pump Refill Stop: 02/08/24 09:19 Insulin Aspart (Insulin, Rapid-Acting Pump) 1 each SC ACHS [facility]; Protocol Stop: 02/08/24 09:29 Last Admin: 01/09/24 09:29 Dose: 1 each Levothyroxine Sodium (Levothyroxine Sodium 150 Mcg Tablet) 300 mcg PO DAILYBB [facility] Stop: 02/08/24 06:29 Last Admin: 01/09/24 06:08 Dose: 300 mcg Lorazepam (Lorazepam 0.5 Mg Tab) 0.5 mg PO TID PRN PRN Reason: Anxiety Stop: 02/07/24 22:49 Last Admin: 01/08/24 23:17 Dose: 0.5 mg Miscellaneous (Carbohydrates For Hypoglycemia ) 15 - 30 gm PO UD PRN PRN Reason: Hypoglycemia Protocol Stop: 02/07/24 22:49 Last Admin: 01/09/24 10:22 Dose: 30 gm Ondansetron HCl (Ondansetron Inj 2 Mg/Ml 2 Ml Vial) 4 mg IV Q6H PRN PRN Reason: Nausea Stop: 02/07/24 22:49 Oxycodone HCl (Oxycodone Hcl Ir 5 Mg Tab (Immediate Release)) 5 mg PO Q4H PRN PRN Reason: Moderate Pain (Scale 4, 5, 6) Stop: 01/23/24 10:13 Polyethylene Glycol (Polyethylene (Miralax) 17 Gm Pack) 17 gm PO DAILY PRN PRN Reason: Constipation Stop: 02/07/24 22:49 Trazodone HCl (Trazodone Hcl 50 Mg Tab) 50 mg PO HS PRN PRN Reason: Sleep Stop: 02/07/24 22:49 Last Admin: 01/08/24 23:17 Dose: 50 mg
[2024-01-09] MEDS: oxyCODONE HCL IR 5 MG TAB (IMMEDIATE RELEASE) PO PRN (12:05)
[2024-01-09] MEDS: ACETAMINOPHEN 325 MG TAB PO SCH (14:18)
[2024-01-09] MEDS ORDERED: cefTRIAXone SODIUM 2,000 MG/50 ML BAG IV SCH (19:00)
--- NOTE | 2024-01-09 19:17 | Oncology Consultation ---
Date of Consultation January 09, 2024 Assessment & Plan (1) Splenic infarction: Given the symptomatic nature of the left flank pain and associated splenic infarction I would recommend anticoagulation. Currently the patient is on heparin. Outpatient she can be discharged on Eliquis. She does have a past history of blood clots, subsequently we can decide whether the patient needs indefinite anticoagulation. She can also get outpatient cardiac workup to understand whether she has atrial fibrillation especially if we consider this to be an arterial thrombosis. I discussed anticoagulation with Hailey with the patient in detail. Plan Thank you for this interesting hematological consult. A total of 60 minutes was spent in counseling, coordination of care review of prior records. History of Present Illness Reason for Consultation: Acute left flank pain Splenic infarct Attending Physician: Kendall Carolina MD History of Present Illness The patient is a very pleasant 53-year-old woman who has a history of diabetes, hypothyroidism, hyperlipidemia who presented to the [facility] with complaints of left flank pain radiating to the left upper quadrant. This was associated with nausea. Pain was severe. A CT scan was done which revealed splenic infarct. Splenic artery and vein were patent. She does have a history of prior blood clots. Hematology has been consulted to assist in management of this patient with newly identified splenic infarct in the setting of left flank pain. Incidentally the patient also had a UTI and was started on Rocephin. Allergies Allergy/AdvReac Type Severity Reaction Status Date / Time adhesive Allergy Intermediate BLISTERS Verified 01/08/24 16:08 rosuvastatin AdvReac Intermediate ZOMBIE-LIKE Verified 01/08/24 16:08 FEELING Home Medications Medication Instructions Recorded Confirmed Type aspirin 81 mg tablet,delayed 81 mg PO QAM ##0 09/16/14 01/08/24 History release levothyroxine 200 mcg tablet 300 mcg PO QAM ##0 06/01/16 01/08/24 History (Synthroid) lorazepam 0.5 mg tablet (Ativan) 0.5 mg PO TID PRN Anxiety #0 tabs 03/06/18 01/08/24 History docusate sodium 100 mg capsule 100 mg PO BID PRN Constipation 11/23/19 01/08/24 History (Colace) baclofen 10 mg tablet 10 mg PO TIDM PRN muscle spasms 02/07/23 01/08/24 History dulaglutide 4.5 mg/0.5 mL 4.5 mg subcut WK 02/07/23 01/08/24 History subcutaneous pen injector (Trulicity) furosemide 20 mg tablet 20 mg PO QAM 02/07/23 01/08/24 History insulin aspart U-100 100 unit/mL 0 sliding scale dose continuous 02/07/23 01/08/24 History subcutaneous solution (Novolog subcutaneous infusion CONTINOUS U-100 Insulin aspart) trazodone 50 mg tablet 50 mg PO HS PRN Sleep 10/10/23 01/08/24 History empagliflozin 25 mg tablet 25 mg PO QAM 01/08/24 01/08/24 History (Jardiance) Patient History Medical History (Updated 01/08/24 @ 21:05 by Arturo Garcia) Acquired bilateral foot deformity Callus Diabetes mellitus with diabetic polyneuropathy Diabetic neuropathy Chronic kidney disease (CKD) STAGE 2 Blood dyscrasia Lipoprotein A elevation H/O atypical migraine Complex (11/2014) evaluated at [facility], MRI and head CT negative, some residual L hand numbness per pt, s/p rehab TIA (transient ischemic attack) x 4, most recent 2005--previously seen by neuro, now follows only with PCP, on ASA 81mg daily HTN (hypertension) Coronary artery disease, non-occlusive Hypothyroid History of chronic urinary tract infection Depression Anxiety Hx of blood clots PT REPORTS WILL GET FREQUENT BLOOD CLOTS (HAD THEM IN TOO) - NONE IN THE LAST 6 YRS Surgical History Hx of cardiac cath non-occlusive. No intervention Hx laparoscopic cholecystectomy Hx of tubal ligation Hx of arthroscopic knee surgery R KNEE MENISCUS X2 History of discectomy lumbar Family History Other Diabetes Heart disease Hypertension Social History Smoking Status: Current every day smoker Tobacco Type: Cigarettes Cigarettes Per Day: 1/2 pack; Second Hand Exposure: Yes; Do You Dip or Chew Tobacco: No; Tobacco Cessation Education Requested by Patient: No Hx Alcohol Use: Yes Alcohol type: wine Hx Substance Use: No Preferred Language: Swiss Communication Ability: Effective Visual Impairment: No Limitations Hook Loader Required: No Beliefs That Will Affect Care: None Current Living Situation: Spouse Current Living Situation Comment: Significant other and his two kids and her daughter Other Information That Helps Us Care for You: No Feels Safe at Home: Yes Safety Concerns: Feels Safe At This Time Assistive Devices: None Review of Systems Review of Systems: All systems reviewed & are unremarkable except as noted in HPI & below Constitutional: as per Subjective / HPI Eyes: as per Subjective / HPI Ear, Nose, Mouth, Throat: as per Subjective / HPI Respiratory: as per Subjective / HPI Cardiovascular: as per Subjective / HPI Gastrointestinal: as per Subjective / HPI Genitourinary: as per Subjective / HPI Musculoskeletal: as per Subjective / HPI Integumentary: as per Subjective / HPI Neurologic: as per Subjective / HPI Hematologic / Lymphatic: as per Subjective / HPI Allergy / Immunological: as per Subjective / HPI Physical Exam Constitutional: WD/WN, vitals as above Eyes: PERRL, conjunctivae normal, anicteric sclerae ENMT: external ear and nose normal, oropharynx normal Neck: trachea midline, no thyromegaly Respiratory: normal respiratory effort, lungs clear to auscultation Cardiovascular: RRR, no murmur, no edema Gastrointestinal (Abdomen): normal bowel sounds, soft, nontender, no hepatosplenomegaly Musculoskeletal: no cyanosis or clubbing, extremities motor strength 5/5 Skin: no rashes, warm and dry Neurologic: patellar DTR's 2+ bilat, sensation intact Psychiatric: A+Ox3, euthymic affect Lymphatic: no cervical or axillary lymphadenopathy Results & Data Vital Signs (Past 12 Hours) Vital Signs Temp Pulse Resp BP Pulse Ox O2 Del Method 01/09/24 16:23 37.0 C 75 18 115/69 96 Room Air 01/09/24 07:55 36.6 C 80 18 120/75 95 Room Air
--- OUTSIDE RECORDS SUMMARY | 2024-01-09 20:56 | External Medical Summary | Summary of Care ---
Author Name Unknown Organization [facility] Address [address] [place] [address] Phone [phone] Care Team Providers Care Deicer Finisher Name Role Phone AlexsanderNoelle topete Primary Care Provider [phone] Reason for Referral * Evaluate & Treat - Unlimited Visits (Within 10 days (routine)) - Pending Review Specialty Diagnoses / Procedures Referred By Pablito nguyen Referred To Contact Orthopaedic Surgery / Orthopedics Diagnoses Trigger middle finger of left hand Kermit Alberto MD [address] [place] [address] Referral ID Status Reason Start Date Expiration Date Visits Requested Visits Authorized [id number] Pending Review Specialty Services Required 12/26/[phone] Question Answer Referral Priority Within 10 days (routine) Where should this appointment be scheduled? [facility] What body part is the patient being seen for? Hand What condition is the patient being seen for? Sprain/Strain/Tear/Other Comments Referred to Dr. Fernandez (orthopaedics surgery, hand) ? Percutaneous release L hand middle finger Reason for Visit * Reason Comments NEW PATIENT Middle finger of L h and * Evaluate & Treat - Unlimited Visits (Within 30 days (routine)) - Pending Review Specialty Diagnoses / Procedures Referred By Pablito nguyen Referred To Contact Sports Medicine / Orthopedics Diagnoses Trigger middle finger of left hand Sharer, Mariella Lewis PA-C [address] [place] [address] Referral ID Status Reason Start Date Expiration Date Visits Requested Visits Authorized [id number] Pending Review Specialty Services Required 12/12/[phone] Encounter Details Date Type Department Care Team (Late st Contact Info) Description 12/26/2023 8:00 AM EDT Office Visit Orthopaedics [facility] [address] [place] [address] Kermit Alberto MD [address] [place] [address] Trigger middle finger of left hand* Allergies Active Allergy Reactions Criticality Noted Date Comments Adhesive Tape 11/29/2004 gets irritated skin from bandaids Benzalkonium Chloride 05/16/2023 Irritates skin Metformin 12/14/2022 Not feeling well Rosuvastatin Other (Please comment) High 02/07/2023 documented as of this encounter (statuses as of 12/26/2023) Medications Medication Sig Dispensed Refills Start Date End Date Status ASPIRIN 81 MG PO CHEWIndications:TIA (transient ischemic attack) One pill by mouth once a day with food 100 Tab 5 11/21/2012 Active fluticasone (FLOVENT HFA) 220 MCG/ACT inhalerIndications:R eactive airway disease with wheezing, mild intermittent, uncomplicated Inhale 2 Puffs by mouth 2 times a day. 1 Inhaler 3 11/12/2015 Active Fluticasone Propionate 50 MCG/ACT Nasal Suspension Administer 2 Sprays into each nostril in the morning. 16 g 1 08/14/2022 Active Albuterol Sulfate HFA 108 (90 Base) MCG/ACT Inhalation Aerosol SolutionIndications: Bronchitis, complicated Inhale 2 Puffs by mouth every 4 hours as needed for Wheezing. 18 g 1 08/14/2022 Active Furosemide 20 MG Oral Tablet (Lasix) Take 1 Tablet by mouth in the morning. 30 Tablet 11 12/14/2022 Active Accu-Chek Guide In Vitro Strip (Glucose Blood)Indications:Ty pe 2 diabetes mellitus with hemoglobin A1c goal of less than 7.0% ([facility]) Use to test blood glucose 4 times daily. DX: E11.9 400 Strip 3 12/19/2022 Active Empagliflozin 25 MG Oral Tablet (Jardiance) Take 1 Tablet by mouth in the morning. 90 Tablet 3 04/27/2023 Active Additional Information Patient taking differently: 20 mgOral Daily(AM), Reported on 04/30/2023 Ondansetron 4 MG Oral Tablet Disintegrating (Zofran) 1 Tablet as needed. 0 04/17/2023 Active Levothyroxine Sodium 300 MCG Oral Tablet Take 1 Tablet by mouth in the morning. (at least 30 min prior to breakfast or other meds). 90 Tablet 1 2023 Active Sennosides 8.6 MG Oral Tablet (Senokot) Take 2 Tablets by mouth daily as needed for Constipation. 20 Tablet 0 05/17/2023 Active Docusate Sodium 100 MG Oral Capsule (Colace) Take 1 Capsule by mouth in the morning and 1 Capsule before bedtime. 20 Capsule 0 05/17/2023 Active Polyethylene Glycol 3350 17 GM/SCOOP Oral Powder (MiraLax) Take 17 g by mouth daily as needed. 0 Active traZODone HCl 50 MG Oral Tablet (Desyrel)Indications :Primary insomnia Take 1 Tablet by mouth at bedtime. 30 Tablet 5 08/16/2023 Active Zoster Vac Recomb Adjuvanted 50 MCG/0.5ML Intramuscular Suspension Reconstituted (Shingrix)Indication s:Need for shingles vaccine Inject 0.5 mL into a large muscle now and repeat dose in 60 to 180 days 1 Each 1 08/16/2023 Active Insulin Aspart 100 UNIT/ML Injection Solution (NovoLOG)Indications :DM type 1, not at goal ([facility]) USE UP TO 100 UNITS DAILY WITH INSULIN PUMP 90 mL 2 08/30/2023 Active Trulicity 4.5 MG/0.5ML Subcutaneous Solution Pen-injector (Dulaglutide)Indicat ions:Type 2 diabetes mellitus with hemoglobin A1c goal of less than 7.0% ([facility]) Inject 4.5 mg under the skin once a week. 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, in partial remission 12/14/2022 Sleep walking and eating 12/14/2022 Controlled substance agreement signed 12/14/2022 Carpal tunnel syndrome, bilateral 11/29/2022 PAD (peripheral artery disease) 02/13/2022 Hx of TIA (transient ischemic attack) and stroke 10/03/2018 Type 2 diabetes mellitus wit h neurologic complication, with long-term current use of insulin 10/03/2018 CAD (coronary artery disease) 07/06/2014 Tobacco use disorder 11/14/2013 Dyslipidemia, goal LDL below 70 09/25/2013 Restless leg syndrome 04/01/2013 Type 2 diabetes mellitus wit h hemoglobin A1c goal of less than 7.0% 06/24/2009 Overview: Modified per Diabetes protocol #14. ICD-10 update of inactive term ADVANCE DIRECTIVE INFORMATION 07/17/2006 Overview: No, Advance Directive brochure given to patient. Migraine without aura 08/17/2004 Hypothyroidism 09/18/2002 documented as of this encounter (statuses as of 12/26/2023) Resolved Problems Problem Noted Date Diagnosed Date Resolved Date Hypocalcemia 05/17/2023 05/18/2023 Noncompliance with medications 06/23/2015 02/20/2017 Gastroesophageal reflux disease 02/03/2014 04/27/2023 TIA (transient ischemic attack) 11/21/2012 10/03/2018 Asthma with severity to be determined 03/03/2010 08/12/2013 Overview: Per Asthma Taxonomy ICD-10 update of inactive term 11/18/2004 05/29/2005 Major depressive disorder 06/09/2004 Overview: ICD-10 update of inactive term CERV INCOMPET-ANTEPARTUM 03/18/2004 Coagulation disorder 03/18/2004 018 Overview: lipoprotein A elevation with poor reproductive history 03/17/2003 02/13/2017 Overview: 17-18 week loss x 2 Asthma, allergic 09/18/2002 03/03/2010 DM type 2, not at goal 07/23/200206/24 Overview: Modified per Diabetes protocol #14. Encounter for supervision of other normal 03/23/2004 Overview: ICD-10 update of inactive term documented as of this encounter (statuses as of 12/26/2023) Immunizations Name Administration Dates Next Due COVID-19 mRNA, LNP-s, No Pre serve, 2-Dose Series (Moderna) 07/25/2021 Hepatitis B, 0-19 yrs 05/06/1992,01/02/1992,10/11 Pneumococcal Polysaccharide PPV23 (Pneumovax) 01/28/2007 Seasonal Influenza, PF, 6 M & above, IM , (FluLaval or Fluzone) 05/16/2019,10/03/2018,10/25/2017 10/03/2019 Seasonal Influenza, Quadriva lent, No Preserve, IM 08/18/2016 Seasonal Influenza, Split, I IV3, With Preserve, Inj 07/06/2014,08/20/2013,08/20/2013(Defe rred: Patient Refused),10/22/2012 07/06/2015 TD - Tetanus/Diptheria (ADULT) 05/22/2008 TDAP (age 10 and older)(Boostrix) 08/20/2013 documented as of this encounter Social History Tobacco Use Types Packs/Day Years Used Date Smoking Tobacco: Former Cigarettes 0.3 15 0 11/22/1998 - 11/22/2013 Passive Smoke Exposure: Past Smokeless Tobacco: Never Comments:Down to one cigaret te Alcohol Use Standard Drinks/Week Comments No 0 (1 standard drink = 0.6 oz pur e alcohol) very rarely PHQ-2 Answer Date Recorded PHQ-2 Score 0 10/03/2018 Hunger Vital Sign Answer Date Recorded Worried About Running Out of Food in the Last Ye ar Never true 05/16/2019 Ran Out of Food in the Last Year Never true 05/16/2019 Sex and Gender Information Value Date Recorded Sex Assigned at Female 07/29/2019 11:33 AM EST Gender Identity Female 07/29/2019 11:33 AM EST Sexual Orientation Straight 07/29/2019 11 :33 AM EST Job Start Date Occupation Industry Not on file Not on file Not on file documented as of this encounter Functional Status Functional Status Response Date of Assess ment Are you deaf or do you have serious difficulty hearing? No 05/16/2023 Are you blind or do you have serious difficulty seeing, even when wearing glasses? No 05/16/2023 Do you have serious difficul ty walking or climbing stairs? (5 years old or older) No 05/16/2023 Do you have difficulty dress ing or bathing? (5 years old or older) No 05/16/2023 Because of a physical, menta l, or emotional condition, do you have difficulty doing errands alone such as visiting a doctor s office or shopping? (15 years old or older) Yes-trouble walking too far 05/16/2023 Cognitive Status Response Date of Assessm ent Because of a physical, menta l, or emotional condition, do you have serious difficulty concentrating, remembering, or making decisions? (5 years old or older) No 05/16/2023 documented as of this encounter Progress Notes * Kermit Alberto MD - 12/26/2023 8:14 AM EDT Angie Novak [place] [phone] Angie Cardona is a 53 year old female who presents for consultation to [facility] Orthopaedics and Sports Medicine for left hand injury/pain. Consult requested by Mariella Flynn PA-C. Angie Novak [place] is here unaccompanied Sport or Occupation: works at [employer] Handedness: right History: Severity: reviewed and agree with Nursing Notes for HPI elements History - Trigger middle finger of left hand -Pt was treated in our on 12/11/23 -Patient has a history of diabetes and her last hemoglobin A1c was 8.3 on 08/16/2023. 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 -Pt is hoping for steroid injection today ROS: ROS per HPI otherwise non-contributory Past Medical History: Diagnosis Date Anxiety and depression Arthritis Asthma, severity to be determined 03/03/2010 Per Asthma Taxonomy CAD (coronary artery disease) Cerebrovascular event, ill-defined, within last 8 weeks 09/2004 TIA Chronic kidney disease, stage 2, mildly decreased GFR COAGULATION DEFECT NEC/NOS 03/18/2004 lipoprotein A elevation DM type 2, not at goal ([facility]) Since 1998 Hypothyroidism Lumbar radiculopathy Lumbar stenosis PAD (peripheral artery disease) ([facility]) Restless leg syndrome 04/01/2013 TIA (transient ischemic attack) 11/21/2012 Family History Problem Relation Age of Onset Stroke Mother DM Gastro-intestinal disorder Mother diverticulitis Heart Disorder Father VT. 3 stents. age 54 onset. Diabetes Brother IDDM Cancer Grandmother (Maternal) Diabetes Grandmother (Maternal) IDDM Stroke Grandmother (Maternal) Gastro-intestinal disorder Grandmother (Maternal) diverticulitis Diabetes Grandfather (Maternal) Skin cancer Grandfather (Maternal) Diabetes Grandmother (Paternal) IDDM Diabetes Grandfather (Paternal) IDDM Heart Disorder Grandfather (Paternal) Lung cancer Grandfather (Paternal) Breast Cancer No significant family history Social History Socioeconomic History Marital status: Spouse name: Ej Number of children: 0 Years of education: 12 Highest education level: Not on file Occupational History 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: other Employer: [employer] HOME Employer: [employer] Employer: [employer] Employer: [employer] Tobacco Use Smoking status: Former Current packs/day: 0.00 Average packs/day: 0.3 packs/day for 15.0 years (4.5 ttl pk-yrs) Types: Cigarettes Start date: 11/22/1998 Quit date: 11/22/2013 Years since quittin.0 Passive exposure: Past Smokeless tobacco: Never Tobacco comments: Down to one cigarette Vaping Use Vaping Use: Not on file Substance and Sexual Activity Alcohol use: No Comment: very rarely Drug use: No Sexual activity: Yes Partners: Male control/protection: Surgical Other Topics Concern Service No Blood Transfusions No Caffeine Concern Not Asked Occupational Exposure Not Asked Hobby Hazards Not Asked Sleep Concern Not Asked Stress Concern Not Asked Weight Concern Not Asked Special Diet No Back Care Not Asked Exercise Not Asked Bike Helmet Not Asked Seat Belt Not Asked Self-Exams Not Asked Social History Narrative PE:09/18/02 LABS: 09/12 chol 153 126 34 94 glu 176 a1c 8.3 hb 1544 tsh 19.7 12/11 chol 147 76 37 95 a1c 8.6 tsh 3.11 05/13 a1c 7.1 11/11 tsh 2.88 a1c 10.5 hb 1544 K 5.2 glu 191 CXR: EKG: PAP:05/06/04 MAMMO: HEMMO: DEXA: SOCIAL HX: Marital status: _1_ time(s) in the past BM:1qd Coffee: 3qd tea: 0 soda:2qd diet Exercise:walks and rides a bike LMP:regular BSE:+ control:- KAIBAB:- dentures:- last eye exam:2yr ago wears glasses Social Determinants of Health Financial Resource Strain: Not on file Food Insecurity: No Food Insecurity (08/16/2023) Hunger Vital Sign Worried About Running Out of Food in the Last Year: Never true Ran Out of Food in the Last Year: Never true Transportation Needs: Not on file Physical Activity: Not on file Stress: Not on file Social Connections: Not on file Intimate Partner Violence: Not on file Housing Stability: Not on file Physical Exam Constitutional: Generally well-nourished and in no acute distress Psychiatric: Mood and Affect normal Eyes: EOMI Respiratory: Normal respiratory effort with regular rate and rhythm Cardiovascular: No edema in the affected extremity (s) Hand Exam: Limited to left hand middle finger, unable to fully straighten at the MCP joint, also with flexion of the MCP joint is limited. Reports that if she forces it beyond that point then it locks every time in his very painful. She can get it to reproducibly locked. Radiology: None obtained Assessment and Plan: 1) left hand middle finger trigger finger She is able to reproducibly lock it every time, she is not able to fully extend it either Discussed options of steroid injection with follow-up in 6 weeks versus referral to Dr. Fernandez (orthopaedics surgery, hand) for evaluation for percutaneous release. Elected referral Referred to Dr. Fernandez (orthopaedics surgery, hand) Kermit Alberto MD Primary Care Sports Medicine Orthopaedics [facility] [address] [place] [address] documented in this encounter Nursing Notes * Elmira Villa LPN - 12/26/2023 8:08 AM EDT NEW Pt -Trigger middle finger of left hand -Pt was treated in our on 12/11/23 -Patient has a history of diabetes and her last hemoglobin A1c was 8.3 on 08/16/2023. 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 -Pt is hoping for steroid injection today Tiff Aranda LPN documented in this encounter Plan of Treatment Upcoming Encounters Date Type Department Care Team (Late st Contact Info) Description 01/02/2024 8:00 AM EDT Office Visit Pharmacy, [facility] [address] [facility] [place] [address] Pharmacist1, [facility] [address] [facility] [place] [address] 02/27/2024 3:00 PM EDT Office Visit Orthopaedics [facility] [address] [place] [address] Sonu Fernandez MD [address] [place] [address] 04/09/2024 8:50 AM EDT [facility] [address] [facility] [id number] Noelle Rob DO [address] [place], [place] [id number] Scheduled Procedures Name Priority Associated Diagnoses Date/Ti me COLONOSCOPY FLEXIBLE PROXIMAL DIAGNOSTIC Recall History of colon polyps Scheduled Referrals Name Type Priority Associated Diagnoses Order Schedule ORTHOPAEDICS REFERRAL OP Referral Within 10 days (routine) Trigger middle finger of left hand Ordered: 12/26/2023 Health Maintenance Due Date Last Done Comments Hepatitis B (3 of 3 - 19+ 3-dose series) 07/01/1992 05/06/1992, 01/02/1992, 10/26/1991 Pneumococcal Vaccine: Pediatrics (0 to 5 Years) and At-Risk Patients (6 to 64 Years) (2 of 2 - PCV) 06/30/2017 06/30/2016, 09/10/2012, 01/28/2007 Diabetic Eye Exam 04/11/2020 04/11/2019, , 12/22/2015, Additional history exists Zoster Vaccines (1 of 2) 2022 Albumin/Creatinine Ratio 10/26/2022 022, 04/29/2018, 07/06/2014, Additional history exists Diabetic Foot Exam 12/27/2022 12/27/2021, 1 09/28/2018, 10/03/2018, Additional history exists COVID-19 Vaccine (2 - 2022- season) 2023 07/25/2021 DTaP,Tdap,and Td Vaccines (2 - Td or Tdap) 08/20/2023 08/20/2013, 05/22/2008 HbA1c 02/15/2024 08/16/2023, 04/11, 04/13/2023, Additional history exists Influenza Vaccine (FLU shot) (Season Ended) 2024 05/16/2019, 05/16/2019, 10/03/2018, Additional history exists GFR 08/16/2024 08/16/2023, 04/2023, 05/17/2023, Additional history exists TSH 08/16/2024 08/16/2023, 06/10, 04/27/2023, Additional history exists Mammogram 10/17/2024 10/17/2023, 0811/2021, 05/07/2020, Additional history exists COLONOSCOPY-EVERY 5 YRS AGES 18-100 07/05/2027 07/05/2022, 07/05/2022, 09/26/2016, Additional history exists GARDASIL-HPV IMMUNIZATION SERIES Aged Out No longer eligible based on patient's age to complete this topic MENINGOCOCCAL (MENACTRA/MENVEO) Aged Out No longer eligible based on patient's age to complete this topic documented as of this encounter Medical Devices Implanted Type Area Seating Upholsterer Device Identifier Shelf Expiration Date Model / Serial / Lot Catalyft Pl Expandable Interbody System Implanted:Qty : 1 on 05/16/2023 by Darrell West MD at OR [facility] [place] Cage N/A: Spine Lumbar 04/28/2030 [id number] / / [id number] Screw Bone Ti Set Solera 4.75m - [id number] Implanted:Qty : 4 on 05/16/2023 by Darrell West MD at OR [facility] [place] Screw N/A: Spine Lumbar [employer] [id number] / / Dbx 5cc [id number] - [id number] - [id number] Implanted:Qty : 1 on 05/16/2023 by Darrell West MD at OR [facility] [place] Tissue - Human N/A: Spine Lumbar MUSCULOSKELETAL TRANSPLANT FND [id number] 01/22/2025 [id number] / [id number] / LOT NA Screws Implanted:Qty : 2 on 05/16/2023 by Darrell West MD at OR [facility] [place] N/A: Spine Lumbar [employer] [id number] / / Screws Implanted:Qty : 2 on 05/16/2023 by Darrell West MD at OR [facility] [place] N/A: Spine Lumbar Medtronic [id number] / / 10cc Mastergraft Biologic Matrix Ext Block Implanted:Qty : 1 on 05/16/2023 by Darrell West MD at OR [facility] [place] N/A: Spine Lumbar Medtronic Sofamor Danek [id number] 01/07/2026 [id number] / [id number] / [id number] Graft Bone Infuse Kit Xsmall - [id number] - [id number] Implanted:Qty : 1 on 05/16/2023 by Darrell West MD at OR [facility] [place] N/A: Spine Lumbar [employer] : NEUROLOGIC PAIN [id number] 09/09/2024 [id number] / [id number] / [id number] [place] 4.75mm Pbent 35mm - [id number] Implanted:Qty : 1 on 05/16/2023 by Darrell West MD at OR [facility] [place] N/A: Spine Lumbar [employer] : NEUROLOGIC PAIN [id number] / / Rods Implanted:Qty : 1 on 05/16/2023 by Darrell West MD at OR [facility] [place] N/A: Spine Lumbar [id number] / / documented as of this encounter Visit Diagnoses Diagnosis Trigger middle finger of left hand- Primary Trigger finger (acquired) documented in this encounter Advance Directives Documents on File Type Date Recorded Patient Prepress Proofer Expl anation Power of Personal Injury Litigation Paralegal 02/21/2005 Latest Code Status on File Code Status Date Activated Date Inactivated Comments Full Code 05/16/2023 1:17 PM 05/18/2023 8:53 PM This or dusty reflects the patients wishes and were consensually agreed upon. Question Answer Comments Discussion of Advance Directives occurred with: Patient Code Status History Code Status Date Activated Date Inactivated Comments Full Code 05/16/2023 6:37 AM 05/16/2023 1:17 PM This or dusty reflects the patients wishes and were consensually agreed upon. Question Answer Comments Discussion of Advance Directives occurred with: Patient None 02/02/2005 3:32 PM 02/02/2005 3:32 PM Care Teams Deicer Finisher Relationship Specialty Start Date End Date Noelle Rob DO [address] [facility] [place] [address] PCP - General Family Medicine 02/26/19 documented as of this encounter
--- OUTSIDE RECORDS SUMMARY | 2024-01-09 20:56 | External Medical Summary | Summary of Care ---
Author Name Unknown Organization [facility] Address [address] [place] [address] Phone [phone] Care Team Providers Care Pre K Special Education Teacher Name Role Phone Liane Noelle Lisseth MCDANIEL Primary Care Provider [phone] Encounter Details Date Type Department Care Team (Latest Contact Info) Description 12/10/2023 6:30 PM EDT - 12/10/2023 11:59 PM EDT Hospital Encounter Radiology Film File [address] [place] [address] Arrived Discharge Disposition: Home - Self Care Allergies Active Allergy Reactions Criticality Noted Date Comments Adhesive Tape 11/29/2004 gets irritated skin from bandaids Benzalkonium Chloride 05/16/2023 Irritates skin Metformin 12/14/2022 Not feeling well Rosuvastatin Other (Please comment) High 02/07/2023 documented as of this encounter (statuses as of 12/13/2023) Medications Medication Sig Dispensed Refills Start Date [...] hemoglobin A1c goal of less than 7.0% ([facility]) Use to test blood glucose 4 times [...] (NovoLOG)Indications :DM type 1, not at goal ([facility]) USE UP TO 100 UNITS DAILY WITH INSULIN PUMP 90 mL 2 08/30/2023 Active Trulicity 4.5 MG/0.5ML Subcutaneous Solution Pen-injector (Dulaglutide)Indicat ions:Type 2 diabetes mellitus with hemoglobin A1c goal of less than 7.0% ([facility]) Inject 4.5 mg under the skin once a week. 6 mL 4 10/08/2023 Active LORazepam 0.5 MG Oral Tablet (Ativan)Indications: Anxiety TAKE ONE TABLET BY MOUTH THREE TIMES A DAY NEEDED FOR ANXIETY 30 Tablet 2 11/23/2023 Active documented as of this encounter (statuses as of 12/13/2023) Active Problems Problem Noted Date Diagnosed Date [...] as of this encounter (statuses as of 12/13/2023) Resolved Problems Problem Noted Date Diagnosed Date [...] as of this encounter (statuses as of 12/13/2023) Immunizations Name Administration Dates Next Due COVID-19 [...] No 05/16/2023 documented as of this encounter Plan of Treatment Upcoming Encounters Date Type Department Care Team (Late st Contact Info) Description 12/26/2023 8:00 AM EDT Office Visit Orthopaedics [facility] [address] [address] Kermit Alberto MD [address] [address] 01/02/2024 8:00 AM EDT Office Visit Pharmacy, [employer] [address] [place] [address] Pharmacist1, [facility] [address] [place] [address] 04/09/2024 8:50 AM EDT Office Visit [facility] [address] [place] [address] Noelle Rob DO [address] [place] [address] Scheduled Procedures Name Priority Associated Diagnoses Date/Ti me COLONOSCOPY FLEXIBLE PROXIMAL DIAGNOSTIC Recall History of colon polyps Health Maintenance Due Date Last Done Comments [...] 2024 05/16/2019, 05/16/2019, 10/03/2018, Additional history exists Depression Screening 08/16/2024 08/16/2023 GFR 08/16/2024 08/16/2023, 090 04/2023, 05/17/2023, Additional history exists TSH 08/16/2024 08/16/2023, 06/10, 04/27/2023, Additional history exists Mammogram 10/17/2024 10/17/2023, 11/2021, 05/07/2020, Additional history exists COLONOSCOPY-EVERY 5 YRS AGES 18-100 07/05/2027 07/05/2022, 07/05/2022, 09/26/2016, Additional history exists GARDASIL-HPV IMMUNIZATION SERIES Aged Out No longer eligible based on patient's age to complete this topic MENINGOCOCCAL (MENACTRA/MENVEO) Aged Out No longer eligible based on patient's age to complete this topic documented as of this encounter Medical Devices Implanted Type Area Stone Unloader Device Identifier Shelf Expiration Date Model / Serial / Lot Catalyft Pl Expandable Interbody System Implanted:Qty : 1 on 05/16/2023 by Darrell West MD at OR [facility] Cage N/A: Spine Lumbar 04/28/2030 [id number] / / [id number] Screw Bone Ti Set Solera 4.75m - [id number] Implanted:Qty : 4 on 05/16/2023 by Darrell West MD at OR [facility] Screw N/A: Spine Lumbar [employer] [id number] / / Dbx 5cc [id number] - [id number] - [id number] Implanted:Qty : 1 on 05/16/2023 by Darrell West MD at OR [facility] Tissue - Human N/A: Spine Lumbar MUSCULOSKELETAL TRANSPLANT FND [id number] 01/22/2025 [id number] / [id number] / LOT NA Screws Implanted:Qty : 2 on 05/16/2023 by Darrell West MD at OR [facility] N/A: Spine Lumbar [employer] [id number] / / Screws Implanted:Qty : 2 on 05/16/2023 by Darrell West MD at OR [facility] N/A: Spine Lumbar Medtronic [id number] / / 10cc Mastergraft Biologic Matrix Ext Block Implanted:Qty : 1 on 05/16/2023 by Darrell West MD at OR [facility] N/A: Spine Lumbar Medtronic Jennifer Boyd [id number] 01/07/2026 [id number] / [id number] / [id number] Graft Bone Infuse Kit Xsmall - [id number] - [id number] Implanted:Qty : 1 on 05/16/2023 by Darrell West MD at OR [facility] N/A: Spine Lumbar [employer] : NEUROLOGIC PAIN [id number] 09/09/2024 [id number] / [id number] / [id number] Corona [place] 4.75mm Pbent 35mm - [id number] Implanted:Qty : 1 on 05/16/2023 by Darrell West MD at OR [facility] N/A: Spine Lumbar [employer] : NEUROLOGIC PAIN [id number] / / Rods Implanted:Qty : 1 on 05/16/2023 by Darrell West MD at OR [facility] N/A: Spine Lumbar [id number] / / documented as of this encounter Procedures Procedure Name Priority Date/Time Associated Diagnosis Comments RADIOLOGY EXAM - GENERAL RAD (IMAGES ONLY,NO REPORT) Routine 12/10/2023 6:30 PM EDT documented in this encounter Results * RADIOLOGY EXAM - GENERAL RAD (IMAGES ONLY,NO REPORT) (12/10/2023 6:30 PM EDT) 12/10/2023 6:27 PM EDT Narrative Scheduling, Silent - 12/12/2023 4:10 PM EDT This is an imaging study not interpreted or resulted by a [facility] or [facility] radiologist. Noelle Rob DO RADIOLOGY (RAD GENER AL) documented in this encounter Advance Directives Documents on File Type Date Recorded Patient Per Diem Interpreter Expl anation Power of English Horn Player 02/21/2005 Latest Code Status on File Code [...] 3:32 PM 02/02/2005 3:32 PM Care Teams Pre K Special Education Teacher Relationship Specialty Start Date End Date Noelle Rob DO [address] [place] [address] PCP - General Family Medicine 02/26/19 documented as of this encounter
--- OUTSIDE RECORDS SUMMARY | 2024-01-09 20:56 | External Medical Summary | Summary of Care ---
Author Name Unknown Organization [facility] Address [address] [place] [address] Phone [phone] Care Team Providers Care Private Branch Exchange Service Advisor Name Role Phone Noelle Rob DO Primary Care Provider [phone] Encounter Details Date Type Department Care Team (Late st Contact Info) Description 12/10/2023 Result Scan Unspecified Department <No scans attached> Allergies Active Allergy Reactions Criticality Noted Date [...] A1c goal of less than 7.0% ([facility]) Use to test blood glucose 4 times [...] :DM type 1, not at goal ([facility]) USE UP TO 100 UNITS DAILY WITH INSULIN PUMP 90 mL 2 08/30/2023 Active Trulicity 4.5 MG/0.5ML Subcutaneous Solution Pen-injector (Dulaglutide)Indicat ions:Type 2 diabetes mellitus with hemoglobin A1c goal of less than 7.0% ([facility]) Inject 4.5 mg under the skin once [...] 05/16/2023 DDD (degenerative disc disease), lumbar 12/15/19 23 DM type 2 with diabetic peripheral neuropathy [...] 12/26/2023 8:00 AM EDT Office Visit Orthopaedics [facility] [address] [address] Kermit Alberto MD [address] [address] 01/02/2024 8:00 AM EDT Office Visit Pharmacy, [facility] [place] [place] [address] [place] [address] Pharmacist1, [facility] [address] [facility] [place], [place] [address] 04/09/2024 8:50 AM EDT Office Visit [facility] [address] [facility], [place] [address] Noelle Rob, DO [address] [place] [facility] [place] [address] Scheduled Procedures Name Priority Associated Diagnoses Date/Ti [...] Depression Screening 08/16/2024 08/16/2023 GFR 08/16/2024 08/16/2023, 0904/2023, 05/17/2023, Additional history exists TSH 08/16/2024 08/16/2023, [...] this encounter Medical Devices Implanted Type Area Wage And Hour Investigator Device Identifier Shelf Expiration Date Model / Serial / Lot Catalyft Pl Expandable Interbody System Implanted:Qty : 1 on 05/16/2023 by Darrell West MD at OR [facility] Cage N/A: Spine Lumbar 04/28/2030 [id number] / / [id number] Screw Bone Ti Set Solera 4.75m - [id number] Implanted:Qty : 4 on 05/16/2023 by Darrell West MD at OR [facility] Screw N/A: Spine Lumbar [employer] [id number] / / Dbx 5cc [id number] - [id number] - [id number] Implanted:Qty : 1 on 05/16/2023 by Darrell West MD at OR [facility] Tissue - Human N/A: Spine Lumbar MUSCULOSKELETAL TRANSPLANT FND [id number] 01/22/2025 [id number] / [id number] / LOT NA Screws Implanted:Qty : 2 on 05/16/2023 by Darrell West MD at OR [facility] N/A: Spine Lumbar [employer] [id number] / / Screws Implanted:Qty : 2 on 05/16/2023 by Darrell West MD at OR [facility] N/A: Spine Lumbar Medtronic [id number] / / 10cc Mastergraft Biologic Matrix Ext Block Implanted:Qty : 1 on 05/16/2023 by Darrell West MD at OR [facility] N/A: Spine Lumbar Medtronic Sofamor Danek [id number] 01/07/2026 [id number] / [id number] / [id number] Graft Bone Infuse Kit Xsmall - [id number] - [id number] Implanted:Qty : 1 on 05/16/2023 by Darrell West MD at OR [facility] N/A: Spine Lumbar [employer] : NEUROLOGIC PAIN [id number] 09/09/2024 [id number] / [id number] / [id number] Corona [place] 4.75mm Pbent 35mm - [id number] Implanted:Qty : 1 on 05/16/2023 by Darrell West MD at OR [facility] N/A: Spine Lumbar [employer] : NEUROLOGIC PAIN [id number] / / Rods Implanted:Qty : 1 on 05/16/2023 by Darrell West MD at OR [facility] N/A: Spine Lumbar [id number] / / documented as of this encounter Procedures Procedure Name Priority Date/Time Associated Diagnosis Comments RADIOLOGY SCANNED RESULT 12/10/2023 documented in this encounter Results * RADIOLOGY SCANNED RESULT (12/10/2023) 12/10/2023 No Physician Data Unknown DIAGNOSTIC RAD IOLOGY SERVICES documented in this encounter Advance Directives Documents on File Type Date Recorded Patient Court Assistant Expl anation Power of Workforce Specialist 02/21/2005 Latest Code Status on File Code [...] 3:32 PM 02/02/2005 3:32 PM Care Teams Private Branch Exchange Service Advisor Relationship Specialty Start Date End Date Noelle Rob [facility] [address] [facility] [place] [address] PCP - General Family Medicine 02/26/19 documented as of this encounter
--- OUTSIDE RECORDS SUMMARY | 2024-01-09 20:57 | External Medical Summary | Summary of Care ---
Author Name Unknown Organization [facility] Address [address] [place] [address] Phone [phone] Care Team Providers Care Sole Buffer Name Role Phone Noelle Rob DO Primary Care Provider [phone] Reason for Referral * Evaluate & Treat - Unlimited Visits (Within 30 days (routine)) - Pending Review Specialty Diagnoses / Procedures Referred By Pablito nguyen Referred To Contact Sports Medicine / Orthopedics Diagnoses Trigger middle finger of left hand RichyrMariella PA-C [address] [place] [phone] Referral ID Status Reason Start Date Expiration Date Visits Requested Visits Authorized [id number] Pending Review Specialty Services Required 12/12/[phone] Question Answer What body part is the patient being seen for? Hand What condition is the patient being seen for? Sprain/Strain/Tear/Other Referral Priority Within 30 days (routine) Where should this appointment be scheduled? [facility] Reason for Visit * Reason Comments NEW PATIENT Left middle finger Encounter Details Date Type Department Care Team (Late st Contact Info) Description 12/11/2023 10:15 AM EDT Office Visit Orthopaedics [facility] [address] [place] [address] Mariella Flynn PA-C [address] [place] [phone] Trigger middle finger of left hand*; Pain of finger of left hand Allergies Active Allergy Reactions Criticality Noted Date Comments Adhesive Tape 11/29/2004 gets irritated skin from bandaids Benzalkonium Chloride 05/16/2023 Irritates skin Metformin 12/14/2022 Not feeling well Rosuvastatin Other (Please comment) High 02/07/2023 documented as of this encounter (statuses as of 12/12/2023) Medications Medication Sig Dispensed Refills Start Date [...] hemoglobin A1c goal of less than 7.0% ([facility]) Use to test blood glucose [...] (NovoLOG)Indications :DM type 1, not at goal ([facility]) USE UP TO 100 UNITS DAILY WITH INSULIN PUMP 90 mL 2 08/30/2023 Active Trulicity 4.5 MG/0.5ML Subcutaneous Solution Pen-injector (Dulaglutide)Indicat ions:Type 2 diabetes mellitus with hemoglobin A1c goal of less than 7.0% ([facility]) Inject 4.5 mg under the skin once a week. 6 mL 4 10/08/2023 Active LORazepam 0.5 MG Oral Tablet (Ativan)Indications: Anxiety TAKE ONE TABLET BY MOUTH THREE TIMES A DAY NEEDED FOR ANXIETY 30 Tablet 2 11/23/2023 Active documented as of this encounter (statuses as of 12/12/2023) Active Problems Problem Noted Date Diagnosed Date [...] as of this encounter (statuses as of 12/12/2023) Resolved Problems Problem Noted Date Diagnosed Date [...] as of this encounter (statuses as of 12/12/2023) Immunizations Name Administration Dates Next Due COVID-19 [...] No 05/16/2023 documented as of this encounter Patient Instructions * Patient Instructions* Mariella Flynn PA-C - 12/11/2023 10:38 AM EDT Try over the counter topical Voltaren gel (Diclofenac Sodium) up to 4 times per day Ice and elevate documented in this encounter Progress Notes * Mariella Flynn PA-C - 12/11/2023 10:20 AM EDT Angie Cardona is a 53 year old female who presents for consultation to [facility] for left hand injury/pain. Consult requested by Self. Angie Cardona is here unaccompanied History: Patient is a 53 year old female here today with left hand/finger pain. Patient reports history of trigger finger. She notes intermittent triggering over the past few years. Also notes difficulty extending all of her fingers and toes at times. Symptoms typically worsen at night. She occasionally hasto use her other hand to open her fingers in the morning. Patient believes she did have injections in her thumb several years ago. States symptoms worsened yesterday. She was unable to extend the left middle finger. She noted pain in the palm. Patient was seen at [facility] where x-rays were obtained. Patient states she was injected with numbing medication and subsequently this ER staff was able to extend the finger. She was then placed in a volar splint and advised to follow up with Orthopedics. ER records have been requested but are not yet available for review. Patient has a history of diabetes and her last hemoglobin A1c was 8.3 on 08/16/2023. Review of systems: All others negative except those noted above in HPI. Past Medical History: Diagnosis Date Anxiety and depression Arthritis Asthma, severity to be determined 03/03/2010 Per Asthma Taxonomy CAD (coronary artery disease) Cerebrovascular event, ill-defined, within last 8 weeks 09/2004 TIA Chronic kidney disease, stage 2, mildly decreased GFR COAGULATION DEFECT NEC/NOS 03/18/2004 lipoprotein A elevation DM type 2, not at goal ([facility]) Since 1998 Hypothyroidism Lumbar radiculopathy Lumbar stenosis PAD (peripheral artery disease) ([facility]) Restless leg syndrome 04/01/2013 TIA (transient ischemic attack) 11/21/2012 Family History Problem Relation Age of Onset Stroke Mother DM Gastro-intestinal disorder Mother diverticulitis Heart Disorder Father [place]. 3 stents. age 54 onset. 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: other Employer: [employer] HOME Employer: [employer] Employer: [employer] Employer: [employer] Tobacco Use Smoking status: Former Current packs/day: [...] and rides a bike LMP:regular BSE:+ control:- SHOALWATER:- dentures:- last eye exam:2yr ago wears glasses [...] on file Housing Stability: Not on file Past Surgical History: Procedure Laterality Date , INDUCED BY D&C ALLOGRAFT, MORSELIZED, FOR SPINE SURGERY N/A 05/16/2023 ALLOGRAFT FOR SPINE SURGERY MORSELIZED performed by Darrell West MD at OR [facility] ANESTHESIA FOR CERVICAL REPAIR 02/2004 cerclage ANESTHESIA FOR CERVICAL REPAIR Repeat 03/2004 cerclage same ANESTHESIA FOR CERVICAL REPAIR 01/13/05 cerclage AUTOGRAFT, SPINE SURG, MORSELIZED N/A 05/16/2023 OBTAIN AUTOGRAFT FOR SPINE SURGERY MORSELIZED SEPARATE INCISION performed by Darrell West MD at OR [facility] BONE MARROW ASPIRATION BONE GRAFTING SPINE SURGERY ONLY N/A 05/16/2023 BONE MARROW ASPIRATION FOR SPINE BONE GRAFTING performed by Darrell West MD at OR [facility] CARDIAC CATH SCANNED RESULT 2010, 55 % blockage, unknown vessel. no stent. COLONOSCOPY W/ BIOPSY (RECTUM) 02/07/2007 await pathology COLONOSCOPY, DIAGNOSTIC (RECTUM) 09/08/2013 COLONOSCOPY FLEXIBLE PROXIMAL DIAGNOSTIC performed by Jesus Robles MD at ENDOSCOPY [facility] COLONOSCOPY, DIAGNOSTIC (RECTUM) 09/26/2016 adenomatous polyp, diverticulosis, repeat 5 yrs/COLONOSCOPY FLEXIBLE PROXIMAL DIAGNOSTIC performed by Jesus Robles MD at ENDOSCOPY [facility] COLONOSCOPY, DIAGNOSTIC (RECTUM) 07/05/2022 hemorrnoids on perianal exam, diverticulosis in sigmoid & descending, 2- 3to7 mm in transverse / biopsies benign adenomatous polyps. / 7 years recall / COLONOSCOPY FLEXIBLE PROXIMAL DIAGNOSTIC performed by Jesus Robles MD at ENDOSCOPY [facility] DENTAL SURGERY PROCEDURE NEC wisdom teeth out EGD, W/ENDOSCOPIC US 11/25/2015 GB sludge, mild-mod inflammation/ESOPHAGOGASTRODUODENOSCOPY (EGD), FLEXIBLE, TRANSORAL, ENDOSCOPIC ULTRASOUND performed by Greg Grace MD at ENDOSCOPY [facility] INJECT DX/THER SUBSTANCE INTERLAMINAR LUMBAR/SACRAL W IMAGE GUIDE N/A 04/20/2022 INJECTION SPINE LUMBAR OR SACRAL performed by Nimisha Wynn MD at OR [facility] INSERT BIOMECH DEVICE INTERVERTEBRAL DISC SPACE W/ARTHRODESIS N/A 05/16/2023 INSERTION INTERBODY BIOMECHANICAL DEVICE ANTERIOR W/INTERBODY ARTHRODESIS performed by Darrell West MD at OR [facility] KNEE ARTHROSCOPY, DIAGNOSTIC right LAP;FULGURATION OVIDUCTS 05/2005 Tubal Ligation,Laparoscopic LAPAROSCOPY DIAGNOSTIC //93 Laparoscopy times 3 LAPAROSCOPY; CHOLECYSTECTOMY LUMBAR / SACRAL EPIDURAL, SINGLE LEVEL 01/22/2017 INJECTION TRANSFORAMINAL EPIDURAL LUMBAR OR SACRAL performed by Joshua Claudio DO at OR [facility] PROCEDURE - GENERAL Left 06/08/2022 incision and dranage rectal abscess on left REMOVE LUMBAR SPINE LAMINA, 1 SEG N/A 05/16/2023 LAMINECTOMY FACETECTOMY AND FORAMINOTOMY LUMBAR performed by Darrell West MD at OR [facility] REMOVE PILONIDAL CYST, SIMPLE 1990 SMALL BOWEL ENDOSCOPY W/BX 02/12/2007 pathology normal SPINAL FUSION, LUMBAR, COMBINED N/A 05/16/2023 ARTHRODESIS SPINE POSTERIOR OR POSTERIOR LATERAL WITH LAMINECTOMY LUMBAR, COMBINED performed by Darrell West MD at OR [facility] SPINE FIXATION, POSTERIOR, ([place]) N/A 05/16/2023 POSTERIOR SPINE INSTRUMENTATION NON SEGMENTAL performed by Darrell West MD at OR [facility] TOTAL HYSTERECTOMY 05/17/2018 Physical Exam There were no vitals filed for this visit. Estimated body mass index is 28.27 kg/m as calculated from the following: Height as of 05/16/23: 1.778 m (5' 10"). Weight as of 08/16/23: 89.4 kg (197 lb). General: generally well-nourished and in no acute distress HEENT: normocephalic, atraumatic, sclera anicteric. Psych: mood and affect normal , cooperative Card: Peripheral pulses: normal in affected extremity (s) Resp: equal chest rise, non-tachypneic, non-labored breathing Skin: no rash, normal Neuro: Coordination: normal; Sensation: normal on affected extremity (s) MSK: Hand Exam, Bilateral Inspection: moderate swelling throughout the palm. Left middle finger in slight flexion Palpation: Tenderness to palpation along the A1 paris left 3rd digit. No palpable nodules but somethickening of the palm noted, difficult to assess secondary to swelling Crepitance: no Mass: no Range of Motion: Left middle finger range of motion limited in flexion and extension at the PIP joint with pain, no triggering noted. Strength: Lead Person - 5/5 Finger spread - 5/5 Flex - 5/5 Ext - 5/5 Special tests: Digits: Boutonniere deformity - no Paradis-neck deformity - no Mallet finger - no Radiology (I have personally reviewed the following films): x-rays of the left hand were obtained from [facility] and reviewed with patient. Those x-rays show left middle finger PIPjoint flexion. No acute fracture Assessment and Plan: Trigger middle finger of left hand (Primary) - SPORTS MEDICINE REFERRAL OP Pain of finger of left hand Suspect trigger finger vs dupuytren's contracture. Recommend trigger finger splint and Voltaren gel Encouraged ice and elevation to reduce swelling Follow Up: Return for Trigger finger first available with Dolly Kunz or Rupinder . | For: Trigger finger first available with Dolly Kunz or Rupinder Flynn PA-C Orthopaedics [address] [place] [address] documented in this encounter Nursing Notes * Inga Williamson LPN - 12/11/2023 10:10 AM EDT Presents to ortho UC for left middle trigger finger. Was seen at [facility] ,placed in volar splint. states she her finger contracted down in flexion , could not straighten left middle finger. Statesher hand was numbed and the manipulated left middle finger into extension. 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 Inga leonard LPN documented in this encounter Plan of Treatment Upcoming Encounters Date Type Department Care Team (Late st Contact Info) Description 12/26/2023 8:00 AM EDT Office Visit Orthopaedics [facility] [address] [place] [address] Kermit Alberto MD [address] [place] [address] 01/02/2024 8:00 AM EDT Office Visit Pharmacy, [facility] [address] [facility] [place] [address] Pharmacist1, [facility] [address] [facility] [place] [address] 04/09/2024 8:50 AM EDT Office Visit [facility] [address] [place] [id number] Noelle Rob DO [address] [place] [address] Scheduled Procedures Name Priority Associated Diagnoses Date/Ti me COLONOSCOPY FLEXIBLE PROXIMAL DIAGNOSTIC Recall History of colon polyps Scheduled Referrals Name Type Priority Associated Diagnoses Orde r Schedule SPORTS MEDICINE REFERRAL OP Referral Within 30 days (routine) Trigger middle finger of left hand Ordered: 12/12/2023 Health Maintenance Due Date Last Done Comments [...] Depression Screening 08/16/2024 08/16/2023 GFR 08/16/2024 08/16/2023, 09/0 04/2023, 05/17/2023, Additional history exists TSH 08/16/2024 [...] this encounter Medical Devices Implanted Type Area Infant Room Teacher Device Identifier Shelf Expiration Date Model / Serial / Lot Catalyft Pl Expandable Interbody System Implanted:Qty : 1 on 05/16/2023 by Darrell West MD at OR [facility] Cage N/A: Spine Lumbar 04/28/2030 [id number] / / [id number] Screw Bone Ti Set Solera 4.75m - [id number] Implanted:Qty : 4 on 05/16/2023 by Darrell West MD at OR [facility] Screw N/A: Spine Lumbar [employer] [id number] / / Dbx 5cc [id number] - [id number] - [id number] Implanted:Qty : 1 on 05/16/2023 by Darrell West MD at OR [facility] Tissue - Human N/A: Spine Lumbar MUSCULOSKELETAL TRANSPLANT FND [id number] 01/22/2025 [id number] / [id number] / LOT NA Screws Implanted:Qty : 2 on 05/16/2023 by Darrell West MD at OR [facility] N/A: Spine Lumbar [employer] [id number] / / Screws Implanted:Qty : 2 on 05/16/2023 by Darrell West MD at OR [facility] N/A: Spine Lumbar Medtronic [id number] / / 10cc Mastergraft Biologic Matrix Ext Block Implanted:Qty : 1 on 05/16/2023 by Darrell West MD at OR [facility] N/A: Spine Lumbar Medtronic Sofamor Danek [id number] 01/07/2026 [id number] / [id number] / [id number] Graft Bone Infuse Kit Xsmall - [id number] - [id number] Implanted:Qty : 1 on 05/16/2023 by Darrell West MD at OR [facility] N/A: Spine Lumbar [employer]TRON[employer] : NEUROLOGIC PAIN [id number] 09/09/2024 [id number] / [id number] / [id number] Corona Cameron 4.75mm Pbent 35mm - [id number] Implanted:Qty : 1 on 05/16/2023 by Darrell West MD at OR [facility] N/A: Spine Lumbar [employer]TR[employer] : NEUROLOGIC PAIN [id number] / / Rods Implanted:Qty : 1 on 05/16/2023 by Darrell West MD at OR [facility] N/A: Spine Lumbar [id number] / / documented as of this encounter Visit Diagnoses Diagnosis Trigger middle finger of left hand- Primary Trigger finger (acquired) Pain of finger of left hand Pain in limb documented in this encounter Advance Directives Documents on File Type Date Recorded Patient Medication Nurse Expl anation Power of Security Incident Handler 02/21/2005 Latest Code Status on File Code [...] 3:32 PM 02/02/2005 3:32 PM Care Teams Sole Buffer Relationship Specialty Start Date End Date Noelle Rob DO [address] [place] [address] PCP - General Family Medicine 02/26/19 documented as of this encounter
--- OUTSIDE RECORDS SUMMARY | 2024-01-09 20:57 | External Medical Summary | Summary of Care ---
Author Name Unknown Organization [facility] Address [address] [place] [address] Phone [phone] Care Team Providers Care Senior Energy Market Coordinator Name Role Phone Noelle Rob DO Primary Care Provider [phone] Reason for Visit * Reason Onset Date Comments Advice 12/10/2023 Encounter Details Date Type Department Care Team (Late st Contact Info) Description 12/10/2023 Telephone [facility] [address] [place] [address] Neolle Rob DO [address] [place] [address] Advice Allergies Active Allergy Reactions Criticality Noted Date [...] A1c goal of less than 7.0% ([facility]) Use to test blood glucose [...] :DM type 1, not at goal ([facility]) USE UP TO 100 UNITS DAILY WITH INSULIN PUMP 90 mL 2 08/30/2023 Active Trulicity 4.5 MG/0.5ML Subcutaneous Solution Pen-injector (Dulaglutide)Indicat ions:Type 2 diabetes mellitus with hemoglobin A1c goal of less than 7.0% ([facility]) Inject 4.5 mg under the skin once [...] (Moderna) 07/25/2021 Hepatitis B, 0-19 yrs 05/06/1992,01/02/1992,10/11 PPD 11/30/2003,06/16/1999 Pneumococcal Polysaccharide PPV23 (Pneumovax) 01/28/2007 Seasonal Influenza, [...] No 05/16/2023 documented as of this encounter Miscellaneous Notes * Telephone Encounter - Gabrielle Garcia LPN - 12/12/2023 3:26 PM EDT Called and spoke with patient and she stated she went to [facility] ED and has they get it unlocked and then was seen by Ortho the next day. Patient states she goes back to ortho on the to discuss possible injections or the next options for her. * Telephone Encounter - Noelle Rob DO - 12/12/2023 8:54 AM EDT She can go to ortho walk in * Telephone Encounter - Gabrielle Garcia LPN - 12/10/2023 6:22 PM EDT Ok for patient to wait and schedule appointment here in the office? * Telephone Encounter - Flora Mcintosh LPN - 12/10/2023 1:26 PM EDT I reached out to patient for a care gaps follow up. Patient said she was going to call your office.She has a trigger finger. Left middle. When it locks down she can usually get it unlocked. It has been locked down this morning and it is painful when she tries to release it. She is asking if she should go to urgent care? Please advise. documented in this encounter Plan of Treatment Upcoming Encounters Date Type Department Care Team (Late st Contact Info) Description 12/26/2023 8:00 AM EDT Office Visit Orthopaedics [facility] [address] [place] [address] Kermit Alberto MD [address] [place] [address] 01/02/2024 8:00 AM EDT Office Visit Pharmacy, [facility] [address] [facility] [place] [address] Pharmacist1, [facility] [address] [facility] [place] [address] 04/09/2024 8:50 AM EDT Office Visit [facility] [address] [address] Noelle Rob, [address] [place] [facility] [place] [address] Scheduled Procedures Name Priority Associated Diagnoses Date/Ti [...] Depression Screening 08/16/2024 08/16/2023 GFR 08/16/2024 08/16/2023, 04/2023, 05/17/2023, Additional history [...] this encounter Medical Devices Implanted Type Area Diesel Service Apprentice Device Identifier Shelf Expiration Date Model / Serial / Lot Catalyft Pl Expandable Interbody System Implanted:Qty : 1 on 05/16/2023 by Darrell West MD at OR [facility] Cage N/A: Spine Lumbar 04/28/2030 [id number] / / [id number] Screw Bone Ti Set Solera 4.75m - [id number] Implanted:Qty : 4 on 05/16/2023 by Darrell West MD at OR [facility] Screw N/A: Spine Lumbar [employer] [id number] / / Dbx 5cc [id number] - [id number] - [id number] Implanted:Qty : 1 on 05/16/2023 by Darrell West MD at OR [facility] Tissue - Human N/A: Spine Lumbar MUSCULOSKELETAL TRANSPLANT FND [id number] 01/22/2025 [id number] / [id number] / LOT NA Screws Implanted:Qty : 2 on 05/16/2023 by Darrell West MD at OR [facility] N/A: Spine Lumbar [employer] [id number] / / Screws Implanted:Qty : 2 on 05/16/2023 by Darrell West MD at OR [facility] N/A: Spine Lumbar Medtronic [id number] / / 10cc Mastergraft Biologic Matrix Ext Block Implanted:Qty : 1 on 05/16/2023 by Darrell West MD at OR [facility] N/A: Spine Lumbar Medtronic Sofamor Alejandroek [id number] 01/07/2026 [id number] / [id number] / [id number] Graft Bone Infuse Kit Xsmall - [id number] - [id number] Implanted:Qty : 1 on 05/16/2023 by Darrell West MD at OR [facility] N/A: Spine Lumbar [employer] : NEUROLOGIC PAIN [id number] 09/09/2024 [id number] / [id number] / [id number] Corona Benson 4.75mm Pbent 35mm - [id number] Implanted:Qty : 1 on 05/16/2023 by Darrell West MD at OR [facility] N/A: Spine Lumbar [employer] : NEUROLOGIC PAIN [id number] / / Rods Implanted:Qty : 1 on 05/16/2023 by Darrell West MD at OR [facility] N/A: Spine Lumbar [id number] / / documented as of this encounter Advance Directives Documents on File Type Date Recorded Patient Advertising Analyst Expl anation Power of Tax Specialist 02/21/2005 Latest Code Status on File [...] 3:32 PM 02/02/2005 3:32 PM Care Teams Senior Energy Market Coordinator Relationship Specialty Start Date End Date Noelle Rob DO [address] [place] [address] PCP - General Family Medicine 02/26/19 documented as of this encounter
--- OUTSIDE RECORDS SUMMARY | 2024-01-09 20:57 | External Medical Summary | Summary of Care ---
Author Name Unknown Organization [facility] Address [address] [place] [address] Phone [phone] Care Team Providers Care Ring Stamper Name Role Phone Noelle Rob DO Primary Care Provider [phone] Reason for Visit * Reason Onset Date Comments Advice 12/10/2023 Encounter Details Date Type Department Care Team (Late st Contact Info) Description 12/10/2023 Telephone [facility] [address] [place] [address] Noelle Rob DO [address] [place] [address] Advice Allergies Active Allergy Reactions [...] hemoglobin A1c goal of less than 7.0% ([facility]) Use to test blood glucose 4 [...] (NovoLOG)Indications :DM type 1, not at goal ([facility]) USE UP TO 100 UNITS DAILY [...] patient and she stated she went to [facility] ED and has they get it unlocked [...] 12/26/2023 8:00 AM EDT Office Visit Orthopaedics [facility] [address] [address] Kermit Alberto MD [address] [address] 01/02/2024 8:00 AM EDT Office Visit Pharmacy, [facility] [address] [facility] [place] [address] Pharmacist1, [facility] [address] [facility] [place] [address] 04/09/2024 8:50 AM EDT Office Visit [facility] [address] [facility] [address] Noelle Rob, [address] [facility] [place] [address] Scheduled Procedures Name Priority Associated Diagnoses Date/Ti [...] this encounter Medical Devices Implanted Type Area Finance Attorney Device Identifier Shelf Expiration Date Model / Serial / Lot Catalyft Pl Expandable Interbody System Implanted:Qty : 1 on 05/16/2023 by Darrell West MD at OR [facility] Cage N/A: Spine Lumbar 04/28/2030 [id number] / / [id number] Screw Bone Ti Set Solera 4.75m - [id number] Implanted:Qty : 4 on 05/16/2023 by Darrell West MD at OR [facility] Screw N/A: Spine Lumbar [employer] [id number] / / Dbx 5cc [id number] - [id number] - [id number] Implanted:Qty : 1 on 05/16/2023 by Darrell West MD at OR [facility] Tissue - Human N/A: Spine Lumbar MUSCULOSKELETAL TRANSPLANT FND [id number] 01/22/2025 [id number] / [id number] / LOT NA Screws Implanted:Qty : 2 on 05/16/2023 by Darrell West MD at OR [facility] N/A: Spine Lumbar [employer] [id number] / / Screws Implanted:Qty : 2 on 05/16/2023 by Darrell West MD at OR [facility] N/A: Spine Lumbar Medtronic [id number] / / 10cc Mastergraft Biologic Matrix Ext Block Implanted:Qty : 1 on 05/16/2023 by Darrell West MD at OR [facility] N/A: Spine Lumbar Medtronic Sofamor Alejandroek [id number] 01/07/2026 [id number] / [id number] / [id number] Graft Bone Infuse Kit Xsmall - [id number] - [id number] Implanted:Qty : 1 on 05/16/2023 by Darrell West MD at OR [facility] N/A: Spine Lumbar MEDTRONIC : NEUROLOGIC PAIN [id number] 09/09/2024 [id number] / [id number] / [id number] Corona [place] 4.75mm Pbent 35mm - [id number] Implanted:Qty : 1 on 05/16/2023 by Darrell West MD at OR [facility] N/A: Spine Lumbar MEDTRONIC : NEUROLOGIC PAIN [id number] / / Rods Implanted:Qty : 1 on 05/16/2023 by Darrell West MD at OR [facility] N/A: Spine Lumbar [id number] / / documented as of this encounter Advance Directives Documents on File Type Date Recorded Patient Elementary Reading Specialist Expl anation Power of Cistern Room Working Supervisor 02/21/2005 Latest Code Status on File Code [...] 3:32 PM 02/02/2005 3:32 PM Care Teams Ring Stamper Relationship Specialty Start Date End Date Noelle Rob DO [address] [place] [address] PCP - General Family Medicine 02/26/19 documented as of this encounter
--- OUTSIDE RECORDS SUMMARY | 2024-01-09 20:57 | External Medical Summary | Summary of Care ---
Author Name Unknown Organization [facility] Address [address] [place] [address] Phone [phone] Care Team Providers Care Supervisor Prop Making Name Role Phone Noelle Rob DO Primary Care Provider [phone] Reason for Visit * Reason Onset Date Comments Health Maintenance 12/10/2023 Encounter Details Date Type Department Care Team (Late st Contact Info) Description 12/10/2023 Telephone [facility] [address] [place] [address] Noelle Rob DO [address] [place] [address] Health Maintenance Allergies Active Allergy Reactions Criticality Noted Date Comments Adhesive Tape 11/29/2004 gets irritated skin from bandaids Benzalkonium Chloride 05/16/2023 Irritates skin Metformin 12/14/2022 Not feeling well Rosuvastatin Other (Please comment) High 02/07/2023 documented as of this encounter (statuses as of 12/10/2023) Medications Medication Sig Dispensed Refills Start Date [...] (NovoLOG)Indications :DM type 1, not at goal (HCC) USE UP TO 100 UNITS DAILY WITH [...] as of this encounter (statuses as of 12/10/2023) Active Problems Problem Noted Date Diagnosed Date [...] as of this encounter (statuses as of 12/10/2023) Resolved Problems Problem Noted Date Diagnosed Date [...] as of this encounter (statuses as of 12/10/2023) Immunizations Name Administration Dates Next Due COVID-19 [...] encounter Miscellaneous Notes * Telephone Encounter - Flora McintoshBREANNE - 12/10/2023 1:16 PM EDT Care Gaps Comprehensive Care Outreach Last Office/Telemedicine Visit: 08/16/2023 (in office), 07/14/2021 (telemedicine) Next Office Visit: Visit date not found Hemoglobin AIC Results: Lab Results Component Value Date/Time HEMOGLOBIN A1C - [facility] 8.3 (H) 08/16/2023 09:36 AM HEMOGLOBIN A1C - [facility] 8.0 (H) 05/07/2023 01:56 PM HEMOGLOBIN A1C - [facility] 9.2 (H) 03/02/2023 08:28 AM HEMOGLOBIN A1C - [facility] 9.5 (H) 05/16/2019 10:38 AM HEMOGLOBIN A1C - [facility] 9.0 (H) 03/01/2018 02:32 PM HEMOGLOBIN A1C - [facility] 9.7 (H) 10/25/2017 11:13 AM HEMOGLOBIN A1C POCT - [facility] 8.0 (H) 04/13/2023 07:40 AM HEMOGLOBIN A1C POCT - [facility] 9.4 (H) 03/02/2023 07:37 AM BP Readings from Last 1 Encounters: 08/16/23 128/64 Reviewed Health Maintenance below: Health Maintenance Topic Date Due Hepatitis B (3 of 3 - 19+ 3-dose series) 07/01/1992 Pneumococcal Vaccine: Pediatrics (0 to 5 Years) and At-Risk Patients (6 to 64 Years) (2 of 2 - PCV)06/30/2017 Diabetic Eye Exam 04/11/2020 Zoster Vaccines (1 of 2) Never done Albumin/Creatinine Ratio 10/26/2022 Diabetic Foot Exam 12/27/2022 COVID-19 Vaccine (2 - 2022-24 season) 2023 DTaP,Tdap,and Td Vaccines (2 - Td or Tdap) 08/20/2023 HbA1c 02/15/2024 Eye mary hannah requested Urine Lab ordered will walk in February scheduled Care Gap Outreach Action Taken: Spoke to patient documented in this encounter Plan of Treatment Upcoming Encounters Date Type Department Care Team (Late st Contact Info) Description 01/02/2024 8:00 AM EDT Office Visit Pharmacy, [facility] [address] [place] [address] Pharmacist1, [facility] [address] [facility] [place] [address] 04/09/2024 8:50 AM EDT Office Visit [facility] [address] [place] [address] Noelle Rob DO [address] [place] [address] Scheduled Orders Name Type Priority Associated Diagnoses Orde r Schedule HEMOGLOBIN A1C Lab Routine Type 2 diabetes mellitus with hemoglobin A1c goal of less than 7.0% (HCC) Expected: 01/09/2024, Expires: 12/09/2024 ALBUMIN / CREATININE RATIO, URINE Lab Routine Screening for nephropathy Expected: 01/09/2024, Expires: 12/09/2024 Scheduled Procedures Name Priority Associated Diagnoses Date/Ti [...] this encounter Medical Devices Implanted Type Area Remediation Bioanalytics Consultant Device Identifier Shelf Expiration Date Model / Serial / Lot Catalyft Pl Expandable Interbody System Implanted:Qty : 1 on 05/16/2023 by Darrell West MD at OR [facility] Cage N/A: Spine Lumbar 04/28/2030 [id number] / / [id number] Screw Bone Ti Set Solera 4.75m - [id number] Implanted:Qty : 4 on 05/16/2023 by Darrell West MD at OR [facility] Screw N/A: Spine Lumbar [employer] [id number] / / Dbx [facility] [id number] - [id number] - [id number] Implanted:Qty : 1 on 05/16/2023 by Darrell West MD at OR [facility] Tissue - Human N/A: Spine Lumbar MUSCULOSKELETAL TRANSPLANT FND [id number] 01/22/2025 [id number] / [id number] / LOT NA Screws Implanted:Qty : 2 on 05/16/2023 by Darrell West MD at OR [facility] N/A: Spine Lumbar [employer] [id number] / / Screws Implanted:Qty : 2 on 05/16/2023 by Darrell West MD at OR [facility] N/A: Spine Lumbar Medtronic [id number] / / 10cc Mastergraft Biologic Matrix Ext Block Implanted:Qty : 1 on 05/16/2023 by Darrell West MD at OR [facility] N/A: Spine Lumbar Medtronic Sofamor Alejandroek [id number] 01/07/2026 [id number] / [id number] / [id number] Graft Bone Infuse Kit Xsmall - [id number] - [id number] Implanted:Qty : 1 on 05/16/2023 by Darrell West MD at OR [facility] N/A: Spine Lumbar MEDTRON[employer] : NEUROLOGIC PAIN [id number] 09/09/2024 [id number] / [id number] / [id number] Corona [place] 4.75mm Pbent 35mm - [id number] Implanted:Qty : 1 on 05/16/2023 by Darrell West MD at OR [facility] N/A: Spine Lumbar [employer] : NEUROLOGIC PAIN [id number] / / Rods Implanted:Qty : 1 on 05/16/2023 by Darrell West MD at OR [facility] N/A: Spine Lumbar [id number] / / documented as of this encounter Visit Diagnoses Diagnosis Diabetes mellitus screening- Primary Screening for diabetes mellitus Screening for nephropathy Type 2 diabetes mellitus with hemoglobin A1c goal of less than 7.0% ([facility]) documented in this encounter Advance Directives Documents on File Type Date Recorded Patient Service Consultant Expl anation Power of Cleaning Maid 02/21/2005 Latest Code Status on File Code [...] 3:32 PM 02/02/2005 3:32 PM Care Teams Supervisor Prop Making Relationship Specialty Start Date End Date Noelle Rob DO [address] [address] PCP - General Family Medicine 02/26/19 documented as of this encounter
--- OUTSIDE RECORDS SUMMARY | 2024-01-09 20:57 | External Medical Summary | Summary of Care ---
Author Name Unknown Organization [facility] Address [address] [place] [address] Phone [phone] Care Team Providers Care Project Engineer Chemicals Name Role Phone Noelle Rob DO Primary Care Provider [phone] Encounter Details Date Type Department Care Team (Late st Contact Info) Description 12/10/2023 Orders Only Merged With [facility] [address] [place] [address] Noelle Rob DO [address] [place] [address] Allergies Active Allergy Reactions Criticality Noted Date [...] hemoglobin A1c goal of less than 7.0% ([facility]) Use to test blood glucose [...] (NovoLOG)Indications :DM type 1, not at goal ([facility]) USE UP TO 100 UNITS [...] 12/26/2023 8:00 AM EDT Office Visit Orthopaedics [facility] [address] [address] Kermit Alberto MD [address] [address] 01/02/2024 8:00 AM EDT Office Visit Pharmacy, [facility] [address] [facility] [place] [address] Pharmacist1, [facility] [address] [place] [address] 04/09/2024 8:50 AM EDT [facility] [address] [facility] [id number] Noelle Rob DO [address] [place] [address] Scheduled Procedures Name Priority Associated Diagnoses Date/Ti [...] this encounter Medical Devices Implanted Type Area Freight Solicitor Device Identifier Shelf Expiration Date Model / Serial / Lot Catalyft Pl Expandable Interbody System Implanted:Qty : 1 on 05/16/2023 by Darrell West MD at OR [facility] Cage N/A: Spine Lumbar 04/28/2030 [id number] / / [id number] Screw Bone Ti Set Solera 4.75m - [id number] Implanted:Qty : 4 on 05/16/2023 by Darrell West MD at OR [facility] Screw N/A: Spine Lumbar [employer] [id number] / / Dbx c [id number] - [id number] - [id number] Implanted:Qty : 1 on 05/16/2023 by Darrell West MD at OR [facility] Tissue - Human N/A: Spine Lumbar MUSCULOSKELETAL TRANSPLANT FND [id number] 01/22/2025 [id number] / [id number] / LOT NA Screws Implanted:Qty : 2 on 05/16/2023 by Darrell West MD at OR [facility] N/A: Spine Lumbar [employer] [id number] / / Screws Implanted:Qty : 2 on 05/16/2023 by Darrell West MD at OR [facility] N/A: Spine Lumbar Medtronic [id number] / / 10cc Mastergraft Biologic Matrix Ext Block Implanted:Qty : 1 on 05/16/2023 by Darrell West MD at OR [facility] N/A: Spine Lumbar Medtronic Sofamor Danek [id number] 01/07/2026 [id number] / [id number] / [id number] Graft Bone Infuse Kit Xsmall - [id number] - [id number] Implanted:Qty : 1 on 05/16/2023 by Darrell West MD at OR [facility] N/A: Spine Lumbar MEDTRONIC : NEUROLOGIC PAIN [id number] 09/09/2024 [id number] / [id number] / [id number] Corona [place] 4.75mm Pbent 35mm - [id number] Implanted:Qty : 1 on 05/16/2023 by Darrell West MD at OR [facility] N/A: Spine Lumbar MEDTRON[employer] : NEUROLOGIC PAIN [id number] / / Rods Implanted:Qty : 1 on 05/16/2023 by Darrell West MD at OR [facility] N/A: Spine Lumbar [id number] / / documented as of this encounter [...] interpreted or resulted by a [facility] radiologist. Noelle Rob DO RADIOLOGY (RAD GENER AL) documented in this encounter Advance Directives Documents on File Type Date Recorded Patient Stock Replenisher Expl anation Power of Teacher Private 02/21/2005 Latest Code Status on File Code [...] 3:32 PM 02/02/2005 3:32 PM Care Teams Project Engineer Chemicals Relationship Specialty Start Date End Date Noelle Rob DO [address] [facility] [place] [address] PCP - General Family Medicine 02/26/19 documented as of this encounter
--- OUTSIDE RECORDS SUMMARY | 2024-01-09 20:57 | External Medical Summary | Summary of Care ---
Author Name Unknown Organization [facility] Address [address] [place] [address] Phone [phone] Care Team Providers Care Spool Salvager Name Role Phone Noelle Rob DO Primary Care Provider [phone] Reason for Visit * Reason Onset Date Comments Advice 12/10/2023 Encounter Details Date Type Department Care Team (Late st Contact Info) Description 12/10/2023 Telephone [facility] [address] [place] [address] Noelle Rob DO [address] [place] [address] Advice Allergies Active Allergy Reactions [...] goal of less than 7.0% ([facility]) Use to test blood glucose 4 times [...] type 1, not at goal ([facility]) USE UP TO 100 UNITS DAILY WITH [...] encounter Miscellaneous Notes * Telephone Encounter - Noelle Rob DO [...] 12/26/2023 8:00 AM EDT Office Visit Orthopaedics [facility] [address] [address] Kermit Alberto MD [address] [address] 01/02/2024 8:00 AM EDT Office Visit Pharmacy, [facility] [address] [place] [address] Pharmacist1, [facility] [address] [place] [address] 04/09/2024 8:50 AM EDT Office Visit [facility] [address] [facility] [id number] Noelle Rob DO [address] [facility] [place] [address] Scheduled Procedures Name Priority Associated Diagnoses Date/Ti [...] this encounter Medical Devices Implanted Type Area Dog Catcher Device Identifier Shelf Expiration Date Model / Serial / Lot Catalyft Pl Expandable Interbody System Implanted:Qty : 1 on 05/16/2023 by Darrell West MD at OR [facility] Cage N/A: Spine Lumbar 04/28/2030 [id number] / / [id number] Screw Bone Ti Set Solera 4.75m - [id number] Implanted:Qty : 4 on 05/16/2023 by Darrell West MD at OR [facility] Screw N/A: Spine Lumbar [employer] [id number] / / Dbx 5cc [id number] - [id number] - [id number] Implanted:Qty : 1 on 05/16/2023 by Darrell West MD at OR [facility] Tissue - Human N/A: Spine Lumbar MUSCULOSKELETAL TRANSPLANT FND [id number] 01/22/2025 [id number] / [id number] / LOT NA Screws Implanted:Qty : 2 on 05/16/2023 by Darrell West MD at OR [facility] N/A: Spine Lumbar [employer] INC [id number] / / Screws Implanted:Qty : 2 on 05/16/2023 by Darrell West MD at OR [facility] N/A: Spine Lumbar Medtronic [id number] / / 10cc Mastergraft Biologic Matrix Ext Block Implanted:Qty : 1 on 05/16/2023 by Darrell West MD at OR [facility] N/A: Spine Lumbar Medtronic Sofamor Danek [id number] 01/07/2026 [id number] / [id number] / [id number] Graft Bone Infuse Kit Xsmall - [id number] - [id number] Implanted:Qty : 1 on 05/16/2023 by Darrell West MD at OR [facility] N/A: Spine Lumbar MEDTRONIC : NEUROLOGIC PAIN [id number] 09/09/2024 [id number] / [id number] / [id number] Corona [place] 4.75mm Pbent 35mm - [id number] Implanted:Qty : 1 on 05/16/2023 by Darrell West MD at OR [facility] N/A: Spine Lumbar MEDTRONIC : NEUROLOGIC PAIN [id number] / / Rods Implanted:Qty : 1 on 05/16/2023 by Darrell West MD at OR [facility] N/A: Spine Lumbar [id number] / / documented as of this encounter Advance Directives Documents on File Type Date Recorded Patient Funeral Service Manager Expl anation Power of Last Puller 02/21/2005 Latest Code Status on File Code [...] 3:32 PM 02/02/2005 3:32 PM Care Teams Spool Salvager Relationship Specialty Start Date End Date Noelle Rob DO [address] [place] [facility] [place] [address] PCP - General Family Medicine 02/26/19 documented as of this encounter
[2024-01-09] MEDS: HYDROmorphone INJ 0.5 MG/0.5 ML SYR IV PRN (21:50)
[2024-01-09] MEDS: DOCUSATE SODIUM 100 MG CAP PO SCH (21:50)
[2024-01-10 06:33] LABS: Basophils # (auto) 0.08 K/uL (0.00-0.20); Basophils % (auto) 0.9 %; Eosinophils # (auto) 0.45 K/uL (0.00-0.50); Eosinophils % (auto) 4.9 %; Hematocrit (blood only) 39.4 % (37.0-47.0); Hemoglobin 13.2 g/dl (12.0-16.0); Immature Granulocytes # (auto) 0.03 K/uL (0.01-0.20); Immature Granulocytes % (auto) 0.3 %; Lymphocytes # (auto) 2.16 K/uL (1.20-3.40); Lymphocytes % (auto) 23.6 %; Mean Corpuscular Hemoglobin 30.2 pg (25.0-34.0); Mean Corpuscular Hgb Conc 33.5 g/dL (32.0-36.0); Mean Corpuscular Volume 90.2 fL (80.0-100.0); Mean Platelet Volume 11.4 fL (9.4-12.4); Monocytes # (auto) 0.91 K/uL (0.11-0.59); Neutrophils # (auto) 5.51 K/uL (1.40-6.50); Neutrophils % (auto) 60.3 %; Platelet Count 185 K/uL (130-400); RDW Coefficient of Variation 12.6 % (11.5-14.5); RDW Standard Deviation 41.2 fL (36.4-46.3); Red Blood Count 4.37 M/uL (4.20-5.40); White Blood Count 9.14 K/ul (4.8-10.8)
[2024-01-10 06:54] LABS: ANTI-Xa, UFH(UnfractionatedHep 0.38 IU/ml (0.3-0.7)
[2024-01-10 07:06] LABS: BUN Creatinine Ratio 14.5 (10-20); Calcium 8.3 mg/dl (8.6-10.3); Creatinine Clr Calc Pharmacy 96.8 ml/min; Est GFR (African American) 94.6 ml/min; Est GFR (Non-African American) 81.6 ml/min; Magnesium 1.8 mg/dl (1.7-2.4); Potassium 4.2 mmol/L (3.5-5.1)
--- NOTE | 2024-01-10 16:52 | Hospitalist Progress Note ---
Date of Service January 10, 2024 Assessment & Plan (1) Acute left flank pain: Plan: 53-year-old female with past medical history significant for type 2 diabetes, hypothyroidism, hyperlipidemia, peripheral neuropathy, uncomplicated asthma, CAD, peripheral artery disease, CKD stage II, restless leg syndrome, carpal tunnel syndrome bilateral, degenerative disc disease, migraine without aura, sleepwalking and eating, tobacco use disorder, history of TIA and stroke, d epression, s/p lumbar fusion comes because of left flank pain radiating to the left upper quadrant abdominal region since yesterday. Acute left flank pain UTI --Urine culture grew E. coli Continue Rocephin Pain control Bowel regimen to prevent constipation Splenic infarct Left flank pain radiating to left upper quadrant region of abdomen CT scan shows splenic infarct. Seems splenic artery and vein are patent Patient history of blood clots in the past Patient states she has blood clots during her 4 times and last was in 1999 Continue IV heparin for now Heme oncology consult pending T2DM, uncontrolled HbA1c 9.6 Hold home medications continue insulin pump for now, had episode of hypoglycemia with bsg in 50s after breakfast if continues will need to remove pump in favor of lantus/novolog sliding scale pt refusing to speak to parent educator regarding pump management while in hospital Hypothyroidism Continue levothyroxine Hx of CAD On aspirin previously pt was on statin but discontinued has not followed up with [facility] cards since 2016 DVT prophylaxis IV heparin CODE STATUS Full code Disposition Expect to discharge home when stable Admission and Anticipated Discharge Date Admission Date: January 08, 2024 Subjective Patient is seen and examined at bedside Reports mild flank pain associated with nausea Denies any dysuria, hematuria, chest pain, dyspnea No other complaints Review of Systems Review of Systems: All systems reviewed & are unremarkable except as noted in Subjective Physical Exam Physical Exam: Physical Exam: Vitals signs as noted above General Appearance:Moderately built and nourished, no apparent distress Head: normocephalic, Atraumatic Eyes: normal inspection, EOMI Neck: supple, Trachea midline Respiratory/Chest: Normal breath sounds, CTA, No accessory muscle use Cardiovascular: S1, S2, No murmur Abdomen/GI:Soft, Mild Left flank tender, Bowel sounds present Extremities/Musculoskeletal:normal inspection, no edema Neurologic/Psych:AAOX3, grossly no focal neurological deficits Skin: normal color, warm Results & Data Results & Data Vital Signs (Past 12 Hours) Vital Signs Temp Pulse Resp BP Pulse Ox O2 Del Method 01/10/24 14:48 36.8 C 78 18 96 Room Air 01/10/24 07:31 36.7 C 80 18 124/70 96 Room Air Laboratory Results Short CBC 01/10/24 Range/Units 05:50 WBC 9.14 (4.8-10.8) K/ul Hgb 13.2 (12.0-16.0) g/dl Hct 39.4 (37.0-47.0) % Plt Count 185 (130-400) K/uL BMP 01/10/24 05:50 Sodium 135 L Potassium 4.2 Chloride 100 Carbon Dioxide 29 BUN 12 Creatinine 0.83 Glucose 257 H Calcium 8.3 L
[2024-01-11] MEDS: BACLOFEN 10 MG TAB PO PRN (04:21)
[2024-01-11 07:40] LABS: ANTI-Xa, UFH(UnfractionatedHep 0.38 IU/ml (0.3-0.7); Hematocrit (blood only) 40.2 % (37.0-47.0); Hemoglobin 13.5 g/dl (12.0-16.0); Mean Corpuscular Hemoglobin 30.4 pg (25.0-34.0); Mean Corpuscular Hgb Conc 33.6 g/dL (32.0-36.0); Mean Corpuscular Volume 90.5 fL (80.0-100.0); Mean Platelet Volume 11.1 fL (9.4-12.4); Platelet Count 188 K/uL (130-400); RDW Coefficient of Variation 12.6 % (11.5-14.5); RDW Standard Deviation 41.5 fL (36.4-46.3); Red Blood Count 4.44 M/uL (4.20-5.40); White Blood Count 10.14 K/ul (4.8-10.8)
[2024-01-11 08:03] LABS: BUN Creatinine Ratio 11.9 (10-20); Calcium 8.5 mg/dl (8.6-10.3); Creatinine Clr Calc Pharmacy 95.7 ml/min; Est GFR (African American) 93.3 ml/min; Est GFR (Non-African American) 80.5 ml/min; Magnesium 1.8 mg/dl (1.7-2.4)
[2024-01-11] MEDS: APIXABAN 5 MG TABLET PO SCH (09:53)
--- NOTE | 2024-01-11 13:04 | Hospitalist Progress Note ---
Date of Service January 11, 2024 Assessment & Plan (1) Acute left flank pain: Plan: 53-year-old female with past medical history significant for type 2 diabetes, hypothyroidism, hyperlipidemia, peripheral neuropathy, uncomplicated asthma, CAD, peripheral artery disease, CKD stage II, restless leg syndrome, carpal tunnel syndrome bilateral, degenerative disc disease, migraine without aura, sleepwalking and eating, tobacco use disorder, history of TIA and stroke, d epression, s/p lumbar fusion comes because of left flank pain radiating to the left upper quadrant abdominal region since yesterday. Acute left flank pain UTI --Urine culture grew E. coli Continue Rocephin # 3 Pain control Bowel regimen to prevent constipation Transition to p.o. antibiotics to complete the course Splenic infarct Left flank pain radiating to left upper quadrant region of abdomen CT scan shows splenic infarct. Seems splenic artery and vein are patent Patient history of blood clots in the past Patient states she has blood clots during her 4 times and last was in 1999 Continue IV heparin>> transition to Eliquis Appreciate Heme-oncology input Needs outpatient cardiac workup to rule out arrhythmias T2DM, uncontrolled HbA1c 9.6 Hold home medications continue insulin pump for now, had episode of hypoglycemia with bsg in 50s after breakfast if continues will need to remove pump in favor of lantus/novolog sliding scale pt refusing to speak to religious educator regarding pump management while in hospital Hypothyroidism Continue levothyroxine Hx of CAD On aspirin previously pt was on statin but discontinued has not followed up with [facility] cards since 2016 DVT prophylaxis Eliquis CODE STATUS Full code Disposition Home Admission and Anticipated Discharge Date Admission Date: January 08, 2024 Subjective Patient is seen and examined at bedside Flank pain much improved States feeling well Nausea resolved Eager to get discharged Denies any dysuria, hematuria, chest pain, dyspnea Review of Systems Review of Systems: All systems reviewed & are unremarkable except as noted in Subjective Physical Exam Physical Exam: Physical Exam: Vitals signs as noted above General Appearance:Moderately built and nourished, no apparent distress Head: normocephalic, Atraumatic Eyes: normal inspection, EOMI Neck: supple, Trachea midline Respiratory/Chest: Normal breath sounds, CTA, No accessory muscle use Cardiovascular: S1, S2, No murmur Abdomen/GI:Soft, non tender, Bowel sounds present Extremities/Musculoskeletal:normal inspection, no edema Neurologic/Psych:AAOX3, grossly no focal neurological deficits Skin: normal color, warm Results & Data Results & Data Vital Signs (Past 12 Hours) Vital Signs Temp Pulse Resp BP Pulse Ox O2 Del Method 01/11/24 07:07 36.5 C 76 14 123/73 97 Room Air Laboratory Results Short CBC 01/11/24 Range/Units 07:07 WBC 10.14 (4.8-10.8) K/ul Hgb 13.5 (12.0-16.0) g/dl Hct 40.2 (37.0-47.0) % Plt Count 188 (130-400) K/uL [facility] 01/11/24 07:07 Sodium 137 Potassium 4.0 Chloride 102 Carbon Dioxide 30 BUN 10 Creatinine 0.84 Glucose 227 H Calcium 8.5 L
--- NOTE | 2024-01-11 13:13 | Discharge Summary ---
Date of Service January 11, 2024 Admission HPI Per Admitting Provider 53-year-old female with past medical history significant for type 2 diabetes, hypothyroidism, hyperlipidemia, peripheral neuropathy, uncomplicated asthma, CAD, peripheral artery disease, CKD stage II, restless leg syndrome, carpal tunnel syndrome bilateral, degenerative disc disease, migraine without aura, sleepwalking and eating, tobacco use disorder, history of TIA and stroke, depression, s/p lumbar fusion comes because of left flank pain radiating to the left upper quadrant abdominal region since yesterday. Associate with nausea. Pain is severe. Any movement is causing pain to get worse. Denies shortness of breath or chest pain. No hematuria.No diarrhea or constipation. Has some headache. No runny nose or sore throat. No fevers. Appetite is okay. Hemodynamics are okay. Past med history. As mentioned above Past surgical history. induced by D&C. Bone marrow aspiration. Spine surgery. Cardiac cath. Colonoscopy with biopsy. Dental surgery. EGD with endoscopic ultrasound. Lumbosacral injection. Right knee arthroscopy. Laparoscopic tubal ligation. Diagnostic laparoscopy x 3. Laparoscopic cholecystectomy. Lumbar laminectomy. Removal of pilonidal cyst. Small bowel endoscopy with biopsy. Total hysterectomy. Social history. . Quit smoking 2013. Smoked 0.3 packs a day for 15 years. Alcohol rarely. No drug use. Family history. Maternal grandmother had cancer. Brother has diabetes. Diabetes in the family. Father had [place]. Mother had stroke. Paternal grandfather had lung cancer. Maternal grandfather had skin cancer. Maternal grandmother had stroke. Admission Exam Per Admitting Provider General- Not in distress Head- atraumatic Eyes- NIELS ENT- oropharynx clear Neck- supple, no JVD. Lungs- clear to auscultation no wheezing or crackles. Heart- regular rhythm; no murmur, no gallop. Abdomen- normal bowel sounds, soft, tenderness in LUQ region. Left CVA tenderness. Extremities- no pretibial edema, no erythema seen. Neuro- alert, oriented x 3; PERRL, no facial palsy; no dysarthria; moves extremities. Principal Diagnosis Urinary tract infection Splenic infarct Discharge Data Allergies Allergy/AdvReac Type Severity Reaction Status Date / Time adhesive Allergy Intermediate BLISTERS Verified 01/08/24 16:08 rosuvastatin AdvReac Intermediate ZOMBIE-LIKE Verified 01/08/24 16:08 FEELING Consultations 01/08/24 20:27 ED Decision to Admit Stat 01/09/24 08:00 Consult Hematology Routine Procedures Performed Laboratory Results WBC 10.14 K/ul (4.8-10.8) 01/11/24 07:07 RBC 4.44 M/uL (4.20-5.40) 01/11/24 07:07 Hgb 13.5 g/dl (12.0-16.0) 01/11/24 07:07 Hct 40.2 % (37.0-47.0) 01/11/24 07:07 MCV 90.5 fL (80.0-100.0) 01/11/24 07:07 MCH 30.4 pg (25.0-34.0) 01/11/24 07:07 MCHC 33.6 g/dL (32.0-36.0) 01/11/24 07:07 RDW Std Deviation 41.5 fL (36.4-46.3) 01/11/24 07:07 RDW Coeff of Brad 12.6 % (11.5-14.5) 01/11/24 07:07 Plt Count 188 K/uL (130-400) 01/11/24 07:07 MPV 11.1 fL (9.4-12.4) 01/11/24 07:07 Immature Gran % (Auto) 0.3 % 01/10/24 05:50 Neut % (Auto) 60.3 % 01/10/24 05:50 Lymph % (Auto) 23.6 % 01/10/24 05:50 [place] % (Auto) 10.0 % 01/10/24 05:50 Eos % (Auto) 4.9 % 01/10/24 05:50 Baso % (Auto) 0.9 % 01/10/24 05:50 Neut # (Auto) 5.51 K/uL (1.40-6.50) 01/10/24 05:50 Lymph # (Auto) 2.16 K/uL (1.20-3.40) 01/10/24 05:50 [place] # (Auto) 0.91 K/uL (0.11-0.59) H 01/10/24 05:50 Eos # (Auto) 0.45 K/uL (0.00-0.50) 01/10/24 05:50 Baso # (Auto) 0.08 K/uL (0.00-0.20) 01/10/24 05:50 Immature Gran # (Auto) 0.03 K/uL (0.01-0.20) 01/10/24 05:50 Heparin Anti-Xa, Unfract 0.38 IU/ml (0.3-0.7) 01/11/24 07:07 Sodium 137 mmol/L (136-145) 01/11/24 07:07 Potassium 4.0 mmol/L (3.5-5.1) 01/11/24 07:07 Chloride 102 mmol/L (98-107) 01/11/24 07:07 Carbon Dioxide 30 mmol/L (21-32) 01/11/24 07:07 Anion Gap 5 (3-11) 01/11/24 07:07 BUN 10 mg/dl (6-23) 01/11/24 07:07 Creatinine 0.84 mg/dl (0.6-1.2) 01/11/24 07:07 Est Cr Clr Drug Dosing 95.7 ml/min 01/11/24 07:07 Est GFR ( Amer) 93.3 ml/min 01/11/24 07:07 Est GFR (Non-Af Amer) 80.5 ml/min 01/11/24 07:07 BUN/Creatinine Ratio 11.9 (10-20) 01/11/24 07:07 Glucose 227 mg/dl (70-99(Fasting)) H 01/11/24 07:07 POC Glucose 155 mg/dl (70-99) H 01/11/24 11:36 Estimat Average Glucose 229 mg/dl 01/09/24 06:27 Hemoglobin A1c 9.6 % (4.5-5.6) H 01/09/24 06:27 Calcium 8.5 mg/dl (8.6-10.3) L 01/11/24 07:07 Magnesium 1.8 mg/dl (1.7-2.4) 01/11/24 07:07 Total Bilirubin 0.5 mg/dl (0.2-1.0) 01/08/24 14:52 AST 13 U/L (13-39) 01/08/24 14:52 ALT 13 U/L (7-52) 01/08/24 14:52 Alkaline Phosphatase 135 U/L (34-104) H 01/08/24 14:52 Total Protein 7.3 gm/dl (6.0-8.3) 01/08/24 14:52 Albumin 4.0 gm/dl (3.4-5.0) 01/08/24 14:52 Globulin 3.3 gm/dl (2.5-4.0) 01/08/24 14:52 Albumin/Globulin Ratio 1.2 (0.9-2) 01/08/24 14:52 Urine Color Yellow 01/08/24 14:44 Urine Appearance Cloudy (Clear) A 01/08/24 14:44 Urine pH 5.5 (4.5-7.5) 01/08/24 14:44 Ur Specific [place] 1.029 (1.000-1.030) 01/08/24 14:44 Urine Protein Negative (Negative) 01/08/24 14:44 Urine Glucose (UA) 3+ (Negative) H 01/08/24 14:44 Urine Ketones Trace (Negative) H 01/08/24 14:44 Urine Blood Negative (Negative) 01/08/24 14:44 Urine Nitrite Negative (Negative) 01/08/24 14:44 Urine Bilirubin Negative (Negative) 01/08/24 14:44 Urine Urobilinogen Negative (Negative) 01/08/24 14:44 Ur Leukocyte Esterase Negative (Negative) 01/08/24 14:44 Urine WBC (Auto) 21-50 /hpf (0-5) H 01/08/24 14:44 Urine RBC (Auto) 0-2 /hpf (0-2) 01/08/24 14:44 U Hyaline Cast (Auto) 0-2 /lpf (0-2) 01/08/24 14:44 U Epithel Cells (Auto) 6-10 /hpf (0-2) H 01/08/24 14:44 Urine Bacteria (Auto) 3+ (None Seen) H 01/08/24 14:44 Impressions Abdomen/Pelvis CT 01/08/24 15:[address] WITH IV CONTRAST CT DOSE: 1136.29 mGy.cm HISTORY: LEFT FLANK PAIN, URINARY SYMPTOMS TECHNIQUE: Multiaxial CT images of the abdomen and pelvis were performed following the use of intravenous contrast. A dose lowering technique was utilized adhering to the principles of ALARA. COMPARISON STUDY: Abdomen and pelvis CT 04/16/2023. FINDINGS: The lung bases are clear. No pneumoperitoneum. No pneumatosis. L5-S1 posterior decompression and fusion with pedicle screws and rods. The hardware appears intact. Prior cholecystectomy. This likely accounts for the mild central intrahepatic bile duct dilatation, unchanged. No hepatic masses. The main portal vein is patent. The adrenal glands and pancreas are unremarkable. The kidneys enhance normally. No hydronephrosis. Focal wedge-shaped hypodensity within the posterior spleen measuring approximately 3.7 cm. This is consistent with a splenic infarct. However, the splenic artery and splenic vein appear patent. Mild to moderate calcified plaque within the normal caliber abdominal aorta. No retroperitoneal or pelvic lymphadenopathy. Trace pelvic free fluid. Prior hysterectomy. Normal ovaries. Mild thickening of the vaginal wall. There is gas within the vaginal lumen. Multiple bowel loops are in close proximity to the vaginal cuff. However, no CT evidence for a fistula. Diffuse bladder wall thic kening. No bowel wall thickening or obstruction. Normal appendix. IMPRESSION: 1. Bladder wall thickening. This may represent a cystitis. Recommend correlation with urinalysis. 2. Normal kidneys. 3. Focal wedge-shaped hypodensity within the posterior spleen consistent with a splenic infarct. 4. No bowel wall thickening or obstruction. 5. Mild thickening of the vaginal wall. There is also gas within the vaginal lumen. Multiple bowel loops are in close proximity to the vaginal cuff. However, no CT evidence for a fistula. ACT 112: Negative or not required by law. Electronically signed by: Oliver Muro M.D. 01/08/2024 4:49 PM Ordered Studies 01/08/24 15:51 CT abd pelvis IV con only Stat Hospital Course (1) Acute left flank pain: 53-year-old female with past medical history significant for type 2 diabetes, hypothyroidism, hyperlipidemia, peripheral neuropathy, uncomplicated asthma, CAD, peripheral artery disease, CKD stage II, restless leg syndrome, carpal tunnel syndrome bilateral, degenerative disc disease, migraine without aura, sleepwalking and eating, tobacco use disorder, history of TIA and stroke, depression, s/p lumbar fusion comes because of left flank pain radiating to the left upper quadrant abdominal region since yesterday. Acute left flank pain UTI --Urine culture grew E. coli Continue Rocephin # 3 Pain control Bowel regimen to prevent constipation Transition to p.o. antibiotics to complete the course Splenic infarct Left flank pain radiating to left upper quadrant region of abdomen CT scan shows splenic infarct. Seems splenic artery and vein are patent Patient history of blood clots in the past Patient states she has blood clots during her 4 times and last was in 1999 Continue IV heparin>> transition to Eliquis Appreciate Heme-oncology input Needs outpatient cardiac workup to rule out arrhythmias T2DM, uncontrolled HbA1c 9.6 Hold home medications continue insulin pump for now, had episode of hypoglycemia with bsg in 50s after breakfast if continues will need to remove pump in favor of lantus/novolog sliding scale pt refusing to speak to patient educator regarding pump management while in hospital Hypothyroidism Continue levothyroxine Hx of CAD On aspirin previously pt was on statin but discontinued has not followed up with [facility] since 2016 DVT prophylaxis Eliquis CODE STATUS Full code Disposition Home Total Time Total Time Spent Total Time Spent (In Minutes): 58 minutes Discharge Plan Discharge Items Patient Disposition: Home - Self-Care Reason For Visit: UTI, SPLENIC INFARCT Discharge Diagnosis: Urinary tract infection Splenic infarct Activity: Per Instructions section Exercise/Sports: Gradually increase as tolerated Non-emergency contact: Primary Care Provider, Comb Capper and Oncologist Call non-emergency contact if: you have any medication questions, your symptoms worsen, your pain is concerning for you and you have a fever Follow-up/Referrals: Noelle Rob DO [Primary Care Provider] - (Date & Time 01/16/2024 9:10 AM Provider Noelle Rob DO Department [facility] ) Diet: Carb Consistent or DM2 Addtl Attending Provider Instructions: Follow-up with your primary care physician on 01/16/2024 9:10 AM Follow-up with your glass robot operator Dr. Yuri Barnes as recommended Follow-up with your phytochemistry professor for further cardiac workup to rule out arrhythmias (Zio patch) as recommended --Complete the antibiotic course cefdinir 300 mg 2 times a day for 2 more days as prescribed. (Start taking from 01/12/2024) -- Take apixaban (Eliquis) 10 mg 2 times a day for 1 week, then take 5 mg 2 times a day. Start taking from 01/11/2024 Seek immediate medical attention if your symptoms reoccur or worsen Please take all medications as instructed on discharge list below. Please call if you have any questions or problems. You can reach a [facility] hospitalist on duty at [facility] 24 hours a day by calling [phone] Pending Studies at Discharge: No Stand-Alone Forms: My [facility], Smoking Cessation Medications and DC Order Prescriptions: New Eliquis 5 mg tablet 5 mg PO BID Qty: 74 1RF Rx Instructions: Start taking apixaban 10 mg twice a day for 1 week, then take 5 mg twice a day cefdinir 300 mg capsule 300 mg PO BID Qty: 4 0RF Continued aspirin 81 mg Tablet,Delayed Release (Dr/Ec) 81 mg PO QAM Qty: 0 levothyroxine [Synthroid] 200 mcg Tablet 300 mcg PO QAM Qty: 0 lorazepam [Ativan] 0.5 mg Tablet 0.5 mg PO TID PRN (Reason: Anxiety) Qty: 0 docusate sodium [Colace] 100 mg capsule 100 mg PO BID PRN (Reason: Constipation) baclofen 10 mg tablet 10 mg PO TIDM PRN (Reason: muscle spasms) insulin aspart U-100 [Novolog U-100 Insulin aspart] 100 unit/mL Solution 0 sliding scale dose continuous subcutaneous infusion CONTINOUS Rx Instructions: per pt 100 units a day furosemide 20 mg tablet 20 mg PO QAM Trulicity 4.5 mg/0.5 mL pen injector 4.5 mg SUBCUT WK Rx Instructions: SATURDAYS Jardiance 25 mg tablet 25 mg PO QAM trazodone 50 mg tablet 50 mg PO HS PRN (Reason: Sleep) Discharge Orders: Discharge Order (Routine); Ordered 01/11/24 Ordered By: Kendall Carolina Admission Data Admit Date/Time: 01/08/24 21:21 Attending Provider: Kendall Carolina Admit Provider: Alden Tay Primary Care Provider: Noelle Rob Other Providers: Alden Tay; Darlene Mcarthur
== END 2024-01-11 14:20 | disposition home or self-care (01) | DRG 815 ==
LOC: ED 14:19 → 3N 21:21